=== PATIENT | male | born 1970 | race Hispanic/Latino ===

== ENCOUNTER 2020-12-29 13:14 | Inpatient (IN) | payer SELFPAY ==
[2020-12-29] MEDS ORDERED: SODIUM CHLORIDE 0.9% 1000 ML 1,000 ML IV ONE ×3 (14:12→19:17)
[2020-12-29] MEDS ORDERED: MORPHINE 4 MG/1 ML INJ IV ONE (14:12)
[2020-12-29] MEDS ORDERED: ONDANSETRON 4 MG/2 ML INJ IV ONE (14:12)
--- NOTE | 2020-12-29 14:16 | Emergency Department Report ---
ED Abdominal Pain HPI - General Chief Complaint: Abdominal Pain Stated Complaint: STOMACH PAIN Time Seen by Provider: 12/29/20 13:38 Source: patient Mode of arrival: Wheelchair Limitations: No Limitations - History of Present Illness Initial Comments: 50-year-old male who denies any significant past medical history presents to the ER today with complaints of diffuse abdominal pain and abdominal distention. Patient states that initially he started having pain mainly to the right side of his abdominal area 2 days ago. He states that he took Mylanta which seemed to have helped the pain, but then the pain started back again but this time on the left side. He states that he did rest that day, and it did subside, but he states that since yesterday has been having diffuse abdominal pain which has been severe, he states that his abdomen feels tight and it feels like a pulling pain when he tries to stand up. He has been taking Tylenol as well as Pepto- Bismol without much relief of his pain. Reports diaphoresis but denies any fever or chills. He denies any nausea vomiting. He denies diarrhea. He states that he had a bowel movement today and he has not been feeling constipated. He denies any obvious melena, hematochezia or mucus in his stool. He states that he has been passing lots of gas. He denies any UTI symptoms. He denies any ab dominal surgeries in the past. He denies any alcohol abuse or any illicit drug use. MD Complaint: abdominal pain -: Gradual, days(s) (2) - Related Data Allergies Allergy/AdvReac Type Severity Reaction Status Date / Time No Known Allergies Allergy Verified 12/29/20 13:17 ED Review of Systems ROS: Stated complaint: STOMACH PAIN Other details as noted in HPI Comment: All other systems reviewed and negative Constitutional: denies: chills, fever Eyes: denies: eye pain, eye discharge, vision change ENT: denies: ear pain, throat pain, dental pain, hearing loss, epistaxis, congestion Respiratory: shortness of breath (secondary to pain in abdomen ). denies: cough, wheezing Cardiovascular: denies: chest pain, palpitations, dyspnea on exertion, edema, syncope, paroxysmal nocturnal dyspnea Gastrointestinal: abdominal pain. denies: nausea, vomiting, diarrhea, constipation, hematemesis, melena, hematochezia Genitourinary: denies: urgency, dysuria, frequency, hematuria, discharge, testicular pain, testicular mass Musculoskeletal: denies: back pain, joint swelling, arthralgia Skin: other (diaphoresis). denies: rash, lesions, change in color, change in hair/nails, pruritus Neurological: denies: headache, weakness, numbness, paresthesias, confusion, abnormal gait, vertigo Psychiatric: denies: anxiety, depression, auditory hallucinations, visual hallucinations, homicidal thoughts, suicidal thoughts Hematological/Lymphatic: denies: easy bleeding, easy bruising, swollen glands ED Past Medical Hx - Past Medical History Previous Medical History?: No - Surgical History Past Surgical History?: No ED Physical Exam - General Limitations: No Limitations General appearance: alert, in no apparent distress, obese, other (Patient appears uncomfortable secondary to his pain) - Head Head exam: Present: atraumatic, normocephalic, normal inspection - Eye Eye exam: Present: normal appearance, PERRL, EOMI - Neck Neck exam: Present: normal inspection, full ROM. Absent: meningismus - Respiratory Respiratory exam: Present: normal lung sounds bilaterally. Absent: respiratory distress, wheezes, rales, rhonchi, chest wall tenderness - Cardiovascular Cardiovascular Exam: Present: regular rate, normal rhythm, normal heart sounds - GI/Abdominal GI/Abdominal exam: Present: soft, distended, tenderness (Diffuse abdominal tenderness but more so in the upper abdomen), guarding (upper abdomen ), rigid (Upper abdomen) - Neurological Exam Neurological exam: Present: alert, oriented X3, CN II-XII intact - Psychiatric Psychiatric exam: Present: normal affect, normal mood - Skin Skin exam: Present: other (+diaphoresis ) ED Course Vital Signs 12/29/20 12/29/20 12/29/20 13:19 15:22 15:31 Temperature 98.5 F Pulse Rate 117 H 101 H Respiratory 20 25 H Rate Blood Pressure 155/97 147/88 O2 Sat by Pulse 95 96 99 Oximetry 12/29/20 12/29/20 12/29/20 15:45 16:01 16:15 Temperature Pulse Rate 106 H 101 H 105 H Respiratory 25 H 25 H 23 Rate Blood Pressure 147/88 145/86 145/86 O2 Sat by Pulse 98 99 98 Oximetry ED Medical Decision Making - Lab Data Result diagrams: 12/29/20 15:43 12/29/20 15:43 - EKG Data EKG shows normal: sinus rhythm Rate: tachycardia (117) - EKG Data Interpretation: no acute changes - Radiology Data Radiology results: report reviewed [facility] [address] [place] [address] XRay Report Signed Patient: MARYCHUY DÍAZ MR#: [id number] : 1970 Acct:[id number] Age/Sex: 50 / M ADM Date: 12/29/20 Loc: ED Attending Dr: Ordering Physician: YANET SAGASTUME Date of Service: 12/29/20 Procedure(s): XR chest routine 2V Accession Number(s): [id number] cc: YANET SAGASTUME Fluoro Time In Minutes: CHEST 2 VIEWS INDICATION / CLINICAL INFORMATION: Shortness of breath. COMPARISON: None available. FINDINGS: SUPPORT DEVICES: None. HEART / MEDIASTINUM: No significant abnormality. LUNGS / PLEURA: Bibasilar streaky opacities likely reflect subsegmental atelectasis. ADDITIONAL FINDINGS: No significant additional findings. IMPRESSION: 1. Streaky bibasilar opacities likely indicating subsegmental atelectasis. Signer Name: Dameon Lopez MD Signed: 12/29/2020 3:01 PM Workstation Name: [id number] Transcribed By: PAOLA Dictated By: Dameon Lopez MD Electronically Authenticated By: Dameon Lopez MD Signed Date/Time: 12/29/20 1501 DD/ 1500 TD/TT: Patient: MARYCHUY DÍAZ MR#: [id number] : 1970 Acct:[id number] Age/Sex: 50 / M ADM Date: 12/29/20 Loc: ED Attending Dr: Ordering Physician: YANET SAGASTUME Date of Service: 12/29/20 Procedure(s): CT abdomen pelvis w con Accession Number(s): [id number] cc: YANET SAGASTUME CT ABDOMEN AND PELVIS WITH CONTRAST HISTORY: Severe abd pain/distension. COMPARISON: None. TECHNIQUE: CT images of the abdomen and pelvis were obtained following administration of intravenous contrast. All CT scans at this location are performed using CT dose reduction for ALARA by means of automated exposure control. CONTRAST: 100 ml of intravenous contrast administered. FINDINGS: Lungs/bones: There is mild right basilar atelectasis with otherwise clear lungs. Degenerative changes are present throughout the spine and pelvis with nothing acute. Abdomen/pelvis: There is irregular wall thickening in the mid sigmoid colon consistent with underlying neoplastic process. The cancer appears to have eroded through the wall of the sigmoid colon with small volume free air and free fluid which pools under the right hemidiaphragm. 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 Innumerable metastatic lesions are seen in the liver. The gallbladder, spleen, pancreas, adrenals, and proximal GI tract show no acute or benign. There are simple bilateral renal cysts and a complex cyst versus mass arising from the midpole of the left kidney measuring 3.8 x 3.4 cm on image #116 of series 2. Urinary bladder and prostate are unremarkable with no additional colonic abnormality identified seen except for diverticulosis. IMPRESSION: 1. Mid sigmoid mass suggesting colorectal carcinoma with erosion/bowel perforation as above, adjacent pathologic adenopathy, and innumerable metastatic lesions in the liver. COMMUNICATION: Time of Communication (REVENUE ENFORCEMENT COLLECTION AGENT/CDT): 5:29 pm Licensed Practitioner Receiving Report: Yanet Sagastume Signer Name: Avery Ramires MD Signed: 12/29/2020 6:30 PM Workstation Name: [id number] - Medical Decision Making 1908: All labs reviewed --CBC shows that patient has leukocytosis with a white count of 19.9, is also anemic with a hemoglobin of 9.3 and hematocrit of 30.3; CMP shows a blood sugar of 131, BUN at 27 which related to dehydration, creatinine is normal, and alk phos of 300; lipase is normal; CT abdomen pelvis shows Mid sigmoid mass suggesting colorectal carcinoma with erosion/bowel perforation as above, adjacent pathologic adenopathy, and innumerable metastatic lesions in the liver. Discussed results including CT results with patient and patient denies any known history of colon cancer. He states there is never any issues with his abdomen in the past. He is never had a colonoscopy or endoscopy. Informed patient and given CT findings, he will need to be admitted to the hospital. He is currently resting comfortably. He reports improvement of his pain after IV Dilaudid. He is currently stable. He expressed un derstanding of reason for admission and agrees with plan. Zosyn IV ordered. 1915: Discussed case with general surgeon on-call Dr. Antoine. She recommend admitting to the hospitalist, she states that she will review imaging to see if it something that needs to go to the OR immediately tonight or for something that can wait till in the morning in the meantime recommend continue IV fluids and antibiotics. 1920; discussed case with Dr Sherman, hospitalist on-call for admission Critical care attestation.: If time is entered above; I have spent that time in minutes in the direct care of this critically ill patient, excluding procedure time. ED Disposition Clinical Impression: Bowel perforation, Colorectal carcinoma, Metastases to the liver Disposition: 04 INTERMEDIATE CARE FACILITY Is pt being admited?: Yes Condition: Stable Referrals: PRIMARY CARE, [Primary Care Provider] - 3-5 Days
--- NOTE | 2020-12-29 15:05 | XRay Report ---
CHEST 2 VIEWS INDICATION / CLINICAL INFORMATION: Shortness of breath. COMPARISON: None available. FINDINGS: SUPPORT DEVICES: None. HEART / MEDIASTINUM: No significant abnormality. LUNGS / PLEURA: Bibasilar streaky opacities likely reflect subsegmental atelectasis. ADDITIONAL FINDINGS: No significant additional findings. IMPRESSION: 1. Streaky bibasilar opacities likely indicating subsegmental atelectasis. Signer Name: Dameon Lopez MD Signed: 12/29/2020 3:01 PM Workstation Name: [id number]
[2020-12-29] MEDS ORDERED: HYDROmorphone 1 MG/1 ML INJ IV ONE ×2 (16:18→21:06)
[2020-12-29 16:20] LABS: Hematocrit 30.3 % (35.5-45.6); Hemoglobin 9.3 gm/dl (11.8-15.2); Mean Corpuscular HGB Conc 31 % (32-34); Mean Corpuscular Volume 73 fl (84-94); Platelet Count 315 K/mm3 (140-440); Red Blood Count 4.17 M/mm3 (3.65-5.03); Red Cell Distribution Width 19.3 % (13.2-15.2)
[2020-12-29 16:44] LABS: Alanine Aminotransferase 22 units/L (7-56); Albumin 2.8 g/dL (3.9-5); BUN/Creatinine Ratio 25; Bilirubin,Direct 0.6 mg/dL (0-0.2); Blood Urea Nitrogen 27 mg/dL (9-20); Calcium 9.1 mg/dL (8.4-10.2); Hemolysis Index 2
[2020-12-29] MEDS ORDERED: PIPERACILLIN/TAZOBACTAM 3.375 3.375 GM/50 ML BAG IV ONE (18:33)
--- NOTE | 2020-12-29 18:35 | Cat Scan Report ---
CT ABDOMEN AND PELVIS WITH CONTRAST HISTORY: Severe abd pain/distension. COMPARISON: None. TECHNIQUE: CT images of the abdomen and pelvis were obtained following administration of intravenous contrast. All CT scans at this location are performed using CT dose reduction for ALARA by means of automated exposure control. CONTRAST: 100 ml of intravenous contrast administered. FINDINGS: Lungs/bones: There is mild right basilar atelectasis with otherwise clear lungs. Degenerative change s are present throughout the spine and pelvis with nothing acute. Abdomen/pelvis: There is irregular wall thickening in the mid sigmoid colon consistent with underlyi ng neoplastic process. The cancer appears to have eroded through the wall of the sigmoid colon with s mall volume free air and free fluid which pools under the right hemidiaphragm. 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 Innumerable metastatic lesions are seen in the liver. The gallbladder, spleen, pancreas, adrenals, and proximal GI tract show no acute or benign. There are simple bilateral renal cysts and a complex cyst versus mass arising from the midpole of the left kid kathy measuring 3.8 x 3.4 cm on image #116 of series 2. Urinary bladder and prostate are unremarkable with no additional colonic abnormality identified seen except for diverticulosis. IMPRESSION: 1. Mid sigmoid mass suggesting colorectal carcinoma with erosion/bowel perforation as above, adjacent pathologic adenopathy, and innumerable metastatic lesions in the liver. COMMUNICATION: Time of Communication (COKE DRAWER HAND/CDT): 5:29 pm Licensed Practitioner Receiving Report: Yanet Hutchins Signer Name: Avery Ramires MD Signed: 12/29/2020 6:30 PM Workstation Name: [id number]
[2020-12-29 18:38] LABS: Anisocytosis RARE; Hypochromasia 1+; Total Cells Counted 100
[2020-12-29] MEDS ORDERED: MORPHINE 2 MG/1 ML INJ IV PRN (21:04)
[2020-12-29] MEDS ORDERED: ACETAMINOPHEN 325 MG TAB PO PRN (21:04)
[2020-12-29] MEDS ORDERED: METOCLOPRAMIDE 10 MG/2 ML INJ IV PRN (21:04)
[2020-12-29] MEDS ORDERED: LIDOCAINE MPF (2%) 20 MG/1 ML VIAL 5 ML ONE (21:07)
[2020-12-29] MEDS ORDERED: propofoL 200 MG/20 ML VIAL IV ONE (21:07)
--- NOTE | 2020-12-29 21:08 | Anesthesia Consultation ---
Anesthesia Consult and Med Hx Date of service: 12/29/20 - Airway Anesthetic Teeth Evaluation: Poor (multiple missing, lower right premolar loose) ROM Head & Neck: Adequate Mental/Hyoid Distance: Adequate Mallampati Class: Class III Intubation Access Assessment: Possibly Difficult - Pre-Operative Health Status ASA Pre-Surgery Classification: ASA3, Emergency Proposed Anesthetic Plan: General - Pulmonary Hx Smoking: Yes (former smoker) - Cardiovascular System Hx Hypertension: No - Central Nervous System CVA: No - Endocrine Hx Renal Disease: No Hx Liver Disease: Yes (liver mets likely from colon mass) Hx Insulin Dependent Diabetes: No Hx Non-Insulin Dependent Diabetes: No Hx Thyroid Disease: No - Hematic Hx Anemia: Yes - Other Systems Hx Cancer: Yes (erosive colon mass concerning with cancer w/ metastasis) Hx Obesity: Yes - Additional Comments Anesthesia Medical History Comments: Presented with abdominal pain and found to have sigmoid mass with bowel perforation and liver mets now scheduled for emergent ex-lap w/ bowel resection. Denies previous medical history. Tachycardic, normotensive, labs significant for anemia. Plan GETA. Blood products on stand by.
[2020-12-29] MEDS ORDERED: SUCCINYLCHOLINE CHLORIDE 200 MG/10 ML INJ MDV ONE (21:09)
[2020-12-29] MEDS ORDERED: ROCURONIUM 50 MG/5 ML INJ IV ONE ×2 (21:09→23:33)
--- NOTE | 2020-12-29 21:09 | Anesthesia Day of Surgery ---
Anesthesia Day of Surgery - Day of Surgery Patient Examined: Yes Patient H&P Reviewed: Yes Patient is NPO: Yes
--- NOTE | 2020-12-29 21:15 | Consultation ---
History of Present Illness Consult date: 12/29/20 Reason for consult: abdominal pain Chief complaint: abdominal pain - History of present illness History of present illness: 50 yo obese male who presents to ER with 2 days of worsening abdominal pain. Mendel n is sharp and started off in the right side of the abdomen and then became diffuse. The pain is now severe. Moving exacerbates the pain. No alleviating factors. He felt he may have had some bad turkey that started the symptoms. Intermittent nausea and vomiting. He states his BMs have been black for the last few days and he feels the caliber of his stool has changed. He has never had a colonoscopy. No f/c. No cp. + SOB 2/2/ abdominal pain. He has never had pain like this before. Past History Past Medical History: No medical history Past Surgical History: Other (b/l knee surgery) Social history: no significant social history, lives with family Family history: no significant family history Medications and Allergies Allergies Allergy/AdvReac Type Severity Reaction Status Date / Time No Known Allergies Allergy Verified 12/29/20 13:17 Active Meds: Active Medications Acetaminophen (Acetaminophen 325 Mg Tab) 650 mg PO Q4H PRN PRN Reason: Pain MILD(1-3)/Fever >100.5/SHARMA Hydromorphone HCl (Hydromorphone 1 Mg/1 Ml Inj) 1 mg IV ONCE ONE Stop: 12/29/20 21:07 Hydromorphone HCl (Hydromorphone 1 Mg/1 Ml Inj) 1 mg IV Q3H PRN PRN Reason: Pain , Severe (7-10) Sodium Chloride (Nacl 0.9% 1000 Ml) 1,000 mls @ 125 mls/hr IV ONCE ONE Stop: 12/30/20 03:16 Last Admin: 12/29/20 20:18 Dose: 125 mls/hr Documented by: Dextrose/Sodium Chloride (D5ns) 1,000 mls @ 100 mls/hr IV DIRECT JESSICA Metoclopramide HCl (Metoclopramide 10 Mg/2 Ml Inj) 10 mg IV Q6H PRN PRN Reason: Nausea And Vomiting Morphine Sulfate (Morphine 2 Mg/1 Ml Inj) 2 mg IV Q4H PRN PRN Reason: Pain, Moderate (4-6) Ondansetron HCl (Ondansetron 4 Mg/2 Ml Inj) 4 mg IV Q3H PRN PRN Reason: Nausea And Vomiting Sodium Chloride (Sodium Chloride 0.9% 10 Ml Flush Syringe) 10 ml IV BID JESSICA Sodium Chloride (Sodium Chloride 0.9% 10 Ml Flush Syringe) 10 ml IV PRN PRN PRN Reason: LINE FLUSH Review of Systems All systems: negative (10 pt ROS performed and negative except for that listed in HPI) Exam Vital Signs Temp Pulse Resp BP Pulse Ox 98.5 F 117 H 20 155/97 95 12/29/20 13:19 12/29/20 13:19 12/29/20 13:19 12/29/20 13:19 12/29/20 13:19 Narrative exam: Gen; AAOx3. moderate distress due to pain, diaphoretic ENT: no scleral icterus or conjunctival pallor CV: s1, S2+ Tachy Resp: even and slightly labored (due to pain) Abd: soft, obese, mildly distended, diffuse TTP with rigidity in upper abdomen and involuntary guarding Ext: no c/c/e Results - Labs 12/29/20 15:43 12/29/20 15:43 Abnormal lab results 12/29/20 12/29/20 12/29/20 Range/Units 15:43 15:43 20:38 WBC 19.9 H (4.5-11.0) K/mm3 Hgb 9.3 L (11.8-15.2) gm/dl Hct 30.3 L (35.5-45.6) % MCV 73 L (84-94) fl MCH 22 L (28-32) pg MCHC 31 L (32-34) % RDW 19.3 H (13.2-15.2) % Seg Neuts % (Manual) 85.0 H (40.0-70.0) % Lymphocytes % (Manual) 8.0 L (13.4-35.0) % Seg Neutrophils # Man 16.9 H (1.8-7.7) K/mm3 Monocytes # (Manual) 1.4 H (0.0-0.8) K/mm3 BUN 27 H (9-20) mg/dL Glucose 131 H (75-100) mg/dL Direct Bilirubin 0.6 H (0-0.2) mg/dL Alkaline Phosphatase 305 H (35-129) units/L Albumin 2.8 L (3.9-5) g/dL Lipase 7 L (13-60) units/L Crossmatch See Detail Diabetes panel 12/29/20 Range/Units 15:43 Sodium 137 (137-145) mmol/L Potassium 4.8 (3.6-5.0) mmol/L Chloride 100.7 (98-107) mmol/L Carbon Dioxide 25 (22-30) mmol/L BUN 27 H (9-20) mg/dL Creatinine 1.1 (0.8-1.3) mg/dL Glucose 131 H (75-100) mg/dL Calcium 9.1 (8.4-10.2) mg/dL AST 33 (5-40) units/L ALT 22 (7-56) units/L Alkaline Phosphatase 305 H (35-129) units/L Total Protein 6.7 (6.3-8.2) g/dL Albumin 2.8 L (3.9-5) g/dL Calcium panel 12/29/20 Range/Units 15:43 Calcium 9.1 (8.4-10.2) mg/dL Albumin 2.8 L (3.9-5) g/dL Pituitary panel 12/29/20 Range/Units 15:43 Sodium 137 (137-145) mmol/L Potassium 4.8 (3.6-5.0) mmol/L Chloride 100.7 (98-107) mmol/L Carbon Dioxide 25 (22-30) mmol/L BUN 27 H (9-20) mg/dL Creatinine 1.1 (0.8-1.3) mg/dL Glucose 131 H (75-100) mg/dL Calcium 9.1 (8.4-10.2) mg/dL Adrenal panel 12/29/20 Range/Units 15:43 Sodium 137 (137-145) mmol/L Potassium 4.8 (3.6-5.0) mmol/L Chloride 100.7 (98-107) mmol/L Carbon Dioxide 25 (22-30) mmol/L BUN 27 H (9-20) mg/dL Creatinine 1.1 (0.8-1.3) mg/dL Glucose 131 H (75-100) mg/dL Calcium 9.1 (8.4-10.2) mg/dL Total Bilirubin 1.00 (0.1-1.2) mg/dL AST 33 (5-40) units/L ALT 22 (7-56) units/L Alkaline Phosphatase 305 H (35-129) units/L Total Protein 6.7 (6.3-8.2) g/dL Albumin 2.8 L (3.9-5) g/dL - Imaging Chest x-ray: report reviewed, image reviewed CT scan - abdomen: report reviewed, image reviewed CT scan - pelvis: report reviewed, image reviewed Assessment and Plan 50 yo M with 1. perforated sigmoid mass, likely neoplasm 2. peritonitis 2/2 #1 3. sepsis 2/2 #1/2 4. liver masses likely mets 5. obesity Plan: 1. Admit to hospitalist service 2. IVF 3. IV abx - given zosyn in ER 4. strict NPO 5. DVT ppx 6. GI ppx 7. prn pain and nausea control 8. onc c/s 9. type and screen performed - blood consent obtained 10. repeat am labs 11. CEA obtained 12. Recommend OR for exlap, bowel resection, ostomy creation. Discussed with patient in detail. Risks, benefits, alternatives discussed and questions answered. Consent obtained. Patient spoke with his already and has given permission to update her after surgery. Will proceed to OR emergently. Thank you, please call with questions.
[2020-12-29] MEDS ORDERED: LACTATED RINGERS 1,000 ML ONE ×2 (21:49→23:42)
--- NOTE | 2020-12-29 22:31 | History and Physical Report ---
History of Present Illness Date of examination: 12/29/20 Date of admission: 12/29/2020 Chief complaint: Diffuse abdominal pain for 2 days History of present illness: 50-year-old male with no significant past medical history comes in for close abdominal pain and abdominal. Pain started about 2 days ago. Patient took some Mylanta with no relief. Pain and abdominal distention became worse over the last 48 hours. Since yesterday the pain has been diffuse over the abdomen and abdomen feels tight. Pain is about 8 on a scale of 1-10. No diaphoresis no radiation. Patient states he had a bowel movement today and also that he does not feel constipated. He has been passing a lot of gas. Past History Past Medical History: No medical history Past Surgical History: Other (b/l knee surgery) Social history: no significant social history, lives with family Family history: no significant family history Review of Systems ROS: Stated complaint: STOMACH PAIN Other details as noted in HPI Comment: All other systems reviewed and negative Constitutional: denies: chills, fever Eyes: denies: eye pain, eye discharge, vision change ENT: denies: ear pain, throat pain, dental pain, hearing loss, epistaxis, congestion Respiratory: shortness of breath (secondary to pain in abdomen ). denies: cough, wheezing Cardiovascular: denies: chest pain, palpitations, dyspnea on exertion, edema, syncope, paroxysmal nocturnal dyspnea Gastrointestinal: abdominal pain. denies: nausea, vomiting, diarrhea, constipation, hematemesis, melena, hematochezia Genitourinary: denies: urgency, dysuria, frequency, hematuria, discharge, testicular pain, testicular mass Musculoskeletal: denies: back pain, joint swelling, arthralgia Skin: other (diaphoresis). denies: rash, lesions, change in color, change in hair/nails, pruritus Neurological: denies: headache, weakness, numbness, paresthesias, confusion, abnormal gait, vertigo Psychiatric: denies: anxiety, depression, auditory hallucinations, visual hallucinations, homicidal thoughts, suicidal thoughts Hematological/Lymphatic: denies: easy bleeding, easy bruising, swollen glands Past History Past Medical History: No medical history Past Surgical History: Other (b/l knee surgery) Social history: no significant social history, lives with family Family history: no significant family history Medications and Allergies Allergies Allergy/AdvReac Type Severity Reaction Status Date / Time No Known Allergies Allergy Verified 12/29/20 13:17 Active Meds: Active Medications Acetaminophen (Acetaminophen 325 Mg Tab) 650 mg PO Q4H PRN PRN Reason: Pain MILD(1-3)/Fever >100.5/SHARMA Hydromorphone HCl (Hydromorphone 1 Mg/1 Ml Inj) 1 mg IV Q3H PRN PRN Reason: Pain , Severe (7-10) Sodium Chloride (Nacl 0.9% 1000 Ml) 1,000 mls @ 125 mls/hr IV ONCE ONE Stop: 12/30/20 03:16 Last Admin: 12/29/20 20:18 Dose: 125 mls/hr Documented by: Dextrose/Sodium Chloride (D5ns) 1,000 mls @ 100 mls/hr IV DIRECT JESSICA Piperacillin Sod/Tazobactam Sod (Zosyn/Ns 4.5gm/100ml) 4.5 gm in 100 mls @ 200 mls/hr IV Q8HR JESSICA; Protocol Metoclopramide HCl (Metoclopramide 10 Mg/2 Ml Inj) 10 mg IV Q6H PRN PRN Reason: Nausea And Vomiting Morphine Sulfate (Morphine 2 Mg/1 Ml Inj) 2 mg IV Q4H PRN PRN Reason: Pain, Moderate (4-6) Ondansetron HCl (Ondansetron 4 Mg/2 Ml Inj) 4 mg IV Q3H PRN PRN Reason: Nausea And Vomiting Sodium Chloride (Sodium Chloride 0.9% 10 Ml Flush Syringe) 10 ml IV BID JESSICA Sodium Chloride (Sodium Chloride 0.9% 10 Ml Flush Syringe) 10 ml IV PRN PRN PRN Reason: LINE FLUSH Exam - Constitutional Vitals: Temp Pulse Resp BP Pulse Ox 98.5 F 105 H 23 145/86 98 12/29/20 13:19 12/29/20 16:15 12/29/20 16:15 12/29/20 16:15 12/29/20 16:15 General appearance: Present: severe distress, well-nourished - EENT Eyes: Present: PERRL ENT: hearing intact, clear oral mucosa - Neck Neck: Present: supple, normal ROM - Respiratory Respiratory effort: normal Respiratory: bilateral: CTA - Cardiovascular Heart rate: 98 Rhythm: regular Heart Sounds: Present: S1 & S2. Absent: rub, click - Extremities Extremities: pulses symmetrical, No edema Peripheral Pulses: within normal limits - Abdominal General gastrointestinal: Present: tender, distended, normal bowel sounds, hypoactive bowel sounds Localized gastrointestinal: tender: diffuse, guarding: diffuse, rebound: diffuse Male genitourinary: Present: normal - Rectal Rectal Exam: stool brown (Occult blood negative) - Integumentary Integumentary: Present: clear, warm, dry - Musculoskeletal Musculoskeletal: gait normal, strength equal bilaterally - Psychiatric Psychiatric: appropriate mood/affect, intact judgment & insight - Neurologic Neurologic: CNII-XII intact, moves all extremities Results - Labs CBC & Chem 7: 12/29/20 15:43 12/29/20 15:43 Labs: Laboratory Last Values WBC 19.9 K/mm3 (4.5-11.0) H 12/29/20 15:43 RBC 4.17 M/mm3 (3.65-5.03) 12/29/20 15:43 Hgb 9.3 gm/dl (11.8-15.2) L 12/29/20 15:43 Hct 30.3 % (35.5-45.6) L 12/29/20 15:43 MCV 73 fl (84-94) L 12/29/20 15:43 MCH 22 pg (28-32) L 12/29/20 15:43 MCHC 31 % (32-34) L 12/29/20 15:43 RDW 19.3 % (13.2-15.2) H 12/29/20 15:43 Plt Count 315 K/mm3 (140-440) 12/29/20 15:43 Add Manual Diff Complete 12/29/20 15:43 Total Counted 100 12/29/20 15:43 Seg Neutrophils % Intelligence Agent 12/29/20 15:43 Seg Neuts % (Manual) 85.0 % (40.0-70.0) H 12/29/20 15:43 Lymphocytes % (Manual) 8.0 % (13.4-35.0) L 12/29/20 15:43 Monocytes % (Manual) 7.0 % (0.0-7.3) 12/29/20 15:43 Nucleated RBC % Not Reportable 12/29/20 15:43 Seg Neutrophils # Man 16.9 K/mm3 (1.8-7.7) H 12/29/20 15:43 Band Neutrophils # 0.0 K/mm3 12/29/20 15:43 Lymphocytes # (Manual) 1.6 K/mm3 (1.2-5.4) 12/29/20 15:43 Abs React Lymphs (Man) 0.0 K/mm3 12/29/20 15:43 Monocytes # (Manual) 1.4 K/mm3 (0.0-0.8) H 12/29/20 15:43 Eosinophils # (Manual) 0.0 K/mm3 (0.0-0.4) 12/29/20 15:43 Basophils # (Manual) 0.0 K/mm3 (0.0-0.1) 12/29/20 15:43 Metamyelocytes # 0.0 K/mm3 12/29/20 15:43 Myelocytes # 0.0 K/mm3 12/29/20 15:43 Promyelocytes # 0.0 K/mm3 12/29/20 15:43 Blast Cells # 0.0 K/mm3 12/29/20 15:43 WBC Morphology Not Reportable 12/29/20 15:43 Hypersegmented Neuts Not Reportable 12/29/20 15:43 Hyposegmented Neuts Not Reportable 12/29/20 15:43 Hypogranular Neuts Not Reportable 12/29/20 15:43 Smudge Cells Not Reportable 12/29/20 15:43 Toxic Granulation Not Reportable 12/29/20 15:43 Toxic Vacuolation Not Reportable 12/29/20 15:43 Dohle Bodies Not Reportable 12/29/20 15:43 Pelger-Huet Anomaly Not Reportable 12/29/20 15:43 Janene Rods Not Reportable 12/29/20 15:43 Platelet Estimate Not Reportable 12/29/20 15:43 Clumped Platelets Not Reportable 12/29/20 15:43 Plt Clumps, EDTA Not Reportable 12/29/20 15:43 Large Platelets Not Reportable 12/29/20 15:43 Giant Platelets Not Reportable 12/29/20 15:43 Platelet Satelliting Not Reportable 12/29/20 15:43 Plt Morphology Comment Not Reportable 12/29/20 15:43 RBC Morphology Not Reportable 12/29/20 15:43 Dimorphic RBCs Not Reportable 12/29/20 15:43 Polychromasia Not Reportable 12/29/20 15:43 Hypochromasia 1+ 12/29/20 15:43 Poikilocytosis Not Reportable 12/29/20 15:43 Anisocytosis Rare 12/29/20 15:43 Microcytosis Rare 12/29/20 15:43 Macrocytosis Not Reportable 12/29/20 15:43 Spherocytes Not Reportable 12/29/20 15:43 Pappenheimer Bodies Not Reportable 12/29/20 15:43 Sickle Cells Not Reportable 12/29/20 15:43 Target Cells Not Reportable 12/29/20 15:43 Tear Drop Cells Not Reportable 12/29/20 15:43 Ovalocytes Not Reportable 12/29/20 15:43 Helmet Cells Not Reportable 12/29/20 15:43 [place] Bodies Not Reportable 12/29/20 15:43 [place] Rings Not Reportable 12/29/20 15:43 [place] Cells Not Reportable 12/29/20 15:43 Bite Cells Not Reportable 12/29/20 15:43 Crenated Cell Not Reportable 12/29/20 15:43 Elliptocytes Not Reportable 12/29/20 15:43 Acanthocytes (Spur) Not Reportable 12/29/20 15:43 Rouleaux Not Reportable 12/29/20 15:43 Hemoglobin C Crystals Not Reportable 12/29/20 15:43 Schistocytes Not Reportable 12/29/20 15:43 Malaria parasites Not Reportable 12/29/20 15:43 Atul Bodies Not Reportable 12/29/20 15:43 Hem Pathologist Commnt No 12/29/20 15:43 Sodium 137 mmol/L (137-145) 12/29/20 15:43 Potassium 4.8 mmol/L (3.6-5.0) 12/29/20 15:43 Chloride 100.7 mmol/L (98-107) 12/29/20 15:43 Carbon Dioxide 25 mmol/L (22-30) 12/29/20 15:43 Anion Gap 16 mmol/L 12/29/20 15:43 BUN 27 mg/dL (9-20) H 12/29/20 15:43 Creatinine 1.1 mg/dL (0.8-1.3) 12/29/20 15:43 Estimated GFR > 60 ml/min 12/29/20 15:43 BUN/Creatinine Ratio 25 % 12/29/20 15:43 Glucose 131 mg/dL (75-100) H 12/29/20 15:43 Calcium 9.1 mg/dL (8.4-10.2) 12/29/20 15:43 Total Bilirubin 1.00 mg/dL (0.1-1.2) 12/29/20 15:43 Direct Bilirubin 0.6 mg/dL (0-0.2) H 12/29/20 15:43 Indirect Bilirubin 0.4 mg/dL 12/29/20 15:43 AST 33 units/L (5-40) 12/29/20 15:43 ALT 22 units/L (7-56) 12/29/20 15:43 Alkaline Phosphatase 305 units/L (35-129) H 12/29/20 15:43 Total Protein 6.7 g/dL (6.3-8.2) 12/29/20 15:43 Albumin 2.8 g/dL (3.9-5) L 12/29/20 15:43 Albumin/Globulin Ratio 0.7 % 12/29/20 15:43 Lipase 7 units/L (13-60) L 12/29/20 15:43 Blood Type A POSITIVE 12/29/20 20:38 Antibody Screen Negative 12/29/20 20:38 Crossmatch See Detail 12/29/20 20:38 Microbiology: Microbiology 12/29/20 19:37 Peripheral/Venous Blood Culture - Preliminary Culture in Progress 12/29/20 19:37 Peripheral/Venous Blood Culture - Preliminary Culture in Progress - Imaging and Cardiology CT scan - abdomen: report reviewed Imaging and Cardiology: Abdominal CAT scan Mid sigmoid mass suggesting colorectal carcinoma with erosion/bowel perforation as above adjacent pathologic adenopathy and innumerable metastatic lesions in the liver Assessment and Plan Advance Directives: Yes (Full code) VTE prophylaxis?: Chemical Plan of care discussed with patient/family: Yes - Patient Problems (1) Sepsis Current Visit: Yes Status: Acute Plan to address problem: Sepsis in the setting of high white count and bowel perforation -- Patient initiated on IV Zosyn (2) Bowel perforation Current Visit: Yes Status: Acute Plan to address problem: Patient being taken for emergent surgery and closure of perforation Discussed with Dr. Antoine (3) Colorectal carcinoma Current Visit: Yes Status: Acute Plan to address problem: Patient never had colonoscopy 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 Referred to hematology oncology as outpatient--probably Dr. Aburto (4) Metastases to the liver Current Visit: Yes Status: Acute Plan to address problem: Poor prognosis Referral to oncology as outpatient for chemotherapy/XRT (5) Malnutrition Current Visit: Yes Status: Chronic Qualifiers: Protein-calorie malnutrition severity: moderate Plan to address problem: Dietary supplements and dietitian consult (6) Anemia Current Visit: Yes Status: Chronic Qualifiers: Anemia type: unspecified type Qualified Code(s): D64.9 - Anemia, unspecified Plan to address problem: Anemia work-up (7) DVT prophylaxis Current Visit: Yes Status: Acute Plan to address problem: On SCDs and GI prophylaxis
[2020-12-29] MEDS ORDERED: ONDANSETRON 4 MG/2 ML INJ IV PRN (22:34)
[2020-12-29] MEDS ORDERED: SODIUM CHLORIDE 0.9% IRR 1,500 ML BOTTLE IR ONE ×2 (22:59)
[2020-12-29] MEDS ORDERED: SODIUM CHLORIDE 0.9% 1000 ML 1,000 ML ONE (23:10)
[2020-12-30] MEDS ORDERED: LACTATED RINGERS 1,000 ML ONE (00:34)
[2020-12-30] MEDS ORDERED: GLYCOPYRROLATE 0.4 MG/2 ML INJ ONE (01:30)
[2020-12-30] MEDS ORDERED: NEOSTIGMINE 10MG/10 ML INJ MDV ONE (01:30)
[2020-12-30] MEDS ORDERED: SODIUM CHLORIDE 0.9% 1000 ML 1,000 ML ONE (01:33)
[2020-12-30] MEDS ORDERED: ONDANSETRON 4 MG/2 ML INJ ONE (01:39)
--- NOTE | 2020-12-30 01:42 | Post Operative Note ---
Date of procedure: 12/30/20 Pre-op diagnosis: perforated sigmoid colon mass, peritonitis Post-op diagnosis: same Findings: 1. 8 cm perforated sigmoid colon mass 2. Bulky mesenteric lymphadenopathy associated with mass which could not be from retroperitoneum 3. Gross mets to entirety of liver 4. Purulent peritonitis IVF: 4500cc UO: 125cc Procedure: exploratory laparotomy, sigmoidectomy, end colostomy, peritoneal lavage Anesthesia: GETA Surgeon: DEVORA DUMONT Key Entry Operator: MANASA BARCLAY Estimated blood loss: 50-100ml Pathology: list (sigmoid colon, wound cultures) Specimen disposition: to lab Condition: stable Disposition: PACU
[2020-12-30] MEDS ORDERED: MORPHINE 2 MG/1 ML INJ IV PRN (01:46)
[2020-12-30] MEDS ORDERED: SUGAMMADEX SODIUM 200 MG/2 ML VIAL IV ONE (02:16)
[2020-12-30] MEDS: HYDROmorphone 1 MG/1 ML INJ IV PRN ×3 (02:24→23:44)
[2020-12-30] MEDS: D5W/0.9% NACL 1,000 ML IV SCH ×2 (03:47→21:37)
[2020-12-30] MEDS: PIPERACIL/TAZOBACTA 4.5/NS 100 4.5 GM/100 ML VIAL IV SCH ×4 (05:40→21:37)
[2020-12-30 05:57] LABS: Hematocrit 32.4 % (35.5-45.6); Mean Corpuscular HGB Conc 31 % (32-34); Mean Corpuscular Volume 74 fl (84-94); Platelet Count 345 K/mm3 (140-440); Red Blood Count 4.39 M/mm3 (3.65-5.03); Red Cell Distribution Width 19.8 % (13.2-15.2)
[2020-12-30] MEDS ORDERED: KETOROLAC 30 MG/1 ML INJ IV SCH (06:00)
[2020-12-30 06:22] LABS: Albumin 2.6 g/dL (3.9-5); Calcium 8.6 mg/dL (8.4-10.2)
[2020-12-30] MEDS: HEPARIN 5,000 UNIT/1 ML VIAL SUB-Q SCH ×3 (06:38→21:37)
--- NOTE | 2020-12-30 10:14 | Operative Report ---
Operative Report Operative Report: Date: 12/30/20 01:39 Date of procedure: 12/30/20 Pre-op diagnosis: perforated sigmoid colon mass, peritonitis Post-op diagnosis: same Findings: 1. 8 cm perforated sigmoid colon mass 2. Bulky mesenteric lymphadenopathy associated with mass which could not be from retroperitoneum 3. Gross mets to entirety of liver 4. Purulent peritonitis IVF: 4500cc UO: 125cc Procedure: exploratory laparotomy, sigmoidectomy, end colostomy, peritoneal lavage Anesthesia: GETA Surgeon: DEVORA DUMONT [employer] Attorney: MANASA BARCLAY Estimated blood loss: 50-100ml Pathology: list (sigmoid colon, peritoneal fluid cultures) Specimen disposition: to lab Condition: stable Disposition: PACU HPI indication: Patient is a 59-year-old male with a history of obesity who presented to the emergency room with 2 days of worsening, severe, diffuse abdominal pain. Patient found to have sigmoid mass with likely perforation and free intraperitoneal fluid. On exam, patient was peritoneal and tachycardic on exam with leukocytosis. It was recommended that the patient undergo emergency exploratory laparotomy with likely colon resection and colostomy creation. All risks, benefits, alternatives to surgery were discussed and questions answered. Consent obtained. Patient was given IV fluids and Zosyn in the emergency room. Procedure in detail: Patient identified in the ER and brought back to the OR and placed on the OR table in supine position. After anesthesia was induced a Santiago catheter was sterilely placed by the circulating nurse. The abdomen was then prepped and draped in usual sterile fashion and a timeout performed. A midline incision was made using a 10 blade and carried around the right side of the umbilicus and towards the pubis. Dissection was carried down through the subcutaneous tissues electrocautery until the fascia was encountered. The fascia was scored and then grasped using hemostats and tented upwards. The peritoneum was entered bluntly. The fascia was then opened in a cephalad and caudad direction over 2 gloved fingers using electrocautery. Immediately visible was purulent drainage from inside the abdomen mixed with enteric fluid. Peritoneal fluid cultures were obtained. >1L of fluid was aspirated from the abdomen. The omentum was retracted over the liver. It appeared inflamed but without gross disease. The small bowel was ran proximal to distal. The distal small bowel was involved with inflammatory adhesions and appeared decompressed with proximal small bowel mildly dilated and fluid filled. Due to patient's body habitus, visualization was challenging. The small bowel was retracted using wet lap pads and jamaal retractor. The sigmoid colon was palpated and extended into the right lower quadrant. It was very firm and inflammatory adhesions were bluntly dissected. Upon further inspection a malignant appearing mass was identified and had perforated into the abdominal wall. The mass was from the abdominal wall using a right angle clamp and cautery. The mesentery associated with the mass was shortened, thickened, and contained a mass of enlarged lymph nodes which was densely adhered to the retroperitoneum. The lateral aspect of the proximal sigmoid colon was dissected along the white line of toldt in the usual fashion. It was decided to transect the colon proximally. Approximately 10cm proximal to the mass a window was created in the mesentery and the colon transected using a YOANNA 75 mm blue load stapler. The mesentery was ligated using the enseal and carried down past the mass and towards the rectum. The distal sigmoid was cleared of fatty tissue and the colon was transected at the rectosigmoid junction using a blue load contour stapler. The colon was passed of the table as a specimen. The mass of lymph nodes could not be from the retroperitoneum and was left in situ. The proximal sigmoid colon was further mobilized in order to bring up a colostomy. The remainder of the colon was examined and appeared unremarkable. The liver was examined and was abnormal with was appeared to be consistent with metastatic disease. At this point a thorough peritoneal lavage was performed with >3 L of warm saline until the irrigant returned clear. The surgical bed was checked for hemostasis which was carefully ensured. A site for the colostomy was marked in the left mid abdomen. A circular incision was made in the skin and carried down through the subcutaneous tissue. The cutaneous tissue was cored out and transected at the level of the fascia. A cruciate incision was made in the fascia until muscle was encountered. The muscle spread in the direction of its fibers and the peritoneum was opened using electrocautery over 2 gloved fingers. 3 fingers fit comfortably through the opening and the colostomy was brought through. There was no twisting or tension. A 19 F adrian drain was brought out through a stab incision in the right mid abdomen and positioned in the pelvis. This was sutured to the skin using a 2-0 nylon drain stitch and assembled in the usual fashion. The small bowel and omentum were placed back in anatomic position. The fascia was then closed using #1 looped PDS x2 without tension. The subcutaneous tissue was irrigated and hemostasis ensured. The skin was approximated using skin davi. The incision was packed in between the davi using Betadine soaked Telfa jerri. The incision was covered with a blue towel and we proceeded to mature the ostomy. The distal part of the colon along with the staple line was removed using curved Thornton scissors. The ostomy appeared pink and mucosa viable. The ostomy was first anchored to the fascia using 2-0 vicryl stitches and then matured in the usual fashion with 2-0 vicryl interrupted stitches. The ostomy laid just above the skin without tension or retraction. The skin was cleansed and mastisol applied. An ostomy appliance was fitted to the site and applied. A drain sponge was applied to the drain site and secured with tegaderm. 4x4 gauze, abd pads was applied to the midline and secured with medipore tape. At the end of the case, all sponge, instrument, sharp counts were correct x2. The patient was awoken from anesthesia extubated and taken to PACU in stable condition. The patient's was updated
--- NOTE | 2020-12-30 10:35 | Electrocardiograph Report ---
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
--- NOTE | 2020-12-30 10:58 | Progress Note ---
Assessment and Plan Assessment and plan: 50-year-old male patient with perforated sigmoid mass likely neoplasm, status post exploratory laparotomy,, sigmoidectomy, end colostomy,, peritoneal lavage. Postoperative day 1 --perforated sigmoid mass --s/p exploratory laparotomy/sigmoidectomy/colostomy/peritoneal lavage Complains of some pain, wants some ice chips Continue n.p.o. 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 Aburto --Metastases to the liver Current Visit: Yes Status: Acute Poor prognosis Referral to oncology as outpatient for chemotherapy/XRT --Severe malnutrition/hypoproteinemia Current Visit: Yes Status: Chronic Dietary supplements and dietitian consult --Anemia Current Visit: Yes Status: Chronic Anemia work-up --obesity; BMI 38.7 Current Visit: Yes Status: Chronic Patient needs weight reduction when medically stable --DVT prophylaxis Current Visit: Yes Status: Acute On SCDs , patient postop state Closely monitor the patient and adjust management as needed Consultants recommendations noted and appreciated Plan of care reviewed with the patient and his nurse 12/30/2020; status post surgical procedure POD 1 Continue postop care, surgery following History Interval history: I have seen and examined the patient at the bedside Patient's chart and medications reviewed Patient feels slightly better, some pain in the abdomen Asking for some ice chips Vital signs noted Hospitalist Physical - Constitutional Vitals: Temp Pulse Resp BP Pulse Ox 97.8 F 118 H 18 136/88 95 12/30/20 08:01 12/30/20 08:01 12/30/20 08:01 12/30/20 08:01 12/30/20 08:01 General appearance: Present: mild distress, well-nourished, obese - Neck Neck: Present: supple, normal ROM - Respiratory Respiratory effort: normal Respiratory: bilateral: diminished, negative: rales, rhonchi, wheezing - Cardiovascular Rhythm: regular Heart Sounds: Present: S1 & S2 - Extremities Extremities: no ischemia, No edema - Abdominal General gastrointestinal: soft Results - Labs CBC & Chem 7: 12/30/20 05:13 12/30/20 05:13 Labs: Laboratory Last Values WBC 22.4 K/mm3 (4.5-11.0) H 12/30/20 05:13 RBC 4.39 M/mm3 (3.65-5.03) 12/30/20 05:13 Hgb 10.0 gm/dl (11.8-15.2) L 12/30/20 05:13 Hct 32.4 % (35.5-45.6) L 12/30/20 05:13 MCV 74 fl (84-94) L 12/30/20 05:13 MCH 23 pg (28-32) L 12/30/20 05:13 MCHC 31 % (32-34) L 12/30/20 05:13 RDW 19.8 % (13.2-15.2) H 12/30/20 05:13 Plt Count 345 K/mm3 (140-440) 12/30/20 05:13 Add Manual Diff Complete 12/29/20 15:43 Total Counted 100 12/29/20 15:43 Seg Neutrophils % Parent Aide 12/30/20 05:13 Seg Neuts % (Manual) 85.0 % (40.0-70.0) H 12/29/20 15:43 Lymphocytes % (Manual) 8.0 % (13.4-35.0) L 12/29/20 15:43 Monocytes % (Manual) 7.0 % (0.0-7.3) 12/29/20 15:43 Nucleated RBC % Not Reportable 12/29/20 15:43 Seg Neutrophils # Man 16.9 K/mm3 (1.8-7.7) H 12/29/20 15:43 Band Neutrophils # 0.0 K/mm3 12/29/20 15:43 Lymphocytes # (Manual) 1.6 K/mm3 (1.2-5.4) 12/29/20 15:43 Abs React Lymphs (Man) 0.0 K/mm3 12/29/20 15:43 Monocytes # (Manual) 1.4 K/mm3 (0.0-0.8) H 12/29/20 15:43 Eosinophils # (Manual) 0.0 K/mm3 (0.0-0.4) 12/29/20 15:43 Basophils # (Manual) 0.0 K/mm3 (0.0-0.1) 12/29/20 15:43 Metamyelocytes # 0.0 K/mm3 12/29/20 15:43 Myelocytes # 0.0 K/mm3 12/29/20 15:43 Promyelocytes # 0.0 K/mm3 12/29/20 15:43 Blast Cells # 0.0 K/mm3 12/29/20 15:43 WBC Morphology Not Reportable 12/29/20 15:43 Hypersegmented Neuts Not Reportable 12/29/20 15:43 Hyposegmented Neuts Not Reportable 12/29/20 15:43 Hypogranular Neuts Not Reportable 12/29/20 15:43 Smudge Cells Not Reportable 12/29/20 15:43 Toxic Granulation Not Reportable 12/29/20 15:43 Toxic Vacuolation Not Reportable 12/29/20 15:43 Dohle Bodies Not Reportable 12/29/20 15:43 Pelger-Huet Anomaly Not Reportable 12/29/20 15:43 Janene Rods Not Reportable 12/29/20 15:43 Platelet Estimate Not Reportable 12/29/20 15:43 Clumped Platelets Not Reportable 12/29/20 15:43 Plt Clumps, EDTA Not Reportable 12/29/20 15:43 Large Platelets Not Reportable 12/29/20 15:43 Giant Platelets Not Reportable 12/29/20 15:43 Platelet Satelliting Not Reportable 12/29/20 15:43 Plt Morphology Comment Not Reportable 12/29/20 15:43 RBC Morphology Not Reportable 12/29/20 15:43 Dimorphic RBCs Not Reportable 12/29/20 15:43 Polychromasia Not Reportable 12/29/20 15:43 Hypochromasia 1+ 12/29/20 15:43 Poikilocytosis Not Reportable 12/29/20 15:43 Anisocytosis Rare 12/29/20 15:43 Microcytosis Rare 12/29/20 15:43 Macrocytosis Not Reportable 12/29/20 15:43 Spherocytes Not Reportable 12/29/20 15:43 Pappenheimer Bodies Not Reportable 12/29/20 15:43 Sickle Cells Not Reportable 12/29/20 15:43 Target Cells Not Reportable 12/29/20 15:43 Tear Drop Cells Not Reportable 12/29/20 15:43 Ovalocytes Not Reportable 12/29/20 15:43 Helmet Cells Not Reportable 12/29/20 15:43 [place]qu[place] Bodies Not Reportable 12/29/20 15:43 [place] Rings Not Reportable 12/29/20 15:43 [place] Cells Not Reportable 12/29/20 15:43 Bite Cells Not Reportable 12/29/20 15:43 Crenated Cell Not Reportable 12/29/20 15:43 Elliptocytes Not Reportable 12/29/20 15:43 Acanthocytes (Spur) Not Reportable 12/29/20 15:43 Rouleaux Not Reportable 12/29/20 15:43 Hemoglobin C Crystals Not Reportable 12/29/20 15:43 Schistocytes Not Reportable 12/29/20 15:43 Malaria parasites Not Reportable 12/29/20 15:43 Atul Bodies Not Reportable 12/29/20 15:43 Hem Pathologist Commnt No 12/29/20 15:43 Sodium 137 mmol/L (137-145) 12/30/20 05:13 Potassium 4.8 mmol/L (3.6-5.0) 12/30/20 05:13 Chloride 104.2 mmol/L (98-107) 12/30/20 05:13 Carbon Dioxide 20 mmol/L (22-30) L 12/30/20 05:13 Anion Gap 18 mmol/L 12/30/20 05:13 BUN 36 mg/dL (9-20) H 12/30/20 05:13 Creatinine 1.8 mg/dL (0.8-1.3) H D 12/30/20 05:13 Estimated GFR 40 ml/min 12/30/20 05:13 BUN/Creatinine Ratio 20 % 12/30/20 05:13 Glucose 136 mg/dL (75-100) H 12/30/20 05:13 POC Glucose 128 mg/dL (70-105) H 12/30/20 02:19 Hemoglobin A1c 6.2 % (4-6) H 12/30/20 05:13 Calcium 8.6 mg/dL (8.4-10.2) 12/30/20 05:13 Total Bilirubin 1.10 mg/dL (0.1-1.2) 12/30/20 05:13 Direct Bilirubin 0.6 mg/dL (0-0.2) H 12/29/20 15:43 Indirect Bilirubin 0.4 mg/dL 12/29/20 15:43 AST 159 units/L (5-40) H 12/30/20 05:13 ALT 66 units/L (7-56) H 12/30/20 05:13 Alkaline Phosphatase 249 units/L (35-129) H 12/30/20 05:13 Total Protein 6.0 g/dL (6.3-8.2) L 12/30/20 05:13 Albumin 2.6 g/dL (3.9-5) L 12/30/20 05:13 Albumin/Globulin Ratio 0.8 % 12/30/20 05:13 Lipase 7 units/L (13-60) L 12/29/20 15:43 Blood Type A POSITIVE 12/29/20 20:38 Antibody Screen Negative 12/29/20 20:38 Crossmatch See Detail 12/29/20 20:38 Microbiology: Microbiology 12/29/20 19:37 Peripheral/Venous Blood Culture - Preliminary Culture in Progress 12/29/20 19:37 Peripheral/Venous Blood Culture - Preliminary Culture in Progress Santiago/IV: Voiding Method Urinal Active Medications - Current Medications Current Medications: Generic Name Dose Route Start Last Admin Trade Name Freq PRN Reason Stop Dose Admin Acetaminophen 650 mg 12/29/20 21:04 Acetaminophen 325 Mg Tab PO Q4H PRN Pain MILD(1-3)/Fever >100.5/SHARMA Heparin Sodium (Porcine) 5,000 unit 12/30/20 06:00 12/30/20 06:38 Heparin 5,000 Unit/1 Ml Vial SUB-Q 5,000 unit Q8HR JESSICA Administration Hydromorphone HCl 1 mg 12/29/20 21:04 Hydromorphone 1 Mg/1 Ml Inj IV Q3H PRN Pain , Severe (7-10) Dextrose/Sodium Chloride 1,000 mls @ 125 mls/hr 12/29/20 22:00 12/30/20 03:47 D5ns IV 125 mls/hr DIRECT JESSICA Administration Piperacillin Sod/Tazobactam Sod 4.5 gm in 100 mls @ 200 mls/hr 12/29/20 23:00 12/30/20 06:37 Zosyn/Ns 4.5gm/100ml IV 200 mls/hr Q8HR JESSICA Administration Protocol Morphine Sulfate 2 mg 12/30/20 01:46 Morphine 2 Mg/1 Ml Inj IV Q3H PRN Pain, Moderate (4-6) Ondansetron HCl 4 mg 12/29/20 21:04 Ondansetron 4 Mg/2 Ml Inj IV Q3H PRN Nausea And Vomiting Sodium Chloride 10 ml 12/29/20 22:00 12/30/20 05:40 Sodium Chloride 0.9% 10 Ml Flush Syringe IV Not Given BID JESSICA Sodium Chloride 10 ml 12/29/20 21:04 Sodium Chloride 0.9% 10 Ml Flush Syringe IV PRN PRN LINE FLUSH
--- NOTE | 2020-12-30 13:50 | Progress Note ---
Assessment and Plan 50 yo M s/p exploratory laparotomy, sigmoidectomy, end colostomy, peritoneal lavage, POD 1 1. perforated sigmoid mass, likely neoplasm 2. peritonitis 2/2 #1 3. sepsis 2/2 #1/2 4. liver mets 5. obesity 6. SHARMIN Plan: 1. NPO except ice chips 2. IVF - NS@125cc/Hr 3. IV abx - continue zosyn 4. DVT ppx 5. GI ppx 6. prn pain and nausea control 7. 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 CEA pending 9. Path pending 10. BARBI drain - monitor output 11. colostomy care 12. Carrillo for strict I/Os Thank you, please call with questions. Subjective Date of service: 12/30/20 Narrative: Pt seen and examined. No acute complaints. No f/c. No n/v. No abd pain. Objective Vital Signs - 12hr 12/30/20 12/30/20 12/30/20 01:55 02:00 02:05 Temperature 97.3 F L Pulse Rate 103 H 100 H 101 H Respiratory 16 16 16 Rate Blood Pressure 129/78 153/97 162/66 O2 Sat by Pulse 97 98 98 Oximetry 12/30/20 12/30/20 12/30/20 02:15 02:30 02:45 Temperature Pulse Rate 105 H 106 H 105 H Respiratory 16 18 18 Rate Blood Pressure 150/91 143/86 133/85 O2 Sat by Pulse 97 97 97 Oximetry 12/30/20 12/30/20 12/30/20 02:55 03:37 04:00 Temperature 97.2 F L Pulse Rate 107 H 116 H Respiratory 16 Rate Blood Pressure 138/83 157/97 O2 Sat by Pulse 97 93 Oximetry 12/30/20 12/30/20 12/30/20 04:39 05:04 08:01 Temperature 97.8 F Pulse Rate 118 H 118 H Respiratory 18 Rate Blood Pressure 136/88 O2 Sat by Pulse 93 95 Oximetry - General physical appearance Narrative Exam: Gen: AAOx3. NAD CV:S1, S2+ Resp: even and unlabored Abd: soft, obese, NT, ND. L sided ostomy intact, pink mucosa - no air or stool in bag. Midline dressing c/d/i. R sided BARBI drain with serous drainage Ext: no c/c/e carrillo - minimal jacoby urine in bag I/O: BARBI - approx 300cc/12 hr Uo - not recorded - Labs 12/30/20 05:13 12/30/20 05:13 Diabetes panel 12/29/20 12/30/20 12/30/20 Range/Units 15:43 05:13 05:13 Sodium 137 137 (137-145) mmol/L Potassium 4.8 4.8 (3.6-5.0) mmol/L Chloride 100.7 104.2 (98-107) mmol/L Carbon Dioxide 25 20 L (22-30) mmol/L BUN 27 H 36 H (9-20) mg/dL Creatinine 1.1 1.8 H D (0.8-1.3) mg/dL Glucose 131 H 136 H (75-100) mg/dL Hemoglobin A1c 6.2 H (4-6) % Calcium 9.1 8.6 (8.4-10.2) mg/dL AST 33 159 H (5-40) units/L ALT 22 66 H (7-56) units/L Alkaline Phosphatase 305 H 249 H (35-129) units/L Total Protein 6.7 6.0 L (6.3-8.2) g/dL Albumin 2.8 L 2.6 L (3.9-5) g/dL Calcium panel 12/29/20 12/30/20 Range/Units 15:43 05:13 Calcium 9.1 8.6 (8.4-10.2) mg/dL Albumin 2.8 L 2.6 L (3.9-5) g/dL Pituitary panel 12/29/20 12/30/20 Range/Units 15:43 05:13 Sodium 137 137 (137-145) mmol/L Potassium 4.8 4.8 (3.6-5.0) mmol/L Chloride 100.7 104.2 (98-107) mmol/L Carbon Dioxide 25 20 L (22-30) mmol/L BUN 27 H 36 H (9-20) mg/dL Creatinine 1.1 1.8 H D (0.8-1.3) mg/dL Glucose 131 H 136 H (75-100) mg/dL Calcium 9.1 8.6 (8.4-10.2) mg/dL Adrenal panel 10/06/21 10/07/21 Range/Units 15:43 05:13 Sodium 137 137 (137-145) mmol/L Potassium 4.8 4.8 (3.6-5.0) mmol/L Chloride 100.7 104.2 (98-107) mmol/L Carbon Dioxide 25 20 L (22-30) mmol/L BUN 27 H 36 H (9-20) mg/dL Creatinine 1.1 1.8 H D (0.8-1.3) mg/dL Glucose 131 H 136 H (75-100) mg/dL Calcium 9.1 8.6 (8.4-10.2) mg/dL Total Bilirubin 1.00 1.10 (0.1-1.2) mg/dL AST 33 159 H (5-40) units/L ALT 22 66 H (7-56) units/L Alkaline Phosphatase 305 H 249 H (35-129) units/L Total Protein 6.7 6.0 L (6.3-8.2) g/dL Albumin 2.8 L 2.6 L (3.9-5) g/dL
[2020-12-30 16:45] LABS: Band Neutrophils # (Manual) 0.2 K/mm3; Total Cells Counted 100
[2020-12-30 16:46] LABS: Anisocytosis RARE; Hypochromasia 1+; Ovalocytes Few
[2020-12-31] MEDS: PIPERACIL/TAZOBACTA 4.5/NS 100 4.5 GM/100 ML VIAL IV SCH (05:30)
[2020-12-31] MEDS: HEPARIN 5,000 UNIT/1 ML VIAL SUB-Q SCH ×3 (05:30→22:23)
[2020-12-31 05:53] LABS: Hematocrit 27.5 % (35.5-45.6); Hemoglobin 8.7 gm/dl (11.8-15.2); Mean Corpuscular HGB Conc 32 % (32-34); Mean Corpuscular Volume 73 fl (84-94); Platelet Count 306 K/mm3 (140-440); Red Blood Count 3.76 M/mm3 (3.65-5.03); Red Cell Distribution Width 19.2 % (13.2-15.2)
[2020-12-31 06:07] LABS: Albumin 2.5 g/dL (3.9-5); Calcium 8.3 mg/dL (8.4-10.2)
[2020-12-31 09:48] LABS: Total Cells Counted 100
[2020-12-31 09:49] LABS: Hypochromasia 1+; Ovalocytes 1+; Platelet Estimate Consistent w Auto
[2020-12-31] MEDS: HYDROmorphone 1 MG/1 ML INJ IV PRN ×2 (10:36→22:24)
[2020-12-31] MEDS: ONDANSETRON 4 MG/2 ML INJ IV PRN (10:37)
--- NOTE | 2020-12-31 15:05 | Progress Note ---
Assessment and Plan Assessment and plan: 50-year-old male patient with perforated sigmoid mass likely neoplasm, status post exploratory laparotomy,, sigmoidectomy, end colostomy,, peritoneal lavage. Postoperative day 1 --perforated sigmoid mass --s/p exploratory laparotomy/sigmoidectomy/colostomy/peritoneal lavage Complains of some pain, wants some ice chips Continue n.p.o. status except for ice chips, advance to clear liquids IV fluids IV antibiotics, IV Protonix Pain medications Surgery following --Sepsis Current Visit: Yes Status: Acute Sepsis in the setting of high white count and bowel perforation -- Continue IV antibiotics, follow cultures ID consult if needed --Acute kidney injury; vasomotor nephropathy Current Visit: Yes Status: Acute Not present on admission, probably partly dehydration IV hydration, monitor renal function, avoid nephrotoxins Nephrology consult surgery needed --Possible colorectal carcinoma Current Visit: Yes Status: Acute Patient never had colonoscopy 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 Conrad was consulted today Follow heme-onc evaluation recommendations --Metastases to the liver Current Visit: Yes Status: Acute Poor prognosis Referral to oncology as outpatient for chemotherapy/XRT --Worsening transaminases; Current Visit: Yes Status: Acute Probably secondary to liver mets Closely monitor --Severe malnutrition/hypoproteinemia Current Visit: Yes Status: Chronic Dietary supplements and dietitian consult --Anemia Current Visit: Yes Status: Chronic Anemia work-up --obesity; BMI 38.7 Current Visit: Yes Status: Chronic Patient needs weight reduction when medically stable --DVT prophylaxis Current Visit: Yes Status: Acute On SCDs , patient postop state Closely monitor the patient and adjust management as needed Consultants recommendations noted and appreciated Plan of care reviewed with the patient and his nurse 12/30/2020; status post surgical procedure POD 1 Continue postop care, surgery following 12/31/20; POD 2 Worsening LFTs, secondary to liver mets May start clear liquids as tolerated per surgery Follow History Interval history: I have seen and examined the patient at the bedside this morning Patient's chart and medications reviewed Patient is very upset that he is not able to eat or drink anything Asking for water, complains of abdominal discomfort and pain Vital signs reviewed Hospitalist Physical - Constitutional Vitals: Temp Pulse Resp BP Pulse Ox 98.6 F 104 H 18 154/86 97 12/31/20 04:44 12/31/20 04:44 12/31/20 04:44 12/31/20 04:44 12/31/20 05:00 General appearance: Present: mild distress, well-nourished, obese - EENT Eyes: Present: PERRL, EOM intact - Neck Neck: Present: supple, normal ROM - Respiratory Respiratory effort: normal Respiratory: bilateral: diminished, negative: rales, rhonchi, wheezing - Cardiovascular Rhythm: regular Heart Sounds: Present: S1 & S2 - Extremities Extremities: no ischemia, No edema - Abdominal General gastrointestinal: soft, tender (No guarding no rigidity), distended (Mild), hypoactive bowel sounds - Integumentary Integumentary: Present: clear, warm - Psychiatric Psychiatric: appropriate mood/affect, cooperative - Neurologic Neurologic: moves all extremities Results - Labs CBC & Chem 7: 12/31/20 05:04 12/31/20 05:04 Labs: Laboratory Last Values WBC 18.4 K/mm3 (4.5-11.0) H 12/31/20 05:04 RBC 3.76 M/mm3 (3.65-5.03) 12/31/20 05:04 Hgb 8.7 gm/dl (11.8-15.2) L 12/31/20 05:04 Hct 27.5 % (35.5-45.6) L 12/31/20 05:04 MCV 73 fl (84-94) L 12/31/20 05:04 MCH 23 pg (28-32) L 12/31/20 05:04 MCHC 32 % (32-34) 12/31/20 05:04 RDW 19.2 % (13.2-15.2) H 12/31/20 05:04 Plt Count 306 K/mm3 (140-440) 12/31/20 05:04 Add Manual Diff Complete 12/31/20 05:04 Total Counted 100 12/31/20 05:04 Seg Neutrophils % Peer Health Promoter 12/31/20 05:04 Seg Neuts % (Manual) 86.0 % (40.0-70.0) H 12/31/20 05:04 Band Neutrophils % 11.0 % 12/31/20 05:04 Lymphocytes % (Manual) 4.0 % (13.4-35.0) L 12/30/20 05:13 Monocytes % (Manual) 3.0 % (0.0-7.3) 12/31/20 05:04 Nucleated RBC % Not Reportable 12/31/20 05:04 Seg Neutrophils # Man 15.8 K/mm3 (1.8-7.7) H 12/31/20 05:04 Band Neutrophils # 2.0 K/mm3 12/31/20 05:04 Lymphocytes # (Manual) 0.0 K/mm3 (1.2-5.4) L 12/31/20 05:04 Abs React Lymphs (Man) 0.0 K/mm3 12/31/20 05:04 Monocytes # (Manual) 0.6 K/mm3 (0.0-0.8) 12/31/20 05:04 Eosinophils # (Manual) 0.0 K/mm3 (0.0-0.4) 12/31/20 05:04 Basophils # (Manual) 0.0 K/mm3 (0.0-0.1) 12/31/20 05:04 Metamyelocytes # 0.0 K/mm3 12/31/20 05:04 Myelocytes # 0.0 K/mm3 12/31/20 05:04 Promyelocytes # 0.0 K/mm3 12/31/20 05:04 Blast Cells # 0.0 K/mm3 12/31/20 05:04 WBC Morphology Not Reportable 12/31/20 05:04 Hypersegmented Neuts Not Reportable 12/31/20 05:04 Hyposegmented Neuts Not Reportable 12/31/20 05:04 Hypogranular Neuts Not Reportable 12/31/20 05:04 Smudge Cells Not Reportable 12/31/20 05:04 Toxic Granulation Not Reportable 12/31/20 05:04 Toxic Vacuolation Not Reportable 12/31/20 05:04 Dohle Bodies Not Reportable 12/31/20 05:04 Pelger-Huet Anomaly Not Reportable 12/31/20 05:04 Janene Rods Not Reportable 12/31/20 05:04 Platelet Estimate Consistent w auto 12/31/20 05:04 Clumped Platelets Not Reportable 12/31/20 05:04 Plt Clumps, EDTA Not Reportable 12/31/20 05:04 Large Platelets Not Reportable 12/31/20 05:04 Giant Platelets Not Reportable 12/31/20 05:04 Platelet Satelliting Not Reportable 12/31/20 05:04 Plt Morphology Comment Not Reportable 12/31/20 05:04 RBC Morphology Not Reportable 12/31/20 05:04 Dimorphic RBCs Not Reportable 12/31/20 05:04 Polychromasia Not Reportable 12/31/20 05:04 Hypochromasia 1+ 12/31/20 05:04 Poikilocytosis Not Reportable 12/31/20 05:04 Anisocytosis Not Reportable 12/31/20 05:04 Microcytosis Not Reportable 12/31/20 05:04 Macrocytosis Not Reportable 12/31/20 05:04 Spherocytes Not Reportable 12/31/20 05:04 Pappenheimer Bodies Not Reportable 12/31/20 05:04 Sickle Cells Not Reportable 12/31/20 05:04 Target Cells Not Reportable 12/31/20 05:04 Tear Drop Cells Not Reportable 12/31/20 05:04 Ovalocytes 1+ 12/31/20 05:04 Helmet Cells Not Reportable 12/31/20 05:04 [place]qu[place] Bodies Not Reportable 12/31/20 05:04 [place] Rings Not Reportable 12/31/20 05:04 [place] Cells Not Reportable 12/31/20 05:04 Bite Cells Not Reportable 12/31/20 05:04 Crenated Cell Not Reportable 12/31/20 05:04 Elliptocytes Not Reportable 12/31/20 05:04 Acanthocytes (Spur) Not Reportable 12/31/20 05:04 Rouleaux Not Reportable 12/31/20 05:04 Hemoglobin C Crystals Not Reportable 12/31/20 05:04 Schistocytes Not Reportable 12/31/20 05:04 Malaria parasites Not Reportable 12/31/20 05:04 Atul Bodies Not Reportable 12/31/20 05:04 Hem Pathologist Commnt No 12/31/20 05:04 Sodium 138 mmol/L (137-145) 12/31/20 05:04 Potassium 5.1 mmol/L (3.6-5.0) H 12/31/20 05:04 Chloride 104.0 mmol/L (98-107) 12/31/20 05:04 Carbon Dioxide 20 mmol/L (22-30) L 12/31/20 05:04 Anion Gap 19 mmol/L 12/31/20 05:04 BUN 55 mg/dL (9-20) H 12/31/20 05:04 Creatinine 3.4 mg/dL (0.8-1.3) H D 12/31/20 05:04 Estimated GFR 19 ml/min 12/31/20 05:04 BUN/Creatinine Ratio 16 % 12/31/20 05:04 Glucose 135 mg/dL (75-100) H 12/31/20 05:04 POC Glucose 128 mg/dL (70-105) H 12/30/20 02:19 Hemoglobin A1c 6.2 % (4-6) H 12/30/20 05:13 Calcium 8.3 mg/dL (8.4-10.2) L 12/31/20 05:04 Magnesium 4.20 mg/dL (1.7-2.3) H 12/31/20 05:04 Total Bilirubin 1.20 mg/dL (0.1-1.2) 12/31/20 05:04 Direct Bilirubin 0.6 mg/dL (0-0.2) H 12/29/20 15:43 Indirect Bilirubin 0.4 mg/dL 12/29/20 15:43 AST 371 units/L (5-40) H 12/31/20 05:04 ALT 200 units/L (7-56) H 12/31/20 05:04 Alkaline Phosphatase 281 units/L (35-129) H 12/31/20 05:04 Total Protein 6.1 g/dL (6.3-8.2) L 12/31/20 05:04 Albumin 2.5 g/dL (3.9-5) L 12/31/20 05:04 Albumin/Globulin Ratio 0.7 % 12/31/20 05:04 Lipase 7 units/L (13-60) L 12/29/20 15:43 Blood Type A POSITIVE 12/29/20 20:38 Antibody Screen Negative 12/29/20 20:38 Crossmatch See Detail 12/29/20 20:38 Microbiology: Microbiology 12/29/20 19:37 Peripheral/Venous Blood Culture - Preliminary NO GROWTH AFTER 24 HOURS 12/29/20 19:37 Peripheral/Venous Blood Culture - Preliminary NO GROWTH AFTER 24 HOURS Santiago/IV: Voiding Method Indwelling Catheter Active Medications - Current Medications Current Medications: Generic Name Dose Route Start Last Admin Trade Name Freq PRN Reason Stop Dose Admin Acetaminophen 650 mg 12/29/20 21:04 Acetaminophen 325 Mg Tab PO Q4H PRN Pain MILD(1-3)/Fever >100.5/SHARMA Heparin Sodium (Porcine) 5,000 unit 12/30/20 06:00 12/31/20 05:30 Heparin 5,000 Unit/1 Ml Vial SUB-Q 5,000 unit Q8HR JESSICA Administration Hydromorphone HCl 1 mg 12/29/20 21:04 12/31/20 10:36 Hydromorphone 1 Mg/1 Ml Inj IV 1 mg Q3H PRN Administration Pain , Severe (7-10) Dextrose/Sodium Chloride 1,000 mls @ 125 mls/hr 12/29/20 22:00 12/30/20 21:37 D5ns IV 125 mls/hr DIRECT JESSICA Administration Ferric Sodium Gluconate 120 mls @ 100 mls/hr 12/31/20 14:00 Complex 250 mg/ Sodium IV 01/02/21 11:11 Chloride DAILY JESSICA Piperacillin Sod/Tazobactam Sod 2.25 gm in 50 mls @ 100 mls/hr 12/31/20 18:00 Zosyn/Ns 2.25 Gm/50ml IV Q6HR JESSICA Morphine Sulfate 2 mg 12/30/20 01:46 Morphine 2 Mg/1 Ml Inj IV Q3H PRN Pain, Moderate (4-6) Ondansetron HCl 4 mg 12/29/20 21:04 12/31/20 10:37 Ondansetron 4 Mg/2 Ml Inj IV 4 mg Q3H PRN Administration Nausea And Vomiting Sodium Chloride 10 ml 12/29/20 22:00 12/31/20 10:37 Sodium Chloride 0.9% 10 Ml Flush Syringe IV 10 ml BID JESSICA Administration Sodium Chloride 10 ml 12/29/20 21:04 Sodium Chloride 0.9% 10 Ml Flush Syringe IV PRN PRN LINE FLUSH
[2020-12-31] MEDS: SODIUM FERRIC GLUCON/SUCRO 250 MG in SODIUM CHLORIDE 0.9% 100 ML IV SCH (17:00)
--- NOTE | 2020-12-31 17:50 | Progress Note ---
Assessment and Plan 1 yo M s/p exploratory laparotomy, sigmoidectomy, end colostomy, peritoneal lavage, POD 2 1. perforated sigmoid mass, likely neoplasm 2. peritonitis 2/2 #1 3. sepsis 2/2 #1/2 4. liver mets 5. obesity 6. SHARMIN Plan: 1. start CLD 2. IVF 3. IV abx - continue zosyn 4. DVT ppx 5. f/u intraperitoneal cultures 6. prn pain and nausea control 7. 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 CEA and path pending 9. BARBI drain - monitor output 10. colostomy care 11. Santiago for strict I/Os 12. recommend nephro and onc consult Thank you, please call with questions. Evaluation and treatment of this patient was during the time of the national and state emergency arising from COVID19 coronavirus pandemic. Treatment and procedures performed meet the current and available best practice and guidelines for patient during the COVID pandemic. Subjective Date of service: 12/31/20 Narrative: Pt seen and examined. c/o dry mouth and throat, burping. No fever. 1 episode of emesis after receiving dilaudid. Objective - General physical appearance Narrative Exam: Gen.: Awake, alert, slightly confused and agitated. NAD ENT: Trachea midline. No lymphadenopathy. No scleral icterus or conjunctival pallor CV: S1, S2 present Respiratory: No audible wheezes Abdomen: Soft, mildy distended, obese, nontender. Midline dressing removed. Incision is clean dry and intact. Telfa jerri are in place. New island dressing applied. Right-sided BARBI drain is serosanguineous. Left-sided ostomy is pink with mild edema and air in colostomy bag. No rebound, rigidity, guarding Extremities: No clubbing, cyanosis, edema : Santiago with dark jacoby urine I/O: BARBI drain - 240cc/12hr Santiago - not recorded - Labs 12/31/20 05:04 12/31/20 05:04 Diabetes panel 12/31/20 Range/Units 05:04 Sodium 138 (137-145) mmol/L Potassium 5.1 H (3.6-5.0) mmol/L Chloride 104.0 (98-107) mmol/L Carbon Dioxide 20 L (22-30) mmol/L BUN 55 H (9-20) mg/dL Creatinine 3.4 H D (0.8-1.3) mg/dL Glucose 135 H (75-100) mg/dL Calcium 8.3 L (8.4-10.2) mg/dL AST 371 H (5-40) units/L ALT 200 H (7-56) units/L Alkaline Phosphatase 281 H (35-129) units/L Total Protein 6.1 L (6.3-8.2) g/dL Albumin 2.5 L (3.9-5) g/dL Calcium panel 12/31/20 Range/Units 05:04 Calcium 8.3 L (8.4-10.2) mg/dL Albumin 2.5 L (3.9-5) g/dL Pituitary panel 12/31/20 Range/Units 05:04 Sodium 138 (137-145) mmol/L Potassium 5.1 H (3.6-5.0) mmol/L Chloride 104.0 (98-107) mmol/L Carbon Dioxide 20 L (22-30) mmol/L BUN 55 H (9-20) mg/dL Creatinine 3.4 H D (0.8-1.3) mg/dL Glucose 135 H (75-100) mg/dL Calcium 8.3 L (8.4-10.2) mg/dL Adrenal panel 12/31/20 Range/Units 05:04 Sodium 138 (137-145) mmol/L Potassium 5.1 H (3.6-5.0) mmol/L Chloride 104.0 (98-107) mmol/L Carbon Dioxide 20 L (22-30) mmol/L BUN 55 H (9-20) mg/dL Creatinine 3.4 H D (0.8-1.3) mg/dL Glucose 135 H (75-100) mg/dL Calcium 8.3 L (8.4-10.2) mg/dL Total Bilirubin 1.20 (0.1-1.2) mg/dL AST 371 H (5-40) units/L ALT 200 H (7-56) units/L Alkaline Phosphatase 281 H (35-129) units/L Total Protein 6.1 L (6.3-8.2) g/dL Albumin 2.5 L (3.9-5) g/dL
[2020-12-31] MEDS: PIPERACIL-TAZO 2.25 GM/50 ML 2.25 GM/50 ML BAG IV SCH (18:53)
[2020-12-31] MEDS: D5W/0.9% NACL 1,000 ML IV SCH (22:23)
[2021-01-01] MEDS: PIPERACIL-TAZO 2.25 GM/50 ML 2.25 GM/50 ML BAG IV SCH ×4 (00:44→18:53)
--- NOTE | 2021-01-01 01:15 | Hem/Onc Consultation ---
History of Present Illness - Reason for Consult Consult date: 01/01/21 colon mass - History of Present Illness Heme/onc consult televisit by valentino CPT 88890 Reason for consult: colon mass This is a 50yo obese male who presents to the ER with complaints of diffuse abdominal pain and distention CT abd/pelvis c/w mid sigmoid mass suggesting colorectal carcinoma with erosion/bowel perforation, adjacent adenopathy and innumerable liver metastatic lesions S/p POD 2 of exploratory laparotomy, sigmoidectomy, end colectomy, peritoneal lavage Dx with perforated sigmoid mass with liver mets and peritonitis Noted to be confused and uncomfortable post-op DATA REVIEWED BELOW WBC 18.4 Hgb 8.7 Hct 27.5 MCV 73 Plt 306 AST 371 ALT 200 Alk phos 281 IMP: New metastatic colon ca Anemia due to malignancy Elevated liver enzymes due to liver metastasis REC/PLAN: IV iron ordered for anemia Plan is chemo if he is able to tolerate it Laboratory Last Values WBC 18.4 K/mm3 (4.5-11.0) H 12/31/20 05:04 RBC 3.76 M/mm3 (3.65-5.03) 12/31/20 05:04 Hgb 8.7 gm/dl (11.8-15.2) L 12/31/20 05:04 Hct 27.5 % (35.5-45.6) L 12/31/20 05:04 MCV 73 fl (84-94) L 12/31/20 05:04 MCH 23 pg (28-32) L 12/31/20 05:04 MCHC 32 % (32-34) 12/31/20 05:04 RDW 19.2 % (13.2-15.2) H 12/31/20 05:04 Plt Count 306 K/mm3 (140-440) 12/31/20 05:04 Add Manual Diff Complete 12/31/20 05:04 Total Counted 100 12/31/20 05:04 Seg Neutrophils % [employer] Consultant 12/31/20 05:04 Seg Neuts % (Manual) 86.0 % (40.0-70.0) H 12/31/20 05:04 Band Neutrophils % 11.0 % 12/31/20 05:04 Lymphocytes % (Manual) 4.0 % (13.4-35.0) L 12/30/20 05:13 Monocytes % (Manual) 3.0 % (0.0-7.3) 12/31/20 05:04 Nucleated RBC % Not Reportable 12/31/20 05:04 Seg Neutrophils # Man 15.8 K/mm3 (1.8-7.7) H 12/31/20 05:04 Band Neutrophils # 2.0 K/mm3 12/31/20 05:04 Lymphocytes # (Manual) 0.0 K/mm3 (1.2-5.4) L 12/31/20 05:04 Abs React Lymphs (Man) 0.0 K/mm3 12/31/20 05:04 Monocytes # (Manual) 0.6 K/mm3 (0.0-0.8) 12/31/20 05:04 Eosinophils # (Manual) 0.0 K/mm3 (0.0-0.4) 12/31/20 05:04 Basophils # (Manual) 0.0 K/mm3 (0.0-0.1) 12/31/20 05:04 Metamyelocytes # 0.0 K/mm3 12/31/20 05:04 Myelocytes # 0.0 K/mm3 12/31/20 05:04 Promyelocytes # 0.0 K/mm3 12/31/20 05:04 Blast Cells # 0.0 K/mm3 12/31/20 05:04 WBC Morphology Not Reportable 12/31/20 05:04 Hypersegmented Neuts Not Reportable 12/31/20 05:04 Hyposegmented Neuts Not Reportable 12/31/20 05:04 Hypogranular Neuts Not Reportable 12/31/20 05:04 Smudge Cells Not Reportable 12/31/20 05:04 Toxic Granulation Not Reportable 12/31/20 05:04 Toxic Vacuolation Not Reportable 12/31/20 05:04 Dohle Bodies Not Reportable 12/31/20 05:04 Pelger-Huet Anomaly Not Reportable 12/31/20 05:04 Janene Rods Not Reportable 12/31/20 05:04 Platelet Estimate Consistent w auto 12/31/20 05:04 Clumped Platelets Not Reportable 12/31/20 05:04 Plt Clumps, EDTA Not Reportable 12/31/20 05:04 Large Platelets Not Reportable 12/31/20 05:04 Giant Platelets Not Reportable 12/31/20 05:04 Platelet Satelliting Not Reportable 12/31/20 05:04 Plt Morphology Comment Not Reportable 12/31/20 05:04 RBC Morphology Not Reportable 12/31/20 05:04 Dimorphic RBCs Not Reportable 12/31/20 05:04 Polychromasia Not Reportable 12/31/20 05:04 Hypochromasia 1+ 12/31/20 05:04 Poikilocytosis Not Reportable 12/31/20 05:04 Anisocytosis Not Reportable 12/31/20 05:04 Microcytosis Not Reportable 12/31/20 05:04 Macrocytosis Not Reportable 12/31/20 05:04 Spherocytes Not Reportable 12/31/20 05:04 Pappenheimer Bodies Not Reportable 12/31/20 05:04 Sickle Cells Not Reportable 12/31/20 05:04 Target Cells Not Reportable 12/31/20 05:04 Tear Drop Cells Not Reportable 12/31/20 05:04 Ovalocytes 1+ 12/31/20 05:04 Helmet Cells Not Reportable 12/31/20 05:04 [place] Bodies Not Reportable 12/31/20 05:04 [place] Rings Not Reportable 12/31/20 05:04 Ankur Cells Not Reportable 12/31/20 05:04 Bite Cells Not Reportable 12/31/20 05:04 Crenated Cell Not Reportable 12/31/20 05:04 Elliptocytes Not Reportable 12/31/20 05:04 Acanthocytes (Spur) Not Reportable 12/31/20 05:04 Rouleaux Not Reportable 12/31/20 05:04 Hemoglobin C Crystals Not Reportable 12/31/20 05:04 Schistocytes Not Reportable 12/31/20 05:04 Malaria parasites Not Reportable 12/31/20 05:04 Atul Bodies Not Reportable 12/31/20 05:04 Hem Pathologist Commnt No 12/31/20 05:04 Sodium 138 mmol/L (137-145) 12/31/20 05:04 Potassium 5.1 mmol/L (3.6-5.0) H 12/31/20 05:04 Chloride 104.0 mmol/L (98-107) 12/31/20 05:04 Carbon Dioxide 20 mmol/L (22-30) L 12/31/20 05:04 Anion Gap 19 mmol/L 12/31/20 05:04 BUN 55 mg/dL (9-20) H 12/31/20 05:04 Creatinine 3.4 mg/dL (0.8-1.3) H D 12/31/20 05:04 Estimated GFR 19 ml/min 12/31/20 05:04 BUN/Creatinine Ratio 16 % 12/31/20 05:04 Glucose 135 mg/dL (75-100) H 12/31/20 05:04 POC Glucose 128 mg/dL (70-105) H 12/30/20 02:19 Hemoglobin A1c 6.2 % (4-6) H 12/30/20 05:13 Calcium 8.3 mg/dL (8.4-10.2) L 12/31/20 05:04 Magnesium 4.20 mg/dL (1.7-2.3) H 12/31/20 05:04 Total Bilirubin 1.20 mg/dL (0.1-1.2) 12/31/20 05:04 Direct Bilirubin 0.6 mg/dL (0-0.2) H 12/29/20 15:43 Indirect Bilirubin 0.4 mg/dL 12/29/20 15:43 AST 371 units/L (5-40) H 12/31/20 05:04 ALT 200 units/L (7-56) H 12/31/20 05:04 Alkaline Phosphatase 281 units/L (35-129) H 12/31/20 05:04 Total Protein 6.1 g/dL (6.3-8.2) L 12/31/20 05:04 Albumin 2.5 g/dL (3.9-5) L 12/31/20 05:04 Albumin/Globulin Ratio 0.7 % 12/31/20 05:04 Lipase 7 units/L (13-60) L 12/29/20 15:43 Blood Type A POSITIVE 12/29/20 20:38 Antibody Screen Negative 12/29/20 20:38 Crossmatch See Detail 12/29/20 20:38 Past History Past Medical History: No medical history Past Surgical History: Other (b/l knee surgery) Social history: no significant social history, lives with family Family history: no significant family history Medications and Allergies Allergies Allergy/AdvReac Type Severity Reaction Status Date / Time No Known Allergies Allergy Verified 12/29/20 13:17 Home Medications Medication Instructions Recorded Confirmed Last Taken Type Tylenol Extra Strength 500 mg PO BID PRN 12/30/20 12/30/20 Unknown History Active Meds: Active Medications Acetaminophen (Acetaminophen 325 Mg Tab) 650 mg PO Q4H PRN PRN Reason: Pain MILD(1-3)/Fever >100.5/SHARMA Heparin Sodium (Porcine) (Heparin 5,000 Unit/1 Ml Vial) 5,000 unit SUB-Q Q8HR [facility] Last Admin: 12/31/20 22:23 Dose: 5,000 unit Documented by: Hydromorphone HCl (Hydromorphone 1 Mg/1 Ml Inj) 1 mg IV Q3H PRN PRN Reason: Pain , Severe (7-10) Last Admin: 12/31/20 22:24 Dose: 1 mg Documented by: Dextrose/Sodium Chloride (D5ns) 1,000 mls @ 125 mls/hr IV DIRECT [facility] Last Admin: 12/31/20 22:23 Dose: 125 mls/hr Documented by: Ferric Sodium Gluconate Complex 250 mg/ Sodium Chloride 120 mls @ 100 mls/hr IV DAILY [facility] Stop: 01/02/21 11:11 Last Admin: 12/31/20 17:00 Dose: 100 mls/hr Documented by: Piperacillin Sod/Tazobactam Sod (Zosyn/Ns 2.25 Gm/50ml) 2.25 gm in 50 mls @ 100 mls/hr IV Q6HR [facility] Last Admin: 01/01/21 00:44 Dose: 100 mls/hr Documented by: Morphine Sulfate (Morphine 2 Mg/1 Ml Inj) 2 mg IV Q3H PRN PRN Reason: Pain, Moderate (4-6) Ondansetron HCl (Ondansetron 4 Mg/2 Ml Inj) 4 mg IV Q3H PRN PRN Reason: Nausea And Vomiting Last Admin: 12/31/20 10:37 Dose: 4 mg Documented by: Sodium Chloride (Sodium Chloride 0.9% 10 Ml Flush Syringe) 10 ml IV BID [facility] Last Admin: 12/31/20 22:24 Dose: 10 ml Documented by: Sodium Chloride (Sodium Chloride 0.9% 10 Ml Flush Syringe) 10 ml IV PRN PRN PRN Reason: LINE FLUSH Exam - Constitutional Vitals: Last Vital Signs Temp 97.5 F L 12/31/20 19:37 Pulse 96 H 12/31/20 19:37 Resp 20 12/31/20 19:37 BP 141/96 12/31/20 19:37 Pulse Ox 91 12/31/20 19:37 Results - Labs lab Results: Laboratory Results - last 24 hr 12/31/20 12/31/20 05:04 05:04 WBC 18.4 H RBC 3.76 Hgb 8.7 L Hct 27.5 L MCV 73 L MCH 23 L MCHC 32 RDW 19.2 H Plt Count 306 Add Manual Diff Complete Total Counted 100 Seg Neutrophils % [employer] Consultant Seg Neuts % (Manual) 86.0 H Band Neutrophils % 11.0 Monocytes % (Manual) 3.0 Nucleated RBC % Not Reportable Seg Neutrophils # Man 15.8 H Band Neutrophils # 2.0 Lymphocytes # (Manual) 0.0 L Abs React Lymphs (Man) 0.0 Monocytes # (Manual) 0.6 Eosinophils # (Manual) 0.0 Basophils # (Manual) 0.0 Metamyelocytes # 0.0 Myelocytes # 0.0 Promyelocytes # 0.0 Blast Cells # 0.0 WBC Morphology Not Reportable Hypersegmented Neuts Not Reportable Hyposegmented Neuts Not Reportable Hypogranular Neuts Not Reportable Smudge Cells Not Reportable Toxic Granulation Not Reportable Toxic Vacuolation Not Reportable Dohle Bodies Not Reportable Pelger-Huet Anomaly Not Reportable Janene Rods Not Reportable Platelet Estimate Consistent w auto Clumped Platelets Not Reportable Plt Clumps, EDTA Not Reportable Large Platelets Not Reportable Giant Platelets Not Reportable Platelet Satelliting Not Reportable Plt Morphology Comment Not Reportable RBC Morphology Not Reportable Dimorphic RBCs Not Reportable Polychromasia Not Reportable Hypochromasia 1+ Poikilocytosis Not Reportable Anisocytosis Not Reportable Microcytosis Not Reportable Macrocytosis Not Reportable Spherocytes Not Reportable Pappenheimer Bodies Not Reportable Sickle Cells Not Reportable Target Cells Not Reportable Tear Drop Cells Not Reportable Ovalocytes 1+ Helmet Cells Not Reportable [place] Bodies Not Reportable [place] Rings Not Reportable Slater Cells Not Reportable Bite Cells Not Reportable Crenated Cell Not Reportable Elliptocytes Not Reportable Acanthocytes (Spur) Not Reportable Rouleaux Not Reportable Hemoglobin C Crystals Not Reportable Schistocytes Not Reportable Malaria parasites Not Reportable Atul Bodies Not Reportable Hem Pathologist Commnt No Sodium 138 Potassium 5.1 H Chloride 104.0 Carbon Dioxide 20 L Anion Gap 19 BUN 55 H Creatinine 3.4 H D Estimated GFR 19 BUN/Creatinine Ratio 16 Glucose 135 H Calcium 8.3 L Magnesium 4.20 H Total Bilirubin 1.20 AST 371 H ALT 200 H Alkaline Phosphatase 281 H Total Protein 6.1 L Albumin 2.5 L Albumin/Globulin Ratio 0.7
[2021-01-01] MEDS: D5W/0.9% NACL 1,000 ML IV SCH (05:32)
[2021-01-01] MEDS: HEPARIN 5,000 UNIT/1 ML VIAL SUB-Q SCH ×3 (05:36→21:21)
[2021-01-01 05:47] LABS: Hematocrit 28.2 % (35.5-45.6); Hemoglobin 8.7 gm/dl (11.8-15.2); Mean Corpuscular HGB Conc 31 % (32-34); Mean Corpuscular Volume 75 fl (84-94); Platelet Count 263 K/mm3 (140-440); Red Blood Count 3.77 M/mm3 (3.65-5.03); Red Cell Distribution Width 19.5 % (13.2-15.2)
[2021-01-01 06:18] LABS: Albumin 2.5 g/dL (3.9-5); Calcium 8.2 mg/dL (8.4-10.2)
--- NOTE | 2021-01-01 09:43 | Consultation ---
History of Present Illness - Reason for Consult Consult date: 01/01/21 acute renal failure - History of Present Illness This is a 50 year old man with obesity who presents with complaints of diffuse abdominal pain and distention, had CT that showed mid sigmoid mass suggestive of colorectal carcinoma with erosion/bowel perforation, adjacent adenopathy and innumerable liver metastatic lesions. Now post-op day 2 of exploratory laparotomy, sigmoidectomy, end colectomy, peritoneal lavage, diagnosed with perforated sigmoid mass with liver mets and peritonitis Nephrology consulted for SHARMIN. Patient denies any known kidney issues prior to hospitalization. He denies any acute concerns, but only wants "ice from QT" due to ongoing dry mouth. Denies any edema, dyspnea, abnormal urination. Past History Past Medical History: No medical history Past Surgical History: Other (b/l knee surgery) Social history: no significant social history, lives with family Family history: no significant family history Medications and Allergies Allergies Allergy/AdvReac Type Severity Reaction Status Date / Time No Known Allergies Allergy Verified 12/29/20 13:17 Home Medications Medication Instructions Recorded Confirmed Last Taken Type Tylenol Extra Strength 500 mg PO BID PRN 12/30/20 12/30/20 Unknown History Active Meds: Active Medications Acetaminophen (Acetaminophen 325 Mg Tab) 650 mg PO Q4H PRN PRN Reason: Pain MILD(1-3)/Fever >100.5/SHARMA Alprazolam (Alprazolam 0.5 Mg Tab) 0.5 mg PO Q8H PRN PRN Reason: Anxiety Heparin Sodium (Porcine) (Heparin 5,000 Unit/1 Ml Vial) 5,000 unit SUB-Q Q8HR [facility] Last Admin: 01/01/21 05:36 Dose: 5,000 unit Documented by: Hydromorphone HCl (Hydromorphone 1 Mg/1 Ml Inj) 1 mg IV Q3H PRN PRN Reason: Pain , Severe (7-10) Last Admin: 12/31/20 22:24 Dose: 1 mg Documented by: Ferric Sodium Gluconate Complex 250 mg/ Sodium Chloride 120 mls @ 100 mls/hr IV DAILY [facility] Stop: 01/02/21 11:11 Last Admin: 12/31/20 17:00 Dose: 100 mls/hr Documented by: Piperacillin Sod/Tazobactam Sod (Zosyn/Ns 2.25 Gm/50ml) 2.25 gm in 50 mls @ 100 mls/hr IV Q6HR [facility] Last Admin: 01/01/21 05:33 Dose: 100 mls/hr Documented by: Sodium Chloride (Nacl 0.9% 1000 Ml) 1,000 mls @ 125 mls/hr IV DIRECT [facility] Morphine Sulfate (Morphine 2 Mg/1 Ml Inj) 2 mg IV Q3H PRN PRN Reason: Pain, Moderate (4-6) Ondansetron HCl (Ondansetron 4 Mg/2 Ml Inj) 4 mg IV Q3H PRN PRN Reason: Nausea And Vomiting Last Admin: 12/31/20 10:37 Dose: 4 mg Documented by: Sodium Chloride (Sodium Chloride 0.9% 10 Ml Flush Syringe) 10 ml IV BID [facility] Last Admin: 12/31/20 22:24 Dose: 10 ml Documented by: Sodium Chloride (Sodium Chloride 0.9% 10 Ml Flush Syringe) 10 ml IV PRN PRN PRN Reason: LINE FLUSH Review of Systems All systems: negative (as per HPI) Exam - Vital Signs Vital signs: Vital Signs Temp Pulse Resp BP Pulse Ox 98.5 F 117 H 20 155/97 95 12/29/20 13:19 12/29/20 13:19 12/29/20 13:19 12/29/20 13:19 12/29/20 13:19 - Physical Exam Narrative exam: Gen.: Awake, alert, slightly confused and agitated. NAD ENT: Trachea midline CV: S1, S2 present Respiratory: No audible wheezes, non-labored breathing Abdomen: Soft, mildy distended, obese, nontender. Note BARBI drain, left-sided ostomy Extremities: No clubbing, cyanosis, edema : Santiago with dark jacoby urine Results - Lab Results 01/01/21 04:59 01/01/21 04:59 Most recent lab results Calcium 8.2 mg/dL (8.4-10.2) L 01/01/21 04:59 Magnesium 4.20 mg/dL (1.7-2.3) H 12/31/20 05:04 Assessment and Plan 50-year-old man presents with perforated sigmoid mass likely neoplasm, status post exploratory laparotomy, sigmoidectomy, end colostomy, peritoneal lavage. # SHARMIN: creatinine 1.1->1.8->3.4->4.4 over 3 days, suspect severe tubular injury s/p extensive surgery + contrast use on 12/29 - no immediate needs for TUBE TURNER; however, given trajectory, did explain to patient that while hopeful for kidney recovery with supportive measures, he may end up in kidney failure and need dialysis in next 1-2 days. Explained dialysis benefits and risks. However, unclear if patient understanding as he states that his kidneys will be better if he "just gets ice" - continue IVF at this time - check serologies to ensure no glomerular injury, consider biopsy pending results - no renal obstruction noted on prior CT; do note mass on kidney which may be related to underlying sigmoid mass - avoid nephrotoxins - renally dose meds - strict Is/Os - no emergent need for HD per lytes/volume assessment; high risk for kidney fail ure however # Metabolic Acidosis/Mild Hyperkalemia: likely due to SHARMIN. Start NaHCO3 repletion # Perforated Sigmoid Mass, Possible Colorectal Carcinoma, Metastasis to Liver: appreciate surgery input, advance diet per primary/surgery. Note oncology consult; if chemotherapy is needed, suspect further kidney injury # Sepsis, Leukocytosis: likely related to bowel perforation, note antibiotics # Malnutrition
--- NOTE | 2021-01-01 09:46 | Progress Note ---
Assessment and Plan Assessment and plan: 50-year-old male patient with perforated sigmoid mass likely neoplasm, status post exploratory laparotomy,, sigmoidectomy, end colostomy,, peritoneal lavage. Postoperative day 1 --perforated sigmoid mass --s/p exploratory laparotomy/sigmoidectomy/colostomy/peritoneal lavage Complains of some pain,On clear liquids, may advance to full liquids if okay with surgery, IV fluids IV antibiotics, IV Protonix, Pain medications, Surgery following Out of bed to chair, PT rec by surgery --Gram-negative sepsis Current Visit: Yes Status: Acute Sepsis in the setting of high white count and bowel perforation -- Continue IV antibiotics, follow cultures ID consult if needed --Surgical cultures gram-negative rods Current Visit: Yes Status: Acute Currently on Zosyn, follow culture sensitivities ID consult if needed --Acute kidney injury; vasomotor nephropathy Current Visit: Yes Status: Acute Worsening renal function ,not present on admission, probably partly dehydration IV hydration, monitor renal function, avoid nephrotoxins Nephrology consulted --Possible colorectal carcinoma Current Visit: Yes Status: Acute Patient never had colonoscopy 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, heme-onc following --Metastases to the liver Current Visit: Yes Status: Acute Poor prognosis,Heme-onc following --Worsening transaminases; Current Visit: Yes Status: Acute Probably secondary to liver mets,Closely monitor --Severe malnutrition/hypoproteinemia Current Visit: Yes Status: Chronic Dietary supplements and dietitian consult --Anemia Current Visit: Yes Status: Chronic Closely monitor H&H and transfuse as needed --obesity; BMI 38.7 Current Visit: Yes Status: Chronic Patient needs weight reduction when medically stable --DVT prophylaxis Current Visit: Yes Status: Acute On SCDs , patient postop state Closely monitor the patient and adjust management as needed Consultants recommendations noted and appreciated Plan of care reviewed with the patient and his nurse 12/30/2020; status post surgical procedure POD 1 Continue postop care, surgery following 12/31/20; POD 2 Worsening LFTs, secondary to liver mets May start clear liquids as tolerated per surgery Follow 01/01; POD 3 Worsening renal function, increased normal saline to 125 mL/h Nephrology already consulted, clear liquid diet advance diet to full liquids if okay with surgery Surgical cultures positive for gram-negative rods, patient on Zosyn, follow culture sensitivities History Interval history: I have seen and examined the patient at the bedside Patient's chart and medications reviewed Patient is severely agitated complains of dryness of mouth And some vague abdominal pain and discomfort Tolerating clear liquids Hospitalist Physical - Constitutional Vitals: Temp Pulse Resp BP Pulse Ox 97.6 F 93 H 20 148/87 94 01/01/21 03:20 01/01/21 03:20 01/01/21 03:20 01/01/21 03:20 01/01/21 03:20 General appearance: Present: mild distress, well-nourished, obese - EENT Eyes: Present: PERRL, EOM intact - Neck Neck: Present: supple, normal ROM - Respiratory Respiratory effort: normal Respiratory: bilateral: diminished, rales, negative: rhonchi, wheezing - Cardiovascular Rhythm: regular Heart Sounds: Present: S1 & S2 - Extremities Extremities: no ischemia Extremity abnormal: edema - Abdominal General gastrointestinal: soft, tender (No guarding no rigidity), distended (Mild), hypoactive bowel sounds - Integumentary Integumentary: Present: clear, warm - Psychiatric Psychiatric: appropriate mood/affect, cooperative, other (Sometimes agitated) - Neurologic Neurologic: moves all extremities Results - Labs CBC & Chem 7: 01/01/21 04:59 01/01/21 04:59 Labs: Laboratory Last Values WBC 18.2 K/mm3 (4.5-11.0) H 01/01/21 04:59 RBC 3.77 M/mm3 (3.65-5.03) 01/01/21 04:59 Hgb 8.7 gm/dl (11.8-15.2) L 01/01/21 04:59 Hct 28.2 % (35.5-45.6) L 01/01/21 04:59 MCV 75 fl (84-94) L 01/01/21 04:59 MCH 23 pg (28-32) L 01/01/21 04:59 MCHC 31 % (32-34) L 01/01/21 04:59 RDW 19.5 % (13.2-15.2) H 01/01/21 04:59 Plt Count 263 K/mm3 (140-440) 01/01/21 04:59 Add Manual Diff Complete 12/31/20 05:04 Total Counted 100 12/31/20 05:04 Seg Neutrophils % 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 12/31/20 05:04 Seg Neuts % (Manual) 86.0 % (40.0-70.0) H 12/31/20 05:04 Band Neutrophils % 11.0 % 12/31/20 05:04 Lymphocytes % (Manual) 4.0 % (13.4-35.0) L 12/30/20 05:13 Monocytes % (Manual) 3.0 % (0.0-7.3) 12/31/20 05:04 Nucleated RBC % Not Reportable 12/31/20 05:04 Seg Neutrophils # Man 15.8 K/mm3 (1.8-7.7) H 12/31/20 05:04 Band Neutrophils # 2.0 K/mm3 12/31/20 05:04 Lymphocytes # (Manual) 0.0 K/mm3 (1.2-5.4) L 12/31/20 05:04 Abs React Lymphs (Man) 0.0 K/mm3 12/31/20 05:04 Monocytes # (Manual) 0.6 K/mm3 (0.0-0.8) 12/31/20 05:04 Eosinophils # (Manual) 0.0 K/mm3 (0.0-0.4) 12/31/20 05:04 Basophils # (Manual) 0.0 K/mm3 (0.0-0.1) 12/31/20 05:04 Metamyelocytes # 0.0 K/mm3 12/31/20 05:04 Myelocytes # 0.0 K/mm3 12/31/20 05:04 Promyelocytes # 0.0 K/mm3 12/31/20 05:04 Blast Cells # 0.0 K/mm3 12/31/20 05:04 WBC Morphology Not Reportable 12/31/20 05:04 Hypersegmented Neuts Not Reportable 12/31/20 05:04 Hyposegmented Neuts Not Reportable 12/31/20 05:04 Hypogranular Neuts Not Reportable 12/31/20 05:04 Smudge Cells Not Reportable 12/31/20 05:04 Toxic Granulation Not Reportable 12/31/20 05:04 Toxic Vacuolation Not Reportable 12/31/20 05:04 Dohle Bodies Not Reportable 12/31/20 05:04 Pelger-Huet Anomaly Not Reportable 12/31/20 05:04 Janene Rods Not Reportable 12/31/20 05:04 Platelet Estimate Consistent w auto 12/31/20 05:04 Clumped Platelets Not Reportable 12/31/20 05:04 Plt Clumps, EDTA Not Reportable 12/31/20 05:04 Large Platelets Not Reportable 12/31/20 05:04 Giant Platelets Not Reportable 12/31/20 05:04 Platelet Satelliting Not Reportable 12/31/20 05:04 Plt Morphology Comment Not Reportable 12/31/20 05:04 RBC Morphology Not Reportable 12/31/20 05:04 Dimorphic RBCs Not Reportable 12/31/20 05:04 Polychromasia Not Reportable 12/31/20 05:04 Hypochromasia 1+ 12/31/20 05:04 Poikilocytosis Not Reportable 12/31/20 05:04 Anisocytosis Not Reportable 12/31/20 05:04 Microcytosis Not Reportable 12/31/20 05:04 Macrocytosis Not Reportable 12/31/20 05:04 Spherocytes Not Reportable 12/31/20 05:04 Pappenheimer Bodies Not Reportable 12/31/20 05:04 Sickle Cells Not Reportable 12/31/20 05:04 Target Cells Not Reportable 12/31/20 05:04 Tear Drop Cells Not Reportable 12/31/20 05:04 Ovalocytes 1+ 12/31/20 05:04 Helmet Cells Not Reportable 12/31/20 05:04 [place] Bodies Not Reportable 12/31/20 05:04 [place] Rings Not Reportable 12/31/20 05:04 [place] Cells Not Reportable 12/31/20 05:04 Bite Cells Not Reportable 12/31/20 05:04 Crenated Cell Not Reportable 12/31/20 05:04 Elliptocytes Not Reportable 12/31/20 05:04 Acanthocytes (Spur) Not Reportable 12/31/20 05:04 Rouleaux Not Reportable 12/31/20 05:04 Hemoglobin C Crystals Not Reportable 12/31/20 05:04 Schistocytes Not Reportable 12/31/20 05:04 Malaria parasites Not Reportable 12/31/20 05:04 Atul Bodies Not Reportable 12/31/20 05:04 Hem Pathologist Commnt No 12/31/20 05:04 Sodium 136 mmol/L (137-145) L 01/01/21 04:59 Potassium 5.1 mmol/L (3.6-5.0) H 01/01/21 04:59 Chloride 101.1 mmol/L (98-107) 01/01/21 04:59 Carbon Dioxide 18 mmol/L (22-30) L 01/01/21 04:59 Anion Gap 22 mmol/L 01/01/21 04:59 BUN 70 mg/dL (9-20) H 01/01/21 04:59 Creatinine 4.4 mg/dL (0.8-1.3) H 01/01/21 04:59 Estimated GFR 14 ml/min 01/01/21 04:59 BUN/Creatinine Ratio 16 % 01/01/21 04:59 Glucose 131 mg/dL (75-100) H 01/01/21 04:59 POC Glucose 128 mg/dL (70-105) H 12/30/20 02:19 Hemoglobin A1c 6.2 % (4-6) H 12/30/20 05:13 Calcium 8.2 mg/dL (8.4-10.2) L 01/01/21 04:59 Magnesium 4.20 mg/dL (1.7-2.3) H 12/31/20 05:04 Total Bilirubin 1.30 mg/dL (0.1-1.2) H 01/01/21 04:59 Direct Bilirubin 0.6 mg/dL (0-0.2) H 12/29/20 15:43 Indirect Bilirubin 0.4 mg/dL 12/29/20 15:43 AST 150 units/L (5-40) H 01/01/21 04:59 ALT 144 units/L (7-56) H 01/01/21 04:59 Alkaline Phosphatase 306 units/L (35-129) H 01/01/21 04:59 Total Protein 6.3 g/dL (6.3-8.2) 01/01/21 04:59 Albumin 2.5 g/dL (3.9-5) L 01/01/21 04:59 Albumin/Globulin Ratio 0.7 % 01/01/21 04:59 Lipase 7 units/L (13-60) L 12/29/20 15:43 Blood Type A POSITIVE 12/29/20 20:38 Antibody Screen Negative 12/29/20 20:38 Crossmatch See Detail 12/29/20 20:38 Microbiology: Microbiology 12/29/20 19:37 Peripheral/Venous Blood Culture - Preliminary NO GROWTH AFTER 48 HOURS 12/29/20 19:37 Peripheral/Venous Blood Culture - Preliminary NO GROWTH AFTER 48 HOURS 12/29/20 Unknown Abdomen Surgical Culture - Preliminary Gram Negative Dieudonne Santiago/IV: Voiding Method Indwelling Catheter Active Medications - Current Medications Current Medications: Generic Name Dose Route Start Last Admin Trade Name Freq PRN Reason Stop Dose Admin Acetaminophen 650 mg 12/29/20 21:04 Acetaminophen 325 Mg Tab PO Q4H PRN Pain MILD(1-3)/Fever >100.5/SHARMA Alprazolam 0.5 mg 01/01/21 08:30 Alprazolam 0.5 Mg Tab PO Q8H PRN Anxiety Heparin Sodium (Porcine) 5,000 unit 12/30/20 06:00 01/01/21 05:36 Heparin 5,000 Unit/1 Ml Vial SUB-Q 5,000 unit Q8HR JESSICA Administration Hydromorphone HCl 1 mg 12/29/20 21:04 12/31/20 22:24 Hydromorphone 1 Mg/1 Ml Inj IV 1 mg Q3H PRN Administration Pain , Severe (7-10) Ferric Sodium Gluconate 120 mls @ 100 mls/hr 12/31/20 14:00 12/31/20 17:00 Complex 250 mg/ Sodium IV 01/02/21 11:11 100 mls/hr Chloride DAILY JESSICA Administration Piperacillin Sod/Tazobactam Sod 2.25 gm in 50 mls @ 100 mls/hr 12/31/20 18:00 01/01/21 05:33 Zosyn/Ns 2.25 Gm/50ml IV 100 mls/hr Q6HR JESSICA Administration Sodium Chloride 1,000 mls @ 125 mls/hr 01/01/21 09:45 Nacl 0.9% 1000 Ml IV DIRECT JESSICA Morphine Sulfate 2 mg 12/30/20 01:46 Morphine 2 Mg/1 Ml Inj IV Q3H PRN Pain, Moderate (4-6) Ondansetron HCl 4 mg 12/29/20 21:04 12/31/20 10:37 Ondansetron 4 Mg/2 Ml Inj IV 4 mg Q3H PRN Administration Nausea And Vomiting Sodium Chloride 10 ml 12/29/20 22:00 12/31/20 22:24 Sodium Chloride 0.9% 10 Ml Flush Syringe IV 10 ml BID JESSICA Administration Sodium Chloride 10 ml 12/29/20 21:04 Sodium Chloride 0.9% 10 Ml Flush Syringe IV PRN PRN LINE FLUSH
[2021-01-01 13:53] LABS: Bilirubin,Urine NEG (Negative); Blood,Urine LG (Negative); Calcium Oxalate Crystals,Urine 1+; Color,Urine Amber (Yellow); Mucus,Urine FEW /HPF; Urobilinogen,Urine < 2.0 mg/dL (<2.0)
--- NOTE | 2021-01-01 14:04 | Progress Note ---
Assessment and Plan 50 yo M s/p exploratory laparotomy, sigmoidectomy, end colostomy, peritoneal lavage, POD 3 1. perforated sigmoid mass, likely neoplasm 2. peritonitis 2/2 #1 3. sepsis 2/2 #1/2 4. liver mets 5. obesity 6. SHARMIN Plan: 1. adv to FLD with dietary supplements 2. continue IVF 3. IV abx - continue zosyn 4. DVT ppx 5. f/u intraperitoneal cultures - prelim gram neg rods 6. prn pain and nausea control 7. daily labs - monitor WBC, lytes, [employer] Member - LFTS trending down, [employer] Team Member trending up 8. CEA and path pending 9. BARBI drain - monitor output 10. colostomy care 11. Santiago for strict I/Os - may be removed if ok with nephro 12. nephro and onc notes reviewed. If can get outpatient oncology follow up set up, will plan to place port before discharge. 13. Physical therapy consulted - OOB Guarded prognosis Thank you, please call with questions. Evaluation and treatment of this patient was during the time of the national and state emergency arising from COVID19 coronavirus pandemic. Treatment and procedures performed meet the current and available best practice and guidelines for patient during the COVID pandemic. Subjective Date of service: 01/01/21 Narrative: Pt seen in follow up. No acute complaints. Patient continues to c/o dry mouth and states drinking liquids makes it worse. Afebrile. Tolerating clears. Objective Vital Signs - 12hr 01/01/21 01/01/21 02:38 03:20 Temperature 97.6 F Pulse Rate 93 H Respiratory 20 Rate Blood Pressure 148/87 O2 Sat by Pulse 98 94 Oximetry - General physical appearance Narrative Exam: Gen.: Awake, alert, slightly confused. NAD ENT: Trachea midline. No lymphadenopathy. No scleral icterus or conjunctival pallor CV: S1, S2 present Respiratory: No audible wheezes Abdomen: Soft, mildy distended, obese, nontender. Midline dressing removed. Incision with old clotted blood on dressing. Telfa jerri removed. No active drainage. [place] dressings applied. Right-sided BARBI drain is serosanguineous. Left-sided ostomy is pink with mild edema and air in colostomy bag. No rebound, rigidity, guarding Extremities: No clubbing, cyanosis, edema : Santiago with dark jacoby urine I/O: BARBI drain - 300cc/12hr Santiago - 700cc/24h - Labs 01/01/21 04:59 01/01/21 04:59 Diabetes panel 01/01/21 Range/Units 04:59 Sodium 136 L (137-145) mmol/L Potassium 5.1 H (3.6-5.0) mmol/L Chloride 101.1 (98-107) mmol/L Carbon Dioxide 18 L (22-30) mmol/L BUN 70 H (9-20) mg/dL Creatinine 4.4 H (0.8-1.3) mg/dL Glucose 131 H (75-100) mg/dL Calcium 8.2 L (8.4-10.2) mg/dL AST 150 H (5-40) units/L ALT 144 H (7-56) units/L Alkaline Phosphatase 306 H (35-129) units/L Total Protein 6.3 (6.3-8.2) g/dL Albumin 2.5 L (3.9-5) g/dL Calcium panel 01/01/21 Range/Units 04:59 Calcium 8.2 L (8.4-10.2) mg/dL Albumin 2.5 L (3.9-5) g/dL Pituitary panel 01/01/21 Range/Units 04:59 Sodium 136 L (137-145) mmol/L Potassium 5.1 H (3.6-5.0) mmol/L Chloride 101.1 (98-107) mmol/L Carbon Dioxide 18 L (22-30) mmol/L BUN 70 H (9-20) mg/dL Creatinine 4.4 H (0.8-1.3) mg/dL Glucose 131 H (75-100) mg/dL Calcium 8.2 L (8.4-10.2) mg/dL Adrenal panel 01/01/21 Range/Units 04:59 Sodium 136 L (137-145) mmol/L Potassium 5.1 H (3.6-5.0) mmol/L Chloride 101.1 (98-107) mmol/L Carbon Dioxide 18 L (22-30) mmol/L BUN 70 H (9-20) mg/dL Creatinine 4.4 H (0.8-1.3) mg/dL Glucose 131 H (75-100) mg/dL Calcium 8.2 L (8.4-10.2) mg/dL Total Bilirubin 1.30 H (0.1-1.2) mg/dL AST 150 H (5-40) units/L ALT 144 H (7-56) units/L Alkaline Phosphatase 306 H (35-129) units/L Total Protein 6.3 (6.3-8.2) g/dL Albumin 2.5 L (3.9-5) g/dL
[2021-01-01] MEDS: SODIUM FERRIC GLUCON/SUCRO 250 MG in SODIUM CHLORIDE 0.9% 100 ML IV SCH (15:34)
[2021-01-01] MEDS: SODIUM CHLORIDE 0.9% 1000 ML 1,000 ML IV SCH (15:35)
[2021-01-01] MEDS: HYDROmorphone 1 MG/1 ML INJ IV PRN (21:35)
[2021-01-02] MEDS: PIPERACIL-TAZO 2.25 GM/50 ML 2.25 GM/50 ML BAG IV SCH ×3 (00:47→12:11)
[2021-01-02] MEDS: HEPARIN 5,000 UNIT/1 ML VIAL SUB-Q SCH ×3 (05:17→21:18)
--- NOTE | 2021-01-02 09:40 | Progress Note ---
Assessment and Plan 50-year-old man presents with perforated sigmoid mass likely neoplasm, status post exploratory laparotomy, sigmoidectomy, end colostomy, peritoneal lavage. # SHARMIN: creatinine 1.1->1.8->3.4->4.4 over 3 days, suspect severe tubular injury s/p extensive surgery + contrast use on 12/29. 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 Explained dialysis benefits and risks. However, unclear if patient understanding as he states that his kidneys will be better if he "just gets ice"-> will check labs in AM and would plan for HD initiation/CVC placement if creatinine continues to trend up - continue IVF at this time - check serologies to ensure no glomerular injury, consider biopsy pending results - no renal obstruction noted on prior CT; do note mass on kidney which may be related to underlying sigmoid mass - avoid nephrotoxins - renally dose meds - strict Is/Os-> currently non-oliguric but net positive - no emergent need for HD per lytes/volume assessment; high risk for kidney failure however # Metabolic Acidosis/Mild Hyperkalemia: likely due to SHARMIN. Start NaHCO3 repletion # Perforated Sigmoid Mass, Possible Colorectal Carcinoma, Metastasis to Liver: appreciate surgery input, advance diet per primary/surgery. Note oncology consult; if chemotherapy is needed, suspect further kidney injury # Sepsis, Leukocytosis: likely related to bowel perforation, note antibiotics # Malnutrition Subjective Date of service: 01/02/21 Interval history: Patient with similar complaints this AM, requesting ice from outside of hospital. Also requests a form that he signed during my rounds to be delivered downstairs to the lobby. Objective - Exam Narrative Exam: Gen.: Awake, alert, slightly confused and agitated. NAD, obese ENT: Trachea midline CV: S1, S2 present Respiratory: No audible wheezes, non-labored breathing Abdomen: Soft, mildy distended, obese, nontender. Note BARBI drain, left-sided ostomy Extremities: No clubbing, cyanosis, edema : Santiago with dark jacoby urine - Vital Signs Vital signs: Vital Signs - 12hr 01/01/21 01/01/21 01/02/21 23:33 23:40 05:22 Temperature 97.2 F L 96.0 F L Pulse Rate 99 H 90 Respiratory 19 19 Rate Blood Pressure 155/83 139/70 O2 Sat by Pulse 94 97 93 Oximetry 01/02/21 07:14 Temperature 97.9 F Pulse Rate 96 H Respiratory 20 Rate Blood Pressure 133/73 O2 Sat by Pulse 96 Oximetry - Lab 01/01/21 04:59 01/01/21 04:59 Most recent lab results Calcium 8.2 mg/dL (8.4-10.2) L 01/01/21 04:59 Magnesium 4.20 mg/dL (1.7-2.3) H 12/31/20 05:04 Medications & Allergies - Medications Allergies/Adverse Reactions: Allergies No Known Allergies Allergy (Verified 12/29/20 13:17) Home Medications: Home Medications Medication Instructions Recorded Confirmed Last Taken Type Tylenol Extra Strength 500 mg PO BID PRN 12/30/20 12/30/20 Unknown History Active Medications: Generic Name Dose Route Start Last Admin Trade Name Freq PRN Reason Stop Dose Admin Acetaminophen 650 mg 12/29/20 21:04 Acetaminophen 325 Mg Tab PO Q4H PRN Pain MILD(1-3)/Fever >100.5/SHARMA Alprazolam 0.5 mg 01/01/21 08:30 Alprazolam 0.5 Mg Tab PO Q8H PRN Anxiety Heparin Sodium (Porcine) 5,000 unit 12/30/20 06:00 01/02/21 05:17 Heparin 5,000 Unit/1 Ml Vial SUB-Q 5,000 unit Q8HR JESISCA Administration Hydromorphone HCl 1 mg 12/29/20 21:04 01/01/21 21:35 Hydromorphone 1 Mg/1 Ml Inj IV 1 mg Q3H PRN Administration Pain , Severe (7-10) Ferric Sodium Gluconate 120 mls @ 100 mls/hr 12/31/20 14:00 01/01/21 15:34 Complex 250 mg/ Sodium IV 01/02/21 11:11 100 mls/hr Chloride DAILY JESSICA Administration Piperacillin Sod/Tazobactam Sod 2.25 gm in 50 mls @ 100 mls/hr 12/31/20 18:00 01/02/21 05:11 Zosyn/Ns 2.25 Gm/50ml IV 100 mls/hr Q6HR JESSICA Administration Sodium Chloride 1,000 mls @ 125 mls/hr 01/01/21 10:00 01/01/21 15:35 Nacl 0.9% 1000 Ml IV 125 mls/hr DIRECT JESSICA Administration Morphine Sulfate 2 mg 12/30/20 01:46 Morphine 2 Mg/1 Ml Inj IV Q3H PRN Pain, Moderate (4-6) Ondansetron HCl 4 mg 12/29/20 21:04 12/31/20 10:37 Ondansetron 4 Mg/2 Ml Inj IV 4 mg Q3H PRN Administration Nausea And Vomiting Sodium Chloride 10 ml 12/29/20 22:00 01/01/21 21:22 Sodium Chloride 0.9% 10 Ml Flush Syringe IV 10 ml BID JESSICA Administration Sodium Chloride 10 ml 12/29/20 21:04 Sodium Chloride 0.9% 10 Ml Flush Syringe IV PRN PRN LINE FLUSH
[2021-01-02] MEDS: SODIUM FERRIC GLUCON/SUCRO 250 MG in SODIUM CHLORIDE 0.9% 100 ML IV SCH (10:51)
[2021-01-02] MEDS: SODIUM CHLORIDE 0.9% 1000 ML 1,000 ML IV SCH (13:11)
--- NOTE | 2021-01-02 14:07 | Progress Note ---
Assessment and Plan 50 yo M s/p exploratory laparotomy, sigmoidectomy, end colostomy, peritoneal lavage, POD 4 1. perforated sigmoid mass, likely neoplasm 2. peritonitis 2/2 #1 3. sepsis 2/2 #1/2 4. liver mets 5. obesity 6. SHARMIN Plan: 1. adv to soft diet with dietary supplements 2. Gentle IV fluids, per nephro 3. IV abx - continue zosyn 4. DVT ppx 5. f/u intraperitoneal cultures - prelim E. coli and Klebsiella duran sensitive 6. prn pain and nausea control 7. daily labs - monitor WBC, lytes, blister rust eradicator -labs ordered for tomorrow 8. CEA and path pending 9. BARBI drain - monitor output 10. colostomy care 11. Santiago for strict I/Os - may be removed if ok with nephro 12. nephro and onc notes reviewed 13. Physical therapy on board- OOB Guarded prognosis. Discussed with Dr. Swann Thank you, please call with questions. Evaluation and treatment of this patient was during the time of the national and state emergency arising from COVID19 coronavirus pandemic. Treatment and procedures performed meet the current and available best practice and guidelines for patient during the COVID pandemic. Subjective Date of service: 01/02/21 Narrative: Patient seen and examined. Remains afebrile. Complains of dry mouth and difficulty burping. Abdominal pain is 4 out of 10 in severity and is well controlled with pain medication. He worked with physical therapy yesterday. Patient remains agitated and confused at times. Objective Vital Signs - 12hr 01/02/21 01/02/21 05:22 07:14 Temperature 96.0 F L 97.9 F Pulse Rate 90 96 H Respiratory 19 20 Rate Blood Pressure 139/70 133/73 O2 Sat by Pulse 93 96 Oximetry - General physical appearance Narrative Exam: Gen.: Awake, alert, oriented x3. Agitated and mildly confused. Difficult to redirect as he is focused on dryness of mouth ENT: Trachea midline. No lymphadenopathy. No scleral icterus or conjunctival pallor CV: S1, S2 present Respiratory: No audible wheezes Abdomen: Soft, obese, nondistended, nontender. Midline dressing removed and incision is clean, dry, intact with davi in place. New dressing applied. Right-sided BARBI drain with serosanguineous drainage, small blood clot. New drain dressing applied. Left-sided colostomy is pink with brown stool in bag. No rebound, rigidity, guarding Extremities: Mild lower extremity edema bilaterally : Santiago with dark jacoby urine - Labs 01/01/21 04:59 01/01/21 04:59
--- NOTE | 2021-01-02 14:15 | Progress Note ---
Assessment and Plan Assessment and plan: 50-year-old male patient with perforated sigmoid mass likely neoplasm, status post exploratory laparotomy,, sigmoidectomy, end colostomy,, peritoneal lavage. --perforated sigmoid mass --s/p exploratory laparotomy/sigmoidectomy/colostomy/peritoneal lavage Complains of some pain,On clear liquids, may advance to full liquids if okay with surgery, IV fluids IV antibiotics, IV Protonix, Pain medications, Surgery following Out of bed to chair, PT rec by surgery --Gram-negative sepsis Current Visit: Yes Status: Acute Sepsis in the setting of high white count and bowel perforation -- Continue IV antibiotics, follow cultures ID consult if needed --Surgical cultures gram-negative rods Current Visit: Yes Status: Acute Currently on Zosyn, follow culture sensitivities ID consult if needed --Acute kidney injury; vasomotor nephropathy Current Visit: Yes Status: Acute Worsening renal function ,not present on admission, probably partly dehydration IV hydration, monitor renal function, avoid nephrotoxins Nephrology consulted --Possible colorectal carcinoma Current Visit: Yes Status: Acute Patient never had colonoscopy 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, heme-onc following --Metastases to the liver Current Visit: Yes Status: Acute Poor prognosis,Heme-onc following --Worsening transaminases; Current Visit: Yes Status: Acute Probably secondary to liver mets,Closely monitor --Severe malnutrition/hypoproteinemia Current Visit: Yes Status: Chronic Dietary supplements and dietitian consult --Anemia Current Visit: Yes Status: Chronic Closely monitor H&H and transfuse as needed --obesity; BMI 38.7 Current Visit: Yes Status: Chronic Patient needs weight reduction when medically stable --DVT prophylaxis Current Visit: Yes Status: Acute On SCDs , patient postop state Closely monitor the patient and adjust management as needed Consultants recommendations noted and appreciated Plan of care reviewed with the patient and his nurse 12/30/2020; status post surgical procedure POD 1 Continue postop care, surgery following 12/31/20; POD 2 Worsening LFTs, secondary to liver mets May start clear liquids as tolerated per surgery Follow 01/01; POD 3 Worsening renal function, increased normal saline to 125 mL/h Nephrology already consulted, clear liquid diet advance diet to full liquids if okay with surgery Surgical cultures positive for gram-negative rods, patient on Zosyn, follow culture sensitivities 01/02; patient feels slightly better Surgery advance diet to soft, PT working with him Patient complains of dryness of mouth Worsening renal function History Interval history: I have seen and examined the patient at the bedside Patient is very agitated, and restless sometimes confused Asking for ice from outside Complains of vague abdominal discomfort Hospitalist Physical - Constitutional Vitals: Temp Pulse Resp BP Pulse Ox 97.9 F 96 H 20 133/73 96 01/02/21 07:14 01/02/21 07:14 01/02/21 07:14 01/02/21 07:14 01/02/21 07:14 General appearance: Present: mild distress, well-nourished, obese - EENT Eyes: Present: PERRL, EOM intact - Neck Neck: Present: supple, normal ROM - Respiratory Respiratory effort: normal Respiratory: bilateral: diminished, negative: rales, rhonchi, wheezing - Cardiovascular Rhythm: regular Heart Sounds: Present: S1 & S2 - Extremities Extremities: no ischemia Extremity abnormal: edema - Abdominal General gastrointestinal: soft, tender (No guarding no rigidity), distended (Mild distention) - Integumentary Integumentary: Present: clear, warm - Psychiatric Psychiatric: agitated - Neurologic Neurologic: moves all extremities Results - Labs CBC & Chem 7: 01/01/21 04:59 01/03/21 01:00 Labs: Laboratory Last Values WBC 18.2 K/mm3 (4.5-11.0) H 01/01/21 04:59 RBC 3.77 M/mm3 (3.65-5.03) 01/01/21 04:59 Hgb 8.7 gm/dl (11.8-15.2) L 01/01/21 04:59 Hct 28.2 % (35.5-45.6) L 01/01/21 04:59 MCV 75 fl (84-94) L 01/01/21 04:59 MCH 23 pg (28-32) L 01/01/21 04:59 MCHC 31 % (32-34) L 01/01/21 04:59 RDW 19.5 % (13.2-15.2) H 01/01/21 04:59 Plt Count 263 K/mm3 (140-440) 01/01/21 04:59 Add Manual Diff Complete 12/31/20 05:04 Total Counted 100 12/31/20 05:04 Seg Neutrophils % Ball Points Inspector 10/08/21 05:04 Seg Neuts % (Manual) 86.0 % (40.0-70.0) H 12/31/20 05:04 Band Neutrophils % 11.0 % 12/31/20 05:04 Lymphocytes % (Manual) 4.0 % (13.4-35.0) L 12/30/20 05:13 Monocytes % (Manual) 3.0 % (0.0-7.3) 12/31/20 05:04 Nucleated RBC % Not Reportable 12/31/20 05:04 Seg Neutrophils # Man 15.8 K/mm3 (1.8-7.7) H 12/31/20 05:04 Band Neutrophils # 2.0 K/mm3 12/31/20 05:04 Lymphocytes # (Manual) 0.0 K/mm3 (1.2-5.4) L 12/31/20 05:04 Abs React Lymphs (Man) 0.0 K/mm3 12/31/20 05:04 Monocytes # (Manual) 0.6 K/mm3 (0.0-0.8) 12/31/20 05:04 Eosinophils # (Manual) 0.0 K/mm3 (0.0-0.4) 12/31/20 05:04 Basophils # (Manual) 0.0 K/mm3 (0.0-0.1) 12/31/20 05:04 Metamyelocytes # 0.0 K/mm3 12/31/20 05:04 Myelocytes # 0.0 K/mm3 12/31/20 05:04 Promyelocytes # 0.0 K/mm3 12/31/20 05:04 Blast Cells # 0.0 K/mm3 12/31/20 05:04 WBC Morphology Not Reportable 12/31/20 05:04 Hypersegmented Neuts Not Reportable 12/31/20 05:04 Hyposegmented Neuts Not Reportable 12/31/20 05:04 Hypogranular Neuts Not Reportable 12/31/20 05:04 Smudge Cells Not Reportable 12/31/20 05:04 Toxic Granulation Not Reportable 12/31/20 05:04 Toxic Vacuolation Not Reportable 12/31/20 05:04 Dohle Bodies Not Reportable 12/31/20 05:04 Pelger-Huet Anomaly Not Reportable 12/31/20 05:04 Janene Rods Not Reportable 12/31/20 05:04 Platelet Estimate Consistent w auto 12/31/20 05:04 Clumped Platelets Not Reportable 12/31/20 05:04 Plt Clumps, EDTA Not Reportable 12/31/20 05:04 Large Platelets Not Reportable 12/31/20 05:04 Giant Platelets Not Reportable 12/31/20 05:04 Platelet Satelliting Not Reportable 12/31/20 05:04 Plt Morphology Comment Not Reportable 12/31/20 05:04 RBC Morphology Not Reportable 12/31/20 05:04 Dimorphic RBCs Not Reportable 12/31/20 05:04 Polychromasia Not Reportable 12/31/20 05:04 Hypochromasia 1+ 12/31/20 05:04 Poikilocytosis Not Reportable 12/31/20 05:04 Anisocytosis Not Reportable 12/31/20 05:04 Microcytosis Not Reportable 12/31/20 05:04 Macrocytosis Not Reportable 12/31/20 05:04 Spherocytes Not Reportable 12/31/20 05:04 Pappenheimer Bodies Not Reportable 12/31/20 05:04 Sickle Cells Not Reportable 12/31/20 05:04 Target Cells Not Reportable 12/31/20 05:04 Tear Drop Cells Not Reportable 12/31/20 05:04 Ovalocytes 1+ 12/31/20 05:04 Helmet Cells Not Reportable 12/31/20 05:04 [place] Bodies Not Reportable 12/31/20 05:04 Continental Rings Not Reportable 12/31/20 05:04 Ankur Cells Not Reportable 12/31/20 05:04 Bite Cells Not Reportable 12/31/20 05:04 Crenated Cell Not Reportable 12/31/20 05:04 Elliptocytes Not Reportable 12/31/20 05:04 Acanthocytes (Spur) Not Reportable 12/31/20 05:04 Rouleaux Not Reportable 12/31/20 05:04 Hemoglobin C Crystals Not Reportable 12/31/20 05:04 Schistocytes Not Reportable 12/31/20 05:04 Malaria parasites Not Reportable 12/31/20 05:04 Atul Bodies Not Reportable 12/31/20 05:04 Hem Pathologist Commnt No 12/31/20 05:04 Sodium 136 mmol/L (137-145) L 01/01/21 04:59 Potassium 5.1 mmol/L (3.6-5.0) H 01/01/21 04:59 Chloride 101.1 mmol/L (98-107) 01/01/21 04:59 Carbon Dioxide 18 mmol/L (22-30) L 01/01/21 04:59 Anion Gap 22 mmol/L 01/01/21 04:59 BUN 70 mg/dL (9-20) H 01/01/21 04:59 Creatinine 4.4 mg/dL (0.8-1.3) H 01/01/21 04:59 Estimated GFR 14 ml/min 01/01/21 04:59 BUN/Creatinine Ratio 16 % 01/01/21 04:59 Glucose 131 mg/dL (75-100) H 01/01/21 04:59 POC Glucose 128 mg/dL (70-105) H 12/30/20 02:19 Hemoglobin A1c 6.2 % (4-6) H 12/30/20 05:13 Calcium 8.2 mg/dL (8.4-10.2) L 01/01/21 04:59 Magnesium 4.20 mg/dL (1.7-2.3) H 12/31/20 05:04 Total Bilirubin 1.30 mg/dL (0.1-1.2) H 01/01/21 04:59 Direct Bilirubin 0.6 mg/dL (0-0.2) H 12/29/20 15:43 Indirect Bilirubin 0.4 mg/dL 12/29/20 15:43 AST 150 units/L (5-40) H 01/01/21 04:59 ALT 144 units/L (7-56) H 01/01/21 04:59 Alkaline Phosphatase 306 units/L (35-129) H 01/01/21 04:59 Ammonia 28.0 umol/L (25-60) 01/02/21 05:45 Total Protein 6.3 g/dL (6.3-8.2) 01/01/21 04:59 Albumin 2.5 g/dL (3.9-5) L 01/01/21 04:59 Albumin/Globulin Ratio 0.7 % 01/01/21 04:59 Lipase 7 units/L (13-60) L 12/29/20 15:43 Carcinoembryonic Ag 24.3 ng/mL (0.0-2.4) H 12/29/20 19:37 PTH Intact 5.60 pg/mL (15-65) L 01/01/21 14:42 Urine Color Delilah (Yellow) 01/01/21 04:30 Urine Turbidity Cloudy (Clear) 01/01/21 04:30 Urine pH 5.0 (5.0-7.0) 01/01/21 04:30 Ur Specific [place] 1.038 (1.003-1.030) H 01/01/21 04:30 Urine Protein 100 mg/dl mg/dL (Negative) 01/01/21 04:30 Urine Glucose (UA) 50 mg/dL (Negative) 01/01/21 04:30 Urine Ketones Neg mg/dL (Negative) 01/01/21 04:30 Urine Blood Lg (Negative) 01/01/21 04:30 Urine Nitrite Neg (Negative) 01/01/21 04:30 Urine Bilirubin Neg (Negative) 01/01/21 04:30 Urine Urobilinogen < 2.0 mg/dL (<2.0) 01/01/21 04:30 Ur Leukocyte Esterase Mod (Negative) 01/01/21 04:30 Urine WBC (Auto) 123.0 /HPF (0.0-6.0) H 01/01/21 04:30 Urine RBC (Auto) 137.0 /HPF (0.0-6.0) 01/01/21 04:30 Calcium Oxalate Crystal 1+ 01/01/21 04:30 Urine Mucus Few /HPF 01/01/21 04:30 HIV 1&2 Antibody Rapid Non react (Non React) 01/01/21 14:42 HIV P24 Antigen Non react (Non React) 01/01/21 14:42 Blood Type A POSITIVE 12/29/20 20:38 Antibody Screen Negative 12/29/20 20:38 Crossmatch See Detail 12/29/20 20:38 Microbiology: Microbiology 12/29/20 Unknown Abdomen Surgical Culture - Preliminary Escherichia Coli Klebsiella Oxytoca 12/29/20 19:37 Peripheral/Venous Blood Culture - Preliminary NO GROWTH AFTER 72 HOURS 12/29/20 19:37 Peripheral/Venous Blood Culture - Preliminary NO GROWTH AFTER 72 HOURS Santiago/IV: Voiding Method Indwelling Catheter Active Medications - Current Medications Current Medications: Generic Name Dose Route Start Last Admin Trade Name Freq PRN Reason Stop Dose Admin Acetaminophen 650 mg 12/29/20 21:04 Acetaminophen 325 Mg Tab PO Q4H PRN Pain MILD(1-3)/Fever >100.5/SHARMA Alprazolam 0.5 mg 01/01/21 08:30 Alprazolam 0.5 Mg Tab PO Q8H PRN Anxiety Heparin Sodium (Porcine) 5,000 unit 12/30/20 06:00 01/02/21 13:08 Heparin 5,000 Unit/1 Ml Vial SUB-Q 5,000 unit Q8HR JESSICA Administration Hydromorphone HCl 1 mg 12/29/20 21:04 01/01/21 21:35 Hydromorphone 1 Mg/1 Ml Inj IV 1 mg Q3H PRN Administration Pain , Severe (7-10) Piperacillin Sod/Tazobactam Sod 2.25 gm in 50 mls @ 100 mls/hr 12/31/20 18:00 01/02/21 12:11 Zosyn/Ns 2.25 Gm/50ml IV 100 mls/hr Q6HR JESSICA Administration Sodium Chloride 1,000 mls @ 125 mls/hr 01/01/21 10:00 01/02/21 13:11 Nacl 0.9% 1000 Ml IV 125 mls/hr DIRECT JESSICA Administration Morphine Sulfate 2 mg 12/30/20 01:46 Morphine 2 Mg/1 Ml Inj IV Q3H PRN Pain, Moderate (4-6) Ondansetron HCl 4 mg 12/29/20 21:04 12/31/20 10:37 Ondansetron 4 Mg/2 Ml Inj IV 4 mg Q3H PRN Administration Nausea And Vomiting Sodium Chloride 10 ml 12/29/20 22:00 01/01/21 21:22 Sodium Chloride 0.9% 10 Ml Flush Syringe IV 10 ml BID JESSICA Administration Sodium Chloride 10 ml 12/29/20 21:04 01/02/21 13:09 Sodium Chloride 0.9% 10 Ml Flush Syringe IV 10 ml PRN PRN Administration LINE FLUSH
[2021-01-02] MEDS: ALPRAZolam 0.5 MG TAB PO PRN (21:17)
[2021-01-02] MEDS: HYDROmorphone 1 MG/1 ML INJ IV PRN (21:17)
[2021-01-03] MEDS: PIPERACIL-TAZO 2.25 GM/50 ML 2.25 GM/50 ML BAG IV SCH ×3 (00:35→16:30)
[2021-01-03] MEDS ORDERED: INSULIN REGULAR, HUMAN 100 UNITS/1 ML IV ONE (04:07)
[2021-01-03] MEDS ORDERED: DEXTROSE 50% IN WATER (25GM) 50 ML SYRINGE IV ONE (04:09)
[2021-01-03] MEDS ORDERED: CALCIUM GLUCONATE 1,000 MG in SODIUM CHLORIDE 0.9% 100 ML IV ONE (04:12)
[2021-01-03] MEDS ORDERED: SODIUM BICARB 8.4% 50 MEQ/50 ML SYRINGE IV ONE (04:14)
[2021-01-03] MEDS: SODIUM POLYSTYRENE 15 GM/60 ML ORAL LIQD PO SCH ×2 (05:12→21:33)
[2021-01-03] MEDS: HEPARIN 5,000 UNIT/1 ML VIAL SUB-Q SCH ×3 (05:49→21:38)
--- NOTE | 2021-01-03 10:05 | Progress Note ---
Assessment and Plan 50-year-old man presents with perforated sigmoid mass likely neoplasm, status post exploratory laparotomy, sigmoidectomy, end colostomy, peritoneal lavage. # SHARMIN: creatinine 1.1->1.8->3.4->4.4> 6.1 over 3 days, suspect severe tubular injury s/p extensive surgery + contrast use on 12/29. Patient is also getting hyperkalemic and acidotic. Need to initiate renal replacement therapy. Discussed with patient at length. He is agreeable. Shall consult interventional radiology for Vas-Cath placement. Discussed with Dr. Woo. Keep him n.p.o. for now. Discussed with patient's nurse as well. - continue IVF at this time -Follow-up results of serologies to ensure no glomerular injury, consider biopsy pending results - no renal obstruction noted on prior CT; do note mass on kidney which may be related to underlying sigmoid mass - avoid nephrotoxins - renally dose meds - strict Is/Os-> currently non-oliguric but net positive # Metabolic Acidosis/Hyperkalemia: likely due to SHARMIN. Agree with medical management of hyperkalemia . Hopefully dialysis will correct his hyperkalemia as well as acidosis # Perforated Sigmoid Mass, Possible Colorectal Carcinoma, Metastasis to Liver: appreciate surgery input, advance diet per primary/surgery. Note oncology consult; if chemotherapy is needed, suspect further kidney injury # Sepsis, Leukocytosis: likely related to bowel perforation, note antibiotics # Malnutrition Subjective Date of service: 01/03/21 Interval history: Patient is awake and alert. Denies any shortness of breath. No nausea vomiting or diarrhea. Complains of dry mouth. Objective - Vital Signs Vital signs: Vital Signs - 12hr 01/02/21 01/03/21 01/03/21 23:49 00:00 05:00 Temperature 97.8 F Pulse Rate 92 H 86 Respiratory 12 Rate Blood Pressure 198/170 Blood Pressure [Left] O2 Sat by Pulse 92 97 Oximetry 01/03/21 01/03/21 01/03/21 05:08 05:13 08:51 Temperature 97.4 F L 97.4 F L 98.3 F Pulse Rate 85 84 Respiratory 16 16 20 Rate Blood Pressure 145/70 130/62 Blood Pressure 145/70 [Left] O2 Sat by Pulse 96 95 Oximetry - General Appearance General appearance: well-developed, well-nourished, appears stated age EENT: PERRL, mucous membranes moist Neck: no JVD, no thyromegaly, no carotid bruit, supple Respiratory: Present: Clear to Ascultation Cardiology: regular, normal heart rate Gastrointestinal: other (Colostomy bag in place. Midline dressing noted. Drainage tube in the right flank area) Integumentary: no rash, other (1+ edema) - Lab 01/01/21 04:59 01/03/21 01:00 Most recent lab results Calcium 8.0 mg/dL (8.4-10.2) L 01/03/21 01:00 Magnesium 4.20 mg/dL (1.7-2.3) H 12/31/20 05:04 Medications & Allergies - Medications Allergies/Adverse Reactions: Allergies No Known Allergies Allergy (Verified 12/29/20 13:17) Home Medications: Home Medications Medication Instructions Recorded Confirmed Last Taken Type Tylenol Extra Strength 500 mg PO BID PRN 12/30/20 12/30/20 Unknown History Active Medications: Generic Name Dose Route Start Last Admin Trade Name Steffenq PRN Reason Stop Dose Admin Acetaminophen 650 mg 12/29/20 21:04 Acetaminophen 325 Mg Tab PO Q4H PRN Pain MILD(1-3)/Fever >100.5/SHARMA Alprazolam 0.5 mg 01/01/21 08:30 01/02/21 21:17 Alprazolam 0.5 Mg Tab PO 0.5 mg Q8H PRN Administration Anxiety Heparin Sodium (Porcine) 5,000 unit 12/30/20 06:00 01/03/21 05:49 Heparin 5,000 Unit/1 Ml Vial SUB-Q 5,000 unit Q8HR JESSICA Administration Hydromorphone HCl 1 mg 12/29/20 21:04 01/02/21 21:17 Hydromorphone 1 Mg/1 Ml Inj IV 1 mg Q3H PRN Administration Pain , Severe (7-10) Piperacillin Sod/Tazobactam Sod 2.25 gm in 50 mls @ 100 mls/hr 12/31/20 18:00 01/03/21 06:42 Zosyn/Ns 2.25 Gm/50ml IV 100 mls/hr Q6HR JESSICA Administration Sodium Chloride 1,000 mls @ 125 mls/hr 01/01/21 10:00 01/02/21 13:11 Nacl 0.9% 1000 Ml IV 125 mls/hr DIRECT JESSICA Administration Morphine Sulfate 2 mg 12/30/20 01:46 Morphine 2 Mg/1 Ml Inj IV Q3H PRN Pain, Moderate (4-6) Ondansetron HCl 4 mg 12/29/20 21:04 12/31/20 10:37 Ondansetron 4 Mg/2 Ml Inj IV 4 mg Q3H PRN Administration Nausea And Vomiting Sodium Chloride 10 ml 12/29/20 22:00 01/02/21 21:18 Sodium Chloride 0.9% 10 Ml Flush Syringe IV 10 ml BID JESSICA Administration Sodium Chloride 10 ml 12/29/20 21:04 01/02/21 13:09 Sodium Chloride 0.9% 10 Ml Flush Syringe IV 10 ml PRN PRN Administration LINE FLUSH Sodium Polystyrene Sulfonate 30 gm 01/03/21 06:00 01/03/21 05:12 Sodium Polystyrene 15 Gm/60 Ml Oral Liqd PO 01/03/21 10:01 30 gm Q4HR JESSICA Administration
[2021-01-03] MEDS ORDERED: SODIUM CHLORIDE 0.9% 100 ML IV PRN (10:08)
[2021-01-03] MEDS: HYDROmorphone 1 MG/1 ML INJ IV PRN ×2 (10:43→21:38)
[2021-01-03] MEDS: ONDANSETRON 4 MG/2 ML INJ IV PRN (10:43)
[2021-01-03] MEDS: SODIUM CHLORIDE 0.9% 1000 ML 1,000 ML IV SCH (10:47)
--- NOTE | 2021-01-03 15:37 | Progress Note ---
Assessment and Plan 50 yo M s/p exploratory laparotomy, sigmoidectomy, end colostomy, peritoneal lavage, POD 5 1. perforated sigmoid mass, likely neoplasm 2. peritonitis 2/2 #1 3. sepsis 2/2 #1/2 4. liver mets 5. obesity 6. SHARMIN intraperitoneal cultures - E. coli and Klebsiella Plan: 1. soft diet with dietary supplements 2. Gentle IV fluids, per nephro 3. IV abx - continue zosyn 4. DVT ppx 5. prn pain and nausea control 6. 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 CEA and path pending 8. BARBI drain - monitor output 9. colostomy care 10. Santiago for strict I/Os - may be removed if ok with nephro 11. nephro and onc notes reviewed. HD to be started today after Vas-Cath placed 12. Physical therapy on board- OOB Guarded prognosis. Thank you, please call with questions. Evaluation and treatment of this patient was during the time of the national and state emergency arising from COVID19 coronavirus pandemic. Treatment and procedures performed meet the current and available best practice and guidelines for patient during the COVID pandemic. Subjective Date of service: 01/03/21 Narrative: Patient seen and examined. No acute complaints. No fevers or chills. Has been n.p.o. today for procedure, Vas-Cath placement. Objective Vital Signs - 12hr 01/03/21 01/03/21 01/03/21 05:00 05:08 05:13 Temperature 97.4 F L 97.4 F L Pulse Rate 85 Respiratory 16 16 Rate Blood Pressure 145/70 Blood Pressure 145/70 [Left] O2 Sat by Pulse 97 96 Oximetry 01/03/21 08:51 Temperature 98.3 F Pulse Rate 84 Respiratory 20 Rate Blood Pressure 130/62 Blood Pressure [Left] O2 Sat by Pulse 95 Oximetry - General physical appearance Narrative Exam: Gen.: Awake, alert, oriented x3. No apparent distress ENT: Trachea midline. No lymphadenopathy. No scleral icterus or conjunctival pallor CV: S1, S2 present Respiratory: No audible wheezes Abdomen: Soft, nondistended, nontender, obese. Midline dressing removed and lower part saturated with serous drainage. The incision is clean, dry, intact with davi in place. New dressings applied. Right-sided BARBI drain is serosanguineous. Left-sided colostomy with brown stool in bag. No rebound, rigidity, guarding Extremities: Bilateral lower extremity edema - Labs 01/01/21 04:59 01/03/21 01:00 Diabetes panel 01/03/21 Range/Units 01:00 Sodium 131 L (137-145) mmol/L Potassium 6.4 H* D (3.6-5.0) mmol/L Chloride 99.9 (98-107) mmol/L Carbon Dioxide 17 L (22-30) mmol/L BUN 94 H (9-20) mg/dL Creatinine 6.1 H (0.8-1.3) mg/dL Glucose 131 H (75-100) mg/dL Calcium 8.0 L (8.4-10.2) mg/dL Calcium panel 01/03/21 Range/Units 01:00 Calcium 8.0 L (8.4-10.2) mg/dL Pituitary panel 01/03/21 Range/Units 01:00 Sodium 131 L (137-145) mmol/L Potassium 6.4 H* D (3.6-5.0) mmol/L Chloride 99.9 (98-107) mmol/L Carbon Dioxide 17 L (22-30) mmol/L BUN 94 H (9-20) mg/dL Creatinine 6.1 H (0.8-1.3) mg/dL Glucose 131 H (75-100) mg/dL Calcium 8.0 L (8.4-10.2) mg/dL Adrenal panel 01/03/21 Range/Units 01:00 Sodium 131 L (137-145) mmol/L Potassium 6.4 H* D (3.6-5.0) mmol/L Chloride 99.9 (98-107) mmol/L Carbon Dioxide 17 L (22-30) mmol/L BUN 94 H (9-20) mg/dL Creatinine 6.1 H (0.8-1.3) mg/dL Glucose 131 H (75-100) mg/dL Calcium 8.0 L (8.4-10.2) mg/dL
--- NOTE | 2021-01-03 16:05 | Progress Note ---
Assessment and Plan Assessment and plan: --Acute kidney injury; worsening renal function Current Visit: Yes Status: Acute Worsening renal function , metabolic acidosis, hyperkalemia Nephrology initiated dialysis, vascular evaluated Vas-Cath placement Hemodialysis today, supportive care --Hyperkalemia Current Visit: Yes Status: Acute Received calcium gluconate, insulin and dextrose Kayexalate, hemodialysis --perforated sigmoid mass --s/p exploratory laparotomy/sigmoidectomy/colostomy/peritoneal lavage Complains of some pain, advance to soft diet IV fluids IV antibiotics, IV Protonix, Pain medications, Out of bed to chair, PT --Gram-negative sepsis Current Visit: Yes Status: Acute Sepsis in the setting of high white count and bowel perforation -- Continue IV antibiotics, follow cultures ID consult if needed --Surgical cultures gram-negative rods Current Visit: Yes Status: Acute Currently on Zosyn, follow culture sensitivities ID consult if needed --Colorectal carcinoma Current Visit: Yes Status: Acute Patient never had colonoscopy 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, heme-onc following --Metastases to the liver Current Visit: Yes Status: Acute Poor prognosis,Heme-onc following --Worsening transaminases; Current Visit: Yes Status: Acute Probably secondary to liver mets,Closely monitor --Severe malnutrition/hypoproteinemia Current Visit: Yes Status: Chronic Dietary supplements and dietitian consult --Anemia Current Visit: Yes Status: Chronic Closely monitor H&H and transfuse as needed --obesity; BMI 38.7 Current Visit: Yes Status: Chronic Patient needs weight reduction when medically stable --DVT prophylaxis Current Visit: Yes Status: Acute On SCDs , patient postop state Closely monitor the patient and adjust management as needed Consultants recommendations noted and appreciated Plan of care reviewed with the patient and his nurse Brief history and hospital course: 50-year-old male patient with perforated sigmoid mass likely neoplasm, status post exploratory laparotomy,, sigmoidectomy, end colostomy,, peritoneal lavage.Patient has worsening renal function,Vas-Cath placement today, nephrology initiated hemodialysis 12/30/2020; status post surgical procedure POD 1 Continue postop care, surgery following 12/31/20; POD 2 Worsening LFTs, secondary to liver mets May start clear liquids as tolerated per surgery Follow 01/01; POD 3 Worsening renal function, increased normal saline to 125 mL/h Nephrology already consulted, clear liquid diet advance diet to full liquids if okay with surgery Surgical cultures positive for gram-negative rods, patient on Zosyn, follow culture sensitivities 01/02; patient feels slightly better Surgery advance diet to soft, PT working with him Patient complains of dryness of mouth 01/03/2021; severe hyperkalemia , metabolic acidosis, worsening creatinine Vas-Cath placement, initiated hemodialysis, continue postop care Disposition; follow clinically, discharge when medically stable History Interval history: I have seen and examined the patient at the bedside this morning Patient's chart and medications reviewed Patient has worsening renal function, nephrology planning to initiate hemodialysis Patient complains of vague discomfort in the abdomen, n.p.o. status for the procedure Requesting some water and food Hospitalist Physical - Constitutional Vitals: Temp Pulse Resp BP Pulse Ox 98.3 F 84 20 130/62 95 01/03/21 08:51 01/03/21 08:51 01/03/21 08:51 01/03/21 08:51 01/03/21 08:51 General appearance: Present: mild distress, well-nourished, obese - EENT Eyes: Present: PERRL, EOM intact - Neck Neck: Present: supple, normal ROM - Respiratory Respiratory effort: normal Respiratory: bilateral: diminished, negative: rales, rhonchi, wheezing - Cardiovascular Rhythm: regular Heart Sounds: Present: S1 & S2 - Extremities Extremities: no ischemia, No edema - Abdominal General gastrointestinal: soft, non-tender, non-distended, normal bowel sounds - Integumentary Integumentary: Present: clear, warm - Psychiatric Psychiatric: appropriate mood/affect, agitated (Sometimes agitated), other (Sometimes confused) - Neurologic Neurologic: moves all extremities Results - Labs CBC & Chem 7: 01/01/21 04:59 01/03/21 01:00 Labs: Laboratory Last Values WBC 18.2 K/mm3 (4.5-11.0) H 01/01/21 04:59 RBC 3.77 M/mm3 (3.65-5.03) 01/01/21 04:59 Hgb 8.7 gm/dl (11.8-15.2) L 01/01/21 04:59 Hct 28.2 % (35.5-45.6) L 01/01/21 04:59 MCV 75 fl (84-94) L 01/01/21 04:59 MCH 23 pg (28-32) L 01/01/21 04:59 MCHC 31 % (32-34) L 01/01/21 04:59 RDW 19.5 % (13.2-15.2) H 01/01/21 04:59 Plt Count 263 K/mm3 (140-440) 01/01/21 04:59 Add Manual Diff Complete 12/31/20 05:04 Total Counted 100 12/31/20 05:04 Seg Neutrophils % Vault Keeper 12/31/20 05:04 Seg Neuts % (Manual) 86.0 % (40.0-70.0) H 12/31/20 05:04 Band Neutrophils % 11.0 % 12/31/20 05:04 Lymphocytes % (Manual) 4.0 % (13.4-35.0) L 12/30/20 05:13 Monocytes % (Manual) 3.0 % (0.0-7.3) 12/31/20 05:04 Nucleated RBC % Not Reportable 12/31/20 05:04 Seg Neutrophils # Man 15.8 K/mm3 (1.8-7.7) H 12/31/20 05:04 Band Neutrophils # 2.0 K/mm3 12/31/20 05:04 Lymphocytes # (Manual) 0.0 K/mm3 (1.2-5.4) L 12/31/20 05:04 Abs React Lymphs (Man) 0.0 K/mm3 12/31/20 05:04 Monocytes # (Manual) 0.6 K/mm3 (0.0-0.8) 12/31/20 05:04 Eosinophils # (Manual) 0.0 K/mm3 (0.0-0.4) 12/31/20 05:04 Basophils # (Manual) 0.0 K/mm3 (0.0-0.1) 12/31/20 05:04 Metamyelocytes # 0.0 K/mm3 12/31/20 05:04 Myelocytes # 0.0 K/mm3 12/31/20 05:04 Promyelocytes # 0.0 K/mm3 12/31/20 05:04 Blast Cells # 0.0 K/mm3 12/31/20 05:04 WBC Morphology Not Reportable 12/31/20 05:04 Hypersegmented Neuts Not Reportable 12/31/20 05:04 Hyposegmented Neuts Not Reportable 12/31/20 05:04 Hypogranular Neuts Not Reportable 12/31/20 05:04 Smudge Cells Not Reportable 12/31/20 05:04 Toxic Granulation Not Reportable 12/31/20 05:04 Toxic Vacuolation Not Reportable 12/31/20 05:04 Dohle Bodies Not Reportable 12/31/20 05:04 Pelger-Huet Anomaly Not Reportable 12/31/20 05:04 Janene Rods Not Reportable 12/31/20 05:04 Platelet Estimate Consistent w auto 12/31/20 05:04 Clumped Platelets Not Reportable 12/31/20 05:04 Plt Clumps, EDTA Not Reportable 12/31/20 05:04 Large Platelets Not Reportable 12/31/20 05:04 Giant Platelets Not Reportable 12/31/20 05:04 Platelet Satelliting Not Reportable 12/31/20 05:04 Plt Morphology Comment Not Reportable 12/31/20 05:04 RBC Morphology Not Reportable 12/31/20 05:04 Dimorphic RBCs Not Reportable 12/31/20 05:04 Polychromasia Not Reportable 12/31/20 05:04 Hypochromasia 1+ 12/31/20 05:04 Poikilocytosis Not Reportable 12/31/20 05:04 Anisocytosis Not Reportable 12/31/20 05:04 Microcytosis Not Reportable 12/31/20 05:04 Macrocytosis Not Reportable 12/31/20 05:04 Spherocytes Not Reportable 12/31/20 05:04 Pappenheimer Bodies Not Reportable 12/31/20 05:04 Sickle Cells Not Reportable 12/31/20 05:04 Target Cells Not Reportable 12/31/20 05:04 Tear Drop Cells Not Reportable 12/31/20 05:04 Ovalocytes 1+ 12/31/20 05:04 Helmet Cells Not Reportable 12/31/20 05:04 [place]-Mustang Bodies Not Reportable 12/31/20 05:04 [place] Rings Not Reportable 12/31/20 05:04 [place] Cells Not Reportable 12/31/20 05:04 Bite Cells Not Reportable 12/31/20 05:04 Crenated Cell Not Reportable 12/31/20 05:04 Elliptocytes Not Reportable 12/31/20 05:04 Acanthocytes (Spur) Not Reportable 12/31/20 05:04 Rouleaux Not Reportable 12/31/20 05:04 Hemoglobin C Crystals Not Reportable 12/31/20 05:04 Schistocytes Not Reportable 12/31/20 05:04 Malaria parasites Not Reportable 12/31/20 05:04 Atul Bodies Not Reportable 12/31/20 05:04 Hem Pathologist Commnt No 12/31/20 05:04 Sodium 131 mmol/L (137-145) L 01/03/21 01:00 Potassium 6.4 mmol/L (3.6-5.0) H* D 01/03/21 01:00 Chloride 99.9 mmol/L (98-107) 01/03/21 01:00 Carbon Dioxide 17 mmol/L (22-30) L 01/03/21 01:00 Anion Gap 21 mmol/L 01/03/21 01:00 BUN 94 mg/dL (9-20) H 01/03/21 01:00 Creatinine 6.1 mg/dL (0.8-1.3) H 01/03/21 01:00 Estimated GFR 10 ml/min 01/03/21 01:00 BUN/Creatinine Ratio 15 % 01/03/21 01:00 Glucose 131 mg/dL (75-100) H 01/03/21 01:00 POC Glucose 99 mg/dL (70-105) 01/03/21 12:13 Hemoglobin A1c 6.2 % (4-6) H 12/30/20 05:13 Calcium 8.0 mg/dL (8.4-10.2) L 01/03/21 01:00 Magnesium 4.20 mg/dL (1.7-2.3) H 12/31/20 05:04 Total Bilirubin 1.30 mg/dL (0.1-1.2) H 01/01/21 04:59 Direct Bilirubin 0.6 mg/dL (0-0.2) H 12/29/20 15:43 Indirect Bilirubin 0.4 mg/dL 12/29/20 15:43 AST 150 units/L (5-40) H 01/01/21 04:59 ALT 144 units/L (7-56) H 01/01/21 04:59 Alkaline Phosphatase 306 units/L (35-129) H 01/01/21 04:59 Ammonia 28.0 umol/L (25-60) 01/02/21 05:45 Total Protein 6.3 g/dL (6.3-8.2) 01/01/21 04:59 Albumin 2.5 g/dL (3.9-5) L 01/01/21 04:59 Albumin/Globulin Ratio 0.7 % 01/01/21 04:59 Lipase 7 units/L (13-60) L 12/29/20 15:43 Carcinoembryonic Ag 24.3 ng/mL (0.0-2.4) H 12/29/20 19:37 PTH Intact 5.60 pg/mL (15-65) L 01/01/21 14:42 Urine Color Delilah (Yellow) 01/01/21 04:30 Urine Turbidity Cloudy (Clear) 01/01/21 04:30 Urine pH 5.0 (5.0-7.0) 01/01/21 04:30 Ur Specific [place] 1.038 (1.003-1.030) H 01/01/21 04:30 Urine Protein 100 mg/dl mg/dL (Negative) 01/01/21 04:30 Urine Glucose (UA) 50 mg/dL (Negative) 01/01/21 04:30 Urine Ketones Neg mg/dL (Negative) 01/01/21 04:30 Urine Blood Lg (Negative) 01/01/21 04:30 Urine Nitrite Neg (Negative) 01/01/21 04:30 Urine Bilirubin Neg (Negative) 01/01/21 04:30 Urine Urobilinogen < 2.0 mg/dL (<2.0) 01/01/21 04:30 Ur Leukocyte Esterase Mod (Negative) 01/01/21 04:30 Urine WBC (Auto) 123.0 /HPF (0.0-6.0) H 01/01/21 04:30 Urine RBC (Auto) 137.0 /HPF (0.0-6.0) 01/01/21 04:30 Calcium Oxalate Crystal 1+ 01/01/21 04:30 Urine Mucus Few /HPF 01/01/21 04:30 HIV 1&2 Antibody Rapid Non react (Non React) 01/01/21 14:42 HIV P24 Antigen Non react (Non React) 01/01/21 14:42 Blood Type A POSITIVE 12/29/20 20:38 Antibody Screen Negative 12/29/20 20:38 Crossmatch See Detail 12/29/20 20:38 Microbiology: Microbiology 12/29/20 Unknown Abdomen Surgical Culture - Final Escherichia Coli Klebsiella Oxytoca 12/29/20 Unknown Abdomen Anaerobic Culture - Preliminary 12/29/20 19:37 Peripheral/Venous Blood Culture - Preliminary NO GROWTH AFTER 4 DAYS 12/29/20 19:37 Peripheral/Venous Blood Culture - Preliminary NO GROWTH AFTER 4 DAYS Santiago/IV: Voiding Method Indwelling Catheter Active Medications - Current Medications Current Medications: Generic Name Dose Route Start Last Admin Trade Name Freq PRN Reason Stop Dose Admin Acetaminophen 650 mg 12/29/20 21:04 Acetaminophen 325 Mg Tab PO Q4H PRN Pain MILD(1-3)/Fever >100.5/SHARMA Alprazolam 0.5 mg 01/01/21 08:30 01/02/21 21:17 Alprazolam 0.5 Mg Tab PO 0.5 mg Q8H PRN Administration Anxiety Heparin Sodium (Porcine) 5,000 unit 12/30/20 06:00 01/03/21 05:49 Heparin 5,000 Unit/1 Ml Vial SUB-Q 5,000 unit Q8HR JESSICA Administration Hydromorphone HCl 1 mg 12/29/20 21:04 01/03/21 10:43 Hydromorphone 1 Mg/1 Ml Inj IV 1 mg Q3H PRN Administration Pain , Severe (7-10) Sodium Chloride 1,000 mls @ 125 mls/hr 01/01/21 10:00 01/03/21 10:47 Nacl 0.9% 1000 Ml IV 125 mls/hr DIRECT JESSICA Administration Sodium Chloride 100 mls @ 999 mls/hr 01/03/21 10:08 Nacl 0.9% IV YRUI PRN Hypotension Piperacillin Sod/Tazobactam Sod 2.25 gm in 50 mls @ 100 mls/hr 01/03/21 16:00 Zosyn/Ns 2.25 Gm/50ml IV Q8H JESSICA Morphine Sulfate 2 mg 12/30/20 01:46 Morphine 2 Mg/1 Ml Inj IV Q3H PRN Pain, Moderate (4-6) Ondansetron HCl 4 mg 12/29/20 21:04 01/03/21 10:43 Ondansetron 4 Mg/2 Ml Inj IV 4 mg Q3H PRN Administration Nausea And Vomiting Sodium Chloride 10 ml 12/29/20 22:00 01/03/21 10:46 Sodium Chloride 0.9% 10 Ml Flush Syringe IV 10 ml BID JESSICA Administration Sodium Chloride 10 ml 12/29/20 21:04 01/02/21 13:09 Sodium Chloride 0.9% 10 Ml Flush Syringe IV 10 ml PRN PRN Administration LINE FLUSH
[2021-01-03 16:56] LABS: Hepatitis C Virus Antibody Non-Reactive (NonReactive)
[2021-01-03 17:12] LABS: Hepatitis B Surface Antigen Nonreactive (Negative)
[2021-01-03] MEDS ORDERED: HEPARIN/NS 5000 UNIT/500ML 500 ML IR ONE (17:23)
[2021-01-03] MEDS ORDERED: SODIUM CHLORIDE 0.9% 250ML 250 ML ONE (17:24)
[2021-01-03] MEDS ORDERED: HEPARIN 10,000 UNITS/10 ML VIAL ONE (17:24)
[2021-01-03] MEDS ORDERED: LIDOCAINE 1%/EPINEPHRINE 1:100,000 VIAL (20 ML) INFILTRATI ONE (17:24)
--- NOTE | 2021-01-03 18:08 | Operative Report ---
Operative Report Operative Report: EXAM: 1. Ultrasound-guided puncture of the right common femoral vein 2. Fluoroscopic-guided placement of a right common femoral nontunneled noncuffed hemodialysis catheter. DATE: 01/03/2021 INDICATION: Acute renal failure requiring hemodialysis. MEDICATIONS: Please see nursing report for full details. DEVICES: 30 cm triple lumen hemodialysis catheter BEAM BUILDER HELPER: CASSIE FOX MD CONTRAST: None PROCEDURE: The risks, benefits, and alternatives were discussed and emergency consent was obtained. The patient has altered mental status and no next of kin are available. The patient needs emergency hemodialysis. Due to patient's altered mental status and random grabbing, the groin was chosen as the site as the patient would not sit still for a jugular placement, and this would be at risk for patient dislodgment/removal. The patient was transported to the angiography suite in satisfactory/stable condition and was transported onto the angiography table. The patient's right common femoral vein was assessed with ultrasound and determined to be patent prior to procedure. The patient was prepped and draped in a sterile fashion. The puncture site was anesthetized. The right common femoral vein was patent on ultrasound. Under sonographic guidance, the right common femoral vein was punctured with a 21-gauge micropuncture needle and a 0.018 inch wire was advanced through the needle. Needle was exchanged for transitional dilator. The inner dilator and wire was removed and a 0.035 inch wire was advanced through the transitional dilator into the inferior vena cava. Over the 0.035 inch wire, serial dilatation was performed. The catheter was advanced over the wire and positioned centrally under fluoroscopic guidance. 2-0 silk suture was used to secure the catheter. The catheter was charged with heparin 1000 units/mL of space. Central catheter was charged with saline. Sterile dressing and Biopatch applied. The patient was transferred from the angiography suite back to the dialysis technologist in stable condition. FINDINGS: 1. Excellent flow was obtained through the dialysis catheter with 20 mL syringes. 2. The catheter tip is in the IVC. IMPRESSION: 1. Successful sonographically and fluoroscopically guided placement of a right common femoral vein nontunneled noncuffed hemodialysis catheter.
[2021-01-03] MEDS: ALPRAZolam 0.5 MG TAB PO PRN (21:37)
[2021-01-04] MEDS: PIPERACIL-TAZO 2.25 GM/50 ML 2.25 GM/50 ML BAG IV SCH ×2 (00:30→09:00)
[2021-01-04 06:32] LABS: Mean Corpuscular HGB Conc 31 % (32-34); Mean Corpuscular Volume 74 fl (84-94); Platelet Count 244 K/mm3 (140-440); Red Blood Count 2.51 M/mm3 (3.65-5.03); Red Cell Distribution Width 19.4 % (13.2-15.2)
[2021-01-04 06:41] LABS: Hematocrit 18.5 % (35.5-45.6); Hemoglobin 5.7 gm/dl (11.8-15.2)
[2021-01-04 06:48] LABS: Albumin 2.5 g/dL (3.9-5); Bilirubin,Direct 1.9 mg/dL (0-0.2); Calcium 7.8 mg/dL (8.4-10.2)
[2021-01-04] MEDS: HEPARIN 5,000 UNIT/1 ML VIAL SUB-Q SCH ×2 (06:52→14:00)
--- NOTE | 2021-01-04 09:23 | Hem/Onc Progress Note ---
Subjective Date of service: 01/04/21 Interval history: Heme/onc consult followup note televisit by [facility] CPT [id number] Reason for consult: colon mass This is a 50yo obese male who presents to the ER with complaints of diffuse abdominal pain and distention CT abd/pelvis c/w mid sigmoid mass suggesting colorectal carcinoma with erosion/bowel perforation, adjacent adenopathy and innumerable liver metastatic lesions S/p exploratory laparotomy, sigmoidectomy, end colectomy, peritoneal lavage 12/30/2020 Dx with perforated sigmoid mass with liver mets and peritonitis As per nurse patient has no complaints, except dry mouth Received hemodialysis yesterday Planning for hemodialysis today and 2 units PRBC DATA REVIEWED BELOW WBC 30.5 Hgb 5.7 Hct 18.5 MCV 74 Plts 244 elevated AST and ALT IMP: New metastatic colon ca with liver metastasis Anemia due to malignancy Presumed liver dysfunction REC/PLAN: Stat coags PTPTT fibrinogen Abd pelvis CT without contrast to rule out active bleed Transfuse 2 units PRBC today Transfuse 1 unit PRBC whenever hct<23 Plan is chemo if he is able to tolerate it Laboratory Last Values WBC 30.5 K/mm3 (4.5-11.0) H 01/04/21 05:38 RBC 2.51 M/mm3 (3.65-5.03) L 01/04/21 05:38 Hgb 5.7 gm/dl (11.8-15.2) L* 01/04/21 05:38 Hct 18.5 % (35.5-45.6) L* 01/04/21 05:38 MCV 74 fl (84-94) L 01/04/21 05:38 MCH 23 pg (28-32) L 01/04/21 05:38 MCHC 31 % (32-34) L 01/04/21 05:38 RDW 19.4 % (13.2-15.2) H 01/04/21 05:38 Plt Count 244 K/mm3 (140-440) 01/04/21 05:38 Add Manual Diff Complete 12/31/20 05:04 Total Counted 100 12/31/20 05:04 Seg Neutrophils % Transportation Inspector 01/04/21 05:38 Seg Neuts % (Manual) 86.0 % (40.0-70.0) H 12/31/20 05:04 Band Neutrophils % 11.0 % 12/31/20 05:04 Lymphocytes % (Manual) 4.0 % (13.4-35.0) L 12/30/20 05:13 Monocytes % (Manual) 3.0 % (0.0-7.3) 12/31/20 05:04 Nucleated RBC % Not Reportable 12/31/20 05:04 Seg Neutrophils # Man 15.8 K/mm3 (1.8-7.7) H 12/31/20 05:04 Band Neutrophils # 2.0 K/mm3 12/31/20 05:04 Lymphocytes # (Manual) 0.0 K/mm3 (1.2-5.4) L 12/31/20 05:04 Abs React Lymphs (Man) 0.0 K/mm3 12/31/20 05:04 Monocytes # (Manual) 0.6 K/mm3 (0.0-0.8) 12/31/20 05:04 Eosinophils # (Manual) 0.0 K/mm3 (0.0-0.4) 12/31/20 05:04 Basophils # (Manual) 0.0 K/mm3 (0.0-0.1) 12/31/20 05:04 Metamyelocytes # 0.0 K/mm3 12/31/20 05:04 Myelocytes # 0.0 K/mm3 12/31/20 05:04 Promyelocytes # 0.0 K/mm3 12/31/20 05:04 Blast Cells # 0.0 K/mm3 12/31/20 05:04 WBC Morphology Not Reportable 12/31/20 05:04 Hypersegmented Neuts Not Reportable 12/31/20 05:04 Hyposegmented Neuts Not Reportable 12/31/20 05:04 Hypogranular Neuts Not Reportable 12/31/20 05:04 Smudge Cells Not Reportable 12/31/20 05:04 Toxic Granulation Not Reportable 12/31/20 05:04 Toxic Vacuolation Not Reportable 12/31/20 05:04 Dohle Bodies Not Reportable 12/31/20 05:04 Pelger-Huet Anomaly Not Reportable 12/31/20 05:04 Janene Rods Not Reportable 12/31/20 05:04 Platelet Estimate Consistent w auto 12/31/20 05:04 Clumped Platelets Not Reportable 12/31/20 05:04 Plt Clumps, EDTA Not Reportable 12/31/20 05:04 Large Platelets Not Reportable 12/31/20 05:04 Giant Platelets Not Reportable 12/31/20 05:04 Platelet Satelliting Not Reportable 12/31/20 05:04 Plt Morphology Comment Not Reportable 12/31/20 05:04 RBC Morphology Not Reportable 12/31/20 05:04 Dimorphic RBCs Not Reportable 12/31/20 05:04 Polychromasia Not Reportable 12/31/20 05:04 Hypochromasia 1+ 12/31/20 05:04 Poikilocytosis Not Reportable 12/31/20 05:04 Anisocytosis Not Reportable 12/31/20 05:04 Microcytosis Not Reportable 12/31/20 05:04 Macrocytosis Not Reportable 12/31/20 05:04 Spherocytes Not Reportable 12/31/20 05:04 Pappenheimer Bodies Not Reportable 12/31/20 05:04 Sickle Cells Not Reportable 12/31/20 05:04 Target Cells Not Reportable 12/31/20 05:04 Tear Drop Cells Not Reportable 12/31/20 05:04 Ovalocytes 1+ 12/31/20 05:04 Helmet Cells Not Reportable 12/31/20 05:04 [place] Bodies Not Reportable 12/31/20 05:04 [place] Rings Not Reportable 12/31/20 05:04 Ankur Cells Not Reportable 12/31/20 05:04 Bite Cells Not Reportable 12/31/20 05:04 Crenated Cell Not Reportable 12/31/20 05:04 Elliptocytes Not Reportable 12/31/20 05:04 Acanthocytes (Spur) Not Reportable 12/31/20 05:04 Rouleaux Not Reportable 12/31/20 05:04 Hemoglobin C Crystals Not Reportable 12/31/20 05:04 Schistocytes Not Reportable 12/31/20 05:04 Malaria parasites Not Reportable 12/31/20 05:04 Atul Bodies Not Reportable 12/31/20 05:04 Hem Pathologist Commnt No 12/31/20 05:04 Sodium 132 mmol/L (137-145) L 01/04/21 05:38 Potassium 5.6 mmol/L (3.6-5.0) H 01/04/21 05:38 Chloride 96.5 mmol/L (98-107) L 01/04/21 05:38 Carbon Dioxide 20 mmol/L (22-30) L 01/04/21 05:38 Anion Gap 21 mmol/L 01/04/21 05:38 BUN 76 mg/dL (9-20) H 01/04/21 05:38 Creatinine 4.8 mg/dL (0.8-1.3) H 01/04/21 05:38 Estimated GFR 13 ml/min 01/04/21 05:38 BUN/Creatinine Ratio 16 % 01/04/21 05:38 Glucose 108 mg/dL (75-100) H 01/04/21 05:38 POC Glucose 99 mg/dL (70-105) 01/03/21 12:13 Hemoglobin A1c 6.2 % (4-6) H 12/30/20 05:13 Calcium 7.8 mg/dL (8.4-10.2) L 01/04/21 05:38 Magnesium 4.20 mg/dL (1.7-2.3) H 12/31/20 05:04 Total Bilirubin 2.10 mg/dL (0.1-1.2) H 01/04/21 05:38 Direct Bilirubin 1.9 mg/dL (0-0.2) H 01/04/21 05:38 Indirect Bilirubin 0.2 mg/dL 01/04/21 05:38 AST 161 units/L (5-40) H 01/04/21 05:38 ALT 101 units/L (7-56) H 01/04/21 05:38 Alkaline Phosphatase 641 units/L (35-129) H 01/04/21 05:38 Ammonia 28.0 umol/L (25-60) 01/02/21 05:45 Total Protein 5.9 g/dL (6.3-8.2) L 01/04/21 05:38 Albumin 2.5 g/dL (3.9-5) L 01/04/21 05:38 Albumin/Globulin Ratio 0.7 % 01/04/21 05:38 Lipase 7 units/L (13-60) L 12/29/20 15:43 Carcinoembryonic Ag 24.3 ng/mL (0.0-2.4) H 12/29/20 19:37 PTH Intact 5.60 pg/mL (15-65) L 01/01/21 14:42 Urine Color Delilah (Yellow) 01/01/21 04:30 Urine Turbidity Cloudy (Clear) 01/01/21 04:30 Urine pH 5.0 (5.0-7.0) 01/01/21 04:30 Ur Specific [place] 1.038 (1.003-1.030) H 01/01/21 04:30 Urine Protein 100 mg/dl mg/dL (Negative) 01/01/21 04:30 Urine Glucose (UA) 50 mg/dL (Negative) 01/01/21 04:30 Urine Ketones Neg mg/dL (Negative) 01/01/21 04:30 Urine Blood Lg (Negative) 01/01/21 04:30 Urine Nitrite Neg (Negative) 01/01/21 04:30 Urine Bilirubin Neg (Negative) 01/01/21 04:30 Urine Urobilinogen < 2.0 mg/dL (<2.0) 01/01/21 04:30 Ur Leukocyte Esterase Mod (Negative) 01/01/21 04:30 Urine WBC (Auto) 123.0 /HPF (0.0-6.0) H 01/01/21 04:30 Urine RBC (Auto) 137.0 /HPF (0.0-6.0) 01/01/21 04:30 Calcium Oxalate Crystal 1+ 01/01/21 04:30 Urine Mucus Few /HPF 01/01/21 04:30 Hepatitis A IgM Ab Non-reactive (NonReactive) 01/03/21 15:41 Hep Bs Antigen Nonreactive (Negative) 01/03/21 15:41 Hep B Core IgM Ab Non-reactive (NonReactive) 01/03/21 15:41 Hepatitis C Antibody Non-reactive (NonReactive) 01/03/21 15:41 HIV 1&2 Antibody Rapid Non react (Non React) 01/01/21 14:42 HIV P24 Antigen Non react (Non React) 01/01/21 14:42 Blood Type A POSITIVE 12/29/20 20:38 Antibody Screen Negative 12/29/20 20:38 Crossmatch See Detail 12/29/20 20:38 Objective - Constitutional Vitals: Last Vital Signs Temp 97.9 F 01/04/21 03:12 Pulse 92 H 01/04/21 03:12 Resp 19 10/12/21 03:12 BP 149/85 01/04/21 03:12 Pulse Ox 97 01/04/21 05:00 - Labs Lab Results: Laboratory Results - last 24 hr 01/03/21 01/03/21 01/04/21 12:13 15:41 05:38 WBC RBC Hgb Hct MCV MCH MCHC RDW Plt Count Seg Neutrophils % Sodium 132 L Potassium 5.6 H Chloride 96.5 L Carbon Dioxide 20 L Anion Gap 21 BUN 76 H Creatinine 4.8 H Estimated GFR 13 BUN/Creatinine Ratio 16 Glucose 108 H POC Glucose 99 Calcium 7.8 L Total Bilirubin 2.10 H Direct Bilirubin 1.9 H Indirect Bilirubin 0.2 AST 161 H ALT 101 H Alkaline Phosphatase 641 H Total Protein 5.9 L Albumin 2.5 L Albumin/Globulin Ratio 0.7 Hepatitis A IgM Ab Non-reactive Hep Bs Antigen Nonreactive Hep B Core IgM Ab Non-reactive Hepatitis C Antibody Non-reactive 01/04/21 05:38 WBC 30.5 H RBC 2.51 L Hgb 5.7 L* Hct 18.5 L* MCV 74 L MCH 23 L MCHC 31 L RDW 19.4 H Plt Count 244 Seg Neutrophils % Transportation Inspector Sodium Potassium Chloride Carbon Dioxide Anion Gap BUN Creatinine Estimated GFR BUN/Creatinine Ratio Glucose POC Glucose Calcium Total Bilirubin Direct Bilirubin Indirect Bilirubin AST ALT Alkaline Phosphatase Total Protein Albumin Albumin/Globulin Ratio Hepatitis A IgM Ab Hep Bs Antigen Hep B Core IgM Ab Hepatitis C Antibody Medications & Allergies - Medications Allergies/Adverse Reactions: Allergies No Known Allergies Allergy (Verified 12/29/20 13:17) Home Medications: Home Medications Medication Instructions Recorded Confirmed Last Taken Type Tylenol Extra Strength 500 mg PO BID PRN 12/30/20 12/30/20 Unknown History Active Medications: Generic Name Dose Route Start Last Admin Trade Name Freq PRN Reason Stop Dose Admin Acetaminophen 650 mg 12/29/20 21:04 Acetaminophen 325 Mg Tab PO Q4H PRN Pain MILD(1-3)/Fever >100.5/SHARMA Alprazolam 0.5 mg 01/01/21 08:30 01/03/21 21:37 Alprazolam 0.5 Mg Tab PO 0.5 mg Q8H PRN Administration Anxiety Heparin Sodium (Porcine) 5,000 unit 12/30/20 06:00 01/04/21 06:52 Heparin 5,000 Unit/1 Ml Vial SUB-Q 5,000 unit Q8HR JESSICA Administration Hydromorphone HCl 1 mg 12/29/20 21:04 01/03/21 21:38 Hydromorphone 1 Mg/1 Ml Inj IV 1 mg Q3H PRN Administration Pain , Severe (7-10) Sodium Chloride 1,000 mls @ 125 mls/hr 01/01/21 10:00 01/03/21 10:47 Nacl 0.9% 1000 Ml IV 125 mls/hr DIRECT JESSICA Administration Sodium Chloride 100 mls @ 999 mls/hr 01/03/21 10:08 Nacl 0.9% IV YURI PRN Hypotension Piperacillin Sod/Tazobactam Sod 2.25 gm in 50 mls @ 100 mls/hr 01/03/21 16:00 01/04/21 00:30 Zosyn/Ns 2.25 Gm/50ml IV 100 mls/hr Q8H JESSICA Administration Morphine Sulfate 2 mg 12/30/20 01:46 Morphine 2 Mg/1 Ml Inj IV Q3H PRN Pain, Moderate (4-6) Ondansetron HCl 4 mg 12/29/20 21:04 01/03/21 10:43 Ondansetron 4 Mg/2 Ml Inj IV 4 mg Q3H PRN Administration Nausea And Vomiting Sodium Chloride 10 ml 12/29/20 22:00 01/03/21 21:38 Sodium Chloride 0.9% 10 Ml Flush Syringe IV 10 ml BID JESSICA Administration Sodium Chloride 10 ml 12/29/20 21:04 01/02/21 13:09 Sodium Chloride 0.9% 10 Ml Flush Syringe IV 10 ml PRN PRN Administration LINE FLUSH
--- NOTE | 2021-01-04 09:34 | Progress Note ---
Assessment and Plan 50-year-old man presents with perforated sigmoid mass likely neoplasm, status post exploratory laparotomy, sigmoidectomy, end colostomy, peritoneal lavage. # SHARMIN: Most likely secondary to ATN. Creatinine 1.1->1.8->3.4->4.4> 6.1 suspect severe tubular injury s/p extensive surgery + contrast use on 12/29. -Status post Vas-Cath placement on 01/03/2021 and initiation of dialysis . She will plan for additional dialysis treatment today. -Follow-up results of serologies to ensure no glomerular injury, consider biopsy pending results - no renal obstruction noted on prior CT; do note mass on kidney which may be related to underlying sigmoid mass - avoid nephrotoxins - renally dose meds - strict Is/Os-> currently non-oliguric but net positive # Metabolic Acidosis/Hyperkalemia: likely due to SHARMIN. Hyperkalemia is better. Potassium level still elevated at 5.6. Hopefully dialysis will correct his hyperkalemia as well as acidosis # Perforated Sigmoid Mass, Possible Colorectal Carcinoma, Metastasis to Liver: appreciate surgery input, advance diet per primary/surgery. Note oncology consult; if chemotherapy is needed, suspect further kidney injury # Sepsis, Leukocytosis: likely related to bowel perforation, note antibiotics # Malnutrition Subjective Date of service: 01/04/21 Interval history: Patient is comfortable today. Status post right femoral Vas-Cath placement and initiation of dialysis yesterday. Denies any shortness of breath. Is currently on room air. Objective - Vital Signs Vital signs: Vital Signs - 12hr 01/03/21 01/04/21 01/04/21 22:49 00:00 03:12 Temperature 97.9 F 97.9 F Pulse Rate 91 H 83 92 H Respiratory 19 19 Rate Blood Pressure 115/74 149/85 O2 Sat by Pulse 93 96 Oximetry 01/04/21 05:00 Temperature Pulse Rate Respiratory Rate Blood Pressure O2 Sat by Pulse 97 Oximetry - General Appearance General appearance: well-developed, well-nourished, appears stated age EENT: PERRL, mucous membranes moist Neck: no JVD, no thyromegaly, no carotid bruit, supple Respiratory: Present: Clear to Ascultation Cardiology: regular, normal heart rate Gastrointestinal: other (Midline dressing noted. Colostomy bag and drainage tube in place.) Integumentary: other (1+ edema. Right femoral Vas-Cath in place.) - Lab 01/04/21 05:38 01/04/21 05:38 Most recent lab results Calcium 7.8 mg/dL (8.4-10.2) L 01/04/21 05:38 Magnesium 4.20 mg/dL (1.7-2.3) H 12/31/20 05:04 Medications & Allergies - Medications Allergies/Adverse Reactions: Allergies No Known Allergies Allergy (Verified 12/29/20 13:17) Home Medications: Home Medications Medication Instructions Recorded Confirmed Last Taken Type Tylenol Extra Strength 500 mg PO BID PRN 12/30/20 12/30/20 Unknown History Active Medications: Generic Name Dose Route Start Last Admin Trade Name Freq PRN Reason Stop Dose Admin Acetaminophen 650 mg 12/29/20 21:04 Acetaminophen 325 Mg Tab PO Q4H PRN Pain MILD(1-3)/Fever >100.5/SHARMA Alprazolam 0.5 mg 01/01/21 08:30 01/03/21 21:37 Alprazolam 0.5 Mg Tab PO 0.5 mg Q8H PRN Administration Anxiety Heparin Sodium (Porcine) 5,000 unit 12/30/20 06:00 01/04/21 06:52 Heparin 5,000 Unit/1 Ml Vial SUB-Q 5,000 unit Q8HR JESSICA Administration Hydromorphone HCl 1 mg 12/29/20 21:04 01/03/21 21:38 Hydromorphone 1 Mg/1 Ml Inj IV 1 mg Q3H PRN Administration Pain , Severe (7-10) Sodium Chloride 1,000 mls @ 125 mls/hr 01/01/21 10:00 01/03/21 10:47 Nacl 0.9% 1000 Ml IV 125 mls/hr DIRECT JESSICA Administration Sodium Chloride 100 mls @ 999 mls/hr 01/03/21 10:08 Nacl 0.9% IV YURI PRN Hypotension Piperacillin Sod/Tazobactam Sod 2.25 gm in 50 mls @ 100 mls/hr 01/03/21 16:00 01/04/21 00:30 Zosyn/Ns 2.25 Gm/50ml IV 100 mls/hr Q8H JESSICA Administration Morphine Sulfate 2 mg 12/30/20 01:46 Morphine 2 Mg/1 Ml Inj IV Q3H PRN Pain, Moderate (4-6) Ondansetron HCl 4 mg 12/29/20 21:04 01/03/21 10:43 Ondansetron 4 Mg/2 Ml Inj IV 4 mg Q3H PRN Administration Nausea And Vomiting Sodium Chloride 10 ml 12/29/20 22:00 01/03/21 21:38 Sodium Chloride 0.9% 10 Ml Flush Syringe IV 10 ml BID JESSICA Administration Sodium Chloride 10 ml 12/29/20 21:04 01/02/21 13:09 Sodium Chloride 0.9% 10 Ml Flush Syringe IV 10 ml PRN PRN Administration LINE FLUSH
[2021-01-04] MEDS ORDERED: SODIUM CHLORIDE 0.9% 100 ML IV PRN (10:00)
[2021-01-04] MEDS ORDERED: SODIUM CHLORIDE 0.9% 500 ML 500 ML IV NR (10:00)
[2021-01-04 10:57] LABS: Hematocrit 18.6 % (35.5-45.6); Hemoglobin 5.9 gm/dl (11.8-15.2)
[2021-01-04 11:10] LABS: INR 2.04 (0.87-1.13); Partial Thromboplastin Time 37.4 Sec. (24.2-36.6)
[2021-01-04 11:23] VITALS: BP 147/71
--- NOTE | 2021-01-04 11:29 | Progress Note ---
Assessment and Plan 50 yo M s/p exploratory laparotomy, sigmoidectomy, end colostomy, peritoneal lavage, POD 6 1. perforated sigmoid mass, likely neoplasm 2. peritonitis 2/2 #1 3. sepsis 2/2 #1/2 4. liver mets 5. obesity 6. SHARMIN 7. anemia intraperitoneal cultures - E. coli and Klebsiella Plan: 1. soft diet with dietary supplements 2. Gentle IV fluids, per nephro 3. IV abx - continue zosyn 4. DVT ppx 5. prn pain and nausea control 6. daily labs 7. CEA and path pending 8. BARBI drain - monitor output 9. colostomy care 10. Santiago for strict I/Os - may be removed if ok with nephro 11. Transfuse PRBC 12. agree with Ct scan A/P in light of anemia 13. Physical therapy on board- OOB 14. recommend mental health consult Pt hemodynamically stable. Severe anemia - blood ordered but patient refusing. Scheduled for HD today but refusing. CT A/P ordered but pt refusing. Guarded prognosis. Thank you, please call with questions. Evaluation and treatment of this patient was during the time of the national and state emergency arising from COVID19 coronavirus pandemic. Treatment and procedures performed meet the current and available best practice and guidelines for patient during the COVID pandemic. Subjective Date of service: 01/04/21 Narrative: Pt seen and examined. Very agitated today. Focused on getting out of bed. Does not want to discuss medical therapies that are necessary and per nursing patient is refusing blood and HD. Leanne diet. No n/v. States pain is 2/10. Objective Vital Signs - 12hr 01/04/21 01/04/21 01/04/21 00:00 03:12 05:00 Temperature 97.9 F Pulse Rate 83 92 H Respiratory 19 Rate Blood Pressure 149/85 O2 Sat by Pulse 96 97 Oximetry 01/04/21 08:12 Temperature 97.3 F L Pulse Rate 89 Respiratory 18 Rate Blood Pressure 147/71 O2 Sat by Pulse 90 Oximetry - General physical appearance Narrative Exam: Gen: Awake and alert. Agitated and restless. ENT: no icterus CV: S1, S2+ resp; even and unlabored Abd: soft, morbidly obese. NT. Dressing is c/d/i. Barbi is serosang. Ostomy with dark brown soft stool Ext: b/l LE edema. R groin vasc cath - no hematoma - Labs 01/04/21 09:40 01/04/21 05:38 Diabetes panel 01/04/21 Range/Units 05:38 Sodium 132 L (137-145) mmol/L Potassium 5.6 H (3.6-5.0) mmol/L Chloride 96.5 L (98-107) mmol/L Carbon Dioxide 20 L (22-30) mmol/L BUN 76 H (9-20) mg/dL Creatinine 4.8 H (0.8-1.3) mg/dL Glucose 108 H (75-100) mg/dL Calcium 7.8 L (8.4-10.2) mg/dL AST 161 H (5-40) units/L ALT 101 H (7-56) units/L Alkaline Phosphatase 641 H (35-129) units/L Total Protein 5.9 L (6.3-8.2) g/dL Albumin 2.5 L (3.9-5) g/dL Calcium panel 01/04/21 Range/Units 05:38 Calcium 7.8 L (8.4-10.2) mg/dL Albumin 2.5 L (3.9-5) g/dL Pituitary panel 01/04/21 Range/Units 05:38 Sodium 132 L (137-145) mmol/L Potassium 5.6 H (3.6-5.0) mmol/L Chloride 96.5 L (98-107) mmol/L Carbon Dioxide 20 L (22-30) mmol/L BUN 76 H (9-20) mg/dL Creatinine 4.8 H (0.8-1.3) mg/dL Glucose 108 H (75-100) mg/dL Calcium 7.8 L (8.4-10.2) mg/dL Adrenal panel 01/04/21 Range/Units 05:38 Sodium 132 L (137-145) mmol/L Potassium 5.6 H (3.6-5.0) mmol/L Chloride 96.5 L (98-107) mmol/L Carbon Dioxide 20 L (22-30) mmol/L BUN 76 H (9-20) mg/dL Creatinine 4.8 H (0.8-1.3) mg/dL Glucose 108 H (75-100) mg/dL Calcium 7.8 L (8.4-10.2) mg/dL Total Bilirubin 2.10 H (0.1-1.2) mg/dL AST 161 H (5-40) units/L ALT 101 H (7-56) units/L Alkaline Phosphatase 641 H (35-129) units/L Total Protein 5.9 L (6.3-8.2) g/dL Albumin 2.5 L (3.9-5) g/dL
[2021-01-04] MEDS ORDERED: cefTRIAXone/NS 2 GM/100 ML 2 GM/100 ML BAG IV SCH (12:00)
--- NOTE | 2021-01-04 13:03 | Discharge Summary ---
Providers - Providers Date of Admission: 12/29/20 21:31 Date of discharge: 01/04/21 Attending physician: SUYAPA LEWIS 12/29/20 Consult to Case Management [CONS] Routine Services Needed at Discharge: Home Health Services Agronomist Notified:: CASE MANAGEMENT 12/29/20 19:16 Consult to Physician [CONS] Stat Comment: Consulting Provider: DEVORA DUMONT Physician Instructions: Reason For Exam: Bowel perforation secondary sigmoid carcinoma 12/30/20 12:58 Physical Therapy Evaluation and Treat [CONS] Routine Comment: Reason For Exam: Eval and Treat 12/31/20 08:06 Consult to Physician [CONS] Routine Comment: Consulting Provider: JIE CHOW Physician Instructions: Reason For Exam: perforated colon cancer with liver mets 12/31/20 18:04 Consult to Physician [CONS] Routine Comment: Consulting Provider: KATEY LONG Physician Instructions: Reason For Exam: Acute kidney injury 01/03/21 09:04 Consult to Physician [CONS] Urgent Comment: Consulting Provider: CASSIE FOX Physician Instructions: Reason For Exam: vascath placement Primary care physician: LICENSE EXAMINER Hospitalization Condition: Stable Hospital course: Brief history and hospital course: 50-year-old male patient with perforated sigmoid mass likely neoplasm, status post exploratory laparotomy,, sigmoidectomy, end colostomy,, peritoneal lavage.Patient has worsening renal function, s/p Vas-Cath placement, nephrology initiated hemodialysis 12/30/2020; status post surgical procedure POD 1 Continue postop care, surgery following 12/31/20; POD 2 Worsening LFTs, secondary to liver mets May start clear liquids as tolerated per surgery Follow 01/01; POD 3 Worsening renal function, increased normal saline to 125 mL/h Nephrology already consulted, clear liquid diet advance diet to full liquids if okay with surgery Surgical cultures positive for gram-negative rods, patient on Zosyn, follow culture sensitivities 01/02; patient feels slightly better Surgery advance diet to soft, PT working with him Patient complains of dryness of mouth 01/03/2021; severe hyperkalemia , metabolic acidosis, worsening creatinine Vas-Cath placement, initiated hemodialysis, continue postop care 01/04/21: Patient and patient family insisted leaving AMA. Had our long discussion with patient and with his family at the bedside. Discussed about patient clinical condition but both the patient and his family refused to stay in the hospital and left AMA. Disposition: 07 LEFT AGAINST MEDICAL ADVICE Final Discharge Diagnosis (Prints w/discharge instructions): --Acute kidney injury; worsening renal function with ATN. --Hyperkalemia. --perforated sigmoid mass. --Gram-negative sepsis. --Surgical cultures gram-negative rods. --Colorectal carcinoma. --Metastases to the liver. --Worsening transaminases;. --Severe malnutrition/hypoproteinemia. --Anemia of CD. -- Morbid obesity; Time spent for discharge: 34 minutes Core Measure Documentation - Palliative Care Palliative Care/ Comfort Measures: Not Applicable - Core Measures Any of the following diagnoses?: none Exam - Physical Exam Narrative exam: General appearance: Present: mild distress, well-nourished, obese - EENT Eyes: Present: PERRL, EOM intact - Neck Neck: Present: supple, normal ROM - Respiratory Respiratory effort: normal Respiratory: bilateral: diminished, negative: rales, rhonchi, wheezing - Cardiovascular Rhythm: regular Heart Sounds: Present: S1 & S2 - Extremities Extremities: no ischemia, No edema - Abdominal General gastrointestinal: soft, non-tender, non-distended, normal bowel sounds - Integumentary Integumentary: Present: clear, warm - Psychiatric Psychiatric: appropriate mood/affect, agitated (Sometimes agitated), other (Sometimes confused) - Neurologic Neurologic: moves all extremities - Constitutional Vitals: Temp Pulse Resp BP Pulse Ox 97.3 F L 89 18 147/71 90 01/04/21 08:12 01/04/21 08:12 01/04/21 08:12 01/04/21 08:12 01/04/21 08:12 Plan Activity: advance as tolerated Weight Bearing Status: Weight Bear as Tolerated Follow up with: PRIMARY CAREMD [Primary Care Provider] - 3-5 Days Forms: AMA Form
[2021-01-04] MEDS ORDERED: metroNIDAZOLE/NS 500 MG/100 ML 500 MG/100 ML BAG IV SCH (14:00)
[2021-01-04 15:10] LABS: Anisocytosis 1+; Band Neutrophils # (Manual) 0.6 K/mm3; Hypochromasia 1+; Platelet Estimate Consistent w Auto; Total Cells Counted 100
[2021-01-06] MEDS ORDERED: HEPARIN 10,000 UNITS/10 ML VIAL ONE (10:58)
[2021-01-06] MEDS ORDERED: MIDAZOLAM 2 MG/2 ML INJ ONE (10:58)
[2021-01-06] MEDS ORDERED: SODIUM CHLORIDE 0.9% 1000 ML 1,000 ML ONE (11:03)
[2021-01-06] MEDS ORDERED: LIDOCAINE (2%) 20 MG/1 ML VIAL 20 ML MDV INFILTRATI ONE (11:31)
[2021-01-06 11:57] LABS: ANA Screen, IFA Negative (Negative)
[2021-01-14 12:56] LABS: Myeloperoxidase Antibody <1.0 AI (<1.0)
== END 2021-01-04 18:10 | disposition left against medical advice (07) | DRG 853 ==
LOC: ED 13:14 → OR 21:30 → 4A 21:31
PROVIDERS: ADMIT Internal Medicine; ATTEND Internal Medicine
PROC: 0DBN0ZZ Excision of Sigmoid Colon, Open Approach (ICD-10-PCS; principal; 2020-12-30)
PROC: 0D1N0Z4 Bypass Sigmoid Colon to Cutaneous, Open Approach (ICD-10-PCS; 2020-12-30)
PROC: 3E1M38X Irrigation of Peritoneal Cavity using Irrigating Substance, Percutaneous Approach, Diagnostic (ICD-10-PCS; 2020-12-30)
PROC: 06HM33Z Insertion of Infusion Device into Right Femoral Vein, Percutaneous Approach (ICD-10-PCS; 2021-01-03)
PROC: B54BZZA Ultrasonography of Right Lower Extremity Veins, Guidance (ICD-10-PCS; 2021-01-03)
PROC: 5A1D70Z Performance of Urinary Filtration, Intermittent, Less than 6 Hours Per Day (ICD-10-PCS; 2021-01-03)
PROC: B51B1ZA Fluoroscopy of Right Lower Extremity Veins using Low Osmolar Contrast, Guidance (ICD-10-PCS; 2021-01-03)
DX: A41.50 Gram-negative sepsis, unspecified (principal); K63.1 Perforation of intestine (nontraumatic); N17.0 Acute kidney failure with tubular necrosis; E43 Unspecified severe protein-calorie malnutrition; K65.0 Generalized (acute) peritonitis; C19 Malignant neoplasm of rectosigmoid junction; C78.7 Secondary malignant neoplasm of liver and intrahepatic bile duct; E87.2 Acidosis; D64.9 Anemia, unspecified; R74.01 Elevation of levels of liver transaminase levels; E77.8 Other disorders of glycoprotein metabolism; Z68.38 Body mass index [BMI] 38.0-38.9, adult; E87.5 Hyperkalemia; Z20.822 Contact with and (suspected) exposure to COVID-19; B96.20 Unspecified Escherichia coli [E. coli] as the cause of diseases classified elsewhere; E66.01 Morbid (severe) obesity due to excess calories
CPT/HCPCS: 36415; 36556; 71046; 74177; 80048; 80053; 80074; 80076; 81001; 82140; 82378; 82962; 83036; 83690; 83735; 83970; 85007; 85014; 85018; 85025; 85027; 85384; 85610; 85730; 86021; 86038; 86160; 86850; 86900; 86901; 86920; 87040; 87075; 87076; 87116; 87186; 87806; 88309; 88341; 88342; 93005; G0378; C1752; J0330; J0610; J0696; J1170; J1644; J1815; J1885; J2250; J2270; J2405; J2543; J2704; J2710; J2916; J7030; J7042; J7050; J7120; Q9967

== ENCOUNTER 2021-01-04 18:33 | Inpatient (IN) | payer SELFPAY ==
--- NOTE | 2021-01-04 19:39 | Emergency Department Report ---
ED General Adult HPI - General Chief complaint: Weakness Stated complaint: MEDICAL PROBLEMS PUI?: No Time Seen by Provider: 01/04/21 19:31 Source: patient, RN notes reviewed, old records reviewed Mode of arrival: Wheelchair Limitations: Physical Limitation - History of Present Illness Initial comments: The patient was evaluated in the emergency department for symptoms described in the history of present illness. He/she was evaluated in the context of the global COVID-19 pandemic, which necessitated consideration that the patient might be at risk for infection with the virus that causes COVID-19. Institutional protocols and algorithms that pertain to the evaluation of patients at risk for COVID-19 are in a state of rapid change based on information released by regulatory bodies including the CDC and federal and state organizations. These policies and algorithms were followed during the patient's care in the emergency department. Please note that these policies, procedures and recommendations changed on a rapid basis. The patient is a 50-year-old gentleman. The patient left the hospital earlier on today AGAINST MEDICAL ADVICE. Past medical history is complex. This patient was recently admitted to the medical service, status post exploratory laparotomy, sigmoidectomy, colostomy, peritoneal lavage. The patient was admitted for perforated sigmoid mass, likely neoplasm, with peritonitis, sepsis, liver mets, obesity, renal insufficiency, and anemia. Intraperitoneal cultures demonstrated E. coli and Klebsiella. He was discharged AMA, with colostomy care, and is also currently on dialysis. After leaving the floor AGAINST MEDICAL ADVICE, the patient felt weak, and his colostomy became compromised, and he was soiled with feculent material. The patient now states he is agreeable to admission. -: This evening Consistency: constant - Related Data Home Medications Medication Instructions Recorded Confirmed Last Taken Tylenol Extra Strength 500 mg PO BID PRN 12/30/20 12/30/20 Unknown Allergies Allergy/AdvReac Type Severity Reaction Status Date / Time No Known Allergies Allergy Verified 12/29/20 13:17 ED Review of Systems ROS: Stated complaint: MEDICAL PROBLEMS Other details as noted in HPI Constitutional: malaise, weakness ED Past Medical Hx - Past Medical History Hx Hypertension: No Hx Liver Disease: Yes (liver mets likely from colon mass) Hx Renal Disease: No - Social History Smoking Status: Unknown if ever smoked - Medications Home Medications: Home Medications Medication Instructions Recorded Confirmed Last Taken Type Tylenol Extra Strength 500 mg PO BID PRN 12/30/20 12/30/20 Unknown History ED Physical Exam - General Limitations: Physical Limitation General appearance: alert, anxious, obese - Head Head exam: Present: atraumatic, normocephalic - Eye Eye exam: Present: normal appearance - ENT ENT exam: Present: normal exam, normal orophraynx, mucous membranes moist, normal external ear exam - Neck Neck exam: Present: normal inspection, full ROM. Absent: tenderness, meningismus - Respiratory Respiratory exam: Absent: respiratory distress, stridor - GI/Abdominal GI/Abdominal exam: Present: other (There is a colostomy noted in the left lower quadrant. Feculent material is noted on the anterior abdominal wall) - Rectal Rectal exam: Present: deferred - Extremities Exam Extremities exam: Present: normal inspection, full ROM, pedal edema (Diffuse lower extremity edema peer) - Back Exam Back exam: Present: normal inspection, full ROM - Neurological Exam Neurological exam: Present: alert, other (The patient is awake. There is no facial droop. He is moving 4 extremities. He is anxious.) - Psychiatric Psychiatric exam: Present: anxious - Skin Skin exam: Present: warm, dry ED Course Vital Signs 01/04/21 01/04/21 18:45 22:38 Temperature 98.6 F Pulse Rate 93 H Respiratory 18 Rate Blood Pressure 119/50 O2 Sat by Pulse 93 95 Oximetry ED Medical Decision Making - Lab Data Result diagrams: 01/05/21 00:02 01/05/21 00:02 Vital Signs 01/04/21 18:45 Temperature 98.6 F Pulse Rate 93 H Respiratory 18 Rate Blood Pressure 119/50 O2 Sat by Pulse 93 Oximetry Vital Signs 01/04/21 01/04/21 18:45 22:38 Temperature 98.6 F Pulse Rate 93 H Respiratory 18 Rate Blood Pressure 119/50 O2 Sat by Pulse 93 95 Oximetry - Medical Decision Making Differential diagnosis, including but not limited to: Perforated sigmoid mass, peritonitis, sepsis, liver mets, obesity, renal insufficiency, and anemia. Assessment and plan: 50-year-old gentleman, who left the hospital AGAINST MEDICAL ADVICE, now back, agreeable to admission and hospitalization. He had laboratory studies performed earlier on today and they are reviewed and appreciated. This patient is now agreeable to admission and hospitalization. Repeat laboratory studies ordered, will defer to inpatient team to follow these up. Hospital physician, Dr. Tejeda to readmit to the medical service. Colostomy care ordered. Overall prognosis is guarded Critical care attestation.: If time is entered above; I have spent that time in minutes in the direct care of this critically ill patient, excluding procedure time. ED Disposition Clinical Impression: Bowel perforation, Colorectal carcinoma, Metastases to the liver Anemia Qualifiers: Anemia type: unspecified type Qualified Code(s): D64.9 - Anemia, unspecified Malnutrition Qualifiers: Protein-calorie malnutrition severity: moderate Disposition: 09 ADMITTED INPATIENT Is pt being admited?: Yes Does the pt Need Aspirin: No Condition: Fair
--- NOTE | 2021-01-04 19:57 | History and Physical Report ---
History of Present Illness Chief complaint: I could not make it outside History of present illness: 50 YO Male with SHARMIN, metastatic colon cancer, acidosis presents ED for evaluation. Patient mated on 12/29/2020 for evaluation of abdominal pain and was found to have a colonic mass and underwent surgical resection for suspected colon cancer with metastatic disease to the liver. Patient left AMA today and represents due to generalized weakness. Patient seen and evaluated in the emergency department. All lab and imaging studies reviewed. Patient found to have sepsis, symptomatic anemia, metabolic acidosis, as well as acute kidney injury. Patient initiated on sepsis protocol and admitted to medical floor. Patient denies fever, chills, chest pain, palpitation, adductive cough, skin rash, recent ill contacts, known exposure to COVID-19. Prior admission on 12/29/2020 reviewed. All medication listed at time of admission has been reconciled. Past History Past Medical History: cancer, other (See HPI) Past Surgical History: bowel surgery Social history: single. denies: smoking, alcohol abuse Family history: hypertension Medications and Allergies Allergies Allergy/AdvReac Type Severity Reaction Status Date / Time No Known Allergies Allergy Verified 12/29/20 13:17 Home Medications Medication Instructions Recorded Confirmed Last Taken Type Tylenol Extra Strength 500 mg PO BID PRN 12/30/20 12/30/20 Unknown History Review of Systems Constitutional: weakness, no weight loss, no weight gain, no fever, no chills Ears, nose, mouth and throat: no ear pain, no ear discharge, no decreased hearing, no nose pain Cardiovascular: no chest pain, no palpitations, no rapid/irregular heart beat, no edema, no syncope, no lightheadedness Respiratory: no cough, no cough with sputum, no hemoptysis, no shortness of breath, no dyspnea on exertion Gastrointestinal: no abdominal pain, no nausea, no vomiting, no diarrhea, no change in bowel habits Genitourinary Male: no hematuria, no flank pain, no discharge, no urinary frequency, no urinary hesitancy Rectal: no pain, no incontinence, no bleeding Musculoskeletal: no neck stiffness, no leg numbness/tingling Integumentary: no rash, no pruritis, no redness, no wounds, no jaundice Neurological: no head injury, no paralysis, no parathesias, no tingling, no seizures, no tremors Psychiatric: no anxiety, no memory loss, no sleep disturbances, no insomnia, no change in appetite Endocrine: no cold intolerance, no excessive sweating, no thyroid mass Hematologic/Lymphatic: no easy bleeding, no lymphedema Allergic/Immunologic: no urticaria, no allergic rhinitis, no anaphylaxis Exam - Constitutional Vitals: Temp Pulse Resp BP Pulse Ox 98.6 F 93 H 18 119/50 93 01/04/21 18:45 01/04/21 18:45 01/04/21 18:45 01/04/21 18:45 01/04/21 18:45 General appearance: Present: mild distress, obese - EENT Eyes: Present: PERRL, scleral icterus ENT: hearing intact, clear oral mucosa - Neck Neck: Present: supple, normal ROM - Respiratory Respiratory effort: normal Respiratory: bilateral: CTA - Cardiovascular Heart Sounds: Present: S1 & S2. Absent: rub, click - Extremities Extremities: pulses symmetrical, No edema Peripheral Pulses: abnormal (Capillary refill greater than 3.5 seconds) - Abdominal General gastrointestinal: Present: soft, non-tender, non-distended, normal bowel sounds, other (Ostomy in place) Male genitourinary: Present: normal - Integumentary Integumentary: Present: clear, warm, dry - Musculoskeletal Musculoskeletal: generalized weakness - Psychiatric Psychiatric: appropriate mood/affect, intact judgment & insight - Neurologic Neurologic: CNII-XII intact, moves all extremities Assessment and Plan - Patient Problems (1) Sepsis Status: Acute Plan to address problem: Sepsis protocol: CBC, CMP, IV antibiotic therapy, monitor urine output every shift, monitor fluid balance, maintain mean arterial pressure greater than or equal to 65, blood culture, (2) Colorectal carcinoma Status: Acute Plan to address problem: Oncology team consulted, surgery team consulted (3) Anemia Status: Chronic Qualifiers: Anemia type: unspecified type Qualified Code(s): D64.9 - Anemia, unspecified Plan to address problem: CBC, supportive care, consider packed red blood cell transfusion in a.m. (4) SHARMIN (acute kidney injury) Status: Acute Plan to address problem: Nephrology team consulted, monitor urine output every shift, monitor fluid balance, further care as per nephrology team. (5) DVT prophylaxis Status: Acute Plan to address problem: SCD to bilateral lower extremities while in bed
[2021-01-04] MEDS ORDERED: ALBUTEROL 2.5 MG/3 ML NEBU IH PRN (19:59)
[2021-01-04] MEDS ORDERED: ONDANSETRON 4 MG/2 ML INJ IV PRN (19:59)
[2021-01-04] MEDS ORDERED: HYDROmorphone 1 MG/1 ML INJ IV PRN (19:59)
[2021-01-04] MEDS ORDERED: ACETAMINOPHEN 325 MG TAB PO PRN ×2 (19:59)
[2021-01-04] MEDS ORDERED: MORPHINE 2 MG/1 ML INJ IV PRN (19:59)
[2021-01-04] MEDS ORDERED: SODIUM CHLORIDE 0.9% 1000 ML 3,000 ML IV ONE (20:04)
[2021-01-05 00:20] LABS: Hemoglobin 6.1 gm/dl (11.8-15.2); Mean Corpuscular HGB Conc 31 % (32-34); Mean Corpuscular Volume 74 fl (84-94); Platelet Count 242 K/mm3 (140-440); Red Blood Count 2.66 M/mm3 (3.65-5.03); Red Cell Distribution Width 19.8 % (13.2-15.2)
[2021-01-05 00:27] LABS: Hematocrit 19.7 % (35.5-45.6)
[2021-01-05 00:38] LABS: Calcium 7.9 mg/dL (8.4-10.2)
[2021-01-05] MEDS ORDERED: SODIUM CHLORIDE 0.9% 500 ML 500 ML IV ONE ×2 (00:50→02:53)
[2021-01-05 02:02] LABS: Hypochromasia 1+; Total Cells Counted 100
[2021-01-05 02:04] LABS: Anisocytosis 1+; Ovalocytes Few
[2021-01-05 02:05] LABS: Platelet Estimate Consistent w Auto
[2021-01-05] MEDS: metroNIDAZOLE/NS 500 MG/100 ML 500 MG/100 ML BAG IV SCH ×4 (04:19→22:51)
[2021-01-05] MEDS: CEFEPIME/NS 2 GM/100 ML 2 GM/100 ML BAG IV SCH ×3 (04:19→22:50)
--- NOTE | 2021-01-05 09:25 | Progress Note ---
Assessment and Plan 50-year-old man presents with perforated sigmoid mass likely neoplasm, status post exploratory laparotomy, sigmoidectomy, end colostomy, peritoneal lavage. # SHARMIN: Most likely secondary to ATN. Creatinine 1.1->1.8->3.4->4.4> 6.1 suspect severe tubular injury s/p extensive surgery + contrast use on 12/29. -Status post Vas-Cath placement on 01/03/2021 and initiation of dialysis . Patient had signed out AMA yesterday and his Vas-Cath was removed. Patient has agreed for another Vas-Cath placement and reinitiation of dialysis. Discussed with Dr. Reyes. -Follow-up results of serologies to ensure no glomerular injury, consider biopsy pending results - no renal obstruction noted on prior CT; do note mass on kidney which may be re lated to underlying sigmoid mass - avoid nephrotoxins - renally dose meds - strict Is/Os-> currently non-oliguric but net positive # Metabolic Acidosis/Hyperkalemia: likely due to SHARMIN. Hyperkalemia is better. Potassium level still elevated at 5.6. Hopefully dialysis will correct his hyperkalemia as well as acidosis # Perforated Sigmoid Mass, Possible Colorectal Carcinoma, Metastasis to Liver: appreciate surgery input, advance diet per primary/surgery. Note oncology consult; if chemotherapy is needed, suspect further kidney injury # Sepsis, Leukocytosis: likely related to bowel perforation, note antibiotics # Malnutrition Subjective Date of service: 01/05/21 Interval history: Overnight events noted. Discussed with charge nurse on the floor. Patient has signed out AMA last night. His femoral Vas-Cath was removed prior to his discharge. Patient however went home and came right back after few hours and has been readmitted. Patient denies any shortness of breath. He is not putting out much urine. Denies any nausea vomiting or diarrhea. Discussed resumption of dialysis with patient. He is agreeable and also has agreed to have another Vas-Cath placed Objective - Vital Signs Vital signs: Vital Signs - 12hr 01/04/21 01/05/21 01/05/21 22:38 02:12 02:16 Temperature 98.6 F Pulse Rate 77 Respiratory 18 Rate Blood Pressure 147/64 O2 Sat by Pulse 95 97 98 Oximetry 01/05/21 01/05/21 01/05/21 04:05 04:20 04:23 Temperature 97.6 F 97.9 F Pulse Rate 85 79 80 Respiratory 20 20 Rate Blood Pressure 154/65 159/60 O2 Sat by Pulse 92 95 Oximetry 01/05/21 01/05/21 01/05/21 04:50 05:20 05:50 Temperature 97.6 F 97.6 F 97.6 F Pulse Rate 81 82 79 Respiratory 20 20 20 Rate Blood Pressure 145/60 158/59 136/57 O2 Sat by Pulse 95 96 95 Oximetry 01/05/21 01/05/21 06:20 08:11 Temperature 97.9 F 97.6 F Pulse Rate 81 84 Respiratory 20 18 Rate Blood Pressure 124/67 142/65 O2 Sat by Pulse 96 94 Oximetry - General Appearance General appearance: well-developed, well-nourished, appears stated age EENT: PERRL, mucous membranes moist Neck: no JVD, no thyromegaly, no carotid bruit, supple Respiratory: Present: Clear to Ascultation Cardiology: regular, normal heart rate Gastrointestinal: other (Midline dressing, colostomy bag as well as drainage tube in place. Bowel sounds present) Integumentary: other (1+ edema) - Lab 01/05/21 00:02 01/05/21 00:02 Most recent lab results Calcium 7.9 mg/dL (8.4-10.2) L 01/05/21 00:02 Magnesium 4.40 mg/dL (1.7-2.3) H 01/05/21 00:02 Medications & Allergies - Medications Allergies/Adverse Reactions: Allergies No Known Allergies Allergy (Verified 12/29/20 13:17) Home Medications: Home Medications Medication Instructions Recorded Confirmed Last Taken Type Tylenol Extra Strength 500 mg PO BID PRN 12/30/20 01/05/21 Unknown History Active Medications: Generic Name Dose Route Start Last Admin Trade Name Freq PRN Reason Stop Dose Admin Acetaminophen 650 mg 01/04/21 19:59 Acetaminophen 325 Mg Tab PO Q6H PRN Pain, Mild (1-3) Albuterol 2.5 mg 01/04/21 19:59 Albuterol 2.5 Mg/3 Ml Nebu IH Q4HRT PRN Shortness Of Breath Hydromorphone HCl 0.25 mg 01/04/21 19:59 Hydromorphone 1 Mg/1 Ml Inj IV Q4H PRN Pain, Moderate (4-6) Hydromorphone HCl 0.5 mg 01/04/21 19:59 Hydromorphone 1 Mg/1 Ml Inj IV Q12H PRN Pain , Severe (7-10) Cefepime HCl 2 gm in 100 mls @ 200 mls/hr 01/04/21 21:00 01/05/21 06:32 Cefepime/Ns 2 Gm/100 Ml IV 200 mls/hr Q8H JESSICA Administration Protocol Metronidazole 500 mg in 100 mls @ 100 mls/hr 01/04/21 20:30 01/05/21 04:19 Flagyl 500 Mg/100 Ml IV Not Given Q8H JESSICA Protocol Morphine Sulfate 2 mg 01/04/21 19:59 Morphine 2 Mg/1 Ml Inj IV Q2H PRN Pain, Moderate (4-6) Ondansetron HCl 4 mg 01/04/21 19:59 Ondansetron 4 Mg/2 Ml Inj IV Q8H PRN Nausea And Vomiting Sodium Chloride 10 ml 01/04/21 22:00 01/05/21 04:18 Sodium Chloride 0.9% 10 Ml Flush Syringe IV 10 ml BID JESSICA Administration Sodium Chloride 10 ml 01/04/21 19:59 Sodium Chloride 0.9% 10 Ml Flush Syringe IV PRN PRN LINE FLUSH
[2021-01-05] MEDS ORDERED: SODIUM CHLORIDE 0.9% 100 ML IV PRN (10:00)
[2021-01-05 10:09] LABS: Mean Corpuscular HGB Conc 31 % (32-34); Mean Corpuscular Volume 72 fl (84-94); Platelet Count 207 K/mm3 (140-440); Red Blood Count 2.35 M/mm3 (3.65-5.03); Red Cell Distribution Width 18.9 % (13.2-15.2)
[2021-01-05 10:11] LABS: Hemoglobin 5.3 gm/dl (11.8-15.2)
[2021-01-05] MEDS ORDERED: SODIUM CHLORIDE 0.9% 500 ML 500 ML IV NR (10:18)
[2021-01-05 10:32] LABS: Albumin 2.4 g/dL (3.9-5); Calcium 7.6 mg/dL (8.4-10.2)
[2021-01-05 11:21] LABS: Anisocytosis 1+; Band Neutrophils # (Manual) 0.8 K/mm3; Hypochromasia 2+; Monocytes % (Manual) 1.5 % (0.0-7.3); Platelet Estimate Consistent w Auto; Total Cells Counted 200
--- NOTE | 2021-01-05 15:38 | Progress Note ---
Assessment and Plan --Acute kidney injury; worsening renal function Worsening renal function , metabolic acidosis, hyperkalemia Nephrology initiated dialysis, vascular evaluated for perm-Cath placement Monitor BMP, supportive care --Hyperkalemia continue to treat medically, HD per renal --perforated sigmoid mass --s/p exploratory laparotomy/sigmoidectomy/colostomy/peritoneal lavage IV fluids IV antibiotics, IV Protonix, Pain medications, Out of bed to chair, PT --Gram-negative sepsis Sepsis in the setting of high white count and bowel perforation -- Continue IV antibiotics, follow cultures ID consult if needed --Surgical cultures gram-negative rods Currently on Zosyn, follow culture sensitivities ID consult if needed --Colorectal carcinoma Patient never had colonoscopy 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, heme-onc following --Metastases to the liver Poor prognosis,Heme-onc following --Worsening transaminases; Probably secondary to liver mets,Closely monitor --Severe malnutrition/hypoproteinemia Dietary supplements and dietitian consult --Anemia acute on chronic Closely monitor H&H and transfuse as needed --obesity; BMI 38.7 Patient needs weight reduction when medically stable --DVT prophylaxis On SCDs , patient postop state with severe anemia Brief history and hospital course: 50-year-old male patient initially presented on 12/29/20 with perforated sigmoid mass likely neoplasm, status post exploratory laparotomy,, sigmoidectomy, end colostomy, peritoneal lavage. Patient has worsening renal function,Vas-Cath placement and initiated hemodialysis. He decided to leave A on 01/04/2021 but got readmitted on the same day. 01/05/21: Patient had low hemoglobin 5.3 today, elevated potassium and creatinine. Dialysis catheter was removed yesterday when Patient left AMA yesterday.. consulted vascular for permcath, ordered for PRBC transfusion. Follow CBC and BMP Subjective Date of service: 01/05/21 Interval history: Patient seen and examined. Medical records and medication list reviewed. No acute event overnight noted by the RN. Patient resting on bed, hemoglobin 5.3 today Discussed plan of care at bedside with patient's RN. Objective - Exam Narrative Exam: General appearance: Present: mild distress, well-nourished, obese - EENT Eyes: Present: PERRL, EOM intact - Neck Neck: Present: supple, normal ROM - Respiratory Respiratory effort: normal Respiratory: bilateral: diminished, negative: rales, rhonchi, wheezing - Cardiovascular Rhythm: regular Heart Sounds: Present: S1 & S2 - Extremities Extremities: no ischemia, No edema - Abdominal General gastrointestinal: Surgical dressing on place with abdominal drainage - Integumentary Integumentary: Present: clear, warm - Psychiatric Psychiatric: appropriate mood/affect, agitated (Sometimes agitated), other (Sometimes confused) - Neurologic Neurologic: moves all extremities - Constitutional Vitals: Vital Signs - 12hr 01/05/21 01/05/21 01/05/21 04:05 04:20 04:23 Temperature 97.6 F 97.9 F Pulse Rate 85 79 80 Respiratory 20 20 Rate Blood Pressure 154/65 159/60 O2 Sat by Pulse 92 95 Oximetry 01/05/21 01/05/21 01/05/21 04:50 05:20 05:50 Temperature 97.6 F 97.6 F 97.6 F Pulse Rate 81 82 79 Respiratory 20 20 20 Rate Blood Pressure 145/60 158/59 136/57 O2 Sat by Pulse 95 96 95 Oximetry 01/05/21 01/05/21 01/05/21 06:20 08:11 11:37 Temperature 97.9 F 97.6 F 97.0 F L Pulse Rate 81 84 86 Respiratory 20 18 12 Rate Blood Pressure 124/67 142/65 137/60 O2 Sat by Pulse 96 94 94 Oximetry 01/05/21 01/05/21 01/05/21 12:00 12:21 12:30 Temperature 96.7 F L Pulse Rate 84 101 H 87 Respiratory 18 16 Rate Blood Pressure 123/61 128/63 O2 Sat by Pulse 98 95 Oximetry - Labs CBC & Chem 7: 01/06/21 05:43 01/06/21 05:43 Labs: Abnormal lab results 01/05/21 01/05/21 01/05/21 Range/Units 00:02 00:02 00:02 WBC 35.0 H (4.5-11.0) K/mm3 RBC 2.66 L (3.65-5.03) M/mm3 Hgb 6.1 L (11.8-15.2) gm/dl Hct 19.7 L* (35.5-45.6) % MCV 74 L (84-94) fl MCH 23 L (28-32) pg MCHC 31 L (32-34) % RDW 19.8 H (13.2-15.2) % Seg Neuts % (Manual) 92.0 H (40.0-70.0) % Lymphocytes % (Manual) 3.0 L (13.4-35.0) % Nucleated RBC % (0.0-0.9) % Seg Neutrophils # Man 32.2 H (1.8-7.7) K/mm3 Lymphocytes # (Manual) 1.1 L (1.2-5.4) K/mm3 Monocytes # (Manual) 1.1 H (0.0-0.8) K/mm3 Basophils # (Manual) 0.4 H (0.0-0.1) K/mm3 Sodium 131 L (137-145) mmol/L Potassium 5.2 H (3.6-5.0) mmol/L Chloride 94.8 L (98-107) mmol/L Carbon Dioxide 20 L (22-30) mmol/L BUN 82 H (9-20) mg/dL Creatinine 5.4 H (0.8-1.3) mg/dL Glucose 104 H (75-100) mg/dL Lactic Acid (0.7-2.0) mmol/L Calcium 7.9 L (8.4-10.2) mg/dL Magnesium 4.40 H (1.7-2.3) mg/dL Total Bilirubin (0.1-1.2) mg/dL AST (5-40) units/L ALT (7-56) units/L Alkaline Phosphatase (35-129) units/L Total Creatine Kinase 340 H (55-170) units/L Total Protein (6.3-8.2) g/dL Albumin (3.9-5) g/dL Crossmatch See Detail 01/05/21 01/05/21 01/05/21 Range/Units 00:02 09:51 09:51 WBC 33.7 H (4.5-11.0) K/mm3 RBC 2.35 L (3.65-5.03) M/mm3 Hgb 5.3 L* (11.8-15.2) gm/dl Hct 17.0 L* (35.5-45.6) % MCV 72 L (84-94) fl MCH 23 L (28-32) pg MCHC 31 L (32-34) % RDW 18.9 H (13.2-15.2) % Seg Neuts % (Manual) 92.5 H (40.0-70.0) % Lymphocytes % (Manual) 3.0 L (13.4-35.0) % Nucleated RBC % 1.0 H (0.0-0.9) % Seg Neutrophils # Man 31.2 H (1.8-7.7) K/mm3 Lymphocytes # (Manual) 1.0 L (1.2-5.4) K/mm3 Monocytes # (Manual) (0.0-0.8) K/mm3 Basophils # (Manual) (0.0-0.1) K/mm3 Sodium 132 L (137-145) mmol/L Potassium 5.4 H (3.6-5.0) mmol/L Chloride 96.2 L (98-107) mmol/L Carbon Dioxide 20 L (22-30) mmol/L BUN 88 H (9-20) mg/dL Creatinine 5.3 H (0.8-1.3) mg/dL Glucose 104 H (75-100) mg/dL Lactic Acid 2.50 H* (0.7-2.0) mmol/L Calcium 7.6 L (8.4-10.2) mg/dL Magnesium (1.7-2.3) mg/dL Total Bilirubin 3.10 H (0.1-1.2) mg/dL AST 158 H (5-40) units/L ALT 92 H (7-56) units/L Alkaline Phosphatase 882 H (35-129) units/L Total Creatine Kinase (55-170) units/L Total Protein 5.5 L (6.3-8.2) g/dL Albumin 2.4 L (3.9-5) g/dL Crossmatch
--- NOTE | 2021-01-05 16:39 | Event Note ---
Date: 01/05/21 Patient was still receiving 1 unit PRBC with an additional unit planned to transfuse. Will make N.P.O after midnight and place vascath in a.m.
--- NOTE | 2021-01-05 17:26 | Cat Scan Report ---
CT ABDOMEN AND PELVIS WITHOUT CONTRAST INDICATION / CLINICAL INFORMATION: Intra-abdominal bleeding. TECHNIQUE: Axial CT images were obtained through the abdomen and pelvis without IV contrast. All CT scans at this location are performed using CT dose reduction for ALARA by means of automated exposure control. COMPARISON: CT abdomen and pelvis 12/29/2020 FINDINGS: LOWER CHEST: Bibasilar atelectasis right greater than left. No significant pleural fluid. LIVER: Diffuse hepatic metastatic disease remains. GALLBLADDER: No significant abnormality. BILE DUCTS: No significant abnormality. PANCREAS: No significant abnormality. SPLEEN: No significant abnormality. ADRENALS: No significant abnormality. RIGHT KIDNEY / URETER: No significant abnormality. LEFT KIDNEY / URETER: Mass lower pole left kidney laterally remains with maximal diameter of 3.8 cm. A small adjacent subcentimeter lesion is present as well. STOMACH / SMALL BOWEL: No significant abnormality. COLON: Interval removal of sigmoid colon mass. Adjacent mesenteric mass remains unchanged. Left lower quadrant ostomy. APPENDIX: No significant abnormality. PERITONEUM: No free fluid. Trace postoperative free air. A surgical drain is seen at the right abdome n. No fluid collection. LYMPH NODES: No significant adenopathy. VASCULAR STRUCTURES: No significant abnormality. URINARY BLADDER: No significant abnormality. REPRODUCTIVE ORGANS: No significant abnormality. ADDITIONAL FINDINGS: Soft tissue edema greater inferiorly. SKELETAL SYSTEM: No significant abnormality. IMPRESSION: 1. Interval resection of known sigmoid colon mass. Adjacent mesenteric mass and diffuse hepatic metas tatic disease remains. 2. Persistent left renal mass worrisome for carcinoma. 3. No significant postoperative bleeding or postoperative fluid collection. Signer Name: Real Boone MD Signed: 01/05/2021 5:21 PM Workstation Name: [id number]
--- NOTE | 2021-01-05 18:48 | Progress Note ---
Assessment and Plan 50 yo M s/p exploratory laparotomy, sigmoidectomy, end colostomy, peritoneal lavage, POD 7 1. perforated sigmoid cancer 2. peritonitis 2/2 #1 3. sepsis 2/2 #1/2 4. liver mets 5. obesity 6. SHARMIN 7. anemia CT scan abdomen and pelvis 01/05/2021 images and report reviewed -interval resection of known sigmoid mass. Left renal mass concerning for carcinoma. No significant intra-abdominal fluid collection. Plan: 1. soft diet with dietary supplements 2. Gentle IV fluids, per nephro 3. IV abx - zosyn 4. DVT ppx 5. prn pain and nausea control 6. daily labs 7. CEA and path pending 8. continue BARBI drain 9. colostomy care 10. Transfuse PRBC 11. nephro consulted for HD. Vasc to place vascath tomorrow 12. Physical therapy 13. recommend mental health consult Guarded prognosis. Thank you, please call with questions. Evaluation and treatment of this patient was during the time of the national and state emergency arising from COVID19 coronavirus pandemic. Treatment and procedures performed meet the current and available best practice and guidelines for patient during the COVID pandemic. Subjective Date of service: 01/05/21 Narrative: Pt seen and examined. Was signed out AMA by family yesterday. Was denying all care yesterday. Returned to ER. Patient states "im fine, just give me water". Objective Vital Signs - 12hr 01/05/21 01/05/21 01/05/21 08:11 11:37 12:00 Temperature 97.6 F 97.0 F L Pulse Rate 84 86 84 Respiratory 18 12 Rate Blood Pressure 142/65 137/60 O2 Sat by Pulse 94 94 Oximetry 01/05/21 01/05/21 01/05/21 12:21 12:30 14:00 Temperature 96.7 F L Pulse Rate 101 H 87 Respiratory 18 16 Rate Blood Pressure 123/61 128/63 O2 Sat by Pulse 98 95 97 Oximetry 01/05/21 01/05/21 01/05/21 15:04 15:15 17:55 Temperature 98.7 F 97.6 F 97.6 F Pulse Rate 87 92 H Respiratory 20 16 16 Rate Blood Pressure 135/60 136/65 146/80 O2 Sat by Pulse 93 97 Oximetry - General physical appearance Narrative Exam: Gen; AAOx3. NAD ENT: + conjunctival pallor CV: S1, S2+ Resp: even and unlabored Abd: soft, Obese, NT. Midline dressing c/d/i, incision clean. ostomy with dark brown stool in bag. R sided BARBI drain serosang Ext: +edema - Labs 01/05/21 09:51 01/05/21 09:51 Diabetes panel 01/05/21 01/05/21 Range/Units 00:02 09:51 Sodium 131 L 132 L (137-145) mmol/L Potassium 5.2 H 5.4 H (3.6-5.0) mmol/L Chloride 94.8 L 96.2 L (98-107) mmol/L Carbon Dioxide 20 L 20 L (22-30) mmol/L BUN 82 H 88 H (9-20) mg/dL Creatinine 5.4 H 5.3 H (0.8-1.3) mg/dL Glucose 104 H 104 H (75-100) mg/dL Calcium 7.9 L 7.6 L (8.4-10.2) mg/dL AST 158 H (5-40) units/L ALT 92 H (7-56) units/L Alkaline Phosphatase 882 H (35-129) units/L Total Protein 5.5 L (6.3-8.2) g/dL Albumin 2.4 L (3.9-5) g/dL Calcium panel 01/05/21 01/05/21 Range/Units 00:02 09:51 Calcium 7.9 L 7.6 L (8.4-10.2) mg/dL Albumin 2.4 L (3.9-5) g/dL Pituitary panel 01/05/21 01/05/21 Range/Units 00:02 09:51 Sodium 131 L 132 L (137-145) mmol/L Potassium 5.2 H 5.4 H (3.6-5.0) mmol/L Chloride 94.8 L 96.2 L (98-107) mmol/L Carbon Dioxide 20 L 20 L (22-30) mmol/L BUN 82 H 88 H (9-20) mg/dL Creatinine 5.4 H 5.3 H (0.8-1.3) mg/dL Glucose 104 H 104 H (75-100) mg/dL Calcium 7.9 L 7.6 L (8.4-10.2) mg/dL Adrenal panel 01/05/21 01/05/21 Range/Units 00:02 09:51 Sodium 131 L 132 L (137-145) mmol/L Potassium 5.2 H 5.4 H (3.6-5.0) mmol/L Chloride 94.8 L 96.2 L (98-107) mmol/L Carbon Dioxide 20 L 20 L (22-30) mmol/L BUN 82 H 88 H (9-20) mg/dL Creatinine 5.4 H 5.3 H (0.8-1.3) mg/dL Glucose 104 H 104 H (75-100) mg/dL Calcium 7.9 L 7.6 L (8.4-10.2) mg/dL Total Bilirubin 3.10 H (0.1-1.2) mg/dL AST 158 H (5-40) units/L ALT 92 H (7-56) units/L Alkaline Phosphatase 882 H (35-129) units/L Total Protein 5.5 L (6.3-8.2) g/dL Albumin 2.4 L (3.9-5) g/dL - Imaging CT scan - abdomen: report reviewed, image reviewed CT scan - pelvis: report reviewed, image reviewed
[2021-01-05] MEDS ORDERED: CEFEPIME/NS 2 GM/100 ML 2 GM/100 ML BAG IV SCH (22:00)
--- NOTE | 2021-01-05 22:03 | Hem/Onc Consultation ---
History of Present Illness - Reason for Consult Consult date: 01/05/21 possible metastatic cancer - History of Present Illness Heme consult prelim note data review This is a 50yo male who presented to the ER 12/29/20 with diffuse abdominal pain and distention CT abd/pelvis c/w mid sigmoid mass suggesting colorectal carcinoma with erosion/bowel perforation, adjacent adenopathy and innumerable liver metastatic lesions S/p exploratory laparotomy, sigmoidectomy, end colectomy, peritoneal lavage Dx with perforated sigmoid mass with liver mets and peritonitis Was found to be in renal failure, possibly due to contrast nephropathy Hemodialysis started while inpatient On 01/04-- patient was noted with hgb 5, orders for 2 units RBC transfusions,patient refused transfusions and left hospital AMA Pt returned to hospital a few hours later DATA REVIEWED BELOW WBC 35.4 Hgb 6.5 Hct 19.4 MCV 75 Plts 197 AST 158 ALT 92 Alkphos 882 IMP: New metastatic colon cancer with liver metastasis Anemia could be related to hemolytic anemia Abd/pelvis ct yesterday c/w renal mass, metastatic vs second primary-- not as important as liver metastasis REC/PLAN: Transfuse 1 unit RBC whenever hct<23 AM labs to include PT,PTT, fibrinogen, LDH, retic Brain CT without contrast to r/o metastatic cancer to the brain Plan is chemotherapy if he is able to tolerate it Laboratory Last Values WBC 35.4 K/mm3 (4.5-11.0) H 01/06/21 05:43 RBC 2.60 M/mm3 (3.65-5.03) L 01/06/21 05:43 Hgb 6.5 gm/dl (11.8-15.2) L 01/06/21 05:43 Hct 19.4 % (35.5-45.6) L* 01/06/21 05:43 MCV 75 fl (84-94) L 01/06/21 05:43 MCH 25 pg (28-32) L 01/06/21 05:43 MCHC 33 % (32-34) 01/06/21 05:43 RDW 20.8 % (13.2-15.2) H 01/06/21 05:43 Plt Count 197 K/mm3 (140-440) 01/06/21 05:43 Add Manual Diff Complete 01/06/21 05:43 Total Counted 100 01/06/21 05:43 Seg Neutrophils % Paste Up Artist 01/06/21 05:43 Seg Neuts % (Manual) 87.0 % (40.0-70.0) H 01/06/21 05:43 Band Neutrophils % 6.0 % 01/06/21 05:43 Lymphocytes % (Manual) 1.0 % (13.4-35.0) L 01/06/21 05:43 Monocytes % (Manual) 4.0 % (0.0-7.3) 01/06/21 05:43 Eosinophils % (Manual) 1.0 % (0.0-4.3) 01/05/21 00:02 Basophils % (Manual) 1.0 % (0.0-1.8) 01/05/21 00:02 Metamyelocytes % 0.5 % 01/05/21 09:51 Myelocytes % 2.0 % 01/06/21 05:43 Nucleated RBC % Not Reportable 01/06/21 05:43 Seg Neutrophils # Man 30.8 K/mm3 (1.8-7.7) H 01/06/21 05:43 Band Neutrophils # 2.1 K/mm3 01/06/21 05:43 Lymphocytes # (Manual) 0.4 K/mm3 (1.2-5.4) L 01/06/21 05:43 Abs React Lymphs (Man) 0.0 K/mm3 01/06/21 05:43 Monocytes # (Manual) 1.4 K/mm3 (0.0-0.8) H 01/06/21 05:43 Eosinophils # (Manual) 0.0 K/mm3 (0.0-0.4) 01/06/21 05:43 Basophils # (Manual) 0.0 K/mm3 (0.0-0.1) 01/06/21 05:43 Metamyelocytes # 0.0 K/mm3 01/06/21 05:43 Myelocytes # 0.7 K/mm3 01/06/21 05:43 Promyelocytes # 0.0 K/mm3 01/06/21 05:43 Blast Cells # 0.0 K/mm3 01/06/21 05:43 WBC Morphology Not Reportable 01/06/21 05:43 Hypersegmented Neuts Not Reportable 01/06/21 05:43 Hyposegmented Neuts Not Reportable 01/06/21 05:43 Hypogranular Neuts Not Reportable 01/06/21 05:43 Smudge Cells Not Reportable 01/06/21 05:43 Toxic Granulation Not Reportable 01/06/21 05:43 Toxic Vacuolation Not Reportable 01/06/21 05:43 Dohle Bodies Not Reportable 01/06/21 05:43 Pelger-Huet Anomaly Not Reportable 01/06/21 05:43 Janene Rods Not Reportable 01/06/21 05:43 Platelet Estimate Consistent w auto 01/06/21 05:43 Clumped Platelets Not Reportable 01/06/21 05:43 Plt Clumps, EDTA Not Reportable 01/06/21 05:43 Large Platelets Not Reportable 01/06/21 05:43 Giant Platelets Not Reportable 01/06/21 05:43 Platelet Satelliting Not Reportable 01/06/21 05:43 Plt Morphology Comment Not Reportable 01/06/21 05:43 RBC Morphology Not Reportable 01/06/21 05:43 Dimorphic RBCs Not Reportable 01/06/21 05:43 Polychromasia 1+ 01/06/21 05:43 Hypochromasia 2+ 01/06/21 05:43 Poikilocytosis 1+ 01/06/21 05:43 Anisocytosis 1+ 01/06/21 05:43 Microcytosis 1+ 01/06/21 05:43 Macrocytosis Not Reportable 01/06/21 05:43 Spherocytes 1+ 01/06/21 05:43 Pappenheimer Bodies Not Reportable 01/06/21 05:43 Sickle Cells Not Reportable 01/06/21 05:43 Target Cells 1+ 01/06/21 05:43 Tear Drop Cells Not Reportable 01/06/21 05:43 Ovalocytes 1+ 01/06/21 05:43 Helmet Cells Not Reportable 01/06/21 05:43 [place] Bodies Not Reportable 01/06/21 05:43 [place] Rings Not Reportable 01/06/21 05:43 Ankur Cells Not Reportable 01/06/21 05:43 Bite Cells Not Reportable 01/06/21 05:43 Crenated Cell Not Reportable 01/06/21 05:43 Elliptocytes Not Reportable 01/06/21 05:43 Acanthocytes (Spur) Not Reportable 01/06/21 05:43 Rouleaux Not Reportable 01/06/21 05:43 Hemoglobin C Crystals Not Reportable 01/06/21 05:43 Schistocytes Not Reportable 01/06/21 05:43 Malaria parasites Not Reportable 01/06/21 05:43 Atul Bodies Not Reportable 01/06/21 05:43 Hem Pathologist Commnt No 01/06/21 05:43 Sodium 133 mmol/L (137-145) L 01/06/21 05:43 Potassium 5.2 mmol/L (3.6-5.0) H 01/06/21 05:43 Chloride 94.8 mmol/L (98-107) L 01/06/21 05:43 Carbon Dioxide 16 mmol/L (22-30) L 01/06/21 05:43 Anion Gap 27 mmol/L 01/06/21 05:43 BUN 92 mg/dL (9-20) H 01/06/21 05:43 Creatinine 5.6 mg/dL (0.8-1.3) H 01/06/21 05:43 Estimated GFR 11 ml/min 01/06/21 05:43 BUN/Creatinine Ratio 16 % 01/06/21 05:43 Glucose 112 mg/dL (75-100) H 01/06/21 05:43 Lactic Acid 1.80 mmol/L (0.7-2.0) 01/05/21 09:51 Calcium 7.7 mg/dL (8.4-10.2) L 01/06/21 05:43 Magnesium 4.40 mg/dL (1.7-2.3) H 01/05/21 00:02 Total Bilirubin 3.10 mg/dL (0.1-1.2) H 01/05/21 09:51 AST 158 units/L (5-40) H 01/05/21 09:51 ALT 92 units/L (7-56) H 01/05/21 09:51 Alkaline Phosphatase 882 units/L (35-129) H 01/05/21 09:51 Total Creatine Kinase 340 units/L (55-170) H 01/05/21 00:02 Total Protein 5.5 g/dL (6.3-8.2) L 01/05/21 09:51 Albumin 2.4 g/dL (3.9-5) L 01/05/21 09:51 Albumin/Globulin Ratio 0.8 % 01/05/21 09:51 Blood Type A POSITIVE 01/05/21 00:02 Antibody Screen Negative 01/05/21 00:02 Crossmatch See Detail 01/05/21 00:02 Past History Past Medical History: cancer, other (See HPI) Past Surgical History: bowel surgery Social history: single. denies: smoking, alcohol abuse Family history: hypertension Medications and Allergies Allergies Allergy/AdvReac Type Severity Reaction Status Date / Time No Known Allergies Allergy Verified 12/29/20 13:17 Home Medications Medication Instructions Recorded Confirmed Last Taken Type Tylenol Extra Strength 500 mg PO BID PRN 12/30/20 01/05/21 Unknown History Active Meds: Active Medications Acetaminophen (Acetaminophen 325 Mg Tab) 650 mg PO Q6H PRN PRN Reason: Pain, Mild (1-3) Albuterol (Albuterol 2.5 Mg/3 Ml Nebu) 2.5 mg IH Q4HRT PRN PRN Reason: Shortness Of Breath Hydromorphone HCl (Hydromorphone 1 Mg/1 Ml Inj) 0.5 mg IV Q12H PRN PRN Reason: Pain , Severe (7-10) Metronidazole (Flagyl 500 Mg/100 Ml) 500 mg in 100 mls @ 100 mls/hr IV Q8H JESSICA; Protocol Last Admin: 01/05/21 19:32 Dose: 100 mls/hr Documented by: Sodium Chloride (Nacl 0.9%) 100 mls @ 999 mls/hr IV YURI PRN PRN Reason: Hypotension Cefepime HCl (Cefepime/Ns 2 Gm/100 Ml) 2 gm in 100 mls @ 200 mls/hr IV Q24H JESSICA; Protocol Ondansetron HCl (Ondansetron 4 Mg/2 Ml Inj) 4 mg IV Q8H PRN PRN Reason: Nausea And Vomiting Oxycodone/Acetaminophen (Oxycodone /Acetaminophen 5-325mg Tab) 2 tab PO Q6H PRN PRN Reason: Pain, Moderate (4-6) Sodium Chloride (Sodium Chloride 0.9% 10 Ml Flush Syringe) 10 ml IV BID JESSICA Last Admin: 01/05/21 12:20 Dose: 10 ml Documented by: Sodium Chloride (Sodium Chloride 0.9% 10 Ml Flush Syringe) 10 ml IV PRN PRN PRN Reason: LINE FLUSH Exam - Constitutional Vitals: Last Vital Signs Temp 97.6 F 01/05/21 21:11 Pulse 91 H 01/05/21 21:11 Resp 18 01/05/21 21:11 BP 148/79 01/05/21 21:11 Pulse Ox 95 01/05/21 21:11 Results - Labs lab Results: Laboratory Results - last 24 hr 01/05/21 01/05/21 01/05/21 00:02 00:02 00:02 WBC 35.0 H RBC 2.66 L Hgb 6.1 L Hct 19.7 L* MCV 74 L MCH 23 L MCHC 31 L RDW 19.8 H Plt Count 242 Add Manual Diff Complete Total Counted 100 Seg Neuts % (Manual) 92.0 H Band Neutrophils % Lymphocytes % (Manual) 3.0 L Monocytes % (Manual) 3.0 Eosinophils % (Manual) 1.0 Basophils % (Manual) 1.0 Metamyelocytes % Nucleated RBC % Not Reportable Seg Neutrophils # Man 32.2 H Band Neutrophils # 0.0 Lymphocytes # (Manual) 1.1 L Abs React Lymphs (Man) 0.0 Monocytes # (Manual) 1.1 H Eosinophils # (Manual) 0.4 Basophils # (Manual) 0.4 H Metamyelocytes # 0.0 Myelocytes # 0.0 Promyelocytes # 0.0 Blast Cells # 0.0 WBC Morphology Not Reportable Hypersegmented Neuts Not Reportable Hyposegmented Neuts Not Reportable Hypogranular Neuts Not Reportable Smudge Cells Not Reportable Toxic Granulation Not Reportable Toxic Vacuolation Not Reportable Dohle Bodies Not Reportable Pelger-Huet Anomaly Not Reportable Janene Rods Not Reportable Platelet Estimate Consistent w auto Clumped Platelets Not Reportable Plt Clumps, EDTA Not Reportable Large Platelets Not Reportable Giant Platelets Not Reportable Platelet Satelliting Not Reportable Plt Morphology Comment Not Reportable RBC Morphology Not Reportable Dimorphic RBCs Not Reportable Polychromasia Not Reportable Hypochromasia 1+ Poikilocytosis Not Reportable Anisocytosis 1+ Microcytosis Not Reportable Macrocytosis Not Reportable Spherocytes Not Reportable Pappenheimer Bodies Not Reportable Sickle Cells Not Reportable Target Cells Not Reportable Tear Drop Cells Not Reportable Ovalocytes Few Helmet Cells Not Reportable [place] Bodies Not Reportable [place] Rings Not Reportable Ankur Cells Not Reportable Bite Cells Not Reportable Crenated Cell Not Reportable Elliptocytes Not Reportable Acanthocytes (Spur) Not Reportable Rouleaux Not Reportable Hemoglobin C Crystals Not Reportable Schistocytes Not Reportable Malaria parasites Not Reportable Atul Bodies Not Reportable Hem Pathologist Commnt No Sodium 131 L Potassium 5.2 H Chloride 94.8 L Carbon Dioxide 20 L Anion Gap 21 BUN 82 H Creatinine 5.4 H Estimated GFR 11 BUN/Creatinine Ratio 15 Glucose 104 H Lactic Acid Calcium 7.9 L Magnesium 4.40 H Total Bilirubin AST ALT Alkaline Phosphatase Total Creatine Kinase 340 H Total Protein Albumin Albumin/Globulin Ratio Blood Type A POSITIVE Antibody Screen Negative Crossmatch See Detail 01/05/21 01/05/21 01/05/21 00:02 09:51 09:51 WBC 33.7 H RBC 2.35 L Hgb 5.3 L* Hct 17.0 L* MCV 72 L MCH 23 L MCHC 31 L RDW 18.9 H Plt Count 207 Add Manual Diff Complete Total Counted 200 Seg Neuts % (Manual) 92.5 H Band Neutrophils % 2.5 Lymphocytes % (Manual) 3.0 L Monocytes % (Manual) 1.5 Eosinophils % (Manual) Basophils % (Manual) Metamyelocytes % 0.5 Nucleated RBC % 1.0 H Seg Neutrophils # Man 31.2 H Band Neutrophils # 0.8 Lymphocytes # (Manual) 1.0 L Abs React Lymphs (Man) 0.0 Monocytes # (Manual) 0.5 Eosinophils # (Manual) 0.0 Basophils # (Manual) 0.0 Metamyelocytes # 0.2 Myelocytes # 0.0 Promyelocytes # 0.0 Blast Cells # 0.0 WBC Morphology Not Reportable Hypersegmented Neuts Not Reportable Hyposegmented Neuts Not Reportable Hypogranular Neuts Not Reportable Smudge Cells Not Reportable Toxic Granulation Not Reportable Toxic Vacuolation Not Reportable Dohle Bodies Not Reportable Pelger-Huet Anomaly Not Reportable Janene Rods Not Reportable Platelet Estimate Consistent w auto Clumped Platelets Not Reportable Plt Clumps, EDTA Not Reportable Large Platelets Not Reportable Giant Platelets Not Reportable Platelet Satelliting Not Reportable Plt Morphology Comment Not Reportable RBC Morphology Not Reportable Dimorphic RBCs Not Reportable Polychromasia Not Reportable Hypochromasia 2+ Poikilocytosis Not Reportable Anisocytosis 1+ Microcytosis Not Reportable Macrocytosis Not Reportable Spherocytes Not Reportable Pappenheimer Bodies Not Reportable Sickle Cells Not Reportable Target Cells Not Reportable Tear Drop Cells Not Reportable Ovalocytes Not Reportable Helmet Cells Not Reportable [place] Bodies Not Reportable [place] Rings Not Reportable Ankur Cells Not Reportable Bite Cells Not Reportable Crenated Cell Not Reportable Elliptocytes Not Reportable Acanthocytes (Spur) Not Reportable Rouleaux Not Reportable Hemoglobin C Crystals Not Reportable Schistocytes Not Reportable Malaria parasites Not Reportable Atul Bodies Not Reportable Hem Pathologist Commnt No Sodium Potassium Chloride Carbon Dioxide Anion Gap BUN Creatinine Estimated GFR BUN/Creatinine Ratio Glucose Lactic Acid 2.50 H* 1.80 Calcium Magnesium Total Bilirubin AST ALT Alkaline Phosphatase Total Creatine Kinase Total Protein Albumin Albumin/Globulin Ratio Blood Type Antibody Screen Crossmatch 01/05/21 09:51 WBC RBC Hgb Hct MCV MCH MCHC RDW Plt Count Add Manual Diff Total Counted Seg Neuts % (Manual) Band Neutrophils % Lymphocytes % (Manual) Monocytes % (Manual) Eosinophils % (Manual) Basophils % (Manual) Metamyelocytes % Nucleated RBC % Seg Neutrophils # Man Band Neutrophils # Lymphocytes # (Manual) Abs React Lymphs (Man) Monocytes # (Manual) Eosinophils # (Manual) Basophils # (Manual) Metamyelocytes # Myelocytes # Promyelocytes # Blast Cells # WBC Morphology Hypersegmented Neuts Hyposegmented Neuts Hypogranular Neuts Smudge Cells Toxic Granulation Toxic Vacuolation Dohle Bodies Pelger-Huet Anomaly Janene Rods Platelet Estimate Clumped Platelets Plt Clumps, EDTA Large Platelets Giant Platelets Platelet Satelliting Plt Morphology Comment RBC Morphology Dimorphic RBCs Polychromasia Hypochromasia Poikilocytosis Anisocytosis Microcytosis Macrocytosis Spherocytes Pappenheimer Bodies Sickle Cells Target Cells Tear Drop Cells Ovalocytes Helmet Cells [place] Bodies [place] Rings Ankur Cells Bite Cells Crenated Cell Elliptocytes Acanthocytes (Spur) Rouleaux Hemoglobin C Crystals Schistocytes Malaria parasites Atul Bodies Hem Pathologist Commnt Sodium 132 L Potassium 5.4 H Chloride 96.2 L Carbon Dioxide 20 L Anion Gap 21 BUN 88 H Creatinine 5.3 H Estimated GFR 12 BUN/Creatinine Ratio 17 Glucose 104 H Lactic Acid Calcium 7.6 L Magnesium Total Bilirubin 3.10 H AST 158 H ALT 92 H Alkaline Phosphatase 882 H Total Creatine Kinase Total Protein 5.5 L Albumin 2.4 L Albumin/Globulin Ratio 0.8 Blood Type Antibody Screen Crossmatch
[2021-01-06] MEDS: metroNIDAZOLE/NS 500 MG/100 ML 500 MG/100 ML BAG IV SCH ×3 (05:13→22:14)
[2021-01-06 06:07] LABS: Hemoglobin 6.5 gm/dl (11.8-15.2); Mean Corpuscular HGB Conc 33 % (32-34); Mean Corpuscular Volume 75 fl (84-94); Platelet Count 197 K/mm3 (140-440)
[2021-01-06 06:19] LABS: Calcium 7.7 mg/dL (8.4-10.2)
[2021-01-06 06:27] LABS: Hematocrit 19.4 % (35.5-45.6); Red Cell Distribution Width 20.8 % (13.2-15.2)
[2021-01-06] MEDS ORDERED: SODIUM CHLORIDE 0.9% 500 ML 500 ML IV ONE (06:43)
[2021-01-06 07:32] LABS: Anisocytosis 1+; Band Neutrophils # (Manual) 2.1 K/mm3; Hypochromasia 2+; Myelocytes # (Manual) 0.7 K/mm3; Poikilocytosis 1+; Total Cells Counted 100
[2021-01-06 07:36] LABS: Spherocytes 1+; Target Cells 1+
[2021-01-06 07:37] LABS: Ovalocytes 1+; Platelet Estimate Consistent w Auto
[2021-01-06] MEDS ORDERED: cefTRIAXone/NS 2 GM/100 ML 2 GM/100 ML BAG IV SCH (10:00)
--- NOTE | 2021-01-06 10:00 | Progress Note ---
Assessment and Plan 50-year-old man presents with perforated sigmoid mass likely neoplasm, status post exploratory laparotomy, sigmoidectomy, end colostomy, peritoneal lavage. # SHARMIN: Most likely secondary to ATN. Creatinine 1.1->1.8->3.4->4.4> 6.1 suspect severe tubular injury s/p extensive surgery + contrast use on 12/29. -Status post Vas-Cath placement on 01/03/2021 and initiation of dialysis . Patient had signed out AMA on 01/04/2021 and his Vas-Cath was removed. Patient has agreed for another Vas-Cath placement and reinitiation of dialysis. Vas-Cath placement has been rescheduled for today. Shall dialyze him after access . -Follow-up results of serologies to ensure no glomerular injury, consider biopsy pending results - no renal obstruction noted on prior CT; do note mass on kidney which may be related to underlying sigmoid mass - avoid nephrotoxins - renally dose meds - strict Is/Os-> currently non-oliguric but net positive # Metabolic Acidosis/Hyperkalemia: likely due to SHARMIN. Hyperkalemia is better. Potassium level still elevated at 5.6. Hopefully dialysis will correct his hyperkalemia as well as acidosis # Perforated Sigmoid Mass, Possible Colorectal Carcinoma, Metastasis to Liver: appreciate surgery input, advance diet per primary/surgery. Note oncology consult; if chemotherapy is needed, suspect further kidney injury # Sepsis, Leukocytosis: likely related to bowel perforation, note antibiotics # Malnutrition Subjective Date of service: 01/06/21 Interval history: Patient is comfortable this morning. Denies any shortness of breath. Vas-Cath placement has been canceled to this morning. Objective - Vital Signs Vital signs: Vital Signs - 12hr 01/05/21 01/06/21 01/06/21 22:35 02:00 03:22 Temperature 98.2 F 97.2 F L Pulse Rate 84 87 Respiratory 19 18 Rate Blood Pressure 154/74 158/68 Blood Pressure [Left] O2 Sat by Pulse 95 97 93 Oximetry 01/06/21 01/06/21 09:19 09:57 Temperature 98.4 F Pulse Rate 88 Respiratory 16 Rate Blood Pressure Blood Pressure 141/66 [Left] O2 Sat by Pulse 96 97 Oximetry - General Appearance General appearance: well-developed, well-nourished, appears stated age EENT: PERRL, mucous membranes moist Neck: no JVD, no thyromegaly, no carotid bruit, supple Respiratory: Present: Clear to Ascultation Cardiology: regular, normal heart rate Gastrointestinal: other (Midline dressing in place. Colostomy bag and drainage tube noted) Integumentary: other (1+ edema) - Lab 01/06/21 05:43 01/06/21 05:43 Most recent lab results Calcium 7.7 mg/dL (8.4-10.2) L 01/06/21 05:43 Magnesium 4.40 mg/dL (1.7-2.3) H 01/05/21 00:02 Medications & Allergies - Medications Allergies/Adverse Reactions: Allergies No Known Allergies Allergy (Verified 12/29/20 13:17) Home Medications: Home Medications Medication Instructions Recorded Confirmed Last Taken Type Tylenol Extra Strength 500 mg PO BID PRN 12/30/20 01/05/21 Unknown History Active Medications: Generic Name Dose Route Start Last Admin Trade Name Freq PRN Reason Stop Dose Admin Acetaminophen 650 mg 01/04/21 19:59 Acetaminophen 325 Mg Tab PO Q6H PRN Pain, Mild (1-3) Albuterol 2.5 mg 01/04/21 19:59 Albuterol 2.5 Mg/3 Ml Nebu IH Q4HRT PRN Shortness Of Breath Hydromorphone HCl 0.5 mg 01/04/21 19:59 Hydromorphone 1 Mg/1 Ml Inj IV Q12H PRN Pain , Severe (7-10) Metronidazole 500 mg in 100 mls @ 100 mls/hr 01/04/21 20:30 01/06/21 05:13 Flagyl 500 Mg/100 Ml IV 100 mls/hr Q8H JESSICA Administration Protocol Sodium Chloride 100 mls @ 999 mls/hr 01/05/21 10:00 Nacl 0.9% IV YURI PRN Hypotension Cefepime HCl 2 gm in 100 mls @ 200 mls/hr 01/05/21 22:00 01/05/21 22:50 Cefepime/Ns 2 Gm/100 Ml IV 200 mls/hr Q24H JESSICA Administration Protocol Ondansetron HCl 4 mg 01/04/21 19:59 Ondansetron 4 Mg/2 Ml Inj IV Q8H PRN Nausea And Vomiting Oxycodone/Acetaminophen 2 tab 10/13/21 18:55 Oxycodone /Acetaminophen 5-325mg Tab PO Q6H PRN Pain, Moderate (4-6) Sodium Chloride 10 ml 01/04/21 22:00 01/05/21 22:52 Sodium Chloride 0.9% 10 Ml Flush Syringe IV 10 ml BID JESSICA Administration Sodium Chloride 10 ml 01/04/21 19:59 Sodium Chloride 0.9% 10 Ml Flush Syringe IV PRN PRN LINE FLUSH
[2021-01-06 10:18] LABS: INR 1.35 (0.87-1.13)
--- NOTE | 2021-01-06 10:53 | Cat Scan Report ---
CT head/brain wo con INDICATION / CLINICAL INFORMATION: 50 years Male; metastatic colon cancer. TECHNIQUE: Routine CT head without contrast. All CT scans at this location are performed using CT dos e reduction for ALARA by means of automated exposure control. COMPARISON: None. FINDINGS: BRAIN / INTRACRANIAL CONTENTS: The brain appears to demonstrate appropriate attenuation for age. Ther e is no clear CT evidence of vasogenic type edema or significant mass effect in this patient with pro vided history of metastatic colon cancer at. There are couple of incidental small foci of calcificati on along the tentorium. The ventricular system is within normal limits in size and configuration. The re is no clear CT evidence of acute intracranial hemorrhage. ORBITS: No significant abnormality of visualized orbits. SINUSES / MASTOIDS: No significant abnormality in the visualized paranasal sinuses or mastoid air sanjeev ls. CRANIOCERVICAL JUNCTION: No significant abnormality. ADDITIONAL FINDINGS: None. IMPRESSION: 1. The CT the brain appears unremarkable for age without clear evidence of acute intracranial process . Signer Name: Cristopher Mccollum MD Signed: 01/06/2021 10:48 AM Workstation Name: [id number]
[2021-01-06] MEDS ORDERED: HEPARIN/NS 5000 UNITS/500 ML BAG (CATH LAB ONLY) IR ONE (11:15)
--- NOTE | 2021-01-06 11:36 | Consultation ---
History of Present Illness - Reason for Consult Consult date: 01/06/21 Acute renal failure - History of Present Illness Patient with a history with colon cancer with liver mets and decreased hem oglobin who previously had a Vas-Cath placed for dialysis. The patient left AMA and then returned to the hospital approximately 3 hours later. His previous Vas-Cath was removed prior to discharge per protocol. Past History Past Medical History: cancer, other (See HPI) Past Surgical History: bowel surgery Social history: single. denies: smoking, alcohol abuse Family history: hypertension Medications and Allergies Allergies Allergy/AdvReac Type Severity Reaction Status Date / Time No Known Allergies Allergy Verified 12/29/20 13:17 Home Medications Medication Instructions Recorded Confirmed Last Taken Type Tylenol Extra Strength 500 mg PO BID PRN 12/30/20 01/05/21 Unknown History Active Meds: Active Medications Acetaminophen (Acetaminophen 325 Mg Tab) 650 mg PO Q6H PRN PRN Reason: Pain, Mild (1-3) Albuterol (Albuterol 2.5 Mg/3 Ml Nebu) 2.5 mg IH Q4HRT PRN PRN Reason: Shortness Of Breath Hydromorphone HCl (Hydromorphone 1 Mg/1 Ml Inj) 0.5 mg IV Q12H PRN PRN Reason: Pain , Severe (7-10) Metronidazole (Flagyl 500 Mg/100 Ml) 500 mg in 100 mls @ 100 mls/hr IV Q8H JESSICA; Protocol Last Admin: 01/06/21 05:13 Dose: 100 mls/hr Documented by: Sodium Chloride (Nacl 0.9%) 100 mls @ 999 mls/hr IV YURI PRN PRN Reason: Hypotension Cefepime HCl (Cefepime/Ns 2 Gm/100 Ml) 2 gm in 100 mls @ 200 mls/hr IV Q24H JESSICA; Protocol Last Admin: 01/05/21 22:50 Dose: 200 mls/hr Documented by: Ondansetron HCl (Ondansetron 4 Mg/2 Ml Inj) 4 mg IV Q8H PRN PRN Reason: Nausea And Vomiting Oxycodone/Acetaminophen (Oxycodone /Acetaminophen 5-325mg Tab) 2 tab PO Q6H PRN PRN Reason: Pain, Moderate (4-6) Sodium Chloride (Sodium Chloride 0.9% 10 Ml Flush Syringe) 10 ml IV BID JESSICA Last Admin: 01/05/21 22:52 Dose: 10 ml Documented by: Sodium Chloride (Sodium Chloride 0.9% 10 Ml Flush Syringe) 10 ml IV PRN PRN PRN Reason: LINE FLUSH Review of Systems ROS unobtainable: due to mental status Exam - Constitutional Vitals: Temp Pulse Resp BP Pulse Ox 98.4 F 88 16 141/66 97 01/06/21 09:19 01/06/21 09:19 01/06/21 09:19 01/06/21 09:19 01/06/21 09:57 General appearance: Present: obese - EENT Eyes: Present: EOM intact ENT: hearing intact - Neck Neck: Present: normal ROM - Respiratory Respiratory effort: normal - Extremities Extremities: No edema - Abdominal General gastrointestinal: Present: deferred Male genitourinary: Present: deferred - Rectal Rectal Exam: deferred - Psychiatric Psychiatric: cooperative Results - Labs CBC & Chem 7: 01/06/21 05:43 01/06/21 05:43 Labs: Abnormal lab results 01/05/21 01/06/21 01/06/21 Range/Units 00:02 05:43 05:43 WBC 35.4 H (4.5-11.0) K/mm3 RBC 2.60 L (3.65-5.03) M/mm3 Hgb 6.5 L (11.8-15.2) gm/dl Hct 19.4 L* (35.5-45.6) % MCV 75 L (84-94) fl MCH 25 L (28-32) pg RDW 20.8 H (13.2-15.2) % Seg Neuts % (Manual) 87.0 H (40.0-70.0) % Lymphocytes % (Manual) 1.0 L (13.4-35.0) % Seg Neutrophils # Man 30.8 H (1.8-7.7) K/mm3 Lymphocytes # (Manual) 0.4 L (1.2-5.4) K/mm3 Monocytes # (Manual) 1.4 H (0.0-0.8) K/mm3 PT (12.2-14.9) Sec. INR (0.87-1.13) Sodium 133 L (137-145) mmol/L Potassium 5.2 H (3.6-5.0) mmol/L Chloride 94.8 L (98-107) mmol/L Carbon Dioxide 16 L (22-30) mmol/L BUN 92 H (9-20) mg/dL Creatinine 5.6 H (0.8-1.3) mg/dL Glucose 112 H (75-100) mg/dL Calcium 7.7 L (8.4-10.2) mg/dL Crossmatch See Detail 01/06/21 Range/Units 09:16 WBC (4.5-11.0) K/mm3 RBC (3.65-5.03) M/mm3 Hgb (11.8-15.2) gm/dl Hct (35.5-45.6) % MCV (84-94) fl MCH (28-32) pg RDW (13.2-15.2) % Seg Neuts % (Manual) (40.0-70.0) % Lymphocytes % (Manual) (13.4-35.0) % Seg Neutrophils # Man (1.8-7.7) K/mm3 Lymphocytes # (Manual) (1.2-5.4) K/mm3 Monocytes # (Manual) (0.0-0.8) K/mm3 PT 18.0 H (12.2-14.9) Sec. INR 1.35 H (0.87-1.13) Sodium (137-145) mmol/L Potassium (3.6-5.0) mmol/L Chloride (98-107) mmol/L Carbon Dioxide (22-30) mmol/L BUN (9-20) mg/dL Creatinine (0.8-1.3) mg/dL Glucose (75-100) mg/dL Calcium (8.4-10.2) mg/dL Crossmatch Assessment and Plan Patient will be brought to the [facility] today for placement of a second Vas- Cath. Patient's hemoglobin noted. He has previously received blood yesterday and there is plans to infuse additional blood today. For this reason, the patient will have this Vas-Cath placed in his left common femoral vein. Very poor prognosis given the patient's multiple other comorbidities.
[2021-01-06] MEDS ORDERED: MIDAZOLAM 2 MG/2 ML INJ IV ONE (11:44)
[2021-01-06] MEDS ORDERED: LIDOCAINE (2%) 20 MG/1 ML VIAL 20 ML MDV INFILTRATI ONE (11:46)
--- NOTE | 2021-01-06 12:43 | Operative Report ---
Operative Report Operative Report: Exam: Ultrasound fluoroscopic guided placement of Vas-Cath Clinical indication: Patient with multiple medical comorbidities and acute renal failure Date: 01/06/2021 Procedure: Following an explanation of the risks, benefits and alternatives; written informed consent was obtained. The patient was brought to the angiographic suite and placed in supine position on the examination table. Initial ultrasound evaluation of his left groin demonstrated a patent left common femoral vein. The patient's left groin was prepped and draped in the usual sterile fashion. 1% lidocaine was used for anesthesia. Under ultrasound guidance, the left common femoral vein was cannulated with a 7 cm 18-gauge needle. A 0.035 guidewire was advanced centrally under fluoroscopy. The needle was removed and following serial dilation over the guidewire under fluoroscopy, a 30 cm dialysis catheter was advanced over the guidewire under fluoroscopy. Given the patient's generous size, the catheter extended only to the common iliac vein on the left. The catheter positioning was confirmed with gentle injection of contrast which demonstrates prompt opacification of the IVC. The catheter was then flushed and locked with appropriate volumes of heparin. The catheter was securely fastened to the skin surface using 2-0 Ethilon suture and a sterile dressing applied. The patient tolerated the procedure well. There were no immediate postprocedure complications. Only a minimal amount of Versed was given for anxiolysis given the patient's medical comorbidities. Continuous cardiopulmonary monitoring was utilized. Impression: Ultrasound and fluoroscopic guided placement of Vas-Cath via the left common femoral vein
--- NOTE | 2021-01-06 12:57 | Progress Note ---
Assessment and Plan 50 yo M s/p exploratory laparotomy, sigmoidectomy, end colostomy, peritoneal lavage, POD 8 1. Perforated sigmoid cancer - stage IV 2. peritonitis 2/2 #1 3. sepsis 2/2 #1/2 4. liver mets 5. obesity 6. SHARMIN 7. anemia CT scan abdomen and pelvis 01/05/2021 images and report reviewed -interval resection of known sigmoid mass. Left renal mass concerning for carcinoma. No significant intra-abdominal fluid collection. 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 Macroscopic tumor perforation identified. Tumor invades visceral peritoneum. All margins are uninvolved. Lymphovascular and perineural invasion identified. 1 out of 8 lymph nodes involved. Pa thologic stage: T4aN1a CEA 24.3 Plan: 1. soft diet with dietary supplements 2. Gentle IV fluids, per nephro 3. IV abx 4. DVT ppx 5. prn pain and nausea control 6. daily labs 7. continue BARBI drain - will dc when output decreases, slowly improving 8. colostomy care - will order wound care consult 9. Transfuse PRBC per 1' service 10. Physical therapy 11. recommend mental health consult 12. If WBC remains elevated, recommend infectious w/u with UA/cx, LE venous duplex, blcx Poor overall prognosis. Dr. Taran chicas 01/07-01/09 Thank you, please call with questions. Evaluation and treatment of this patient was during the time of the national and state emergency arising from COVID19 coronavirus pandemic. Treatment and procedures performed meet the current and available best practice and guidelines for patient during the COVID pandemic. Subjective Date of service: 01/06/21 Narrative: Patient seen and examined. He denies pain. Patient just returned from having Vas-Cath placed to resume dialysis. He has been afebrile. Colostomy is functioning. He is tolerating a diet. No nausea or vomiting. Objective Vital Signs - 12hr 01/06/21 01/06/21 01/06/21 02:00 03:22 09:19 Temperature 97.2 F L 98.4 F Pulse Rate 87 88 Respiratory 18 16 Rate Blood Pressure 158/68 Blood Pressure 141/66 [Left] O2 Sat by Pulse 97 93 96 Oximetry 01/06/21 09:57 Temperature Pulse Rate Respiratory Rate Blood Pressure Blood Pressure [Left] O2 Sat by Pulse 97 Oximetry - General physical appearance Narrative Exam: Gen.: Awake, alert, oriented x3. No apparent distress ENT: Trachea midline. No lymphadenopathy. No scleral icterus or conjunctival pallor CV: S1, S2 present Respiratory: No audible wheezes Abdomen: Soft, nondistended, nontender, morbidly obese. Left-sided colostomy with brown stool in bag. Right-sided BARBI serosanguineous. Midline incision with minimal serous drainage from the inferior aspect. No erythema, induration, fluctuance. No rebound, rigidity, guarding Extremities: Positive edema bilateral lower extremities : Condom cath with dark yellow urine in bag - Labs 01/06/21 05:43 01/06/21 05:43 Diabetes panel 01/06/21 Range/Units 05:43 Sodium 133 L (137-145) mmol/L Potassium 5.2 H (3.6-5.0) mmol/L Chloride 94.8 L (98-107) mmol/L Carbon Dioxide 16 L (22-30) mmol/L BUN 92 H (9-20) mg/dL Creatinine 5.6 H (0.8-1.3) mg/dL Glucose 112 H (75-100) mg/dL Calcium 7.7 L (8.4-10.2) mg/dL Calcium panel 01/06/21 Range/Units 05:43 Calcium 7.7 L (8.4-10.2) mg/dL Pituitary panel 01/06/21 Range/Units 05:43 Sodium 133 L (137-145) mmol/L Potassium 5.2 H (3.6-5.0) mmol/L Chloride 94.8 L (98-107) mmol/L Carbon Dioxide 16 L (22-30) mmol/L BUN 92 H (9-20) mg/dL Creatinine 5.6 H (0.8-1.3) mg/dL Glucose 112 H (75-100) mg/dL Calcium 7.7 L (8.4-10.2) mg/dL Adrenal panel 01/06/21 Range/Units 05:43 Sodium 133 L (137-145) mmol/L Potassium 5.2 H (3.6-5.0) mmol/L Chloride 94.8 L (98-107) mmol/L Carbon Dioxide 16 L (22-30) mmol/L BUN 92 H (9-20) mg/dL Creatinine 5.6 H (0.8-1.3) mg/dL Glucose 112 H (75-100) mg/dL Calcium 7.7 L (8.4-10.2) mg/dL
[2021-01-06] MEDS ORDERED: SODIUM CHLORIDE 0.9% 250ML 250 ML ONE (16:56)
--- NOTE | 2021-01-06 17:02 | Progress Note ---
Assessment and Plan --Acute kidney injury; worsening renal function Worsening renal function , metabolic acidosis, hyperkalemia Nephrology initiated dialysis, vascular evaluated for vas-Cath placement Monitor BMP, supportive care --Hyperkalemia continue to treat medically, HD per renal --perforated sigmoid mass --s/p exploratory laparotomy/sigmoidectomy/colostomy/peritoneal lavage IV fluids IV antibiotics, IV Protonix, Pain medications, Out of bed to chair, PT --Gram-negative sepsis Sepsis in the setting of high white count and bowel perforation -- Continue IV antibiotics, follow cultures ID consult if needed --Surgical cultures gram-negative rods Currently on Zosyn, follow culture sensitivities ID consult if needed --Colorectal carcinoma Pathology: Sigmoid colon, sigmoidectomy: 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 Macroscopic tumor perforation identified. Tumor invades visceral peritoneum. All margins are uninvolved. Lymphovascular and perineural invasion identified. 1 out of 8 lymph nodes involved. Pathologic stage: T4aN1a, CEA 24.3 Patient never had colonoscopy 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, heme-onc following --Metastases to the liver Poor prognosis,Heme-onc following --Worsening transaminases; Probably secondary to liver mets,Closely monitor --Severe malnutrition/hypoproteinemia Dietary supplements and dietitian consult --Anemia acute on chronic Closely monitor H&H and transfuse as needed --obesity; BMI 38.7 Patient needs weight reduction when medically stable --DVT prophylaxis On SCDs , patient postop state with severe anemia Brief history and hospital course: 50-year-old male patient initially presented on 12/29/20 with perforated sigmoid mass likely neoplasm, status post exploratory laparotomy,, sigmoidectomy, end colostomy, peritoneal lavage. Patient has worsening renal fun ction,Vas-Cath placement and initiated hemodialysis. He decided to leave AMA on 01/04/2021 but got readmitted on the same day. 01/05/21: Patient had low hemoglobin 5.3 today, elevated potassium and creatinine. Dialysis catheter was removed yesterday when Patient left AMA yesterday.. consulted vascular for permcath, ordered for PRBC transfusion. Follow CBC and BMP 01/06/21: Pathology report revealed moderately differentiated adenocarcinoma of sigmoid colon pathologic state T4aN1a. Status post vasCath placement today, use another unit of packed RBC -hemoglobin 6.4. Plan for hemodialysis, monitor CBC and BMP. Guarded prognosis Subjective Date of service: 01/06/21 Interval history: Patient seen and examined. Medical records and medication list reviewed. No acute event overnight noted by the RN. Patient resting on bed, hemoglobin 6.5 today Discussed plan of care at bedside with patient's RN. Objective - Exam Narrative Exam: General appearance: Present: no distress, well-nourished, obese - EENT Eyes: Present: PERRL, EOM intact - Neck Neck: Present: supple, normal ROM - Respiratory Respiratory effort: normal Respiratory: bilateral: diminished, negative: rales, rhonchi, wheezing - Cardiovascular Rhythm: regular Heart Sounds: Present: S1 & S2 - Extremities Extremities: no ischemia, No edema - Abdominal General gastrointestinal: Surgical dressing on place with abdominal drainage - Integumentary Integumentary: Present: clear, warm - Psychiatric Psychiatric: appropriate mood/affect, agitated (Sometimes agitated), other (Sometimes confused) - Neurologic Neurologic: moves all extremities - Constitutional Vitals: Vital Signs - 12hr 01/06/21 01/06/21 01/06/21 09:19 09:57 15:26 Temperature 98.4 F 97.8 F Pulse Rate 88 87 Respiratory 16 20 Rate Blood Pressure 143/73 Blood Pressure 141/66 [Left] O2 Sat by Pulse 96 97 Oximetry 01/06/21 01/06/21 01/06/21 15:27 15:30 15:45 Temperature Pulse Rate 88 88 89 Respiratory Rate Blood Pressure 135/67 139/74 133/71 Blood Pressure [Left] O2 Sat by Pulse Oximetry 01/06/21 01/06/21 16:00 16:15 Temperature Pulse Rate 100 H 100 H Respiratory Rate Blood Pressure 155/84 139/73 Blood Pressure [Left] O2 Sat by Pulse Oximetry - Labs CBC & Chem 7: 01/08/21 04:57 01/09/21 14:03 Labs: Abnormal lab results 01/05/21 01/06/21 01/06/21 Range/Units 00:02 05:43 05:43 WBC 35.4 H (4.5-11.0) K/mm3 RBC 2.60 L (3.65-5.03) M/mm3 Hgb 6.5 L (11.8-15.2) gm/dl Hct 19.4 L* (35.5-45.6) % MCV 75 L (84-94) fl MCH 25 L (28-32) pg RDW 20.8 H (13.2-15.2) % Seg Neuts % (Manual) 87.0 H (40.0-70.0) % Lymphocytes % (Manual) 1.0 L (13.4-35.0) % Seg Neutrophils # Man 30.8 H (1.8-7.7) K/mm3 Lymphocytes # (Manual) 0.4 L (1.2-5.4) K/mm3 Monocytes # (Manual) 1.4 H (0.0-0.8) K/mm3 PT (12.2-14.9) Sec. INR (0.87-1.13) Sodium 133 L (137-145) mmol/L Potassium 5.2 H (3.6-5.0) mmol/L Chloride 94.8 L (98-107) mmol/L Carbon Dioxide 16 L (22-30) mmol/L BUN 92 H (9-20) mg/dL Creatinine 5.6 H (0.8-1.3) mg/dL Glucose 112 H (75-100) mg/dL Calcium 7.7 L (8.4-10.2) mg/dL Crossmatch See Detail 01/06/21 Range/Units 09:16 WBC (4.5-11.0) K/mm3 RBC (3.65-5.03) M/mm3 Hgb (11.8-15.2) gm/dl Hct (35.5-45.6) % MCV (84-94) fl MCH (28-32) pg RDW (13.2-15.2) % Seg Neuts % (Manual) (40.0-70.0) % Lymphocytes % (Manual) (13.4-35.0) % Seg Neutrophils # Man (1.8-7.7) K/mm3 Lymphocytes # (Manual) (1.2-5.4) K/mm3 Monocytes # (Manual) (0.0-0.8) K/mm3 PT 18.0 H (12.2-14.9) Sec. INR 1.35 H (0.87-1.13) Sodium (137-145) mmol/L Potassium (3.6-5.0) mmol/L Chloride (98-107) mmol/L Carbon Dioxide (22-30) mmol/L BUN (9-20) mg/dL Creatinine (0.8-1.3) mg/dL Glucose (75-100) mg/dL Calcium (8.4-10.2) mg/dL Crossmatch
[2021-01-06] MEDS: CEFEPIME/NS 2 GM/100 ML 2 GM/100 ML BAG IV SCH (22:13)
[2021-01-07] MEDS: metroNIDAZOLE/NS 500 MG/100 ML 500 MG/100 ML BAG IV SCH ×4 (05:01→21:16)
[2021-01-07 05:47] LABS: Hemoglobin 7.2 gm/dl (11.8-15.2); Mean Corpuscular HGB Conc 31 % (32-34); Mean Corpuscular Volume 78 fl (84-94); Platelet Count 219 K/mm3 (140-440); Red Blood Count 2.96 M/mm3 (3.65-5.03)
[2021-01-07 05:59] LABS: Red Cell Distribution Width 21.1 % (13.2-15.2)
--- NOTE | 2021-01-07 09:25 | Hem/Onc Consultation ---
History of Present Illness - Reason for Consult Consult date: 01/07/21 - History of Present Illness Heme followup note Televisit via [facility] CPT [id number] Dx Colon mass This is a 50yo male who presented to the ER 12/29/20 with diffuse abdominal pain and distention CT abd/pelvis c/w mid sigmoid mass suggesting colorectal carcinoma with erosion/bowel perforation, adjacent adenopathy and innumerable liver metastatic lesions S/p exploratory laparotomy, sigmoidectomy, end colectomy, peritoneal lavage Dx with perforated sigmoid mass with liver mets and peritonitis Was found to be in renal failure, possibly due to contrast nephropathy Hemodialysis started while inpatient On 01/04-- patient was noted with hgb 5, orders for 2 units RBC transfusions, patient refused transfusions and left hospital AMA Pt returned to hospital a few hours later Appears confused Denies any complaints DATA REVIEWED BELOW WBC 29.5 Hgb 7.2 Hct 23 MCV 78 Plts 219 IMP: New metastatic colon cancer with liver metastasis Anemia possibly related to hemolytic anemia , or malignancy Abd/pelvis CT c/w renal mass, metastatic vs second primary-- not as important as liver metastasis no active bleed revealed in CT Pathology: Sigmoid colon, sigmoidectomy: 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 Macroscopic tumor perforation identified. Tumor invades visceral peritoneum. All margins are uninvolved. Lymphovascular and perineural invasion identified. 1 out of 8 lymph nodes involved. Pathologic stage: [id number] REC/PLAN: Transfuse 1 unit RBC whenever hct<23 Plan is chemotherapy if he is able tolerate it Laboratory Last Values WBC 29.5 K/mm3 (4.5-11.0) H 01/07/21 05:00 RBC 2.96 M/mm3 (3.65-5.03) L 01/07/21 05:00 Hgb 7.2 gm/dl (11.8-15.2) L 01/07/21 05:00 Hct 23.0 % (35.5-45.6) L 01/07/21 05:00 MCV 78 fl (84-94) L 01/07/21 05:00 MCH 24 pg (28-32) L 01/07/21 05:00 MCHC 31 % (32-34) L 01/07/21 05:00 RDW 21.1 % (13.2-15.2) H 01/07/21 05:00 Plt Count 219 K/mm3 (140-440) 01/07/21 05:00 Add Manual Diff Complete 01/06/21 05:43 Total Counted 100 01/06/21 05:43 Seg Neutrophils % Underwriting Assistant 01/07/21 05:00 Seg Neuts % (Manual) 87.0 % (40.0-70.0) H 01/06/21 05:43 Band Neutrophils % 6.0 % 01/06/21 05:43 Lymphocytes % (Manual) 1.0 % (13.4-35.0) L 01/06/21 05:43 Monocytes % (Manual) 4.0 % (0.0-7.3) 01/06/21 05:43 Eosinophils % (Manual) 1.0 % (0.0-4.3) 01/05/21 00:02 Basophils % (Manual) 1.0 % (0.0-1.8) 01/05/21 00:02 Metamyelocytes % 0.5 % 01/05/21 09:51 Myelocytes % 2.0 % 01/06/21 05:43 Nucleated RBC % Not Reportable 01/06/21 05:43 Seg Neutrophils # Man 30.8 K/mm3 (1.8-7.7) H 01/06/21 05:43 Band Neutrophils # 2.1 K/mm3 01/06/21 05:43 Lymphocytes # (Manual) 0.4 K/mm3 (1.2-5.4) L 01/06/21 05:43 Abs React Lymphs (Man) 0.0 K/mm3 01/06/21 05:43 Monocytes # (Manual) 1.4 K/mm3 (0.0-0.8) H 01/06/21 05:43 Eosinophils # (Manual) 0.0 K/mm3 (0.0-0.4) 01/06/21 05:43 Basophils # (Manual) 0.0 K/mm3 (0.0-0.1) 01/06/21 05:43 Metamyelocytes # 0.0 K/mm3 01/06/21 05:43 Myelocytes # 0.7 K/mm3 01/06/21 05:43 Promyelocytes # 0.0 K/mm3 01/06/21 05:43 Blast Cells # 0.0 K/mm3 01/06/21 05:43 WBC Morphology Not Reportable 01/06/21 05:43 Hypersegmented Neuts Not Reportable 01/06/21 05:43 Hyposegmented Neuts Not Reportable 01/06/21 05:43 Hypogranular Neuts Not Reportable 01/06/21 05:43 Smudge Cells Not Reportable 01/06/21 05:43 Toxic Granulation Not Reportable 01/06/21 05:43 Toxic Vacuolation Not Reportable 01/06/21 05:43 Dohle Bodies Not Reportable 01/06/21 05:43 Pelger-Huet Anomaly Not Reportable 01/06/21 05:43 Janene Rods Not Reportable 01/06/21 05:43 Platelet Estimate Consistent w auto 01/06/21 05:43 Clumped Platelets Not Reportable 01/06/21 05:43 Plt Clumps, EDTA Not Reportable 01/06/21 05:43 Large Platelets Not Reportable 01/06/21 05:43 Giant Platelets Not Reportable 01/06/21 05:43 Platelet Satelliting Not Reportable 01/06/21 05:43 Plt Morphology Comment Not Reportable 01/06/21 05:43 RBC Morphology Not Reportable 01/06/21 05:43 Dimorphic RBCs Not Reportable 01/06/21 05:43 Polychromasia 1+ 01/06/21 05:43 Hypochromasia 2+ 01/06/21 05:43 Poikilocytosis 1+ 01/06/21 05:43 Anisocytosis 1+ 01/06/21 05:43 Microcytosis 1+ 01/06/21 05:43 Macrocytosis Not Reportable 01/06/21 05:43 Spherocytes 1+ 01/06/21 05:43 Pappenheimer Bodies Not Reportable 01/06/21 05:43 Sickle Cells Not Reportable 01/06/21 05:43 Target Cells 1+ 01/06/21 05:43 Tear Drop Cells Not Reportable 01/06/21 05:43 Ovalocytes 1+ 01/06/21 05:43 Helmet Cells Not Reportable 01/06/21 05:43 [place] Bodies Not Reportable 01/06/21 05:43 [place] Rings Not Reportable 01/06/21 05:43 Ankur Cells Not Reportable 01/06/21 05:43 Bite Cells Not Reportable 01/06/21 05:43 Crenated Cell Not Reportable 01/06/21 05:43 Elliptocytes Not Reportable 01/06/21 05:43 Acanthocytes (Spur) Not Reportable 01/06/21 05:43 Rouleaux Not Reportable 01/06/21 05:43 Hemoglobin C Crystals Not Reportable 01/06/21 05:43 Schistocytes Not Reportable 01/06/21 05:43 Malaria parasites Not Reportable 01/06/21 05:43 Percent Retic 3.75 % (0.78-2.58) H 01/07/21 05:00 Atul Bodies Not Reportable 01/06/21 05:43 Hem Pathologist Commnt No 01/06/21 05:43 PT 18.0 Sec. (12.2-14.9) H 01/06/21 09:16 INR 1.35 (0.87-1.13) H 01/06/21 09:16 Sodium 133 mmol/L (137-145) L 01/06/21 05:43 Potassium 5.2 mmol/L (3.6-5.0) H 01/06/21 05:43 Chloride 94.8 mmol/L (98-107) L 01/06/21 05:43 Carbon Dioxide 16 mmol/L (22-30) L 01/06/21 05:43 Anion Gap 27 mmol/L 01/06/21 05:43 BUN 92 mg/dL (9-20) H 01/06/21 05:43 Creatinine 5.6 mg/dL (0.8-1.3) H 01/06/21 05:43 Estimated GFR 11 ml/min 01/06/21 05:43 BUN/Creatinine Ratio 16 % 01/06/21 05:43 Glucose 112 mg/dL (75-100) H 01/06/21 05:43 Lactic Acid 1.80 mmol/L (0.7-2.0) 01/05/21 09:51 Calcium 7.7 mg/dL (8.4-10.2) L 01/06/21 05:43 Magnesium 4.40 mg/dL (1.7-2.3) H 01/05/21 00:02 Total Bilirubin 3.10 mg/dL (0.1-1.2) H 01/05/21 09:51 AST 158 units/L (5-40) H 01/05/21 09:51 ALT 92 units/L (7-56) H 01/05/21 09:51 Alkaline Phosphatase 882 units/L (35-129) H 01/05/21 09:51 Lactate Dehydrogenase 1199 units/L (91-180) H 01/07/21 05:00 Total Creatine Kinase 340 units/L (55-170) H 01/05/21 00:02 Total Protein 5.5 g/dL (6.3-8.2) L 01/05/21 09:51 Albumin 2.4 g/dL (3.9-5) L 01/05/21 09:51 Albumin/Globulin Ratio 0.8 % 01/05/21 09:51 Blood Type A POSITIVE 01/05/21 00:02 Antibody Screen Negative 01/05/21 00:02 Crossmatch See Detail 01/05/21 00:02 Past History Past Medical History: cancer, other (See HPI) Past Surgical History: bowel surgery Social history: single. denies: smoking, alcohol abuse Family history: hypertension Medications and Allergies Allergies Allergy/AdvReac Type Severity Reaction Status Date / Time No Known Allergies Allergy Verified 12/29/20 13:17 Home Medications Medication Instructions Recorded Confirmed Last Taken Type Tylenol Extra Strength 500 mg PO BID PRN 12/30/20 01/05/21 Unknown History Active Meds: Active Medications Acetaminophen (Acetaminophen 325 Mg Tab) 650 mg PO Q6H PRN PRN Reason: Pain, Mild (1-3) Albuterol (Albuterol 2.5 Mg/3 Ml Nebu) 2.5 mg IH Q4HRT PRN PRN Reason: Shortness Of Breath Hydromorphone HCl (Hydromorphone 1 Mg/1 Ml Inj) 0.5 mg IV Q12H PRN PRN Reason: Pain , Severe (7-10) Metronidazole (Flagyl 500 Mg/100 Ml) 500 mg in 100 mls @ 100 mls/hr IV Q8H JESSICA; Protocol Last Admin: 01/07/21 05:01 Dose: 100 mls/hr Documented by: Sodium Chloride (Nacl 0.9%) 100 mls @ 999 mls/hr IV YURI PRN PRN Reason: Hypotension Cefepime HCl (Cefepime/Ns 2 Gm/100 Ml) 2 gm in 100 mls @ 200 mls/hr IV Q24H [facility]; Protocol Last Admin: 01/06/21 22:13 Dose: 200 mls/hr Documented by: Ondansetron HCl (Ondansetron 4 Mg/2 Ml Inj) 4 mg IV Q8H PRN PRN Reason: Nausea And Vomiting Oxycodone/Acetaminophen (Oxycodone /Acetaminophen 5-325mg Tab) 2 tab PO Q6H PRN PRN Reason: Pain, Moderate (4-6) Sodium Chloride (Sodium Chloride 0.9% 10 Ml Flush Syringe) 10 ml IV BID [facility] Last Admin: 01/06/21 22:13 Dose: 10 ml Documented by: Sodium Chloride (Sodium Chloride 0.9% 10 Ml Flush Syringe) 10 ml IV PRN PRN PRN Reason: LINE FLUSH Exam - Constitutional Vitals: Last Vital Signs Temp 97.3 F L 01/07/21 03:45 Pulse 97 H 01/07/21 03:45 Resp 20 01/07/21 03:45 BP 120/64 01/07/21 03:45 Pulse Ox 93 01/07/21 03:45 Results - Labs lab Results: Laboratory Results - last 24 hr 01/05/21 01/06/21 01/07/21 00:02 09:16 05:00 WBC 29.5 H RBC 2.96 L Hgb 7.2 L Hct 23.0 L MCV 78 L MCH 24 L MCHC 31 L RDW 21.1 H Plt Count 219 Seg Neutrophils % Underwriting Assistant Percent Retic 3.75 H PT 18.0 H INR 1.35 H Lactate Dehydrogenase Blood Type A POSITIVE Antibody Screen Negative Crossmatch See Detail 01/07/21 05:00 WBC RBC Hgb Hct MCV MCH MCHC RDW Plt Count Seg Neutrophils % Percent Retic PT INR Lactate Dehydrogenase 1199 H Blood Type Antibody Screen Crossmatch
[2021-01-07] MEDS: HYDROmorphone 1 MG/1 ML INJ IV PRN (10:05)
[2021-01-07 11:45] LABS: Calcium 7.6 mg/dL (8.4-10.2)
--- NOTE | 2021-01-07 13:21 | Consultation ---
History of Present Illness - Reason for Consult Consult date: 01/07/21 Reason for consult: Agitation - Chief Complaint Chief complaint: I could not make it outside - History of Present Psychiatric Illness Tomas Alaniz is a 50 year old male with no prior psychiatric history. In my interview with the patient, he is calm and cooperative. The patient endorses being depressed since this admission. He admits symptoms such as sadness, helplessness and hopelessness. The patient is not receptive and is naive to psychotropic medications. The patient states " I'm trying to see what is going on." He denies having suicidal/homicidal ideation and denies hallucinations. 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 Cooperation: Participating/engaged Psychomotor Behavior: Psychomotor normal Mood: "Depressed" Affect and affective range: congruent with stated mood Thought Process: Goal directed Speech: Normal tone and pace Thought Content: Not suicidal Suicidal Ideation: Denies Homicidal Ideation: Denies Hallucinations: Denies Delusions: Denies Impulse Control: Limited Insight and Judgment: Limited insight and fair judgment Memory: Normal Attention: Divided attention impaired Orientation: A/o x 3 Assessment and Plan (1) Major Depressive disorder, single, moderate-F22.1 (2) Treatment Plan Medical: per primary Disposition: Do not recommend acute psychiatric inpatient treatment. The pressure testing technician will provide patient with psychiatric outpatient resources. Will sign off. Thanks Case staffed with Dr. Mcgovern Medications and Allergies Medications and Allergies Allergies Allergy/AdvReac Type Severity Reaction Status Date / Time No Known Allergies Allergy Verified 12/29/20 13:17 Home Medications Medication Instructions Recorded Confirmed Last Taken Type Tylenol Extra Strength 500 mg PO BID PRN 12/30/20 01/05/21 Unknown History Active Meds: Active Medications Acetaminophen (Acetaminophen 325 Mg Tab) 650 mg PO Q6H PRN PRN Reason: Pain, Mild (1-3) Albuterol (Albuterol 2.5 Mg/3 Ml Nebu) 2.5 mg IH Q4HRT PRN PRN Reason: Shortness Of Breath Hydromorphone HCl (Hydromorphone 1 Mg/1 Ml Inj) 0.5 mg IV Q12H PRN PRN Reason: Pain , Severe (7-10) Last Admin: 01/07/21 10:05 Dose: 0.5 mg Documented by: Metronidazole (Flagyl 500 Mg/100 Ml) 500 mg in 100 mls @ 100 mls/hr IV Q8H JESSICA; Protocol Last Admin: 01/07/21 05:01 Dose: 100 mls/hr Documented by: Sodium Chloride (Nacl 0.9%) 100 mls @ 999 mls/hr IV YURI PRN PRN Reason: Hypotension Cefepime HCl (Cefepime/Ns 2 Gm/100 Ml) 2 gm in 100 mls @ 200 mls/hr IV Q24H JESSICA; Protocol Last Admin: 01/06/21 22:13 Dose: 200 mls/hr Documented by: Ondansetron HCl (Ondansetron 4 Mg/2 Ml Inj) 4 mg IV Q8H PRN PRN Reason: Nausea And Vomiting Oxycodone/Acetaminophen (Oxycodone /Acetaminophen 5-325mg Tab) 2 tab PO Q6H PRN PRN Reason: Pain, Moderate (4-6) Sodium Chloride (Sodium Chloride 0.9% 10 Ml Flush Syringe) 10 ml IV BID JESSICA Last Admin: 01/07/21 10:05 Dose: 10 ml Documented by: Sodium Chloride (Sodium Chloride 0.9% 10 Ml Flush Syringe) 10 ml IV PRN PRN PRN Reason: LINE FLUSH Mental Status Exam - Vital signs Last Vital Signs Temp 97.3 F L 01/07/21 03:45 Pulse 97 H 01/07/21 03:45 Resp 20 01/07/21 03:45 BP 120/64 01/07/21 03:45 Pulse Ox 97 01/07/21 09:00 Results Result Diagrams: 01/07/21 05:00 01/07/21 10:12 Abnormal lab results 01/05/21 01/07/21 01/07/21 Range/Units 00:02 05:00 05:00 WBC 29.5 H (4.5-11.0) K/mm3 RBC 2.96 L (3.65-5.03) M/mm3 Hgb 7.2 L (11.8-15.2) gm/dl Hct 23.0 L (35.5-45.6) % MCV 78 L (84-94) fl MCH 24 L (28-32) pg MCHC 31 L (32-34) % RDW 21.1 H (13.2-15.2) % Percent Retic 3.75 H (0.78-2.58) % Sodium (137-145) mmol/L Carbon Dioxide (22-30) mmol/L BUN (9-20) mg/dL Creatinine (0.8-1.3) mg/dL Glucose (75-100) mg/dL Calcium (8.4-10.2) mg/dL Lactate Dehydrogenase 1199 H (91-180) units/L Crossmatch See Detail 01/07/21 Range/Units 10:12 WBC (4.5-11.0) K/mm3 RBC (3.65-5.03) M/mm3 Hgb (11.8-15.2) gm/dl Hct (35.5-45.6) % MCV (84-94) fl MCH (28-32) pg MCHC (32-34) % RDW (13.2-15.2) % Percent Retic (0.78-2.58) % Sodium 135 L (137-145) mmol/L Carbon Dioxide 20 L (22-30) mmol/L BUN 65 H (9-20) mg/dL Creatinine 4.0 H (0.8-1.3) mg/dL Glucose 134 H (75-100) mg/dL Calcium 7.6 L (8.4-10.2) mg/dL Lactate Dehydrogenase (91-180) units/L Crossmatch All other labs normal.
--- NOTE | 2021-01-07 14:17 | Progress Note ---
Assessment and Plan POD#9 s/p ex lap with sigmoidectomy and ostomy for perforated metastatic colon CA. Afebrile and stable but continues to show signs of altered mental status and overall clinical decline. Continue supportive care. Would make NPO since recent vomiting episode. If continues to vomit place NGT. Will start PPI daily as well. Appreciate Oncology input. Renal insufficiency - continue dialysis per nephrology Subjective Date of service: 01/07/21 Narrative: No acute events overnight, however nurse called after I examined the patient to say that he vomited a small amount of dark fluid and keeps asking to lay flat. Upon examination when I saw him patient was moaning. When asked if he was having pain he denied. Patient would not answer other questions. Objective Vital Signs - 12hr 01/07/21 01/07/21 01/07/21 03:45 08:30 09:00 Temperature 97.3 F L 98.0 F Pulse Rate 97 H 95 H Respiratory 20 24 Rate Blood Pressure 120/64 131/72 O2 Sat by Pulse 93 96 97 Oximetry 01/07/21 01/07/21 12:57 13:24 Temperature 98.3 F 98.3 F Pulse Rate Respiratory 19 19 Rate Blood Pressure 132/64 O2 Sat by Pulse Oximetry - General physical appearance moderate distress, no pain, chronically ill - Respiratory normal expansion, normal respiratory effort - Abdomen soft, other (ostomy pink with liquid brown stool. BARBI drain with pink serosang fluid. appropriatley tender to palpation) - Labs 01/07/21 05:00 01/07/21 10:12 Diabetes panel 01/07/21 Range/Units 10:12 Sodium 135 L (137-145) mmol/L Potassium 4.5 (3.6-5.0) mmol/L Chloride 98.3 (98-107) mmol/L Carbon Dioxide 20 L (22-30) mmol/L BUN 65 H (9-20) mg/dL Creatinine 4.0 H (0.8-1.3) mg/dL Glucose 134 H (75-100) mg/dL Calcium 7.6 L (8.4-10.2) mg/dL Calcium panel 01/07/21 Range/Units 10:12 Calcium 7.6 L (8.4-10.2) mg/dL Pituitary panel 01/07/21 Range/Units 10:12 Sodium 135 L (137-145) mmol/L Potassium 4.5 (3.6-5.0) mmol/L Chloride 98.3 (98-107) mmol/L Carbon Dioxide 20 L (22-30) mmol/L BUN 65 H (9-20) mg/dL Creatinine 4.0 H (0.8-1.3) mg/dL Glucose 134 H (75-100) mg/dL Calcium 7.6 L (8.4-10.2) mg/dL Adrenal panel 01/07/21 Range/Units 10:12 Sodium 135 L (137-145) mmol/L Potassium 4.5 (3.6-5.0) mmol/L Chloride 98.3 (98-107) mmol/L Carbon Dioxide 20 L (22-30) mmol/L BUN 65 H (9-20) mg/dL Creatinine 4.0 H (0.8-1.3) mg/dL Glucose 134 H (75-100) mg/dL Calcium 7.6 L (8.4-10.2) mg/dL
--- NOTE | 2021-01-07 14:22 | Progress Note ---
Assessment and Plan 50-year-old man presents with perforated sigmoid mass likely neoplasm, status post exploratory laparotomy, sigmoidectomy, end colostomy, peritoneal lavage. # SHARMIN: Most likely secondary to ATN. Creatinine 1.1->1.8->3.4->4.4> 6.1 suspect severe tubular injury s/p extensive surgery + contrast use on 12/29. -Status post Vas-Cath placement on 01/03/2021 and initiation of dialysis . Patient had signed out AMA on 01/04/2021 and his Vas-Cath was removed. Patient has agreed for another Vas-Cath placement and reinitiation of dialysis. Status post Vas-Cath reinsertion 01/06/2021. Uneventful hemodialysis yesterday . Patient clinically still volume overloaded. Shall dialyze him again today . -Follow-up results of serologies to ensure no glomerular injury, consider biopsy pending results - no renal obstruction noted on prior CT; do note mass on kidney which may be related to underlying sigmoid mass - avoid nephrotoxins - renally dose meds - strict Is/Os-> currently non-oliguric but net positive # Metabolic Acidosis/Hyperkalemia: likely due to SHARMIN. Hyperkalemia is better. Potassium level still elevated at 5.6. Hopefully dialysis will correct his hyperkalemia as well as acidosis # Perforated Sigmoid Mass, Possible Colorectal Carcinoma, Metastasis to Liver: appreciate surgery input, advance diet per primary/surgery. Note oncology consult; if chemotherapy is needed, suspect further kidney injury # Sepsis, Leukocytosis: likely related to bowel perforation, note antibiotics # Malnutrition Subjective Date of service: 01/07/21 Interval history: Patient is comfortable today. Status post reinsertion of femoral Vas-Cath. Had dialysis last night. Objective - Vital Signs Vital signs: Vital Signs - 12hr 01/07/21 01/07/21 01/07/21 03:45 08:30 09:00 Temperature 97.3 F L 98.0 F Pulse Rate 97 H 95 H Respiratory 20 24 Rate Blood Pressure 120/64 131/72 O2 Sat by Pulse 93 96 97 Oximetry 01/07/21 01/07/21 12:57 13:24 Temperature 98.3 F 98.3 F Pulse Rate Respiratory 19 19 Rate Blood Pressure 132/64 O2 Sat by Pulse Oximetry - General Appearance General appearance: well-developed, well-nourished, appears stated age EENT: PERRL, mucous membranes moist Neck: no JVD, no thyromegaly Respiratory: Present: Clear to Ascultation Cardiology: regular, normal heart rate Gastrointestinal: other (Midline dressing noted. Colostomy bag and drainage tube in place.) Integumentary: other (1+ edema. Left femoral Vas-Cath in place) - Lab 01/07/21 05:00 01/07/21 10:12 Most recent lab results Calcium 7.6 mg/dL (8.4-10.2) L 01/07/21 10:12 Magnesium 4.40 mg/dL (1.7-2.3) H 01/05/21 00:02 Medications & Allergies - Medications Allergies/Adverse Reactions: Allergies No Known Allergies Allergy (Verified 12/29/20 13:17) Home Medications: Home Medications Medication Instructions Recorded Confirmed Last Taken Type Tylenol Extra Strength 500 mg PO BID PRN 12/30/20 01/05/21 Unknown History Active Medications: Generic Name Dose Route Start Last Admin Trade Name Freq PRN Reason Stop Dose Admin Acetaminophen 650 mg 01/04/21 19:59 Acetaminophen 325 Mg Tab PO Q6H PRN Pain, Mild (1-3) Albuterol 2.5 mg 01/04/21 19:59 Albuterol 2.5 Mg/3 Ml Nebu IH Q4HRT PRN Shortness Of Breath Hydromorphone HCl 0.5 mg 01/04/21 19:59 01/07/21 10:05 Hydromorphone 1 Mg/1 Ml Inj IV 0.5 mg Q12H PRN Administration Pain , Severe (7-10) Metronidazole 500 mg in 100 mls @ 100 mls/hr 01/04/21 20:30 01/07/21 05:01 Flagyl 500 Mg/100 Ml IV 100 mls/hr Q8H JESSICA Administration Protocol Sodium Chloride 100 mls @ 999 mls/hr 01/05/21 10:00 Nacl 0.9% IV YURI PRN Hypotension Cefepime HCl 2 gm in 100 mls @ 200 mls/hr 01/05/21 22:00 01/06/21 22:13 Cefepime/Ns 2 Gm/100 Ml IV 200 mls/hr Q24H JESSICA Administration Protocol Ondansetron HCl 4 mg 01/04/21 19:59 Ondansetron 4 Mg/2 Ml Inj IV Q8H PRN Nausea And Vomiting Oxycodone/Acetaminophen 2 tab 01/05/21 18:55 Oxycodone /Acetaminophen 5-325mg Tab PO Q6H PRN Pain, Moderate (4-6) Pantoprazole Sodium 40 mg 01/07/21 15:00 Pantoprazole 40 Mg Inj IV QDAY JESSICA Sodium Chloride 10 ml 01/04/21 22:00 01/07/21 10:05 Sodium Chloride 0.9% 10 Ml Flush Syringe IV 10 ml BID JESSICA Administration Sodium Chloride 10 ml 01/04/21 19:59 Sodium Chloride 0.9% 10 Ml Flush Syringe IV PRN PRN LINE FLUSH
[2021-01-07] MEDS: PANTOPRAZOLE 40 MG INJ IV SCH (14:34)
[2021-01-07 17:16] LABS: Band Neutrophils # (Manual) 0.6 K/mm3; Total Cells Counted 100
[2021-01-07 17:17] LABS: Hypochromasia 1+; Platelet Estimate Consistent w Auto; Poikilocytosis 1+; Target Cells 1+
[2021-01-07] MEDS: CEFEPIME/NS 2 GM/100 ML 2 GM/100 ML BAG IV SCH (21:16)
[2021-01-08] MEDS: metroNIDAZOLE/NS 500 MG/100 ML 500 MG/100 ML BAG IV SCH ×3 (05:03→22:50)
[2021-01-08 05:42] LABS: Hematocrit 24.5 % (35.5-45.6); Hemoglobin 7.8 gm/dl (11.8-15.2); Mean Corpuscular HGB Conc 32 % (32-34); Mean Corpuscular Volume 80 fl (84-94); Platelet Count 202 K/mm3 (140-440); Red Blood Count 3.08 M/mm3 (3.65-5.03)
[2021-01-08 05:57] LABS: Albumin 2.1 g/dL (3.9-5); Calcium 7.8 mg/dL (8.4-10.2)
[2021-01-08 08:54] LABS: Anisocytosis 1+; Band Neutrophils # (Manual) 0.8 K/mm3; Hypochromasia 1+; Total Cells Counted 200
[2021-01-08 08:55] LABS: Platelet Estimate Consistent w Auto
--- NOTE | 2021-01-08 09:12 | Progress Note ---
Assessment and Plan --Acute kidney injury; worsening renal function Worsening renal function likely due to contrast-induced nephropathy, Also associated with metabolic acidosis, hyperkalemia Nephrology initiated dialysis, s/p vas-Cath placement Monitor BMP, supportive care --Hyperkalemia, resolved continue to treat medically, HD per renal --perforated sigmoid mass --s/p exploratory laparotomy/sigmoidectomy/colostomy/peritoneal lavage IV fluids IV antibiotics, IV Protonix, Pain medications, Out of bed to chair, PT --Gram-negative sepsis Sepsis in the setting of high white count and bowel perforation -- Continue IV antibiotics, follow cultures ID consult if needed --Surgical cultures gram-negative rods Currently on Zosyn, follow culture sensitivities ID consult if needed --Colorectal carcinoma Pathology: Sigmoid colon, sigmoidectomy: 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 Macroscopic tumor perforation identified. Tumor invades visceral peritoneum. All margins are uninvolved. Lymphovascular and perineural invasion identified. 1 out of 8 lymph nodes involved. Pathologic stage: T4aN1a, CEA 24.3 Patient never had colonoscopy 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, heme-onc following --Metastases to the liver Poor prognosis,Heme-onc following --Worsening transaminases; Probably secondary to liver mets,Closely monitor --Severe malnutrition/hypoproteinemia Dietary supplements and dietitian consult --Anemia acute on chronic Closely monitor H&H and transfuse as needed --obesity; BMI 38.7 Patient needs weight reduction when medically stable --DVT prophylaxis On SCDs , patient postop state with severe anemia Brief history and hospital course: 50-year-old male patient initially presented on 12/29/20 with perforated sigmoid mass likely neoplasm, status post exploratory laparotomy,, sigmoidectomy, end colostomy, peritoneal lavage. Patient has worsening renal function,Vas-Cath placement and initiated hemodialysis. He decided to leave AMA on 01/04/2021 but got readmitted on the same day. 01/05/21: Patient had low hemoglobin 5.3 today, elevated potassium and creatinine. Dialysis catheter was removed yesterday when Patient left AMA yesterday.. consulted vascular for permcath, ordered for PRBC transfusion. Follow CBC and BMP 01/06/21: Pathology report revealed moderately differentiated adenocarcinoma of sigmoid colon pathologic state T4aN1a. Status post vasCath placement today, drug use another unit of packed RBC -hemoglobin 6.4. Plan for hemodialysis, monitor CBC and BMP. Guarded prognosis 01/07/21; discussed with oncology. Patient need to follow-up with oncologist as outpatient to initiate definitive treatment for pulmonary adenocarcinoma. now Wait for renal function recovery. Continue to follow CBC and BMP. Try to call patient family but unable to reach out to them. Subjective Date of service: 01/07/21 Interval history: Patient seen and examined. Medical records and medication list reviewed. No acute event overnight noted by the RN. Patient resting on bed, hemoglobin 7.2 today Discussed plan of care at bedside with patient's RN and also with the patient. Called patient but unable to reach out to her Objective - Exam Narrative Exam: General appearance: Present: no distress, well-nourished, obese - EENT Eyes: Present: PERRL, EOM intact - Neck Neck: Present: supple, normal ROM - Respiratory Respiratory effort: normal Respiratory: bilateral: diminished, negative: rales, rhonchi, wheezing - Cardiovascular Rhythm: regular Heart Sounds: Present: S1 & S2 - Extremities Extremities: no ischemia, No edema - Abdominal General gastrointestinal: Surgical dressing on place with abdominal drainage - Integumentary Integumentary: Present: clear, warm - Psychiatric Psychiatric: appropriate mood/affect, agitated (Sometimes agitated), other (Sometimes confused) - Neurologic Neurologic: moves all extremities - Constitutional Vitals: Vital Signs - 12hr 01/07/21 01/07/21 01/08/21 21:31 23:18 04:09 Temperature 97.8 F 97.2 F L Pulse Rate 91 H 96 H Respiratory 18 20 Rate Blood Pressure 118/55 136/68 O2 Sat by Pulse 94 94 94 Oximetry - Labs CBC & Chem 7: 01/08/21 04:57 01/09/21 14:03 Labs: Abnormal lab results 01/07/21 01/07/21 01/08/21 Range/Units 05:00 10:12 04:57 WBC 30.6 H (4.5-11.0) K/mm3 RBC 3.08 L (3.65-5.03) M/mm3 Hgb 7.8 L (11.8-15.2) gm/dl Hct 24.5 L (35.5-45.6) % MCV 80 L (84-94) fl MCH 25 L (28-32) pg RDW 21.0 H (13.2-15.2) % Seg Neuts % (Manual) 89.5 H (40.0-70.0) % Lymphocytes % (Manual) 3.0 L (13.4-35.0) % Seg Neutrophils # Man 27.1 H 27.4 H (1.8-7.7) K/mm3 Lymphocytes # (Manual) 0.0 L 0.9 L (1.2-5.4) K/mm3 Monocytes # (Manual) 1.8 H 1.2 H (0.0-0.8) K/mm3 Sodium 135 L (137-145) mmol/L Chloride (98-107) mmol/L Carbon Dioxide 20 L (22-30) mmol/L BUN 65 H (9-20) mg/dL Creatinine 4.0 H (0.8-1.3) mg/dL Glucose 134 H (75-100) mg/dL Calcium 7.6 L (8.4-10.2) mg/dL Total Bilirubin (0.1-1.2) mg/dL AST (5-40) units/L ALT (7-56) units/L Alkaline Phosphatase (35-129) units/L Total Protein (6.3-8.2) g/dL Albumin (3.9-5) g/dL 01/08/21 Range/Units 04:57 WBC (4.5-11.0) K/mm3 RBC (3.65-5.03) M/mm3 Hgb (11.8-15.2) gm/dl Hct (35.5-45.6) % MCV (84-94) fl MCH (28-32) pg RDW (13.2-15.2) % Seg Neuts % (Manual) (40.0-70.0) % Lymphocytes % (Manual) (13.4-35.0) % Seg Neutrophils # Man (1.8-7.7) K/mm3 Lymphocytes # (Manual) (1.2-5.4) K/mm3 Monocytes # (Manual) (0.0-0.8) K/mm3 Sodium 136 L (137-145) mmol/L Chloride 97.8 L (98-107) mmol/L Carbon Dioxide (22-30) mmol/L BUN 52 H (9-20) mg/dL Creatinine 3.7 H (0.8-1.3) mg/dL Glucose 118 H (75-100) mg/dL Calcium 7.8 L (8.4-10.2) mg/dL Total Bilirubin 5.90 H (0.1-1.2) mg/dL AST 125 H (5-40) units/L ALT 67 H (7-56) units/L Alkaline Phosphatase 942 H (35-129) units/L Total Protein 5.7 L (6.3-8.2) g/dL Albumin 2.1 L (3.9-5) g/dL
--- NOTE | 2021-01-08 11:32 | Progress Note ---
Assessment and Plan 50-year-old man presents with perforated sigmoid mass likely neoplasm, status post exploratory laparotomy, sigmoidectomy, end colostomy, peritoneal lavage. # SHARMIN: Most likely secondary to ATN. Creatinine 1.1->1.8->3.4->4.4> 6.1 suspect severe tubular injury s/p extensive surgery + contrast use on 12/29. -Status post Vas-Cath placement on 01/03/2021 and initiation of dialysis . Patient had signed out AMA on 01/04/2021 and his Vas-Cath was removed. Patient has agreed for another Vas-Cath placement and reinitiation of dialysis. Status post Vas-Cath reinsertion 01/06/2021. Uneventful hemodialysis yesterday . Patient clinically still volume overloaded. Shall dialyze him again today . -Follow-up results of serologies to ensure no glomerular injury, consider biopsy pending results - no renal obstruction noted on prior CT; do note mass on kidney which may be related to underlying sigmoid mass - avoid nephrotoxins - renally dose meds - strict Is/Os-> currently non-oliguric but net positive # Metabolic Acidosis/Hyperkalemia: likely due to SHARMIN. Hyperkalemia is better. # Perforated Sigmoid Mass, Possible Colorectal Carcinoma, Metastasis to Liver: appreciate surgery input, advance diet per primary/surgery. Note oncology consult; if chemotherapy is needed, suspect further kidney injury # Sepsis, Leukocytosis: likely related to bowel perforation, note antibiotics # Malnutrition Subjective Date of service: 01/08/21 Interval history: Patient is comfortable today. Denies any shortness of breath. Objective - Vital Signs Vital signs: Vital Signs - 12hr 01/08/21 04:09 Temperature 97.2 F L Pulse Rate 96 H Respiratory 20 Rate Blood Pressure 136/68 O2 Sat by Pulse 94 Oximetry - General Appearance General appearance: well-developed, well-nourished, appears stated age EENT: PERRL, mucous membranes moist Neck: no JVD, no thyromegaly, no carotid bruit, supple Respiratory: Present: Clear to Ascultation Cardiology: regular, normal heart rate Gastrointestinal: other (Midline dressing noted. Colostomy as well as drainage tube in place) Integumentary: other (1+ edema) - Lab 01/08/21 04:57 01/08/21 04:57 Most recent lab results Calcium 7.8 mg/dL (8.4-10.2) L 01/08/21 04:57 Magnesium 4.40 mg/dL (1.7-2.3) H 01/05/21 00:02 Medications & Allergies - Medications Allergies/Adverse Reactions: Allergies No Known Allergies Allergy (Verified 12/29/20 13:17) Home Medications: Home Medications Medication Instructions Recorded Confirmed Last Taken Type Tylenol Extra Strength 500 mg PO BID PRN 12/30/20 01/05/21 Unknown History Active Medications: Generic Name Dose Route Start Last Admin Trade Name Freq PRN Reason Stop Dose Admin Acetaminophen 650 mg 01/04/21 19:59 Acetaminophen 325 Mg Tab PO Q6H PRN Pain, Mild (1-3) Albuterol 2.5 mg 01/04/21 19:59 Albuterol 2.5 Mg/3 Ml Nebu IH Q4HRT PRN Shortness Of Breath Hydromorphone HCl 0.5 mg 01/04/21 19:59 01/07/21 10:05 Hydromorphone 1 Mg/1 Ml Inj IV 0.5 mg Q12H PRN Administration Pain , Severe (7-10) Metronidazole 500 mg in 100 mls @ 100 mls/hr 01/04/21 20:30 01/08/21 05:03 Flagyl 500 Mg/100 Ml IV 100 mls/hr Q8H JESSICA Administration Protocol Sodium Chloride 100 mls @ 999 mls/hr 01/05/21 10:00 Nacl 0.9% IV YURI PRN Hypotension Cefepime HCl 2 gm in 100 mls @ 200 mls/hr 01/05/21 22:00 01/07/21 21:16 Cefepime/Ns 2 Gm/100 Ml IV 200 mls/hr Q24H JESSICA Administration Protocol Ondansetron HCl 4 mg 01/04/21 19:59 Ondansetron 4 Mg/2 Ml Inj IV Q8H PRN Nausea And Vomiting Oxycodone/Acetaminophen 2 tab 01/05/21 18:55 Oxycodone /Acetaminophen 5-325mg Tab PO Q6H PRN Pain, Moderate (4-6) Pantoprazole Sodium 40 mg 01/07/21 15:00 01/07/21 14:34 Pantoprazole 40 Mg Inj IV 40 mg QDAY JESSICA Administration Sodium Chloride 10 ml 01/04/21 22:00 01/07/21 21:17 Sodium Chloride 0.9% 10 Ml Flush Syringe IV 10 ml BID JESSICA Administration Sodium Chloride 10 ml 01/04/21 19:59 Sodium Chloride 0.9% 10 Ml Flush Syringe IV PRN PRN LINE FLUSH
--- NOTE | 2021-01-08 12:14 | Progress Note ---
Assessment and Plan POD#10 s/p ex lap with sigmoidectomy and ostomy for perforated metastatic colon CA. Afebrile and stable but continues to show signs of altered mental status and overall clinical decline. Continue to increase in bilirubin and LFTs. Will o rder fractionated bilirubin to further evaluate. Continue supportive care. Will resume full liquid diet. Appreciate Oncology input. Renal insufficiency - continue dialysis per nephrology Subjective Date of service: 01/08/21 Narrative: No acute events overnight. Patient had no further vomiting episode since yesterday. Patient says that he wants to get out of the hospital, and that he does not see anybody. Patient was seen by psychiatry yesterday and diagnosis with depression but no further intervention from the service is indicated. Patient says that he wants ice water and something to eat. Objective Vital Signs - 12hr 01/08/21 04:09 Temperature 97.2 F L Pulse Rate 96 H Respiratory 20 Rate Blood Pressure 136/68 O2 Sat by Pulse 94 Oximetry - General physical appearance no distress, no pain, chronically ill, obese - Eyes icteric - Respiratory normal expansion, normal respiratory effort - Abdomen other (Obese, BARBI drain with serosanguineous drainage, midline incision clean dry and intact with some serous drainage in the inferior portion. Ostomy is pink with liquid stool and air output.) - Psychiatric other (Appears to be somewhat confused.) - Labs 01/08/21 04:57 01/08/21 04:57 Diabetes panel 01/08/21 Range/Units 04:57 Sodium 136 L (137-145) mmol/L Potassium 4.6 (3.6-5.0) mmol/L Chloride 97.8 L (98-107) mmol/L Carbon Dioxide 23 (22-30) mmol/L BUN 52 H (9-20) mg/dL Creatinine 3.7 H (0.8-1.3) mg/dL Glucose 118 H (75-100) mg/dL Calcium 7.8 L (8.4-10.2) mg/dL AST 125 H (5-40) units/L ALT 67 H (7-56) units/L Alkaline Phosphatase 942 H (35-129) units/L Total Protein 5.7 L (6.3-8.2) g/dL Albumin 2.1 L (3.9-5) g/dL Calcium panel 01/08/21 Range/Units 04:57 Calcium 7.8 L (8.4-10.2) mg/dL Albumin 2.1 L (3.9-5) g/dL Pituitary panel 01/08/21 Range/Units 04:57 Sodium 136 L (137-145) mmol/L Potassium 4.6 (3.6-5.0) mmol/L Chloride 97.8 L (98-107) mmol/L Carbon Dioxide 23 (22-30) mmol/L BUN 52 H (9-20) mg/dL Creatinine 3.7 H (0.8-1.3) mg/dL Glucose 118 H (75-100) mg/dL Calcium 7.8 L (8.4-10.2) mg/dL Adrenal panel 01/08/21 Range/Units 04:57 Sodium 136 L (137-145) mmol/L Potassium 4.6 (3.6-5.0) mmol/L Chloride 97.8 L (98-107) mmol/L Carbon Dioxide 23 (22-30) mmol/L BUN 52 H (9-20) mg/dL Creatinine 3.7 H (0.8-1.3) mg/dL Glucose 118 H (75-100) mg/dL Calcium 7.8 L (8.4-10.2) mg/dL Total Bilirubin 5.90 H (0.1-1.2) mg/dL AST 125 H (5-40) units/L ALT 67 H (7-56) units/L Alkaline Phosphatase 942 H (35-129) units/L Total Protein 5.7 L (6.3-8.2) g/dL Albumin 2.1 L (3.9-5) g/dL
[2021-01-08] MEDS: PANTOPRAZOLE 40 MG INJ IV SCH (13:25)
[2021-01-08] MEDS: METOCLOPRAMIDE 10 MG/2 ML INJ IV SCH ×2 (13:25→19:00)
--- NOTE | 2021-01-08 17:25 | Progress Note ---
Assessment and Plan --Acute kidney injury; worsening renal function Worsening renal function likely due to contrast-induced nephropathy, Also associated with metabolic acidosis, hyperkalemia Nephrology initiated dialysis, s/p vas-Cath placement Monitor BMP, supportive care --Hyperkalemia, resolved continue to treat medically, HD per renal --perforated sigmoid mass --s/p exploratory laparotomy/sigmoidectomy/colostomy/peritoneal lavage IV fluids IV antibiotics, IV Protonix, Pain medications, Out of bed to chair, PT --Gram-negative sepsis Sepsis in the setting of high white count and bowel perforation -- Continue IV antibiotics, follow cultures ID consult if needed --Surgical cultures gram-negative rods Currently on Zosyn, follow culture sensitivities ID consult if needed --Colorectal carcinoma Pathology: Sigmoid colon, sigmoidectomy: 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 Macroscopic tumor perforation identified. Tumor invades visceral peritoneum. All margins are uninvolved. Lymphovascular and perineural invasion identified. 1 out of 8 lymph nodes involved. Pathologic stage: T4aN1a, CEA 24.3 Patient never had colonoscopy 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, heme-onc following --Metastases to the liver Poor prognosis,Heme-onc following --Worsening transaminases; Probably secondary to liver mets,Closely monitor --Severe malnutrition/hypoproteinemia Dietary supplements and dietitian consult --Anemia acute on chronic Closely monitor H&H and transfuse as needed --obesity; BMI 38.7 Patient needs weight reduction when medically stable --DVT prophylaxis On SCDs , patient postop state with severe anemia Brief history and hospital course: 50-year-old male patient initially presented on 12/29/20 with perforated sigmoid mass likely neoplasm, status post exploratory laparotomy,, sigmoidectomy, end colostomy, peritoneal lavage. Patient has worsening renal function,Vas-Cath placement and initiated hemodialysis. He decided to leave AMA on 01/04/2021 but got readmitted on the same day. 01/05/21: Patient had low hemoglobin 5.3 today, elevated potassium and creatinine. Dialysis catheter was removed yesterday when Patient left AMA yesterday.. consulted vascular for permcath, ordered for PRBC transfusion. Follow CBC and BMP 01/06/21: Pathology report revealed moderately differentiated adenocarcinoma of sigmoid colon pathologic state T4aN1a. Status post vasCath placement today, drug use another unit of packed RBC -hemoglobin 6.4. Plan for hemodialysis, monitor CBC and BMP. Guarded prognosis 01/07/21; discussed with oncology. Patient need to follow-up with oncologist as outpatient to initiate definitive treatment for pulmonary adenocarcinoma. now Wait for renal function recovery. Continue to follow CBC and BMP. Try to call patient family but unable to reach out to them. 01/08/21: Continue to follow renal function, H&H stable. Continue supportive care monitor closely. Clinically remains volume overloaded. Plan for another hemodialysis today. Continue empiric antibiotics Subjective Date of service: 01/08/21 Interval history: Patient seen and examined. Medical records and medication list reviewed. No acute event overnight noted by the RN. Patient resting on bed, hemoglobin 7.2 today Discussed plan of care at bedside with patient's RN and also with the patient. Called patient but unable to reach out to her Objective - Exam Narrative Exam: General appearance: Present: no distress, well-nourished, obese - EENT Eyes: Present: PERRL, EOM intact - Neck Neck: Present: supple, normal ROM - Respiratory Respiratory effort: normal Respiratory: bilateral: diminished, negative: rales, rhonchi, wheezing - Cardiovascular Rhythm: regular Heart Sounds: Present: S1 & S2 - Extremities Extremities: no ischemia, No edema - Abdominal General gastrointestinal: Surgical dressing on place with abdominal drainage - Integumentary Integumentary: Present: clear, warm - Psychiatric Psychiatric: appropriate mood/affect, agitated (Sometimes agitated), other (Sometimes confused) - Neurologic Neurologic: moves all extremities - Constitutional Vitals: Vital Signs - 12hr 01/08/21 01/08/21 01/08/21 10:59 13:07 15:43 Temperature 97.9 F 97.9 F Pulse Rate 97 H 92 H Respiratory 20 20 Rate Blood Pressure 141/72 140/77 O2 Sat by Pulse 94 94 97 Oximetry - Labs CBC & Chem 7: 01/08/21 04:57 01/09/21 14:03 Labs: Abnormal lab results 01/08/21 01/08/21 01/08/21 Range/Units 04:57 04:57 Unknown WBC 30.6 H (4.5-11.0) K/mm3 RBC 3.08 L (3.65-5.03) M/mm3 Hgb 7.8 L (11.8-15.2) gm/dl Hct 24.5 L (35.5-45.6) % MCV 80 L (84-94) fl MCH 25 L (28-32) pg RDW 21.0 H (13.2-15.2) % Seg Neuts % (Manual) 89.5 H (40.0-70.0) % Lymphocytes % (Manual) 3.0 L (13.4-35.0) % Seg Neutrophils # Man 27.4 H (1.8-7.7) K/mm3 Lymphocytes # (Manual) 0.9 L (1.2-5.4) K/mm3 Monocytes # (Manual) 1.2 H (0.0-0.8) K/mm3 Sodium 136 L (137-145) mmol/L Chloride 97.8 L (98-107) mmol/L BUN 52 H (9-20) mg/dL Creatinine 3.7 H (0.8-1.3) mg/dL Glucose 118 H (75-100) mg/dL Calcium 7.8 L (8.4-10.2) mg/dL Total Bilirubin 5.90 H (0.1-1.2) mg/dL Direct Bilirubin 5.0 H (0-0.2) mg/dL AST 125 H (5-40) units/L ALT 67 H (7-56) units/L Alkaline Phosphatase 942 H (35-129) units/L Total Protein 5.7 L (6.3-8.2) g/dL Albumin 2.1 L (3.9-5) g/dL
[2021-01-08] MEDS: CEFEPIME/NS 2 GM/100 ML 2 GM/100 ML BAG IV SCH (22:50)
[2021-01-09] MEDS: METOCLOPRAMIDE 10 MG/2 ML INJ IV SCH ×4 (00:22→20:35)
[2021-01-09] MEDS: oxyCODONE /ACETAMINOPHEN 5-325MG TAB PO PRN (00:24)
[2021-01-09] MEDS: metroNIDAZOLE/NS 500 MG/100 ML 500 MG/100 ML BAG IV SCH ×3 (06:29→22:36)
[2021-01-09] MEDS: PANTOPRAZOLE 40 MG INJ IV SCH (09:51)
--- NOTE | 2021-01-09 12:28 | Progress Note ---
Assessment and Plan POD#11 s/p ex lap with sigmoidectomy and ostomy for perforated metastatic colon CA. Afebrile and stable. Overall prognosis is poor. Will recheck bilirubin in am. Consider GI consultation for evaluation. Continue supportive care and full liquid diet. Appreciate Oncology input. Renal insufficiency - continue dialysis per nephrology Subjective Date of service: 01/09/21 Narrative: No acute events overnight. Patient had dialysis that was uneventful. No new complaints with patient tolerating diet. Objective Vital Signs - 12hr 01/09/21 01/09/21 01/09/21 03:39 07:43 10:50 Temperature 98.4 F 96.8 F L Pulse Rate 98 H 20 L Respiratory 19 20 Rate Blood Pressure 141/90 Blood Pressure 135/87 [Left] O2 Sat by Pulse 90 91 100 Oximetry 01/09/21 11:39 Temperature Pulse Rate 77 Respiratory 20 Rate Blood Pressure Blood Pressure 144/72 [Left] O2 Sat by Pulse Oximetry - General physical appearance well developed, no distress, no pain, chronically ill, obese - ENT no hearing loss - Respiratory normal expansion, normal respiratory effort - Abdomen soft, other (Ostomy pink with liquid stool in bag, BARBI drain serosanguineous, midline incision intact.) - Labs 01/08/21 04:57 01/08/21 04:57
--- NOTE | 2021-01-09 13:48 | Progress Note ---
Assessment and Plan 50-year-old man presents with perforated sigmoid mass likely neoplasm, status post exploratory laparotomy, sigmoidectomy, end colostomy, peritoneal lavage. # SHARMIN: Most likely secondary to ATN. Creatinine 1.1->1.8->3.4->4.4> 6.1 suspect severe tubular injury s/p extensive surgery + contrast use on 12/29. -Status post Vas-Cath placement on 01/03/2021 and initiation of dialysis . Patient had signed out AMA on 01/04/2021 and his Vas-Cath was removed. Patient has agreed for another Vas-Cath placement and reinitiation of dialysis. Status post Vas-Cath reinsertion 01/06/2021. Uneventful hemodialysis yesterday . Volume overload seems to be improving. No evidence of renal recovery at this time. Plan to dialyze him again tomorrow . -Follow-up results of serologies to ensure no glomerular injury, consider biopsy pending results - no renal obstruction noted on prior CT; do note mass on kidney which may be related to underlying sigmoid mass - avoid nephrotoxins - renally dose meds - strict Is/Os-> currently non-oliguric but net positive # Metabolic Acidosis/Hyperkalemia: likely due to SHARMIN. Hyperkalemia is better. # Perforated Sigmoid Mass, Possible Colorectal Carcinoma, Metastasis to Liver: appreciate surgery input, advance diet per primary/surgery. Note oncology consult; if chemotherapy is needed, suspect further kidney injury # Sepsis, Leukocytosis: likely related to bowel perforation, note antibiotics # Malnutrition Subjective Date of service: 01/09/21 Interval history: Patient appears comfortable today. Denies any shortness of breath. Uneventful hemodialysis yesterday. Objective - Vital Signs Vital signs: Vital Signs - 12hr 01/09/21 01/09/21 01/09/21 03:39 07:43 10:50 Temperature 98.4 F 96.8 F L Pulse Rate 98 H 20 L Respiratory 19 20 Rate Blood Pressure 141/90 Blood Pressure 135/87 [Left] O2 Sat by Pulse 90 91 100 Oximetry 01/09/21 11:39 Temperature Pulse Rate 77 Respiratory 20 Rate Blood Pressure Blood Pressure 144/72 [Left] O2 Sat by Pulse Oximetry - General Appearance General appearance: well-developed, well-nourished, appears stated age, obese EENT: PERRL, mucous membranes moist Neck: no JVD, no thyromegaly, no carotid bruit, supple Respiratory: Present: Clear to Ascultation Cardiology: regular, normal heart rate Gastrointestinal: other (Midline dressing noted. Colostomy bag as well as drainage tube in place.) Integumentary: no rash, other (1+ edema) - Lab 01/08/21 04:57 01/08/21 04:57 Most recent lab results Calcium 7.8 mg/dL (8.4-10.2) L 01/08/21 04:57 Magnesium 4.40 mg/dL (1.7-2.3) H 01/05/21 00:02 Medications & Allergies - Medications Allergies/Adverse Reactions: Allergies No Known Allergies Allergy (Verified 12/29/20 13:17) Home Medications: Home Medications Medication Instructions Recorded Confirmed Last Taken Type Tylenol Extra Strength 500 mg PO BID PRN 12/30/20 01/05/21 Unknown History Active Medications: Generic Name Dose Route Start Last Admin Trade Name Freq PRN Reason Stop Dose Admin Acetaminophen 650 mg 01/04/21 19:59 Acetaminophen 325 Mg Tab PO Q6H PRN Pain, Mild (1-3) Albuterol 2.5 mg 01/04/21 19:59 Albuterol 2.5 Mg/3 Ml Nebu IH Q4HRT PRN Shortness Of Breath Hydromorphone HCl 0.5 mg 01/04/21 19:59 01/07/21 10:05 Hydromorphone 1 Mg/1 Ml Inj IV 0.5 mg Q12H PRN Administration Pain , Severe (7-10) Metronidazole 500 mg in 100 mls @ 100 mls/hr 01/04/21 20:30 01/09/21 06:29 Flagyl 500 Mg/100 Ml IV 100 mls/hr Q8H JESSICA Administration Protocol Sodium Chloride 100 mls @ 999 mls/hr 01/05/21 10:00 Nacl 0.9% IV YURI PRN Hypotension Cefepime HCl 1 gm in 100 mls @ 200 mls/hr 01/09/21 22:00 Cefepime/Ns 1 Gm/100 Ml IV HS JESSICA Metoclopramide HCl 5 mg 01/08/21 13:00 01/09/21 09:51 Metoclopramide 10 Mg/2 Ml Inj IV 5 mg Q6H JESSICA Administration Ondansetron HCl 4 mg 01/04/21 19:59 Ondansetron 4 Mg/2 Ml Inj IV Q8H PRN Nausea And Vomiting Oxycodone/Acetaminophen 2 tab 01/05/21 18:55 01/09/21 00:24 Oxycodone /Acetaminophen 5-325mg Tab PO 2 tab Q6H PRN Administration Pain, Moderate (4-6) Pantoprazole Sodium 40 mg 01/07/21 15:00 01/09/21 09:51 Pantoprazole 40 Mg Inj IV 40 mg QDAY JESSICA Administration Sodium Chloride 10 ml 01/04/21 22:00 01/09/21 09:53 Sodium Chloride 0.9% 10 Ml Flush Syringe IV 10 ml BID JESSICA Administration Sodium Chloride 10 ml 01/04/21 19:59 Sodium Chloride 0.9% 10 Ml Flush Syringe IV PRN PRN LINE FLUSH
[2021-01-09 14:58] LABS: Calcium 7.9 mg/dL (8.4-10.2)
--- NOTE | 2021-01-09 15:42 | Progress Note ---
Assessment and Plan --Acute kidney injury; worsening renal function Worsening renal function likely due to contrast-induced nephropathy, Also associated with metabolic acidosis, hyperkalemia Nephrology initiated dialysis, s/p vas-Cath placement Monitor BMP, supportive care --Hyperkalemia, resolved continue to treat medically, HD per renal --perforated sigmoid mass --s/p exploratory laparotomy/sigmoidectomy/colostomy/peritoneal lavage IV fluids IV antibiotics, IV Protonix, Pain medications, Out of bed to chair, PT --Gram-negative sepsis Sepsis in the setting of high white count and bowel perforation -- Continue IV antibiotics, follow cultures ID consult if needed --Surgical cultures gram-negative rods Currently on Zosyn, follow culture sensitivities ID consult if needed --Colorectal carcinoma Pathology: Sigmoid colon, sigmoidectomy: 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 Macroscopic tumor perforation identified. Tumor invades visceral peritoneum. All margins are uninvolved. Lymphovascular and perineural invasion identified. 1 out of 8 lymph nodes involved. Pathologic stage: T4aN1a, CEA 24.3 Patient never had colonoscopy 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, heme-onc following --Metastases to the liver Poor prognosis,Heme-onc following --Worsening transaminases; Probably secondary to liver mets,Closely monitor --Severe malnutrition/hypoproteinemia Dietary supplements and dietitian consult --Anemia acute on chronic Closely monitor H&H and transfuse as needed --obesity; BMI 38.7 Patient needs weight reduction when medically stable --DVT prophylaxis On SCDs , patient postop state with severe anemia Brief history and hospital course: 50-year-old male patient initially presented on 12/29/20 with perforated sigmoid mass likely neoplasm, status post exploratory laparotomy,, sigmoidectomy, end colostomy, peritoneal lavage. Patient has worsening renal function,Vas-Cath placement and initiated hemodialysis. He decided to leave AMA on 01/04/2021 but got readmitted on the same day. 01/05/21: Patient had low hemoglobin 5.3 today, elevated potassium and creatinine. Dialysis catheter was removed yesterday when Patient left AMA yesterday.. consulted vascular for permcath, ordered for PRBC transfusion. Follow CBC and BMP 01/06/21: Pathology report revealed moderately differentiated adenocarcinoma of sigmoid colon pathologic state T4aN1a. Status post vasCath placement today, drug use another unit of packed RBC -hemoglobin 6.4. Plan for hemodialysis, monitor CBC and BMP. Guarded prognosis 01/07/21; discussed with oncology. Patient need to follow-up with oncologist as outpatient to initiate definitive treatment for pulmonary adenocarcinoma. now Wait for renal function recovery. Continue to follow CBC and BMP. Try to call patient family but unable to reach out to them. 01/08/21: Continue to follow renal function, H&H stable. Continue supportive care monitor closely. Clinically remains volume overloaded. Plan for another hemodialysis today. Continue empiric antibiotics 01/09/21; continue full liquid diet, plan for hemodialysis tomorrow, continue to follow clinically. Very poor prognosis. Monitor CBC and BMP Subjective Date of service: 01/09/21 Interval history: Patient seen and examined. Medical records and medication list reviewed. No acute event overnight noted by the RN. Patient resting on bed, hemoglobin 7.2 today Discussed plan of care at bedside with patient's RN and also with the patient. Called patient but unable to reach out to her Objective - Exam Narrative Exam: General appearance: Present: no distress, well-nourished, obese - EENT Eyes: Present: PERRL, EOM intact - Neck Neck: Present: supple, normal ROM - Respiratory Respiratory effort: normal Respiratory: bilateral: diminished, negative: rales, rhonchi, wheezing - Cardiovascular Rhythm: regular Heart Sounds: Present: S1 & S2 - Extremities Extremities: no ischemia, No edema - Abdominal General gastrointestinal: Surgical dressing on place with abdominal drainage - Integumentary Integumentary: Present: clear, warm - Psychiatric Psychiatric: appropriate mood/affect, agitated (Sometimes agitated), other (Sometimes confused) - Neurologic Neurologic: moves all extremities - Constitutional Vitals: Vital Signs - 12hr 01/09/21 01/09/21 01/09/21 07:43 10:50 11:39 Temperature 96.8 F L Pulse Rate 20 L 77 Respiratory 20 20 Rate Blood Pressure 135/87 144/72 [Left] O2 Sat by Pulse 91 100 Oximetry - Labs CBC & Chem 7: 01/10/21 13:27 01/10/21 07:46 Labs: Abnormal lab results 01/09/21 Range/Units 14:03 Sodium 134 L (137-145) mmol/L Chloride 95.8 L (98-107) mmol/L Carbon Dioxide 21 L (22-30) mmol/L BUN 45 H (9-20) mg/dL Creatinine 3.7 H (0.8-1.3) mg/dL Calcium 7.9 L (8.4-10.2) mg/dL
[2021-01-09] MEDS: CEFEPIME/NS 1 GM/100 ML 1 GM/100 ML BAG IV SCH (22:34)
[2021-01-10] MEDS: METOCLOPRAMIDE 10 MG/2 ML INJ IV SCH ×4 (01:45→21:01)
[2021-01-10] MEDS: metroNIDAZOLE/NS 500 MG/100 ML 500 MG/100 ML BAG IV SCH ×2 (06:00→17:52)
[2021-01-10 08:48] LABS: Albumin 2.3 g/dL (3.9-5); Calcium 7.9 mg/dL (8.4-10.2)
[2021-01-10] MEDS ORDERED: SODIUM CHLORIDE 0.9% 1000 ML 2,000 ML ONE (09:30)
--- NOTE | 2021-01-10 15:42 | Progress Note ---
Assessment and Plan --Acute kidney injury; worsening renal function Worsening renal function likely due to contrast-induced nephropathy, Also associated with metabolic acidosis, hyperkalemia Nephrology initiated dialysis, s/p vas-Cath placement Monitor BMP, supportive care --Hyperkalemia, resolved continue to treat medically, HD per renal --perforated sigmoid mass --s/p exploratory laparotomy/sigmoidectomy/colostomy/peritoneal lavage IV fluids IV antibiotics, IV Protonix, Pain medications, Out of bed to chair, PT --Gram-negative sepsis Sepsis in the setting of high white count and bowel perforation -- Continue IV antibiotics, follow cultures ID consult if needed --Surgical cultures gram-negative rods Currently on Zosyn, follow culture sensitivities ID consult if needed --Colorectal carcinoma Pathology: Sigmoid colon, sigmoidectomy: 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 Macroscopic tumor perforation identified. Tumor invades visceral peritoneum. All margins are uninvolved. Lymphovascular and perineural invasion identified. 1 out of 8 lymph nodes involved. Pathologic stage: T4aN1a, CEA 24.3 Patient never had colonoscopy 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, heme-onc following --Metastases to the liver Poor prognosis,Heme-onc following --Worsening transaminases; Probably secondary to liver mets,Closely monitor --Severe malnutrition/hypoproteinemia Dietary supplements and dietitian consult --Anemia acute on chronic Closely monitor H&H and transfuse as needed --obesity; BMI 38.7 Patient needs weight reduction when medically stable --DVT prophylaxis On SCDs , patient postop state with severe anemia Brief history and hospital course: 50-year-old male patient initially presented on 12/29/20 with perforated sigmoid mass likely neoplasm, status post exploratory laparotomy,, sigmoidectomy, end colostomy, peritoneal lavage. Patient has worsening renal function,Vas-Cath placement and initiated hemodialysis. He decided to leave AMA on 01/04/2021 but got readmitted on the same day. 01/05/21: Patient had low hemoglobin 5.3 today, elevated potassium and creatinine. Dialysis catheter was removed yesterday when Patient left AMA yesterday.. consulted vascular for permcath, ordered for PRBC transfusion. Follow CBC and BMP 01/06/21: Pathology report revealed moderately differentiated adenocarcinoma of sigmoid colon pathologic state T4aN1a. Status post vasCath placement today, drug use another unit of packed RBC -hemoglobin 6.4. Plan for hemodialysis, monitor CBC and BMP. Guarded prognosis 01/07/21; discussed with oncology. Patient need to follow-up with oncologist as outpatient to initiate definitive treatment for pulmonary adenocarcinoma. now Wait for renal function recovery. Continue to follow CBC and BMP. Try to call patient family but unable to reach out to them. 01/08/21: Continue to follow renal function, H&H stable. Continue supportive care monitor closely. Clinically remains volume overloaded. Plan for another hemodialysis today. Continue empiric antibiotics 01/09/21; continue full liquid diet, plan for hemodialysis tomorrow, continue to follow clinically. Very poor prognosis. Monitor CBC and BMP 01/10/21: s/p HD today. discussed with family by phone and with pt in front of RN. they all in agreement for home hospice and does not want any HD or chemother apy. CM ordered for home hospice setup. follow clinically. Subjective Date of service: 01/10/21 Interval history: Patient seen and examined. Medical records and medication list reviewed. No acute event overnight noted by the RN. Patient resting on bed, hemoglobin 7.2 today Discussed plan of care at bedside with patient's RN and also with the patient. Called patient but unable to reach out to her Objective - Exam Narrative Exam: General appearance: Present: no distress, well-nourished, obese - EENT Eyes: Present: PERRL, EOM intact - Neck Neck: Present: supple, normal ROM - Respiratory Respiratory effort: normal Respiratory: bilateral: diminished, negative: rales, rhonchi, wheezing - Cardiovascular Rhythm: regular Heart Sounds: Present: S1 & S2 - Extremities Extremities: no ischemia, No edema - Abdominal General gastrointestinal: Surgical dressing on place with abdominal drainage - Integumentary Integumentary: Present: clear, warm - Psychiatric Psychiatric: appropriate mood/affect, agitated (Sometimes agitated), other (Sometimes confused) - Neurologic Neurologic: moves all extremities - Constitutional Vitals: Vital Signs - 12hr 01/10/21 01/10/21 01/10/21 08:00 08:55 09:00 Temperature 98.6 F Pulse Rate 92 H 93 H Respiratory 18 Rate Blood Pressure 151/80 150/82 O2 Sat by Pulse 96 Oximetry O2 Sat by Pulse 97 Oximetry [ Anterior Bilateral Throughout] 01/10/21 01/10/21 01/10/21 09:15 09:30 09:45 Temperature Pulse Rate 92 H 92 H 95 H Respiratory Rate Blood Pressure 143/76 104/53 138/74 O2 Sat by Pulse Oximetry O2 Sat by Pulse Oximetry [ Anterior Bilateral Throughout] 01/10/21 01/10/21 01/10/21 10:00 10:15 10:30 Temperature Pulse Rate 88 90 91 H Respiratory Rate Blood Pressure 121/63 119/62 133/66 O2 Sat by Pulse Oximetry O2 Sat by Pulse Oximetry [ Anterior Bilateral Throughout] 01/10/21 01/10/21 01/10/21 10:45 11:00 11:15 Temperature Pulse Rate 104 H 84 98 H Respiratory Rate Blood Pressure 123/75 121/76 131/72 O2 Sat by Pulse Oximetry O2 Sat by Pulse Oximetry [ Anterior Bilateral Throughout] 01/10/21 01/10/21 01/10/21 11:30 11:45 12:00 Temperature Pulse Rate 94 H 90 103 H Respiratory Rate Blood Pressure 129/71 124/64 139/74 O2 Sat by Pulse Oximetry O2 Sat by Pulse Oximetry [ Anterior Bilateral Throughout] 01/10/21 01/10/21 01/10/21 12:15 12:25 12:45 Temperature 98.4 F Pulse Rate 98 H 101 H 96 H Respiratory 18 Rate Blood Pressure 138/56 134/73 125/68 O2 Sat by Pulse Oximetry O2 Sat by Pulse 97 Oximetry [ Anterior Bilateral Throughout] 01/10/21 15:00 Temperature Pulse Rate Respiratory Rate Blood Pressure O2 Sat by Pulse 95 Oximetry O2 Sat by Pulse Oximetry [ Anterior Bilateral Throughout] - Labs CBC & Chem 7: 01/10/21 13:27 01/10/21 07:46 Labs: Abnormal lab results 01/10/21 Range/Units 07:46 Carbon Dioxide 20 L (22-30) mmol/L BUN 55 H (9-20) mg/dL Creatinine 4.3 H (0.8-1.3) mg/dL Calcium 7.9 L (8.4-10.2) mg/dL Total Bilirubin 6.40 H (0.1-1.2) mg/dL AST 115 H (5-40) units/L ALT 62 H (7-56) units/L Alkaline Phosphatase 876 H (35-129) units/L Total Protein 5.7 L (6.3-8.2) g/dL Albumin 2.3 L (3.9-5) g/dL
[2021-01-10 16:26] LABS: Hemoglobin 7.4 gm/dl (11.8-15.2); Mean Corpuscular HGB Conc 32 % (32-34); Mean Corpuscular Volume 78 fl (84-94); Platelet Count 205 K/mm3 (140-440); Red Blood Count 2.94 M/mm3 (3.65-5.03)
[2021-01-10 16:42] LABS: Red Cell Distribution Width 21.8 % (13.2-15.2)
[2021-01-10] MEDS: PANTOPRAZOLE 40 MG INJ IV SCH (17:53)
--- NOTE | 2021-01-10 18:10 | Progress Note ---
Assessment and Plan 50-year-old man presents with perforated sigmoid mass likely neoplasm, status post exploratory laparotomy, sigmoidectomy, end colostomy, peritoneal lavage. # SHARMIN: Most likely secondary to ATN. Suspect severe tubular injury s/p extensive surgery + contrast use on 12/29. -Status post Vas-Cath placement on 01/03/2021 and initiation of dialysis . Patient had signed out AMA on 01/04/2021 and his Vas-Cath was removed. Patient was then readmitted. Status post Vas-Cath reinsertion 01/06/2021. Volume overload seems to be improving. No evidence of renal recovery at this time. - Continue HD mWF, assess daily for needs for additional sessions - Follow-up results of serologies to ensure no glomerular injury - no renal obstruction noted on prior CT; do note mass on kidney which may be related to underlying sigmoid mass - avoid nephrotoxins - renally dose meds - strict Is/Os-> currently non-oliguric but net positive # Metabolic Acidosis/Hyperkalemia: likely due to SHARMIN. Improving with HD. # Perforated Sigmoid Mass, Possible Colorectal Carcinoma, Metastasis to Liver: Note oncology consult; if chemotherapy is needed, suspect further kidney injury # Sepsis, Leukocytosis: likely related to bowel perforation, note antibiotics # Malnutrition Subjective Date of service: 01/10/21 Principal diagnosis: SHARMIN Interval history: Seen during HD, tolerating without complications Minimal UOP Objective - Exam Narrative Exam: General: No acute distress HEENT: Oral mucosa moist Neck: Supple, no JVD Chest: Clear to auscultation bilaterally Heart: RRR, S1 and S2, no pericardial rub Abdomen: Soft, nontender, no renal bruit Extremity: No peripheral cyanosis, edema Neurological: Alert, awake, no asterixis Dermatology: No skin rash Psych: No agitation Musculoskeletal: No joint effusion - Vital Signs Vital signs: Vital Signs - 12hr 01/10/21 01/10/21 01/10/21 08:00 08:55 09:00 Temperature 98.6 F Pulse Rate 92 H 93 H Respiratory 18 Rate Blood Pressure 151/80 150/82 O2 Sat by Pulse 96 Oximetry O2 Sat by Pulse 97 Oximetry [ Anterior Bilateral Throughout] 01/10/21 01/10/21 01/10/21 09:15 09:30 09:45 Temperature Pulse Rate 92 H 92 H 95 H Respiratory Rate Blood Pressure 143/76 104/53 138/74 O2 Sat by Pulse Oximetry O2 Sat by Pulse Oximetry [ Anterior Bilateral Throughout] 01/10/21 01/10/21 01/10/21 10:00 10:15 10:30 Temperature Pulse Rate 88 90 91 H Respiratory Rate Blood Pressure 121/63 119/62 133/66 O2 Sat by Pulse Oximetry O2 Sat by Pulse Oximetry [ Anterior Bilateral Throughout] 01/10/21 01/10/21 01/10/21 10:45 11:00 11:15 Temperature Pulse Rate 104 H 84 98 H Respiratory Rate Blood Pressure 123/75 121/76 131/72 O2 Sat by Pulse Oximetry O2 Sat by Pulse Oximetry [ Anterior Bilateral Throughout] 01/10/21 01/10/21 01/10/21 11:30 11:45 12:00 Temperature Pulse Rate 94 H 90 103 H Respiratory Rate Blood Pressure 129/71 124/64 139/74 O2 Sat by Pulse Oximetry O2 Sat by Pulse Oximetry [ Anterior Bilateral Throughout] 01/10/21 01/10/21 01/10/21 12:15 12:25 12:45 Temperature 98.4 F Pulse Rate 98 H 101 H 96 H Respiratory 18 Rate Blood Pressure 138/56 134/73 125/68 O2 Sat by Pulse Oximetry O2 Sat by Pulse 97 Oximetry [ Anterior Bilateral Throughout] 01/10/21 15:00 Temperature Pulse Rate Respiratory Rate Blood Pressure O2 Sat by Pulse 95 Oximetry O2 Sat by Pulse Oximetry [ Anterior Bilateral Throughout] - Lab 01/10/21 13:27 01/10/21 07:46 Most recent lab results Calcium 7.9 mg/dL (8.4-10.2) L 01/10/21 07:46 Magnesium 4.40 mg/dL (1.7-2.3) H 01/05/21 00:02 Medications & Allergies - Medications Allergies/Adverse Reactions: Allergies No Known Allergies Allergy (Verified 12/29/20 13:17) Home Medications: Home Medications Medication Instructions Recorded Confirmed Last Taken Type Tylenol Extra Strength 500 mg PO BID PRN 12/30/20 01/05/21 Unknown History Active Medications: Generic Name Dose Route Start Last Admin Trade Name Freq PRN Reason Stop Dose Admin Acetaminophen 650 mg 01/04/21 19:59 Acetaminophen 325 Mg Tab PO Q6H PRN Pain, Mild (1-3) Albuterol 2.5 mg 01/04/21 19:59 Albuterol 2.5 Mg/3 Ml Nebu IH Q4HRT PRN Shortness Of Breath Hydromorphone HCl 0.5 mg 01/04/21 19:59 01/07/21 10:05 Hydromorphone 1 Mg/1 Ml Inj IV 0.5 mg Q12H PRN Administration Pain , Severe (7-10) Metronidazole 500 mg in 100 mls @ 100 mls/hr 01/04/21 20:30 01/10/21 17:52 Flagyl 500 Mg/100 Ml IV 100 mls/hr Q8H JESSICA Administration Protocol Sodium Chloride 100 mls @ 999 mls/hr 01/05/21 10:00 Nacl 0.9% IV YRUI PRN Hypotension Cefepime HCl 1 gm in 100 mls @ 200 mls/hr 01/09/21 22:00 01/09/21 22:34 Cefepime/Ns 1 Gm/100 Ml IV 200 mls/hr HS JESSICA Administration Metoclopramide HCl 5 mg 01/08/21 13:00 01/10/21 17:53 Metoclopramide 10 Mg/2 Ml Inj IV 5 mg Q6H JESSICA Administration Ondansetron HCl 4 mg 01/04/21 19:59 Ondansetron 4 Mg/2 Ml Inj IV Q8H PRN Nausea And Vomiting Oxycodone/Acetaminophen 2 tab 01/05/21 18:55 01/09/21 00:24 Oxycodone /Acetaminophen 5-325mg Tab PO 2 tab Q6H PRN Administration Pain, Moderate (4-6) Pantoprazole Sodium 40 mg 01/07/21 15:00 01/10/21 17:53 Pantoprazole 40 Mg Inj IV 40 mg QDAY JESSICA Administration Sodium Chloride 10 ml 01/04/21 22:00 01/10/21 17:54 Sodium Chloride 0.9% 10 Ml Flush Syringe IV 10 ml BID JESSICA Administration Sodium Chloride 10 ml 01/04/21 19:59 Sodium Chloride 0.9% 10 Ml Flush Syringe IV PRN PRN LINE FLUSH
--- NOTE | 2021-01-10 18:32 | Progress Note ---
Assessment and Plan 50 yo M s/p exploratory laparotomy, sigmoidectomy, end colostomy, peritoneal lavage, POD 12 1. Perforated sigmoid cancer - stage IV 2. peritonitis 2/2 #1 3. sepsis 2/2 #1/2 4. liver mets 5. obesity 6. SHARMIN 7. anemia CT scan abdomen and pelvis 01/05/2021 images and report reviewed -interval resection of known sigmoid mass. Left renal mass concerning for carcinoma. No significant intra-abdominal fluid collection. 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 Macroscopic tumor perforation identified. Tumor invades visceral peritoneum. All margins are uninvolved. Lymphovascular and perineural invasion identified. 1 out of 8 lymph nodes involved. P athologic stage: T4aN1a CEA 24.3 Plan: 1. adv diet as tolerated, dietary supplements 2. Gentle IV fluids, per nephro 3. IV abx x14 days total 4. DVT ppx 5. prn pain and nausea control 6. daily labs 7. BARBI dced 8. colostomy care 9. Transfuse PRBC per 1' service Per CM notes, patient to go home with hospice. Will follow peripherally. Plan to remove davi next week if incision is healed. Very poor overall prognosis. Thank you, please call with questions. Evaluation and treatment of this patient was during the time of the national and state emergency arising from COVID19 coronavirus pandemic. Treatment and procedures performed meet the current and available best practice and guidelines for patient during the COVID pandemic. Subjective Date of service: 01/10/21 Narrative: Pt seen and examined. No complaints. Afebrile. Objective Vital Signs - 12hr 01/10/21 01/10/21 01/10/21 08:00 08:55 09:00 Temperature 98.6 F Pulse Rate 92 H 93 H Respiratory 18 Rate Blood Pressure 151/80 150/82 O2 Sat by Pulse 96 Oximetry O2 Sat by Pulse 97 Oximetry [ Anterior Bilateral Throughout] 01/10/21 01/10/21 01/10/21 09:15 09:30 09:45 Temperature Pulse Rate 92 H 92 H 95 H Respiratory Rate Blood Pressure 143/76 104/53 138/74 O2 Sat by Pulse Oximetry O2 Sat by Pulse Oximetry [ Anterior Bilateral Throughout] 01/10/21 01/10/21 01/10/21 10:00 10:15 10:30 Temperature Pulse Rate 88 90 91 H Respiratory Rate Blood Pressure 121/63 119/62 133/66 O2 Sat by Pulse Oximetry O2 Sat by Pulse Oximetry [ Anterior Bilateral Throughout] 01/10/21 01/10/21 01/10/21 10:45 11:00 11:15 Temperature Pulse Rate 104 H 84 98 H Respiratory Rate Blood Pressure 123/75 121/76 131/72 O2 Sat by Pulse Oximetry O2 Sat by Pulse Oximetry [ Anterior Bilateral Throughout] 01/10/21 01/10/21 01/10/21 11:30 11:45 12:00 Temperature Pulse Rate 94 H 90 103 H Respiratory Rate Blood Pressure 129/71 124/64 139/74 O2 Sat by Pulse Oximetry O2 Sat by Pulse Oximetry [ Anterior Bilateral Throughout] 01/10/21 01/10/21 01/10/21 12:15 12:25 12:45 Temperature 98.4 F Pulse Rate 98 H 101 H 96 H Respiratory 18 Rate Blood Pressure 138/56 134/73 125/68 O2 Sat by Pulse Oximetry O2 Sat by Pulse 97 Oximetry [ Anterior Bilateral Throughout] 01/10/21 15:00 Temperature Pulse Rate Respiratory Rate Blood Pressure O2 Sat by Pulse 95 Oximetry O2 Sat by Pulse Oximetry [ Anterior Bilateral Throughout] - General physical appearance Narrative Exam: Gen; Awake and alert. NAD ENT: + icterus CV: S1, S2+ resp: even and unlabored Abd: soft, obese, NT. midline incision with davi in place. Inferior/dependent portion of incision with moderate serous drainage. R sided BARBI serosang - dressing removed and skin suture cute, bulb taken off suction and BARBI removed. L colostomy pink with air and stool in bag. Barbi drain output: 110cc/24h - Labs 01/10/21 13:27 01/10/21 07:46 Diabetes panel 01/10/21 Range/Units 07:46 Sodium 138 (137-145) mmol/L Potassium 4.7 (3.6-5.0) mmol/L Chloride 98.0 (98-107) mmol/L Carbon Dioxide 20 L (22-30) mmol/L BUN 55 H (9-20) mg/dL Creatinine 4.3 H (0.8-1.3) mg/dL Glucose 94 (75-100) mg/dL Calcium 7.9 L (8.4-10.2) mg/dL AST 115 H (5-40) units/L ALT 62 H (7-56) units/L Alkaline Phosphatase 876 H (35-129) units/L Total Protein 5.7 L (6.3-8.2) g/dL Albumin 2.3 L (3.9-5) g/dL Calcium panel 01/10/21 Range/Units 07:46 Calcium 7.9 L (8.4-10.2) mg/dL Albumin 2.3 L (3.9-5) g/dL Pituitary panel 01/10/21 Range/Units 07:46 Sodium 138 (137-145) mmol/L Potassium 4.7 (3.6-5.0) mmol/L Chloride 98.0 (98-107) mmol/L Carbon Dioxide 20 L (22-30) mmol/L BUN 55 H (9-20) mg/dL Creatinine 4.3 H (0.8-1.3) mg/dL Glucose 94 (75-100) mg/dL Calcium 7.9 L (8.4-10.2) mg/dL Adrenal panel 01/10/21 Range/Units 07:46 Sodium 138 (137-145) mmol/L Potassium 4.7 (3.6-5.0) mmol/L Chloride 98.0 (98-107) mmol/L Carbon Dioxide 20 L (22-30) mmol/L BUN 55 H (9-20) mg/dL Creatinine 4.3 H (0.8-1.3) mg/dL Glucose 94 (75-100) mg/dL Calcium 7.9 L (8.4-10.2) mg/dL Total Bilirubin 6.40 H (0.1-1.2) mg/dL AST 115 H (5-40) units/L ALT 62 H (7-56) units/L Alkaline Phosphatase 876 H (35-129) units/L Total Protein 5.7 L (6.3-8.2) g/dL Albumin 2.3 L (3.9-5) g/dL
[2021-01-10 21:12] LABS: Total Cells Counted 100
[2021-01-10 21:13] LABS: Anisocytosis 1+; Hypochromasia 1+
[2021-01-10 21:14] LABS: Ovalocytes Few; Platelet Estimate Consistent w Auto; Target Cells 1+
[2021-01-10] MEDS: CEFEPIME/NS 1 GM/100 ML 1 GM/100 ML BAG IV SCH (21:57)
[2021-01-11] MEDS: METOCLOPRAMIDE 10 MG/2 ML INJ IV SCH ×4 (01:50→20:44)
--- NOTE | 2021-01-11 07:58 | Progress Note ---
Assessment and Plan Assessment and plan: --Acute kidney injury; worsening renal function Worsening renal function likely due to contrast-induced nephropathy, Also associated with metabolic acidosis, hyperkalemia Nephrology initiated dialysis, s/p vas-Cath placement Monitor BMP, supportive care --Hyperkalemia, resolved continue to treat medically, HD per renal --perforated sigmoid mass --s/p exploratory laparotomy/sigmoidectomy/colostomy/peritoneal lavage IV fluids IV antibiotics, IV Protonix, Pain medications, Out of bed to chair, PT --Gram-negative sepsis Sepsis in the setting of high white count and bowel perforation -- Continue IV antibiotics, follow cultures ID consult if needed --Surgical cultures gram-negative rods Currently on Zosyn, follow culture sensitivities ID consult if needed --Colorectal carcinoma Pathology: Sigmoid colon, sigmoidectomy: 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 Macroscopic tumor perforation identified. Tumor invades visceral peritoneum. All margins are uninvolved. Lymphovascular and perineural invasion identified. 1 out of 8 lymph nodes involved. Pathologic stage: T4aN1a, CEA 24.3 Patient never had colonoscopy 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, heme-onc following --Metastases to the liver Poor prognosis,Heme-onc following --Worsening transaminases; Probably secondary to liver mets,Closely monitor --Severe malnutrition/hypoproteinemia Dietary supplements and dietitian consult --Anemia acute on chronic Closely monitor H&H and transfuse as needed --obesity; BMI 38.7 Patient needs weight reduction when medically stable --DVT prophylaxis On SCDs , patient postop state with severe anemia Television Announcer recommendations noted and appreciated Discussed in detail with the case management regarding discharge planning Planning home hospice and discontinuing hemodialysis however patient did not agree for that plan He showed interest to continue hemodialysis as well as chemotherapy We will continue to follow the patient for safe discharge planning Brief history and hospital course: 50-year-old male patient initially presented on 12/29/20 with perforated sigmoid mass likely neoplasm, status post exploratory laparotomy,, sigmoidectomy, end colostomy, peritoneal lavage. Patient has worsening renal function,Vas-Cath placement and initiated hemodialysis. He decided to leave AMA on 01/04/2021 but got readmitted on the same day. 01/05/21: Patient had low hemoglobin 5.3 today, elevated potassium and creatinine. Dialysis catheter was removed yesterday when Patient left AMA yesterday.. consulted vascular for permcath, ordered for PRBC transfusion. Fol low CBC and BMP 01/06/21: Pathology report revealed moderately differentiated adenocarcinoma of sigmoid colon pathologic state T4aN1a. Status post vasCath placement today, drug use another unit of packed RBC -hemoglobin 6.4. Plan for hemodialysis, monitor CBC and BMP. Guarded prognosis 01/07/21; discussed with oncology. Patient need to follow-up with oncologist as outpatient to initiate definitive treatment for pulmonary adenocarcinoma. now Wait for renal function recovery. Continue to follow CBC and BMP. Try to call patient family but unable to reach out to them. 01/08/21: Continue to follow renal function, H&H stable. Continue supportive care monitor closely. Clinically remains volume overloaded. Plan for another hemodialysis today. Continue empiric antibiotics 01/09/21; continue full liquid diet, plan for hemodialysis tomorrow, continue to follow clinically. Very poor prognosis. Monitor CBC and BMP 01/10/21: s/p HD today. discussed with family by phone and with pt in front of RN. they all in agreement for home hospice and does not want any HD or chemotherapy. CM ordered for home hospice setup. follow clinically. 01/11/2021; awaiting discharge home with hospice, very poor prognosis, full CODE STATUS However when the hospice personnel discuss with the patient, patient stated that he wants to continue with hemodialysis as well as chemotherapy. We will continue to follow History Interval history: I have seen and examined the patient at the bedside Patient's chart and medications reviewed Patient is receiving physical therapy Patient reports no new complaints Hospitalist Physical - Constitutional Vitals: Temp Pulse Resp BP Pulse Ox 97.5 F L 97 H 20 122/60 94 01/10/21 23:18 01/10/21 23:18 01/10/21 23:18 01/10/21 23:18 01/10/21 23:18 General appearance: Present: no acute distress, well-nourished, obese (Morbidly obese) - EENT Eyes: Present: PERRL, EOM intact - Neck Neck: Present: supple, normal ROM - Respiratory Respiratory effort: normal Respiratory: bilateral: diminished, negative: rales, rhonchi, wheezing - Cardiovascular Rhythm: regular Heart Sounds: Present: S1 & S2 - Extremities Extremities: no ischemia Extremity abnormal: edema - Abdominal General gastrointestinal: soft, non-tender, normal bowel sounds, other (Surgical dressing in place/colostomy intact) - Integumentary Integumentary: Present: clear, warm - Psychiatric Psychiatric: appropriate mood/affect, cooperative - Neurologic Neurologic: moves all extremities Results - Labs CBC & Chem 7: 01/10/21 13:27 01/11/21 07:35 Labs: Laboratory Last Values WBC 32.9 K/mm3 (4.5-11.0) H 01/10/21 13:27 RBC 2.94 M/mm3 (3.65-5.03) L 01/10/21 13:27 Hgb 7.4 gm/dl (11.8-15.2) L 01/10/21 13:27 Hct 23.0 % (35.5-45.6) L 01/10/21 13:27 MCV 78 fl (84-94) L 01/10/21 13:27 MCH 25 pg (28-32) L 01/10/21 13:27 MCHC 32 % (32-34) 01/10/21 13:27 RDW 21.8 % (13.2-15.2) H 01/10/21 13:27 Plt Count 205 K/mm3 (140-440) 01/10/21 13:27 Add Manual Diff Complete 01/10/21 13:27 Total Counted 100 01/10/21 13:27 Seg Neutrophils % President And Ceo 01/10/21 13:27 Seg Neuts % (Manual) 95.0 % (40.0-70.0) H 01/10/21 13:27 Band Neutrophils % 2.5 % 01/08/21 04:57 Lymphocytes % (Manual) 5.0 % (13.4-35.0) L 01/10/21 13:27 Monocytes % (Manual) 4.0 % (0.0-7.3) 01/08/21 04:57 Eosinophils % (Manual) 1.0 % (0.0-4.3) 01/05/21 00:02 Basophils % (Manual) 1.0 % (0.0-1.8) 01/05/21 00:02 Metamyelocytes % 1.0 % 01/08/21 04:57 Myelocytes % 2.0 % 01/06/21 05:43 Nucleated RBC % Not Reportable 01/10/21 13:27 Seg Neutrophils # Man 31.3 K/mm3 (1.8-7.7) H 01/10/21 13:27 Band Neutrophils # 0.0 K/mm3 01/10/21 13:27 Lymphocytes # (Manual) 1.6 K/mm3 (1.2-5.4) 01/10/21 13:27 Abs React Lymphs (Man) 0.0 K/mm3 01/10/21 13:27 Monocytes # (Manual) 0.0 K/mm3 (0.0-0.8) 01/10/21 13:27 Eosinophils # (Manual) 0.0 K/mm3 (0.0-0.4) 01/10/21 13:27 Basophils # (Manual) 0.0 K/mm3 (0.0-0.1) 01/10/21 13:27 Metamyelocytes # 0.0 K/mm3 01/10/21 13:27 Myelocytes # 0.0 K/mm3 01/10/21 13:27 Promyelocytes # 0.0 K/mm3 01/10/21 13:27 Blast Cells # 0.0 K/mm3 01/10/21 13:27 WBC Morphology Not Reportable 01/10/21 13:27 Hypersegmented Neuts Not Reportable 01/10/21 13:27 Hyposegmented Neuts Not Reportable 01/10/21 13:27 Hypogranular Neuts Not Reportable 01/10/21 13:27 Smudge Cells Not Reportable 01/10/21 13:27 Toxic Granulation Not Reportable 01/10/21 13:27 Toxic Vacuolation Not Reportable 01/10/21 13:27 Dohle Bodies Not Reportable 01/10/21 13:27 Pelger-Huet Anomaly Not Reportable 01/10/21 13:27 Janene Rods Not Reportable 01/10/21 13:27 Platelet Estimate Consistent w auto 01/10/21 13:27 Clumped Platelets Not Reportable 01/10/21 13:27 Plt Clumps, EDTA Not Reportable 01/10/21 13:27 Large Platelets Not Reportable 01/10/21 13:27 Giant Platelets Not Reportable 01/10/21 13:27 Platelet Satelliting Not Reportable 01/10/21 13:27 Plt Morphology Comment Not Reportable 01/10/21 13:27 RBC Morphology Not Reportable 01/10/21 13:27 Dimorphic RBCs Not Reportable 01/10/21 13:27 Polychromasia Not Reportable 01/10/21 13:27 Hypochromasia 1+ 01/10/21 13:27 Poikilocytosis Not Reportable 01/10/21 13:27 Anisocytosis 1+ 01/10/21 13:27 Microcytosis Not Reportable 01/10/21 13:27 Macrocytosis Not Reportable 01/10/21 13:27 Spherocytes Not Reportable 01/10/21 13:27 Pappenheimer Bodies Not Reportable 01/10/21 13:27 Sickle Cells Not Reportable 01/10/21 13:27 Target Cells 1+ 01/10/21 13:27 Tear Drop Cells Not Reportable 01/10/21 13:27 Ovalocytes Few 01/10/21 13:27 Helmet Cells Not Reportable 01/10/21 13:27 Ronquillo-Modena Bodies Not Reportable 01/10/21 13:27 Martin Rings Not Reportable 01/10/21 13:27 Ankur Cells Not Reportable 01/10/21 13:27 Bite Cells Not Reportable 01/10/21 13:27 Crenated Cell Not Reportable 01/10/21 13:27 Elliptocytes Not Reportable 01/10/21 13:27 Acanthocytes (Spur) Not Reportable 01/10/21 13:27 Rouleaux Not Reportable 01/10/21 13:27 Hemoglobin C Crystals Not Reportable 01/10/21 13:27 Schistocytes Not Reportable 01/10/21 13:27 Malaria parasites Not Reportable 01/10/21 13:27 Percent Retic 3.75 % (0.78-2.58) H 01/07/21 05:00 Atul Bodies Not Reportable 01/10/21 13:27 Hem Pathologist Commnt No 01/10/21 13:27 PT 18.0 Sec. (12.2-14.9) H 01/06/21 09:16 INR 1.35 (0.87-1.13) H 01/06/21 09:16 Sodium 138 mmol/L (137-145) 01/10/21 07:46 Potassium 4.7 mmol/L (3.6-5.0) 01/10/21 07:46 Chloride 98.0 mmol/L (98-107) 01/10/21 07:46 Carbon Dioxide 20 mmol/L (22-30) L 01/10/21 07:46 Anion Gap 25 mmol/L 01/10/21 07:46 BUN 55 mg/dL (9-20) H 01/10/21 07:46 Creatinine 4.3 mg/dL (0.8-1.3) H 01/10/21 07:46 Estimated GFR 15 ml/min 01/10/21 07:46 BUN/Creatinine Ratio 13 % 01/10/21 07:46 Glucose 94 mg/dL (75-100) 01/10/21 07:46 Lactic Acid 1.80 mmol/L (0.7-2.0) 01/05/21 09:51 Calcium 7.9 mg/dL (8.4-10.2) L 01/10/21 07:46 Magnesium 4.40 mg/dL (1.7-2.3) H 01/05/21 00:02 Total Bilirubin 6.40 mg/dL (0.1-1.2) H 01/10/21 07:46 Direct Bilirubin 5.0 mg/dL (0-0.2) H 01/08/21 Unknown AST 115 units/L (5-40) H 01/10/21 07:46 ALT 62 units/L (7-56) H 01/10/21 07:46 Alkaline Phosphatase 876 units/L (35-129) H 01/10/21 07:46 Lactate Dehydrogenase 1199 units/L (91-180) H 01/07/21 05:00 Total Creatine Kinase 340 units/L (55-170) H 01/05/21 00:02 Total Protein 5.7 g/dL (6.3-8.2) L 01/10/21 07:46 Albumin 2.3 g/dL (3.9-5) L 01/10/21 07:46 Albumin/Globulin Ratio 0.7 % 01/10/21 07:46 Blood Type A POSITIVE 01/05/21 00:02 Antibody Screen Negative 01/05/21 00:02 Crossmatch See Detail 01/05/21 00:02 Santiago/IV: Voiding Method Condom Catheter Active Medications - Current Medications Current Medications: Generic Name Dose Route Start Last Admin Trade Name Freq PRN Reason Stop Dose Admin Acetaminophen 650 mg 01/04/21 19:59 Acetaminophen 325 Mg Tab PO Q6H PRN Pain, Mild (1-3) Albuterol 2.5 mg 01/04/21 19:59 Albuterol 2.5 Mg/3 Ml Nebu IH Q4HRT PRN Shortness Of Breath Hydromorphone HCl 0.5 mg 01/04/21 19:59 01/07/21 10:05 Hydromorphone 1 Mg/1 Ml Inj IV 0.5 mg Q12H PRN Administration Pain , Severe (7-10) Sodium Chloride 100 mls @ 999 mls/hr 01/05/21 10:00 Nacl 0.9% IV YURI PRN Hypotension Cefepime HCl 1 gm in 100 mls @ 200 mls/hr 01/09/21 22:00 01/10/21 21:57 Cefepime/Ns 1 Gm/100 Ml IV 200 mls/hr HS JESSICA Administration Metoclopramide HCl 5 mg 01/08/21 13:00 01/11/21 01:50 Metoclopramide 10 Mg/2 Ml Inj IV 5 mg Q6H JESSICA Administration Ondansetron HCl 4 mg 01/04/21 19:59 Ondansetron 4 Mg/2 Ml Inj IV Q8H PRN Nausea And Vomiting Oxycodone/Acetaminophen 2 tab 01/05/21 18:55 01/09/21 00:24 Oxycodone /Acetaminophen 5-325mg Tab PO 2 tab Q6H PRN Administration Pain, Moderate (4-6) Pantoprazole Sodium 40 mg 01/07/21 15:00 01/10/21 17:53 Pantoprazole 40 Mg Inj IV 40 mg QDAY JESSICA Administration Sodium Chloride 10 ml 01/04/21 22:00 01/10/21 21:57 Sodium Chloride 0.9% 10 Ml Flush Syringe IV 10 ml BID JESSICA Administration Sodium Chloride 10 ml 01/04/21 19:59 Sodium Chloride 0.9% 10 Ml Flush Syringe IV PRN PRN LINE FLUSH
--- NOTE | 2021-01-11 08:35 | Hem/Onc Progress Note ---
Subjective Date of service: 01/11/21 Interval history: Heme followup note Televisit via [facility] CPT 68481 Dx Colon mass This is a 50yo male who presented to the ER 12/29/20 with diffuse abdominal pain and distention CT abd/pelvis c/w mid sigmoid mass suggesting colorectal carcinoma with erosion/bowel perforation, adjacent adenopathy and innumerable liver metastatic lesions S/p exploratory laparotomy, sigmoidectomy, end colectomy, peritoneal lavage Dx with perforated sigmoid mass with liver mets and peritonitis New renal failure, possibly due to contrast nephropathy Hemodialysis started while inpatient On 01/04-- patient was noted with hgb 5, orders for 2 units RBC transfusions, patient refused transfusions and left hospital AMA Pt returned to hospital a few hours later Patient refusing hemodialysis and chemotherapy DATA REVIEWED BELOW IMP: New metastatic colon cancer with liver metastasis Anemia possibly related to hemolytic anemia , or malignancy Abd/pelvis CT c/w renal mass, metastatic vs second primary-- not as important as liver metastasis no active bleed revealed in CT Pathology: Sigmoid colon, sigmoidectomy: 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 Macroscopic tumor perforation identified. Tumor invades visceral peritoneum. All margins are uninvolved. Lymphovascular and perineural invasion identified. 1 out of 8 lymph nodes involved. Pathologic stage: T4aN1a REC/PLAN: Transfuse 1 unit RBC whenever hct<23 Outpatient chemotherapy is an option, although overall poor prognosis Patient and family have decided on home hospice Discharge with home hospice pending Laboratory Last Values WBC 32.9 K/mm3 (4.5-11.0) H 01/10/21 13:27 RBC 2.94 M/mm3 (3.65-5.03) L 01/10/21 13:27 Hgb 7.4 gm/dl (11.8-15.2) L 01/10/21 13:27 Hct 23.0 % (35.5-45.6) L 01/10/21 13:27 MCV 78 fl (84-94) L 01/10/21 13:27 MCH 25 pg (28-32) L 01/10/21 13:27 MCHC 32 % (32-34) 01/10/21 13:27 RDW 21.8 % (13.2-15.2) H 01/10/21 13:27 Plt Count 205 K/mm3 (140-440) 01/10/21 13:27 Add Manual Diff Complete 01/10/21 13:27 Total Counted 100 01/10/21 13:27 Seg Neutrophils % Lcac Operator 01/10/21 13:27 Seg Neuts % (Manual) 95.0 % (40.0-70.0) H 01/10/21 13:27 Band Neutrophils % 2.5 % 01/08/21 04:57 Lymphocytes % (Manual) 5.0 % (13.4-35.0) L 01/10/21 13:27 Monocytes % (Manual) 4.0 % (0.0-7.3) 01/08/21 04:57 Eosinophils % (Manual) 1.0 % (0.0-4.3) 01/05/21 00:02 Basophils % (Manual) 1.0 % (0.0-1.8) 01/05/21 00:02 Metamyelocytes % 1.0 % 01/08/21 04:57 Myelocytes % 2.0 % 01/06/21 05:43 Nucleated RBC % Not Reportable 01/10/21 13:27 Seg Neutrophils # Man 31.3 K/mm3 (1.8-7.7) H 01/10/21 13:27 Band Neutrophils # 0.0 K/mm3 01/10/21 13:27 Lymphocytes # (Manual) 1.6 K/mm3 (1.2-5.4) 01/10/21 13:27 Abs React Lymphs (Man) 0.0 K/mm3 01/10/21 13:27 Monocytes # (Manual) 0.0 K/mm3 (0.0-0.8) 01/10/21 13:27 Eosinophils # (Manual) 0.0 K/mm3 (0.0-0.4) 01/10/21 13:27 Basophils # (Manual) 0.0 K/mm3 (0.0-0.1) 01/10/21 13:27 Metamyelocytes # 0.0 K/mm3 01/10/21 13:27 Myelocytes # 0.0 K/mm3 01/10/21 13:27 Promyelocytes # 0.0 K/mm3 01/10/21 13:27 Blast Cells # 0.0 K/mm3 01/10/21 13:27 WBC Morphology Not Reportable 01/10/21 13:27 Hypersegmented Neuts Not Reportable 10/18/21 13:27 Hyposegmented Neuts Not Reportable 01/10/21 13:27 Hypogranular Neuts Not Reportable 01/10/21 13:27 Smudge Cells Not Reportable 01/10/21 13:27 Toxic Granulation Not Reportable 01/10/21 13:27 Toxic Vacuolation Not Reportable 01/10/21 13:27 Dohle Bodies Not Reportable 01/10/21 13:27 Pelger-Huet Anomaly Not Reportable 01/10/21 13:27 Janene Rods Not Reportable 01/10/21 13:27 Platelet Estimate Consistent w auto 01/10/21 13:27 Clumped Platelets Not Reportable 01/10/21 13:27 Plt Clumps, EDTA Not Reportable 01/10/21 13:27 Large Platelets Not Reportable 01/10/21 13:27 Giant Platelets Not Reportable 01/10/21 13:27 Platelet Satelliting Not Reportable 01/10/21 13:27 Plt Morphology Comment Not Reportable 01/10/21 13:27 RBC Morphology Not Reportable 01/10/21 13:27 Dimorphic RBCs Not Reportable 01/10/21 13:27 Polychromasia Not Reportable 01/10/21 13:27 Hypochromasia 1+ 01/10/21 13:27 Poikilocytosis Not Reportable 01/10/21 13:27 Anisocytosis 1+ 01/10/21 13:27 Microcytosis Not Reportable 01/10/21 13:27 Macrocytosis Not Reportable 01/10/21 13:27 Spherocytes Not Reportable 01/10/21 13:27 Pappenheimer Bodies Not Reportable 01/10/21 13:27 Sickle Cells Not Reportable 01/10/21 13:27 Target Cells 1+ 01/10/21 13:27 Tear Drop Cells Not Reportable 01/10/21 13:27 Ovalocytes Few 01/10/21 13:27 Helmet Cells Not Reportable 01/10/21 13:27 Ronquillo-Gonvick Bodies Not Reportable 01/10/21 13:27 Dale Rings Not Reportable 01/10/21 13:27 Ankur Cells Not Reportable 01/10/21 13:27 Bite Cells Not Reportable 01/10/21 13:27 Crenated Cell Not Reportable 01/10/21 13:27 Elliptocytes Not Reportable 01/10/21 13:27 Acanthocytes (Spur) Not Reportable 01/10/21 13:27 Rouleaux Not Reportable 01/10/21 13:27 Hemoglobin C Crystals Not Reportable 01/10/21 13:27 Schistocytes Not Reportable 01/10/21 13:27 Malaria parasites Not Reportable 01/10/21 13:27 Percent Retic 3.75 % (0.78-2.58) H 01/07/21 05:00 Atul Bodies Not Reportable 01/10/21 13:27 Hem Pathologist Commnt No 01/10/21 13:27 PT 18.0 Sec. (12.2-14.9) H 01/06/21 09:16 INR 1.35 (0.87-1.13) H 01/06/21 09:16 Sodium 138 mmol/L (137-145) 01/10/21 07:46 Potassium 4.7 mmol/L (3.6-5.0) 01/10/21 07:46 Chloride 98.0 mmol/L (98-107) 01/10/21 07:46 Carbon Dioxide 22 mmol/L (22-30) 01/11/21 07:35 Anion Gap 25 mmol/L 01/10/21 07:46 BUN 40 mg/dL (9-20) H 01/11/21 07:35 Creatinine 4.3 mg/dL (0.8-1.3) H 01/10/21 07:46 Estimated GFR 15 ml/min 01/10/21 07:46 BUN/Creatinine Ratio 13 % 01/10/21 07:46 Glucose 88 mg/dL (75-100) 01/11/21 07:35 Lactic Acid 1.80 mmol/L (0.7-2.0) 01/05/21 09:51 Calcium 8.0 mg/dL (8.4-10.2) L 01/11/21 07:35 Magnesium 4.40 mg/dL (1.7-2.3) H 01/05/21 00:02 Total Bilirubin 6.40 mg/dL (0.1-1.2) H 01/10/21 07:46 Direct Bilirubin 5.0 mg/dL (0-0.2) H 01/08/21 Unknown AST 115 units/L (5-40) H 01/10/21 07:46 ALT 62 units/L (7-56) H 01/10/21 07:46 Alkaline Phosphatase 876 units/L (35-129) H 01/10/21 07:46 Lactate Dehydrogenase 1199 units/L (91-180) H 01/07/21 05:00 Total Creatine Kinase 340 units/L (55-170) H 01/05/21 00:02 Total Protein 5.7 g/dL (6.3-8.2) L 01/10/21 07:46 Albumin 2.3 g/dL (3.9-5) L 01/10/21 07:46 Albumin/Globulin Ratio 0.7 % 01/10/21 07:46 Blood Type A POSITIVE 01/05/21 00:02 Antibody Screen Negative 01/05/21 00:02 Crossmatch See Detail 01/05/21 00:02 Objective - Constitutional Vitals: Last Vital Signs Temp 97.5 F L 01/10/21 23:18 Pulse 97 H 01/10/21 23:18 Resp 20 01/10/21 23:18 BP 122/60 01/10/21 23:18 Pulse Ox 94 01/10/21 23:18 - Labs Lab Results: Laboratory Results - last 24 hr 01/10/21 01/10/21 01/11/21 07:46 13:27 07:35 WBC 32.9 H RBC 2.94 L Hgb 7.4 L Hct 23.0 L MCV 78 L MCH 25 L MCHC 32 RDW 21.8 H Plt Count 205 Add Manual Diff Complete Total Counted 100 Seg Neutrophils % Lcac Operator Seg Neuts % (Manual) 95.0 H Lymphocytes % (Manual) 5.0 L Nucleated RBC % Not Reportable Seg Neutrophils # Man 31.3 H Band Neutrophils # 0.0 Lymphocytes # (Manual) 1.6 Abs React Lymphs (Man) 0.0 Monocytes # (Manual) 0.0 Eosinophils # (Manual) 0.0 Basophils # (Manual) 0.0 Metamyelocytes # 0.0 Myelocytes # 0.0 Promyelocytes # 0.0 Blast Cells # 0.0 WBC Morphology Not Reportable Hypersegmented Neuts Not Reportable Hyposegmented Neuts Not Reportable Hypogranular Neuts Not Reportable Smudge Cells Not Reportable Toxic Granulation Not Reportable Toxic Vacuolation Not Reportable Dohle Bodies Not Reportable Pelger-Huet Anomaly Not Reportable Janene Rods Not Reportable Platelet Estimate Consistent w auto Clumped Platelets Not Reportable Plt Clumps, EDTA Not Reportable Large Platelets Not Reportable Giant Platelets Not Reportable Platelet Satelliting Not Reportable Plt Morphology Comment Not Reportable RBC Morphology Not Reportable Dimorphic RBCs Not Reportable Polychromasia Not Reportable Hypochromasia 1+ Poikilocytosis Not Reportable Anisocytosis 1+ Microcytosis Not Reportable Macrocytosis Not Reportable Spherocytes Not Reportable Pappenheimer Bodies Not Reportable Sickle Cells Not Reportable Target Cells 1+ Tear Drop Cells Not Reportable Ovalocytes Few Helmet Cells Not Reportable Ronquillo-Gonvick Bodies Not Reportable Dale Rings Not Reportable Ankur Cells Not Reportable Bite Cells Not Reportable Crenated Cell Not Reportable Elliptocytes Not Reportable Acanthocytes (Spur) Not Reportable Rouleaux Not Reportable Hemoglobin C Crystals Not Reportable Schistocytes Not Reportable Malaria parasites Not Reportable Atul Bodies Not Reportable Hem Pathologist Commnt No Sodium 138 Potassium 4.7 Chloride 98.0 Carbon Dioxide 20 L 22 Anion Gap 25 BUN 55 H 40 H Creatinine 4.3 H Estimated GFR 15 BUN/Creatinine Ratio 13 Glucose 94 88 Calcium 7.9 L 8.0 L Total Bilirubin 6.40 H AST 115 H ALT 62 H Alkaline Phosphatase 876 H Total Protein 5.7 L Albumin 2.3 L Albumin/Globulin Ratio 0.7 Medications & Allergies - Medications Allergies/Adverse Reactions: Allergies No Known Allergies Allergy (Verified 12/29/20 13:17) Home Medications: Home Medications Medication Instructions Recorded Confirmed Last Taken Type Tylenol Extra Strength 500 mg PO BID PRN 12/30/20 01/05/21 Unknown History Active Medications: Generic Name Dose Route Start Last Admin Trade Name Freq PRN Reason Stop Dose Admin Acetaminophen 650 mg 01/04/21 19:59 Acetaminophen 325 Mg Tab PO Q6H PRN Pain, Mild (1-3) Albuterol 2.5 mg 01/04/21 19:59 Albuterol 2.5 Mg/3 Ml Nebu IH Q4HRT PRN Shortness Of Breath Hydromorphone HCl 0.5 mg 01/04/21 19:59 01/07/21 10:05 Hydromorphone 1 Mg/1 Ml Inj IV 0.5 mg Q12H PRN Administration Pain , Severe (7-10) Sodium Chloride 100 mls @ 999 mls/hr 01/05/21 10:00 Nacl 0.9% IV YURI PRN Hypotension Cefepime HCl 1 gm in 100 mls @ 200 mls/hr 01/09/21 22:00 01/10/21 21:57 Cefepime/Ns 1 Gm/100 Ml IV 200 mls/hr HS JESSICA Administration Metoclopramide HCl 5 mg 01/08/21 13:00 01/11/21 01:50 Metoclopramide 10 Mg/2 Ml Inj IV 5 mg Q6H JESSICA Administration Ondansetron HCl 4 mg 01/04/21 19:59 Ondansetron 4 Mg/2 Ml Inj IV Q8H PRN Nausea And Vomiting Oxycodone/Acetaminophen 2 tab 01/05/21 18:55 01/09/21 00:24 Oxycodone /Acetaminophen 5-325mg Tab PO 2 tab Q6H PRN Administration Pain, Moderate (4-6) Pantoprazole Sodium 40 mg 01/07/21 15:00 01/10/21 17:53 Pantoprazole 40 Mg Inj IV 40 mg QDAY JESSICA Administration Sodium Chloride 10 ml 01/04/21 22:00 01/10/21 21:57 Sodium Chloride 0.9% 10 Ml Flush Syringe IV 10 ml BID JESSICA Administration Sodium Chloride 10 ml 01/04/21 19:59 Sodium Chloride 0.9% 10 Ml Flush Syringe IV PRN PRN LINE FLUSH
--- NOTE | 2021-01-11 17:04 | Progress Note ---
Assessment and Plan 50-year-old man presents with perforated sigmoid mass likely neoplasm, status post exploratory laparotomy, sigmoidectomy, end colostomy, peritoneal lavage. # SHARMIN: Most likely secondary to ATN. Suspect severe tubular injury s/p extensive surgery + contrast use on 12/29. -Status post Vas-Cath placement on 01/03/2021 and initiation of dialysis . Patient had signed out AMA on 01/04/2021 and his Vas-Cath was removed. Patient was then readmitted. Status post Vas-Cath reinsertion 01/06/2021. Volume overload seems to be improving. No evidence of renal recovery at this time. - S/p HD yesterday - Plan for hospice noted, patient plans to not pursue further sessions of HD or initiation of chemotherapy. - Please remove vasc cath # Metabolic Acidosis/Hyperkalemia: likely due to SHARMIN. Improved with HD. # Perforated Sigmoid Mass, Possible Colorectal Carcinoma, Metastasis to Liver: Note oncology consult and patient's plan not to pursue chemotherapy # Sepsis, Leukocytosis: likely related to bowel perforation, note antibiotics # Malnutrition # Will sign off. Please call with questions. Subjective Date of service: 01/11/21 Principal diagnosis: Metatstatic colon cancer Interval history: No complications with HD Objective - Exam Narrative Exam: General: No acute distress HEENT: Oral mucosa moist Neck: Supple, no JVD Chest: Clear to auscultation bilaterally Heart: RRR, S1 and S2, no pericardial rub Abdomen: Soft, nontender, no renal bruit Extremity: No peripheral cyanosis, edema Neurological: Alert, awake, no asterixis Dermatology: No skin rash Psych: No agitation Musculoskeletal: No joint effusion - Lab 01/10/21 13:27 01/11/21 07:35 Most recent lab results Calcium 8.0 mg/dL (8.4-10.2) L 01/11/21 07:35 Magnesium 4.40 mg/dL (1.7-2.3) H 01/05/21 00:02 Medications & Allergies - Medications Allergies/Adverse Reactions: Allergies No Known Allergies Allergy (Verified 12/29/20 13:17) Home Medications: Home Medications Medication Instructions Recorded Confirmed Last Taken Type Tylenol Extra Strength 500 mg PO BID PRN 12/30/20 01/05/21 Unknown History Active Medications: Generic Name Dose Route Start Last Admin Trade Name Freq PRN Reason Stop Dose Admin Acetaminophen 650 mg 01/04/21 19:59 Acetaminophen 325 Mg Tab PO Q6H PRN Pain, Mild (1-3) Albuterol 2.5 mg 01/04/21 19:59 Albuterol 2.5 Mg/3 Ml Nebu IH Q4HRT PRN Shortness Of Breath Hydromorphone HCl 0.5 mg 01/04/21 19:59 01/07/21 10:05 Hydromorphone 1 Mg/1 Ml Inj IV 0.5 mg Q12H PRN Administration Pain , Severe (7-10) Sodium Chloride 100 mls @ 999 mls/hr 01/05/21 10:00 Nacl 0.9% IV YURI PRN Hypotension Cefepime HCl 1 gm in 100 mls @ 200 mls/hr 01/09/21 22:00 01/10/21 21:57 Cefepime/Ns 1 Gm/100 Ml IV 01/13/21 22:29 200 mls/hr HS JESSICA Administration Metoclopramide HCl 5 mg 01/08/21 13:00 01/11/21 01:50 Metoclopramide 10 Mg/2 Ml Inj IV 5 mg Q6H JESSICA Administration Ondansetron HCl 4 mg 01/04/21 19:59 Ondansetron 4 Mg/2 Ml Inj IV Q8H PRN Nausea And Vomiting Oxycodone/Acetaminophen 2 tab 01/05/21 18:55 01/09/21 00:24 Oxycodone /Acetaminophen 5-325mg Tab PO 2 tab Q6H PRN Administration Pain, Moderate (4-6) Pantoprazole Sodium 40 mg 01/07/21 15:00 01/10/21 17:53 Pantoprazole 40 Mg Inj IV 40 mg QDAY JESSICA Administration Sodium Chloride 10 ml 01/04/21 22:00 01/10/21 21:57 Sodium Chloride 0.9% 10 Ml Flush Syringe IV 10 ml BID JESSICA Administration Sodium Chloride 10 ml 01/04/21 19:59 Sodium Chloride 0.9% 10 Ml Flush Syringe IV PRN PRN LINE FLUSH
[2021-01-11] MEDS: PANTOPRAZOLE 40 MG INJ IV SCH (17:38)
[2021-01-11] MEDS: CEFEPIME/NS 1 GM/100 ML 1 GM/100 ML BAG IV SCH (21:24)
[2021-01-12] MEDS: METOCLOPRAMIDE 10 MG/2 ML INJ IV SCH ×4 (02:31→22:10)
[2021-01-12 06:21] LABS: Hematocrit 22.9 % (35.5-45.6); Mean Corpuscular HGB Conc 31 % (32-34); Mean Corpuscular Volume 80 fl (84-94); Platelet Count 211 K/mm3 (140-440); Red Blood Count 2.86 M/mm3 (3.65-5.03)
[2021-01-12 06:33] LABS: Red Cell Distribution Width 22.9 % (13.2-15.2)
[2021-01-12 06:41] LABS: Calcium 7.9 mg/dL (8.4-10.2)
[2021-01-12 07:48] LABS: Band Neutrophils # (Manual) 0.5 K/mm3; Total Cells Counted 100
[2021-01-12 07:49] LABS: Anisocytosis 1+; Hypochromasia 1+; Platelet Estimate Consistent w Auto; Target Cells Few
[2021-01-12] MEDS: PANTOPRAZOLE 40 MG INJ IV SCH (08:30)
--- NOTE | 2021-01-12 11:37 | Progress Note ---
Assessment and Plan 50-year-old man presents with perforated sigmoid mass likely neoplasm, status post exploratory laparotomy, sigmoidectomy, end colostomy, peritoneal lavage. # SHARMIN: Most likely secondary to ATN. Suspect severe tubular injury s/p extensive surgery + contrast use on 12/29. -Status post Vas-Cath placement on 01/03/2021 and initiation of dialysis . Patient had signed out AMA on 01/04/2021 and his Vas-Cath was removed. Patient was then readmitted. Status post Vas-Cath reinsertion 01/06/2021. Volume overload seems to be improving. No evidence of renal recovery at this time. - S/p HD yesterday - Noted plans for hospice, however today patient is expressing desire for ongoing active treatment, HD today # Anemia: Transfuse for hgb < 7 # Metabolic Acidosis/Hyperkalemia: likely due to SHARMIN. Improved with HD. # Perforated Sigmoid Mass, Possible Colorectal Carcinoma, Metastasis to Liver: Note oncology consult. # Sepsis, Leukocytosis: likely related to bowel perforation, note antibiotics # Malnutrition Subjective Date of service: 01/12/21 Principal diagnosis: Metatstatic colon cancer Interval history: Patient today expressing desire to continue active treatment. Proceeded with HD today. Objective - Exam Narrative Exam: General: No acute distress HEENT: Oral mucosa moist Neck: Supple, no JVD Chest: Clear to auscultation bilaterally Heart: RRR, S1 and S2, no pericardial rub Abdomen: Soft, nontender, no renal bruit Extremity: No peripheral cyanosis, edema Neurological: Alert, awake, no asterixis Dermatology: No skin rash Psych: No agitation Musculoskeletal: No joint effusion - Vital Signs Vital signs: Vital Signs - 12hr 01/12/21 01/12/21 01/12/21 00:09 03:45 08:18 Temperature 98.0 F 98.1 F 97.4 F L Pulse Rate 95 H 98 H 92 H Respiratory 20 19 14 Rate Blood Pressure 132/72 113/61 135/78 O2 Sat by Pulse 95 95 96 Oximetry O2 Sat by Pulse Oximetry [ Anterior Bilateral Throughout] 01/12/21 01/12/21 01/12/21 09:53 10:15 10:30 Temperature 98.6 F Pulse Rate 87 84 89 Respiratory 18 Rate Blood Pressure 124/68 106/55 113/59 O2 Sat by Pulse Oximetry O2 Sat by Pulse 99 Oximetry [ Anterior Bilateral Throughout] 01/12/21 01/12/21 01/12/21 10:45 11:00 11:15 Temperature Pulse Rate 107 H 99 H 103 H Respiratory Rate Blood Pressure 117/61 122/65 121/60 O2 Sat by Pulse Oximetry O2 Sat by Pulse Oximetry [ Anterior Bilateral Throughout] 01/12/21 11:30 Temperature Pulse Rate 96 H Respiratory Rate Blood Pressure 116/60 O2 Sat by Pulse Oximetry O2 Sat by Pulse Oximetry [ Anterior Bilateral Throughout] - Lab 01/12/21 04:43 01/12/21 04:43 Most recent lab results Calcium 7.9 mg/dL (8.4-10.2) L 01/12/21 04:43 Magnesium 4.40 mg/dL (1.7-2.3) H 01/05/21 00:02 Medications & Allergies - Medications Allergies/Adverse Reactions: Allergies No Known Allergies Allergy (Verified 12/29/20 13:17) Home Medications: Home Medications Medication Instructions Recorded Confirmed Last Taken Type Tylenol Extra Strength 500 mg PO BID PRN 12/30/20 01/05/21 Unknown History Active Medications: Generic Name Dose Route Start Last Admin Trade Name Freq PRN Reason Stop Dose Admin Acetaminophen 650 mg 01/04/21 19:59 Acetaminophen 325 Mg Tab PO Q6H PRN Pain, Mild (1-3) Albuterol 2.5 mg 01/04/21 19:59 Albuterol 2.5 Mg/3 Ml Nebu IH Q4HRT PRN Shortness Of Breath Hydromorphone HCl 0.5 mg 01/04/21 19:59 01/07/21 10:05 Hydromorphone 1 Mg/1 Ml Inj IV 0.5 mg Q12H PRN Administration Pain , Severe (7-10) Sodium Chloride 100 mls @ 999 mls/hr 01/05/21 10:00 Nacl 0.9% IV YURI PRN Hypotension Cefepime HCl 1 gm in 100 mls @ 200 mls/hr 01/09/21 22:00 01/12/21 06:30 Cefepime/Ns 1 Gm/100 Ml IV 01/13/21 22:29 Infused HS JESSICA Infusion Metoclopramide HCl 5 mg 01/08/21 13:00 01/12/21 08:50 Metoclopramide 10 Mg/2 Ml Inj IV 5 mg Q6H JESSICA Administration Ondansetron HCl 4 mg 01/04/21 19:59 Ondansetron 4 Mg/2 Ml Inj IV Q8H PRN Nausea And Vomiting Oxycodone/Acetaminophen 2 tab 01/05/21 18:55 01/09/21 00:24 Oxycodone /Acetaminophen 5-325mg Tab PO 2 tab Q6H PRN Administration Pain, Moderate (4-6) Pantoprazole Sodium 40 mg 01/07/21 15:00 01/11/21 17:38 Pantoprazole 40 Mg Inj IV 40 mg QDAY JESSICA Administration Sodium Chloride 10 ml 01/04/21 22:00 01/11/21 21:25 Sodium Chloride 0.9% 10 Ml Flush Syringe IV 10 ml BID JESSICA Administration Sodium Chloride 10 ml 01/04/21 19:59 Sodium Chloride 0.9% 10 Ml Flush Syringe IV PRN PRN LINE FLUSH
--- NOTE | 2021-01-12 13:28 | Hem/Onc Progress Note ---
Subjective Date of service: 01/12/21 Interval history: Heme followup note Televisit via [facility] CPT 51816 Dx Colon mass This is a 50yo male who presented to the ER 12/29/20 with diffuse abdominal pain and distention CT abd/pelvis c/w mid sigmoid mass suggesting colorectal carcinoma with erosion/bowel perforation, adjacent adenopathy and innumerable liver metastatic lesions S/p exploratory laparotomy, sigmoidectomy, end colectomy, peritoneal lavage Dx with perforated sigmoid mass with liver mets and peritonitis New renal failure, possibly due to contrast nephropathy Hemodialysis started while inpatient On 01/04-- patient was noted with hgb 5, orders for 2 units RBC transfusions, patient refused transfusions and left hospital AMA Pt returned to hospital a few hours later Patient received HD yesterday 01/11 Pt showing desire for ongoing treatment DATA REVIEWED BELOW IMP: New metastatic colon cancer with liver metastasis Anemia possibly related to hemolytic anemia , or malignancy Abd/pelvis CT c/w renal mass, metastatic vs second primary-- not as important as liver metastasis no active bleed revealed in CT Pathology: Sigmoid colon, sigmoidectomy: 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 Macroscopic tumor perforation identified. Tumor invades visceral peritoneum. All margins are uninvolved. Lymphovascular and perineural invasion identified. 1 out of 8 lymph nodes involved. Pathologic stage: [id number] REC/PLAN: Transfuse 1 unit RBC today--hct 22.9 Transfuse 1 unit RBC whenever hct<23 Outpatient oncology followup and chemotherapy is an option, although overall poor prognosis Patient and family have decided on home hospice Discharge with home hospice pending Laboratory Last Values WBC 27.1 K/mm3 (4.5-11.0) H 01/12/21 04:43 RBC 2.86 M/mm3 (3.65-5.03) L 01/12/21 04:43 Hgb 7.0 gm/dl (11.8-15.2) L 01/12/21 04:43 Hct 22.9 % (35.5-45.6) L 01/12/21 04:43 MCV 80 fl (84-94) L 01/12/21 04:43 MCH 24 pg (28-32) L 01/12/21 04:43 MCHC 31 % (32-34) L 01/12/21 04:43 RDW 22.9 % (13.2-15.2) H 01/12/21 04:43 Plt Count 211 K/mm3 (140-440) 01/12/21 04:43 Add Manual Diff Complete 01/12/21 04:43 Total Counted 100 01/12/21 04:43 Seg Neutrophils % Electromechanisms Design Drafter 01/10/21 13:27 Seg Neuts % (Manual) 87.0 % (40.0-70.0) H 01/12/21 04:43 Band Neutrophils % 2.0 % 01/12/21 04:43 Lymphocytes % (Manual) 5.0 % (13.4-35.0) L 01/12/21 04:43 Monocytes % (Manual) 5.0 % (0.0-7.3) 01/12/21 04:43 Eosinophils % (Manual) 1.0 % (0.0-4.3) 01/05/21 00:02 Basophils % (Manual) 1.0 % (0.0-1.8) 01/05/21 00:02 Metamyelocytes % 1.0 % 01/12/21 04:43 Myelocytes % 2.0 % 01/06/21 05:43 Nucleated RBC % 1.0 % (0.0-0.9) H 01/12/21 04:43 Seg Neutrophils # Man 23.6 K/mm3 (1.8-7.7) H 01/12/21 04:43 Band Neutrophils # 0.5 K/mm3 01/12/21 04:43 Lymphocytes # (Manual) 1.4 K/mm3 (1.2-5.4) 01/12/21 04:43 Abs React Lymphs (Man) 0.0 K/mm3 01/12/21 04:43 Monocytes # (Manual) 1.4 K/mm3 (0.0-0.8) H 01/12/21 04:43 Eosinophils # (Manual) 0.0 K/mm3 (0.0-0.4) 01/12/21 04:43 Basophils # (Manual) 0.0 K/mm3 (0.0-0.1) 01/12/21 04:43 Metamyelocytes # 0.3 K/mm3 01/12/21 04:43 Myelocytes # 0.0 K/mm3 01/12/21 04:43 Promyelocytes # 0.0 K/mm3 01/12/21 04:43 Blast Cells # 0.0 K/mm3 01/12/21 04:43 WBC Morphology Not Reportable 01/12/21 04:43 Hypersegmented Neuts Not Reportable 01/12/21 04:43 Hyposegmented Neuts Not Reportable 01/12/21 04:43 Hypogranular Neuts Not Reportable 01/12/21 04:43 Smudge Cells Not Reportable 01/12/21 04:43 Toxic Granulation Not Reportable 01/12/21 04:43 Toxic Vacuolation Not Reportable 01/12/21 04:43 Dohle Bodies Not Reportable 01/12/21 04:43 Pelger-Huet Anomaly Not Reportable 01/12/21 04:43 Janene Rods Not Reportable 01/12/21 04:43 Platelet Estimate Consistent w auto 01/12/21 04:43 Clumped Platelets Not Reportable 01/12/21 04:43 Plt Clumps, EDTA Not Reportable 01/12/21 04:43 Large Platelets Not Reportable 01/12/21 04:43 Giant Platelets Not Reportable 01/12/21 04:43 Platelet Satelliting Not Reportable 01/12/21 04:43 Plt Morphology Comment Not Reportable 01/12/21 04:43 RBC Morphology Not Reportable 01/12/21 04:43 Dimorphic RBCs Not Reportable 01/12/21 04:43 Polychromasia Rare 01/12/21 04:43 Hypochromasia 1+ 01/12/21 04:43 Poikilocytosis Not Reportable 01/12/21 04:43 Anisocytosis 1+ 01/12/21 04:43 Microcytosis Not Reportable 01/12/21 04:43 Macrocytosis Not Reportable 01/12/21 04:43 Spherocytes Not Reportable 01/12/21 04:43 Pappenheimer Bodies Not Reportable 01/12/21 04:43 Sickle Cells Not Reportable 01/12/21 04:43 Target Cells Few 01/12/21 04:43 Tear Drop Cells Not Reportable 01/12/21 04:43 Ovalocytes Not Reportable 01/12/21 04:43 Helmet Cells Not Reportable 01/12/21 04:43 Ronquillo-Mina Bodies Not Reportable 01/12/21 04:43 [place] Rings Not Reportable 01/12/21 04:43 Ankur Cells Not Reportable 01/12/21 04:43 Bite Cells Not Reportable 01/12/21 04:43 Crenated Cell Not Reportable 01/12/21 04:43 Elliptocytes Not Reportable 01/12/21 04:43 Acanthocytes (Spur) Not Reportable 01/12/21 04:43 Rouleaux Not Reportable 01/12/21 04:43 Hemoglobin C Crystals Not Reportable 01/12/21 04:43 Schistocytes Not Reportable 01/12/21 04:43 Malaria parasites Not Reportable 01/12/21 04:43 Percent Retic 3.75 % (0.78-2.58) H 01/07/21 05:00 Atul Bodies Not Reportable 01/12/21 04:43 Hem Pathologist Commnt No 01/12/21 04:43 PT 18.0 Sec. (12.2-14.9) H 01/06/21 09:16 INR 1.35 (0.87-1.13) H 01/06/21 09:16 Sodium 136 mmol/L (137-145) L 01/12/21 04:43 Potassium 4.4 mmol/L (3.6-5.0) 01/12/21 04:43 Chloride 97.2 mmol/L (98-107) L 01/12/21 04:43 Carbon Dioxide 21 mmol/L (22-30) L 01/12/21 04:43 Anion Gap 22 mmol/L 01/12/21 04:43 BUN 52 mg/dL (9-20) H 01/12/21 04:43 Creatinine 4.7 mg/dL (0.8-1.3) H 01/12/21 04:43 Estimated GFR 13 ml/min 01/12/21 04:43 BUN/Creatinine Ratio 11 % 01/12/21 04:43 Glucose 80 mg/dL (75-100) 01/12/21 04:43 Lactic Acid 1.80 mmol/L (0.7-2.0) 01/05/21 09:51 Calcium 7.9 mg/dL (8.4-10.2) L 01/12/21 04:43 Magnesium 4.40 mg/dL (1.7-2.3) H 01/05/21 00:02 Total Bilirubin 6.40 mg/dL (0.1-1.2) H 01/10/21 07:46 Direct Bilirubin 5.0 mg/dL (0-0.2) H 01/08/21 Unknown AST 115 units/L (5-40) H 01/10/21 07:46 ALT 62 units/L (7-56) H 01/10/21 07:46 Alkaline Phosphatase 876 units/L (35-129) H 01/10/21 07:46 Lactate Dehydrogenase 1199 units/L (91-180) H 01/07/21 05:00 Total Creatine Kinase 340 units/L (55-170) H 01/05/21 00:02 Total Protein 5.7 g/dL (6.3-8.2) L 01/10/21 07:46 Albumin 2.3 g/dL (3.9-5) L 01/10/21 07:46 Albumin/Globulin Ratio 0.7 % 01/10/21 07:46 Blood Type A POSITIVE 01/05/21 00:02 Antibody Screen Negative 01/05/21 00:02 Crossmatch See Detail 01/05/21 00:02 Objective - Constitutional Vitals: Last Vital Signs Temp 98.6 F 01/12/21 09:53 Pulse 79 01/12/21 13:15 Resp 18 01/12/21 09:53 BP 112/58 01/12/21 13:15 Pulse Ox 98 01/12/21 10:00 - Labs Lab Results: Laboratory Results - last 24 hr 01/12/21 01/12/21 04:43 04:43 WBC 27.1 H RBC 2.86 L Hgb 7.0 L Hct 22.9 L MCV 80 L MCH 24 L MCHC 31 L RDW 22.9 H Plt Count 211 Add Manual Diff Complete Total Counted 100 Seg Neuts % (Manual) 87.0 H Band Neutrophils % 2.0 Lymphocytes % (Manual) 5.0 L Monocytes % (Manual) 5.0 Metamyelocytes % 1.0 Nucleated RBC % 1.0 H Seg Neutrophils # Man 23.6 H Band Neutrophils # 0.5 Lymphocytes # (Manual) 1.4 Abs React Lymphs (Man) 0.0 Monocytes # (Manual) 1.4 H Eosinophils # (Manual) 0.0 Basophils # (Manual) 0.0 Metamyelocytes # 0.3 Myelocytes # 0.0 Promyelocytes # 0.0 Blast Cells # 0.0 WBC Morphology Not Reportable Hypersegmented Neuts Not Reportable Hyposegmented Neuts Not Reportable Hypogranular Neuts Not Reportable Smudge Cells Not Reportable Toxic Granulation Not Reportable Toxic Vacuolation Not Reportable Dohle Bodies Not Reportable Pelger-Huet Anomaly Not Reportable Janene Rods Not Reportable Platelet Estimate Consistent w auto Clumped Platelets Not Reportable Plt Clumps, EDTA Not Reportable Large Platelets Not Reportable Giant Platelets Not Reportable Platelet Satelliting Not Reportable Plt Morphology Comment Not Reportable RBC Morphology Not Reportable Dimorphic RBCs Not Reportable Polychromasia Rare Hypochromasia 1+ Poikilocytosis Not Reportable Anisocytosis 1+ Microcytosis Not Reportable Macrocytosis Not Reportable Spherocytes Not Reportable Pappenheimer Bodies Not Reportable Sickle Cells Not Reportable Target Cells Few Tear Drop Cells Not Reportable Ovalocytes Not Reportable Helmet Cells Not Reportable Ronquillo-Mina Bodies Not Reportable [place] Rings Not Reportable [place] Cells Not Reportable Bite Cells Not Reportable Crenated Cell Not Reportable Elliptocytes Not Reportable Acanthocytes (Spur) Not Reportable Rouleaux Not Reportable Hemoglobin C Crystals Not Reportable Schistocytes Not Reportable Malaria parasites Not Reportable Atul Bodies Not Reportable Hem Pathologist Commnt No Sodium 136 L Potassium 4.4 Chloride 97.2 L Carbon Dioxide 21 L Anion Gap 22 BUN 52 H Creatinine 4.7 H Estimated GFR 13 BUN/Creatinine Ratio 11 Glucose 80 Calcium 7.9 L Medications & Allergies - Medications Allergies/Adverse Reactions: Allergies No Known Allergies Allergy (Verified 12/29/20 13:17) Home Medications: Home Medications Medication Instructions Recorded Confirmed Last Taken Type Tylenol Extra Strength 500 mg PO BID PRN 12/30/20 01/05/21 Unknown History Active Medications: Generic Name Dose Route Start Last Admin Trade Name Freq PRN Reason Stop Dose Admin Acetaminophen 650 mg 01/04/21 19:59 Acetaminophen 325 Mg Tab PO Q6H PRN Pain, Mild (1-3) Albuterol 2.5 mg 01/04/21 19:59 Albuterol 2.5 Mg/3 Ml Nebu IH Q4HRT PRN Shortness Of Breath Hydromorphone HCl 0.5 mg 01/04/21 19:59 01/07/21 10:05 Hydromorphone 1 Mg/1 Ml Inj IV 0.5 mg Q12H PRN Administration Pain , Severe (7-10) Sodium Chloride 100 mls @ 999 mls/hr 01/05/21 10:00 Nacl 0.9% IV YUIR PRN Hypotension Cefepime HCl 1 gm in 100 mls @ 200 mls/hr 01/09/21 22:00 01/12/21 06:30 Cefepime/Ns 1 Gm/100 Ml IV 01/13/21 22:29 Infused HS JESSICA Infusion Metoclopramide HCl 5 mg 01/08/21 13:00 01/12/21 08:50 Metoclopramide 10 Mg/2 Ml Inj IV 5 mg Q6H JESSICA Administration Ondansetron HCl 4 mg 01/04/21 19:59 Ondansetron 4 Mg/2 Ml Inj IV Q8H PRN Nausea And Vomiting Oxycodone/Acetaminophen 2 tab 01/05/21 18:55 01/09/21 00:24 Oxycodone /Acetaminophen 5-325mg Tab PO 2 tab Q6H PRN Administration Pain, Moderate (4-6) Pantoprazole Sodium 40 mg 01/07/21 15:00 01/11/21 17:38 Pantoprazole 40 Mg Inj IV 40 mg QDAY JESSICA Administration Sodium Chloride 10 ml 01/04/21 22:00 01/11/21 21:25 Sodium Chloride 0.9% 10 Ml Flush Syringe IV 10 ml BID JESSICA Administration Sodium Chloride 10 ml 01/04/21 19:59 Sodium Chloride 0.9% 10 Ml Flush Syringe IV PRN PRN LINE FLUSH
--- NOTE | 2021-01-12 17:11 | Progress Note ---
Assessment and Plan Assessment and plan: --Anemia; hemoglobin 7.0 Advised 1 unit PRBC transfusion Closely monitor H&H --Acute kidney injury; worsening renal function Worsening renal function likely due to contrast-induced nephropathy, Also associated with metabolic acidosis, hyperkalemia Nephrology initiated dialysis, s/p vas-Cath placement HD per schedule --Hyperkalemia, resolved continue to treat medically, HD per renal --perforated sigmoid mass --s/p exploratory laparotomy/sigmoidectomy/colostomy/peritoneal lavage IV fluids IV antibiotics, IV Protonix, Pain medications, Out of bed to chair, PT --Gram-negative sepsis Sepsis in the setting of high white count and bowel perforation -- Continue IV antibiotics, follow cultures ID consult if needed --Surgical cultures gram-negative rods Currently on Zosyn, follow culture sensitivities ID consult if needed --Colorectal carcinoma Pathology: Sigmoid colon, sigmoidectomy: 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 Macroscopic tumor perforation identified. Tumor invades visceral peritoneum. All margins are uninvolved. Lymphovascular and perineural invasion identified. 1 out of 8 lymph nodes involved. Pathologic stage: T4aN1a, CEA 24.3 Patient never had colonoscopy 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, heme-onc following --Metastases to the liver Poor prognosis,Heme-onc following --Worsening transaminases; Probably secondary to liver mets,Closely monitor --Severe malnutrition/hypoproteinemia Dietary supplements and dietitian consult --Anemia acute on chronic Closely monitor H&H and transfuse as needed --obesity; BMI 38.7 Patient needs weight reduction when medically stable --DVT prophylaxis On SCDs , patient postop state with severe anemia Valve Inserter recommendations noted and appreciated Discussed in detail with the case management regarding discharge planning Planning home hospice and discontinuing hemodialysis however patient did not agree for that plan He showed interest to continue hemodialysis as well as chemotherapy We will continue to follow the patient for safe discharge planning Brief history and hospital course: 50-year-old male patient initially presented on 12/29/20 with perforated sigmoid mass likely neoplasm, status post exploratory laparotomy,, sigmoidectomy, end colostomy, peritoneal lavage. Patient has worsening renal function,Vas-Cath placement and initiated hemodialysis. He decided to leave A on 01/04/2021 but got readmitted on the same day. 01/05/21: Patient had low hemoglobin 5.3 today, elevated potassium and creatinine. Dialysis catheter was removed yesterday when Patient left AMA yesterday.. consulted vascular for permcath, ordered for PRBC transfusion. Follow CBC and BMP 01/06/21: Pathology report revealed moderately differentiated adenocarcinoma of sigmoid colon pathologic state T4aN1a. Status post vasCath placement today, drug use another unit of packed RBC -hemoglobin 6.4. Plan for hemodialysis, monitor CBC and BMP. Guarded prognosis 01/07/21; discussed with oncology. Patient need to follow-up with oncologist as outpatient to initiate definitive treatment for pulmonary adenocarcinoma. now Wait for renal function recovery. Continue to follow CBC and BMP. Try to call patient family but unable to reach out to them. 01/08/21: Continue to follow renal function, H&H stable. Continue supportive care monitor closely. Clinically remains volume overloaded. Plan for another hemodialysis today. Continue empiric antibiotics 01/09/21; continue full liquid diet, plan for hemodialysis tomorrow, continue to follow clinically. Very poor prognosis. Monitor CBC and BMP 01/10/21: s/p HD today. discussed with family by phone and with pt in front of RN. they all in agreement for home hospice and does not want any HD or chemotherapy. CM ordered for home hospice setup. follow clinically. 01/11/2021; awaiting discharge home with hospice, very poor prognosis, full CODE STATUS However when the hospice personnel discuss with the patient, patient stated that he wants to continue with hemodialysis as well as chemotherapy. We will continue to follow 01/12/21; anemia, Hb 7.0, transfuse 1 unit PRBC, HD per schedule DC planning per case management possible home with home hospice History Interval history: I have seen and examined the patient at the bedside Patient's chart and medications reviewed patient patient received hemodialysis today Vital signs noted Hospitalist Physical - Constitutional Vitals: Temp Pulse Resp BP Pulse Ox 98.3 F 104 H 18 134/64 99 01/12/21 13:35 01/12/21 13:35 01/12/21 13:35 01/12/21 13:35 01/12/21 13:35 General appearance: Present: no acute distress, well-nourished, obese (Morbidly obese) - EENT Eyes: Present: PERRL, EOM intact - Neck Neck: Present: supple, normal ROM - Respiratory Respiratory effort: normal Respiratory: bilateral: diminished, rales, negative: rhonchi, wheezing - Cardiovascular Rhythm: regular Heart Sounds: Present: S1 & S2 - Extremities Extremities: no ischemia, No edema Extremity abnormal: edema - Abdominal General gastrointestinal: soft, non-tender, normal bowel sounds, other (Colostomy is in place) - Integumentary Integumentary: Present: clear, warm - Psychiatric Psychiatric: appropriate mood/affect, cooperative - Neurologic Neurologic: moves all extremities Results - Labs CBC & Chem 7: 01/12/21 04:43 01/12/21 04:43 Labs: Laboratory Last Values WBC 27.1 K/mm3 (4.5-11.0) H 01/12/21 04:43 RBC 2.86 M/mm3 (3.65-5.03) L 01/12/21 04:43 Hgb 7.0 gm/dl (11.8-15.2) L 01/12/21 04:43 Hct 22.9 % (35.5-45.6) L 01/12/21 04:43 MCV 80 fl (84-94) L 01/12/21 04:43 MCH 24 pg (28-32) L 01/12/21 04:43 MCHC 31 % (32-34) L 01/12/21 04:43 RDW 22.9 % (13.2-15.2) H 01/12/21 04:43 Plt Count 211 K/mm3 (140-440) 01/12/21 04:43 Add Manual Diff Complete 01/12/21 04:43 Total Counted 100 01/12/21 04:43 Seg Neutrophils % Director Of Science 01/10/21 13:27 Seg Neuts % (Manual) 87.0 % (40.0-70.0) H 01/12/21 04:43 Band Neutrophils % 2.0 % 01/12/21 04:43 Lymphocytes % (Manual) 5.0 % (13.4-35.0) L 01/12/21 04:43 Monocytes % (Manual) 5.0 % (0.0-7.3) 01/12/21 04:43 Eosinophils % (Manual) 1.0 % (0.0-4.3) 01/05/21 00:02 Basophils % (Manual) 1.0 % (0.0-1.8) 01/05/21 00:02 Metamyelocytes % 1.0 % 01/12/21 04:43 Myelocytes % 2.0 % 01/06/21 05:43 Nucleated RBC % 1.0 % (0.0-0.9) H 01/12/21 04:43 Seg Neutrophils # Man 23.6 K/mm3 (1.8-7.7) H 01/12/21 04:43 Band Neutrophils # 0.5 K/mm3 01/12/21 04:43 Lymphocytes # (Manual) 1.4 K/mm3 (1.2-5.4) 01/12/21 04:43 Abs React Lymphs (Man) 0.0 K/mm3 01/12/21 04:43 Monocytes # (Manual) 1.4 K/mm3 (0.0-0.8) H 01/12/21 04:43 Eosinophils # (Manual) 0.0 K/mm3 (0.0-0.4) 01/12/21 04:43 Basophils # (Manual) 0.0 K/mm3 (0.0-0.1) 01/12/21 04:43 Metamyelocytes # 0.3 K/mm3 01/12/21 04:43 Myelocytes # 0.0 K/mm3 01/12/21 04:43 Promyelocytes # 0.0 K/mm3 01/12/21 04:43 Blast Cells # 0.0 K/mm3 01/12/21 04:43 WBC Morphology Not Reportable 01/12/21 04:43 Hypersegmented Neuts Not Reportable 01/12/21 04:43 Hyposegmented Neuts Not Reportable 01/12/21 04:43 Hypogranular Neuts Not Reportable 01/12/21 04:43 Smudge Cells Not Reportable 01/12/21 04:43 Toxic Granulation Not Reportable 01/12/21 04:43 Toxic Vacuolation Not Reportable 01/12/21 04:43 Dohle Bodies Not Reportable 01/12/21 04:43 Pelger-Huet Anomaly Not Reportable 01/12/21 04:43 Janene Rods Not Reportable 01/12/21 04:43 Platelet Estimate Consistent w auto 01/12/21 04:43 Clumped Platelets Not Reportable 01/12/21 04:43 Plt Clumps, EDTA Not Reportable 01/12/21 04:43 Large Platelets Not Reportable 01/12/21 04:43 Giant Platelets Not Reportable 01/12/21 04:43 Platelet Satelliting Not Reportable 01/12/21 04:43 Plt Morphology Comment Not Reportable 01/12/21 04:43 RBC Morphology Not Reportable 01/12/21 04:43 Dimorphic RBCs Not Reportable 01/12/21 04:43 Polychromasia Rare 01/12/21 04:43 Hypochromasia 1+ 01/12/21 04:43 Poikilocytosis Not Reportable 01/12/21 04:43 Anisocytosis 1+ 01/12/21 04:43 Microcytosis Not Reportable 01/12/21 04:43 Macrocytosis Not Reportable 01/12/21 04:43 Spherocytes Not Reportable 01/12/21 04:43 Pappenheimer Bodies Not Reportable 01/12/21 04:43 Sickle Cells Not Reportable 01/12/21 04:43 Target Cells Few 01/12/21 04:43 Tear Drop Cells Not Reportable 01/12/21 04:43 Ovalocytes Not Reportable 01/12/21 04:43 Helmet Cells Not Reportable 01/12/21 04:43 [place]-Whiteface Bodies Not Reportable 01/12/21 04:43 [place] Rings Not Reportable 01/12/21 04:43 [place] Cells Not Reportable 01/12/21 04:43 Bite Cells Not Reportable 01/12/21 04:43 Crenated Cell Not Reportable 01/12/21 04:43 Elliptocytes Not Reportable 01/12/21 04:43 Acanthocytes (Spur) Not Reportable 01/12/21 04:43 Rouleaux Not Reportable 01/12/21 04:43 Hemoglobin C Crystals Not Reportable 01/12/21 04:43 Schistocytes Not Reportable 01/12/21 04:43 Malaria parasites Not Reportable 01/12/21 04:43 Percent Retic 3.75 % (0.78-2.58) H 01/07/21 05:00 Atul Bodies Not Reportable 01/12/21 04:43 Hem Pathologist Commnt No 01/12/21 04:43 PT 18.0 Sec. (12.2-14.9) H 01/06/21 09:16 INR 1.35 (0.87-1.13) H 01/06/21 09:16 Sodium 136 mmol/L (137-145) L 01/12/21 04:43 Potassium 4.4 mmol/L (3.6-5.0) 01/12/21 04:43 Chloride 97.2 mmol/L (98-107) L 01/12/21 04:43 Carbon Dioxide 21 mmol/L (22-30) L 01/12/21 04:43 Anion Gap 22 mmol/L 01/12/21 04:43 BUN 52 mg/dL (9-20) H 01/12/21 04:43 Creatinine 4.7 mg/dL (0.8-1.3) H 01/12/21 04:43 Estimated GFR 13 ml/min 01/12/21 04:43 BUN/Creatinine Ratio 11 % 01/12/21 04:43 Glucose 80 mg/dL (75-100) 01/12/21 04:43 Lactic Acid 1.80 mmol/L (0.7-2.0) 01/05/21 09:51 Calcium 7.9 mg/dL (8.4-10.2) L 01/12/21 04:43 Magnesium 4.40 mg/dL (1.7-2.3) H 01/05/21 00:02 Total Bilirubin 6.40 mg/dL (0.1-1.2) H 01/10/21 07:46 Direct Bilirubin 5.0 mg/dL (0-0.2) H 01/08/21 Unknown AST 115 units/L (5-40) H 01/10/21 07:46 ALT 62 units/L (7-56) H 01/10/21 07:46 Alkaline Phosphatase 876 units/L (35-129) H 01/10/21 07:46 Lactate Dehydrogenase 1199 units/L (91-180) H 01/07/21 05:00 Total Creatine Kinase 340 units/L (55-170) H 01/05/21 00:02 Total Protein 5.7 g/dL (6.3-8.2) L 01/10/21 07:46 Albumin 2.3 g/dL (3.9-5) L 01/10/21 07:46 Albumin/Globulin Ratio 0.7 % 01/10/21 07:46 Blood Type A POSITIVE 01/05/21 00:02 Antibody Screen Negative 01/05/21 00:02 Crossmatch See Detail 01/05/21 00:02 [place]/IV: Voiding Method Condom Catheter Active Medications - Current Medications Current Medications: Generic Name Dose Route Start Last Admin Trade Name Freq PRN Reason Stop Dose Admin Acetaminophen 650 mg 01/04/21 19:59 Acetaminophen 325 Mg Tab PO Q6H PRN Pain, Mild (1-3) Albuterol 2.5 mg 01/04/21 19:59 Albuterol 2.5 Mg/3 Ml Nebu IH Q4HRT PRN Shortness Of Breath Hydromorphone HCl 0.5 mg 01/04/21 19:59 01/07/21 10:05 Hydromorphone 1 Mg/1 Ml Inj IV 0.5 mg Q12H PRN Administration Pain , Severe (7-10) Sodium Chloride 100 mls @ 999 mls/hr 01/05/21 10:00 Nacl 0.9% IV YURI PRN Hypotension Cefepime HCl 1 gm in 100 mls @ 200 mls/hr 01/09/21 22:00 01/12/21 06:30 Cefepime/Ns 1 Gm/100 Ml IV 01/13/21 22:29 Infused HS JESSICA Infusion Sodium Chloride 500 mls @ 0 mls/hr 01/12/21 17:04 Nacl 0.9% 500 Ml IV 01/12/21 17:05 ONCE ONE As Directed Metoclopramide HCl 5 mg 01/08/21 13:00 01/12/21 08:50 Metoclopramide 10 Mg/2 Ml Inj IV 5 mg Q6H JESSICA Administration Ondansetron HCl 4 mg 01/04/21 19:59 Ondansetron 4 Mg/2 Ml Inj IV Q8H PRN Nausea And Vomiting Oxycodone/Acetaminophen 2 tab 01/05/21 18:55 01/09/21 00:24 Oxycodone /Acetaminophen 5-325mg Tab PO 2 tab Q6H PRN Administration Pain, Moderate (4-6) Pantoprazole Sodium 40 mg 01/07/21 15:00 01/12/21 08:30 Pantoprazole 40 Mg Inj IV 40 mg QDAY JESSICA Administration Sodium Chloride 10 ml 01/04/21 22:00 01/12/21 08:30 Sodium Chloride 0.9% 10 Ml Flush Syringe IV 10 ml BID JESSICA Administration Sodium Chloride 10 ml 01/04/21 19:59 Sodium Chloride 0.9% 10 Ml Flush Syringe IV PRN PRN LINE FLUSH Nutrition/Malnutrition Assess - Dietary Evaluation Nutrition/Malnutrition Findings: Nutrition Notes Start: 01/11/21 16:27 Freq: Status: Active Protocol: Document 01/11/21 16:27 GB (Rec: 01/11/21 16:49 GB [id number]) Nutrition Notes Need for Assessment generated from: LOS Initial or Follow up Assessment Current Diagnosis Acute Kidney Injury,Sepsis Other Pertinent Diagnosis perforated sigmoid CA stage IV , peritonitis Current Diet full liquids Labs/Tests 01/10: Tbili 6.4, (AST 115, ALT 62, AlkP 876) showing improvement 01/11: Na 135, (BUN 40, creatinine 3.9, Ca 8) showing improvement Pertinent Medications reviewed Height 6 ft 2 in Weight 156.5 kg [place] Body Weight (kg) 86.36 BMI 44.3 Weight change and time frame 01/04: 158.757kg 01/11: 156.5kg Change -2.257kg for -1.42% significance Weight Status Morbidly Obese Subjective/Other Information Pt reviewing for home/hospice. pt states he wants to do dialysis and chemotherapy. Last BM: 01/11: colostomy bag emptied x3 Percent of energy/protein needs met: unable to assess. Documentation of tolerating diet well Burn Absent Trauma Absent GI Symptoms Other Food Allergy No Skin Integrity/Comment wound medial abdomen Current % PO Other Minimum of two criteria No #1 Nutrition Diagnosis Altered GI function Etiology perforated sigmoid CA stage IV As Evidenced by Signs and Symptoms colostomy bag, full liquid diet Is patient on ventilator? No Is Patient Ambulatory and/or Out of Bed Yes REE-([facility]-ambulatory/OOB) [ 3243.175 [id number]] Kcal/Kg value to use for calculation 17 Approximate Energy Requirements Using 2661 kcal/Kg Calculation Used for Recommendations Kcal/kg Additional Notes protein 0.6-0.8g/kg @ 157k-125g Fluids: 1 ml/kcal or per MD Nutrition Intervention Change Diet Order: continue full liquids: advance as tolerated to soft fiber Nutrition Support: n/a Add Supplement/Snack (indicate name/kcal ensure enlive BID /protein ) Provides kCal: 700 Provides Protein (gm) 40 Goal #1 PO intake of meals/supplements to be 50% or greater daily for LOS Goal #2 Diet advanced to regular soft fiber by f/u Follow-Up By: 01/14/21 Additional Comments f/u: PO intake meals/ supplements, diet advancement
[2021-01-12] MEDS ORDERED: SODIUM CHLORIDE 0.9% 500 ML 500 ML IV ONE (18:00)
[2021-01-12 19:51] LABS: Hematocrit 23.7 % (35.5-45.6)
[2021-01-12] MEDS ORDERED: SODIUM CHLORIDE 0.9% 500 ML 500 ML ONE (21:23)
[2021-01-12] MEDS: CEFEPIME/NS 1 GM/100 ML 1 GM/100 ML BAG IV SCH (22:11)
[2021-01-13 05:48] LABS: Hematocrit 25.9 % (35.5-45.6)
[2021-01-13] MEDS: METOCLOPRAMIDE 10 MG/2 ML INJ IV SCH ×3 (06:06→21:31)
[2021-01-13] MEDS: PANTOPRAZOLE 40 MG INJ IV SCH (09:45)
--- NOTE | 2021-01-13 09:51 | Progress Note ---
Assessment and Plan Assessment and plan: --Newly diagnosed metastatic colorectal carcinoma Pathology: Sigmoid colon, sigmoidectomy: 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 Macroscopic tumor perforation identified. Tumor invades visceral peritoneum. All margins are uninvolved. Lymphovascular and perineural invasion identified. 1 out of 8 lymph nodes involved. Pathologic stage: T4aN1a, CEA 24.3 Patient never had colonoscopy 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, heme-onc following Recommended outpatient follow-up with heme-onc For possible chemotherapy Very poor prognosis, considering home with home hospice --perforated sigmoid mass --s/p exploratory laparotomy/sigmoidectomy/colostomy/peritoneal lavage Continue current management --Surgical cultures gram-negative rods Currently on Zosyn, follow culture sensitivities ID consult if needed --Gram-negative sepsis Sepsis in the setting of high white count and bowel perforation -- Continue IV antibiotics, follow cultures ID consult if needed --Anemia; hemoglobin 7.0 Received 1 unit PRBC transfusion 01/12/2021 Hb improved from 7-8 Closely monitor H&H transfuse additional PRBC if needed --Acute kidney injury; worsening renal function Nephrology initiated dialysis, s/p vas-Cath placement HD per schedule, nephrology recommended permacath placement Vascular consulted --Hyperkalemia, resolved HD per schedule --Worsening transaminases; Probably secondary to liver mets,Closely monitor --Severe malnutrition/hypoproteinemia Dietary supplements and dietitian consult --Morbid obesity; BMI 44.3 Partly due to fluid overload and renal failure Patient needs weight reduction when medically stable --DVT prophylaxis On SCDs , patient postop state with severe anemia Fabric Normalizer recommendations noted and appreciated Discussed in detail with the case management regarding discharge planning Planning home hospice and discontinuing hemodialysis however patient did not agree for that plan Patient wants hemodialysis as well as chemotherapy DC planning per case management, possible home with home hospice Brief history and hospital course: 50-year-old male patient initially presented on 12/29/20 with perforated sigmoid mass likely neoplasm, status post exploratory laparotomy,, sigmoidectomy, end colostomy, peritoneal lavage. Patient has worsening renal function,Vas-Cath placement and initiated hemodialysis. He decided to leave AMA on 01/04/2021 but got readmitted on the same day. 01/05/21: Patient had low hemoglobin 5.3 today, elevated potassium and creat inine. Dialysis catheter was removed yesterday when Patient left AMA yesterday.. consulted vascular for permcath, ordered for PRBC transfusion. Follow CBC and BMP 01/06/21: Pathology report revealed moderately differentiated adenocarcinoma of sigmoid colon pathologic state T4aN1a. Status post vasCath placement today, drug use another unit of packed RBC -hemoglobin 6.4. Plan for hemodialysis, monitor CBC and BMP. Guarded prognosis 01/07/21; discussed with oncology. Patient need to follow-up with oncologist as outpatient to initiate definitive treatment for pulmonary adenocarcinoma. now Wait for renal function recovery. Continue to follow CBC and BMP. Try to call patient family but unable to reach out to them. 01/08/21: Continue to follow renal function, H&H stable. Continue supportive care monitor closely. Clinically remains volume overloaded. Plan for another hemodialysis today. Continue empiric antibiotics 01/09/21; continue full liquid diet, plan for hemodialysis tomorrow, continue to follow clinically. Very poor prognosis. Monitor CBC and BMP 01/10/21: s/p HD today. discussed with family by phone and with pt in front of RN. they all in agreement for home hospice and does not want any HD or chemotherapy. CM ordered for home hospice setup. follow clinically. 01/11/2021; awaiting discharge home with hospice, very poor prognosis, full CODE STATUS However when the hospice personnel discuss with the patient, patient stated that he wants to continue with hemodialysis as well as chemotherapy. We will continue to follow 01/12/21; anemia, Hb 7.0, transfuse 1 unit PRBC, HD per schedule DC planning per case management possible home with home hospice 01/13/2021: Hb today is 8.0 CM assisting with discharge home with home hospice Full CODE STATUS History Interval history: I seen and examined the patient at the bedside this morning Patient's chart and medications reviewed Patient feels slightly better no new complaints Physical therapy is working with the patient Hospitalist Physical - Constitutional Vitals: Temp Pulse Resp BP Pulse Ox 97.9 F 97 H 18 136/72 93 01/13/21 03:26 01/13/21 04:35 01/13/21 03:26 01/13/21 03:26 01/13/21 00:40 General appearance: Present: no acute distress, well-nourished, obese (Morbidly obese) - EENT Eyes: Present: PERRL, EOM intact - Neck Neck: Present: supple, normal ROM - Respiratory Respiratory effort: normal Respiratory: bilateral: diminished, rhonchi, negative: rales, wheezing - Cardiovascular Rhythm: regular Heart Sounds: Present: S1 & S2 - Extremities Extremities: no ischemia, No edema - Abdominal General gastrointestinal: soft, non-tender, non-distended, normal bowel sounds, other (Surgical dressing in place) - Integumentary Integumentary: Present: clear, warm - Psychiatric Psychiatric: appropriate mood/affect, cooperative - Neurologic Neurologic: moves all extremities Results - Labs CBC & Chem 7: 01/13/21 04:43 01/12/21 04:43 Labs: Laboratory Last Values WBC 27.1 K/mm3 (4.5-11.0) H 01/12/21 04:43 RBC 2.86 M/mm3 (3.65-5.03) L 01/12/21 04:43 Hgb 8.0 gm/dl (11.8-15.2) L 01/13/21 04:43 Hct 25.9 % (35.5-45.6) L 01/13/21 04:43 MCV 80 fl (84-94) L 01/12/21 04:43 MCH 24 pg (28-32) L 01/12/21 04:43 MCHC 31 % (32-34) L 01/12/21 04:43 RDW 22.9 % (13.2-15.2) H 01/12/21 04:43 Plt Count 211 K/mm3 (140-440) 01/12/21 04:43 Add Manual Diff Complete 01/12/21 04:43 Total Counted 100 01/12/21 04:43 Seg Neutrophils % Sign Erector And Repairer 01/10/21 13:27 Seg Neuts % (Manual) 87.0 % (40.0-70.0) H 01/12/21 04:43 Band Neutrophils % 2.0 % 01/12/21 04:43 Lymphocytes % (Manual) 5.0 % (13.4-35.0) L 01/12/21 04:43 Monocytes % (Manual) 5.0 % (0.0-7.3) 01/12/21 04:43 Eosinophils % (Manual) 1.0 % (0.0-4.3) 01/05/21 00:02 Basophils % (Manual) 1.0 % (0.0-1.8) 01/05/21 00:02 Metamyelocytes % 1.0 % 01/12/21 04:43 Myelocytes % 2.0 % 01/06/21 05:43 Nucleated RBC % 1.0 % (0.0-0.9) H 01/12/21 04:43 Seg Neutrophils # Man 23.6 K/mm3 (1.8-7.7) H 01/12/21 04:43 Band Neutrophils # 0.5 K/mm3 01/12/21 04:43 Lymphocytes # (Manual) 1.4 K/mm3 (1.2-5.4) 01/12/21 04:43 Abs React Lymphs (Man) 0.0 K/mm3 01/12/21 04:43 Monocytes # (Manual) 1.4 K/mm3 (0.0-0.8) H 01/12/21 04:43 Eosinophils # (Manual) 0.0 K/mm3 (0.0-0.4) 01/12/21 04:43 Basophils # (Manual) 0.0 K/mm3 (0.0-0.1) 01/12/21 04:43 Metamyelocytes # 0.3 K/mm3 01/12/21 04:43 Myelocytes # 0.0 K/mm3 01/12/21 04:43 Promyelocytes # 0.0 K/mm3 01/12/21 04:43 Blast Cells # 0.0 K/mm3 01/12/21 04:43 WBC Morphology Not Reportable 01/12/21 04:43 Hypersegmented Neuts Not Reportable 01/12/21 04:43 Hyposegmented Neuts Not Reportable 01/12/21 04:43 Hypogranular Neuts Not Reportable 01/12/21 04:43 Smudge Cells Not Reportable 01/12/21 04:43 Toxic Granulation Not Reportable 01/12/21 04:43 Toxic Vacuolation Not Reportable 01/12/21 04:43 Dohle Bodies Not Reportable 01/12/21 04:43 Pelger-Huet Anomaly Not Reportable 01/12/21 04:43 Janene Rods Not Reportable 01/12/21 04:43 Platelet Estimate Consistent w auto 01/12/21 04:43 Clumped Platelets Not Reportable 01/12/21 04:43 Plt Clumps, EDTA Not Reportable 01/12/21 04:43 Large Platelets Not Reportable 01/12/21 04:43 Giant Platelets Not Reportable 01/12/21 04:43 Platelet Satelliting Not Reportable 01/12/21 04:43 Plt Morphology Comment Not Reportable 01/12/21 04:43 RBC Morphology Not Reportable 01/12/21 04:43 Dimorphic RBCs Not Reportable 01/12/21 04:43 Polychromasia Rare 01/12/21 04:43 Hypochromasia 1+ 01/12/21 04:43 Poikilocytosis Not Reportable 01/12/21 04:43 Anisocytosis 1+ 01/12/21 04:43 Microcytosis Not Reportable 01/12/21 04:43 Macrocytosis Not Reportable 01/12/21 04:43 Spherocytes Not Reportable 01/12/21 04:43 Pappenheimer Bodies Not Reportable 01/12/21 04:43 Sickle Cells Not Reportable 01/12/21 04:43 Target Cells Few 01/12/21 04:43 Tear Drop Cells Not Reportable 01/12/21 04:43 Ovalocytes Not Reportable 01/12/21 04:43 Helmet Cells Not Reportable 01/12/21 04:43 [place] Bodies Not Reportable 01/12/21 04:43 [place] Rings Not Reportable 01/12/21 04:43 [place] Cells Not Reportable 01/12/21 04:43 Bite Cells Not Reportable 01/12/21 04:43 Crenated Cell Not Reportable 01/12/21 04:43 Elliptocytes Not Reportable 01/12/21 04:43 Acanthocytes (Spur) Not Reportable 01/12/21 04:43 Rouleaux Not Reportable 01/12/21 04:43 Hemoglobin C Crystals Not Reportable 01/12/21 04:43 Schistocytes Not Reportable 01/12/21 04:43 Malaria parasites Not Reportable 01/12/21 04:43 Percent Retic 3.75 % (0.78-2.58) H 01/07/21 05:00 Atul Bodies Not Reportable 01/12/21 04:43 Hem Pathologist Commnt No 01/12/21 04:43 PT 18.0 Sec. (12.2-14.9) H 01/06/21 09:16 INR 1.35 (0.87-1.13) H 01/06/21 09:16 Sodium 136 mmol/L (137-145) L 01/12/21 04:43 Potassium 4.4 mmol/L (3.6-5.0) 01/12/21 04:43 Chloride 97.2 mmol/L (98-107) L 01/12/21 04:43 Carbon Dioxide 21 mmol/L (22-30) L 01/12/21 04:43 Anion Gap 22 mmol/L 01/12/21 04:43 BUN 52 mg/dL (9-20) H 01/12/21 04:43 Creatinine 4.7 mg/dL (0.8-1.3) H 01/12/21 04:43 Estimated GFR 13 ml/min 01/12/21 04:43 BUN/Creatinine Ratio 11 % 01/12/21 04:43 Glucose 80 mg/dL (75-100) 01/12/21 04:43 Lactic Acid 1.80 mmol/L (0.7-2.0) 01/05/21 09:51 Calcium 7.9 mg/dL (8.4-10.2) L 01/12/21 04:43 Magnesium 4.40 mg/dL (1.7-2.3) H 01/05/21 00:02 Total Bilirubin 6.40 mg/dL (0.1-1.2) H 01/10/21 07:46 Direct Bilirubin 5.0 mg/dL (0-0.2) H 01/08/21 Unknown AST 115 units/L (5-40) H 01/10/21 07:46 ALT 62 units/L (7-56) H 01/10/21 07:46 Alkaline Phosphatase 876 units/L (35-129) H 01/10/21 07:46 Lactate Dehydrogenase 1199 units/L (91-180) H 01/07/21 05:00 Total Creatine Kinase 340 units/L (55-170) H 01/05/21 00:02 Total Protein 5.7 g/dL (6.3-8.2) L 01/10/21 07:46 Albumin 2.3 g/dL (3.9-5) L 01/10/21 07:46 Albumin/Globulin Ratio 0.7 % 01/10/21 07:46 Blood Type A POSITIVE 01/12/21 19:00 Antibody Screen Negative 01/12/21 19:00 Crossmatch See Detail 01/12/21 19:00 Santiago/IV: Voiding Method Condom Catheter Active Medications - Current Medications Current Medications: Generic Name Dose Route Start Last Admin Trade Name Freq PRN Reason Stop Dose Admin Acetaminophen 650 mg 01/04/21 19:59 Acetaminophen 325 Mg Tab PO Q6H PRN Pain, Mild (1-3) Albuterol 2.5 mg 01/04/21 19:59 Albuterol 2.5 Mg/3 Ml Nebu IH Q4HRT PRN Shortness Of Breath Hydromorphone HCl 0.5 mg 01/04/21 19:59 01/07/21 10:05 Hydromorphone 1 Mg/1 Ml Inj IV 0.5 mg Q12H PRN Administration Pain , Severe (7-10) Sodium Chloride 100 mls @ 999 mls/hr 01/05/21 10:00 Nacl 0.9% IV YURI PRN Hypotension Cefepime HCl 1 gm in 100 mls @ 200 mls/hr 01/09/21 22:00 01/12/21 22:11 Cefepime/Ns 1 Gm/100 Ml IV 01/13/21 22:29 200 mls/hr HS JESSICA Administration Metoclopramide HCl 5 mg 01/08/21 13:00 01/13/21 06:06 Metoclopramide 10 Mg/2 Ml Inj IV 5 mg Q6H JESSICA Administration Ondansetron HCl 4 mg 01/04/21 19:59 Ondansetron 4 Mg/2 Ml Inj IV Q8H PRN Nausea And Vomiting Oxycodone/Acetaminophen 2 tab 01/05/21 18:55 01/09/21 00:24 Oxycodone /Acetaminophen 5-325mg Tab PO 2 tab Q6H PRN Administration Pain, Moderate (4-6) Pantoprazole Sodium 40 mg 01/07/21 15:00 01/12/21 08:30 Pantoprazole 40 Mg Inj IV 40 mg QDAY JESSICA Administration Sodium Chloride 10 ml 01/04/21 22:00 01/12/21 22:12 Sodium Chloride 0.9% 10 Ml Flush Syringe IV 10 ml BID JESSICA Administration Sodium Chloride 10 ml 01/04/21 19:59 Sodium Chloride 0.9% 10 Ml Flush Syringe IV PRN PRN LINE FLUSH Nutrition/Malnutrition Assess - Dietary Evaluation Nutrition/Malnutrition Findings: Nutrition Notes Start: 01/11/21 16:27 Freq: Status: Active Protocol: Document 01/11/21 16:27 GB (Rec: 01/11/21 16:49 GB [id number]) Nutrition Notes Need for Assessment generated from: LOS Initial or Follow up Assessment Current Diagnosis Acute Kidney Injury,Sepsis Other Pertinent Diagnosis perforated sigmoid CA stage IV , peritonitis Current Diet full liquids Labs/Tests 01/10: Tbili 6.4, (AST 115, ALT 62, AlkP 876) showing improvement 01/11: Na 135, (BUN 40, creatinine 3.9, Ca 8) showing improvement Pertinent Medications reviewed Height 6 ft 2 in Weight 156.5 kg [place] Body Weight (kg) 86.36 BMI 44.3 Weight change and time frame 01/04: 158.757kg 01/11: 156.5kg Change -2.257kg for -1.42% significance Weight Status Morbidly Obese Subjective/Other Information Pt reviewing for home/hospice. pt states he wants to do dialysis and chemotherapy. Last BM: 01/11: colostomy bag emptied x3 Percent of energy/protein needs met: unable to assess. Documentation of tolerating diet well Burn Absent Trauma Absent GI Symptoms Other Food Allergy No Skin Integrity/Comment wound medial abdomen Current % PO Other Minimum of two criteria No #1 Nutrition Diagnosis Altered GI function Etiology perforated sigmoid CA stage IV As Evidenced by Signs and Symptoms colostomy bag, full liquid diet Is patient on ventilator? No Is Patient Ambulatory and/or Out of Bed Yes REE-([place]-St. Jeor-ambulatory/OOB) [ 3243.175 NUTR.MSJOOB] Kcal/Kg value to use for calculation 17 Approximate Energy Requirements Using 2661 kcal/Kg Calculation Used for Recommendations Kcal/kg Additional Notes protein 0.6-0.8g/kg @ 157k-125g Fluids: 1 ml/kcal or per MD Nutrition Intervention Change Diet Order: continue full liquids: advance as tolerated to soft fiber Nutrition Support: n/a Add Supplement/Snack (indicate name/kcal ensure enlive BID /protein ) Provides kCal: 700 Provides Protein (gm) 40 Goal #1 PO intake of meals/supplements to be 50% or greater daily for LOS Goal #2 Diet advanced to regular soft fiber by f/u Follow-Up By: 01/14/21 Additional Comments f/u: PO intake meals/ supplements, diet advancement
--- NOTE | 2021-01-13 12:59 | Progress Note ---
Assessment and Plan 50-year-old man presents with perforated sigmoid mass likely neoplasm, status post exploratory laparotomy, sigmoidectomy, end colostomy, peritoneal lavage. # SHARMIN: Most likely secondary to ATN. Suspect severe tubular injury s/p extensive surgery + contrast use on 12/29. -Status post Vas-Cath placement on 01/03/2021 and initiation of dialysis . Patient had signed out AMA on 01/04/2021 and his Vas-Cath was removed. Patient was then readmitted. Status post Vas-Cath reinsertion 01/06/2021. Volume overload seems to be improving. No evidence of renal recovery at this time. - Continue HD TTS - Noted plans for palliative care, however patient is expressing desire for ongoing active treatment. At this time there is no meaningful recovery and he will require HD should he want to pursue active treatment. Patient states that he intends to continue active treatment at this time. He was advised that he will need permcath placement as vasc cath cannot be kept in group home. He was also advised on proper care and risk of infection with catheter. - CM to assist with HD placement, however per CM that may be challenging. Challenges with disposition from a renal standpoint were also discussed with the patient and he was advised to present to ER thrice weekly if no outpatient unit is secured following discharge. - Vascular/IR consulted for access placement - NPO after midnight - Prognosis is guarded # Anemia: Transfuse for hgb < 7 # Metabolic Acidosis/Hyperkalemia: likely due to SHARMIN. Improved with HD. # Perforated Sigmoid Mass, Possible Colorectal Carcinoma, Metastasis to Liver: Note oncology consult. # Sepsis, Leukocytosis: likely related to bowel perforation, note antibiotics # Malnutrition Subjective Date of service: 01/13/21 Principal diagnosis: Metatstatic colon cancer Interval history: Resting in bed. Swelling improving. Objective - Exam Narrative Exam: General: No acute distress HEENT: Oral mucosa moist Neck: Supple, no JVD Chest: Clear to auscultation bilaterally Heart: RRR, S1 and S2, no pericardial rub Abdomen: Soft, nontender, no renal bruit Extremity: No peripheral cyanosis, b/l LE edema Neurological: Alert, awake, no asterixis Dermatology: No skin rash Psych: No agitation Musculoskeletal: No joint effusion - Vital Signs Vital signs: Vital Signs - 12hr 01/13/21 01/13/21 01/13/21 01:00 01:30 02:01 Temperature Pulse Rate Respiratory Rate Blood Pressure 109/53 116/61 136/75 O2 Sat by Pulse Oximetry 01/13/21 01/13/21 01/13/21 02:30 03:00 03:15 Temperature Pulse Rate Respiratory 18 Rate Blood Pressure 113/56 111/55 111/55 O2 Sat by Pulse Oximetry 01/13/21 01/13/21 01/13/21 03:26 04:35 12:22 Temperature 97.9 F Pulse Rate 97 H Respiratory 18 Rate Blood Pressure 136/72 O2 Sat by Pulse 95 Oximetry - Lab 01/13/21 04:43 01/12/21 04:43 Most recent lab results Calcium 7.9 mg/dL (8.4-10.2) L 01/12/21 04:43 Magnesium 4.40 mg/dL (1.7-2.3) H 01/05/21 00:02 Medications & Allergies - Medications Allergies/Adverse Reactions: Allergies No Known Allergies Allergy (Verified 12/29/20 13:17) Home Medications: Home Medications Medication Instructions Recorded Confirmed Last Taken Type Tylenol Extra Strength 500 mg PO BID PRN 12/30/20 01/05/21 Unknown History Active Medications: Generic Name Dose Route Start Last Admin Trade Name Freq PRN Reason Stop Dose Admin Acetaminophen 650 mg 01/04/21 19:59 Acetaminophen 325 Mg Tab PO Q6H PRN Pain, Mild (1-3) Albuterol 2.5 mg 01/04/21 19:59 Albuterol 2.5 Mg/3 Ml Nebu IH Q4HRT PRN Shortness Of Breath Hydromorphone HCl 0.5 mg 01/04/21 19:59 01/07/21 10:05 Hydromorphone 1 Mg/1 Ml Inj IV 0.5 mg Q12H PRN Administration Pain , Severe (7-10) Sodium Chloride 100 mls @ 999 mls/hr 01/05/21 10:00 Nacl 0.9% IV YURI PRN Hypotension Cefepime HCl 1 gm in 100 mls @ 200 mls/hr 01/09/21 22:00 01/12/21 22:11 Cefepime/Ns 1 Gm/100 Ml IV 01/13/21 22:29 200 mls/hr HS JESSICA Administration Metoclopramide HCl 5 mg 01/08/21 13:00 01/13/21 06:06 Metoclopramide 10 Mg/2 Ml Inj IV 5 mg Q6H JESSICA Administration Ondansetron HCl 4 mg 01/04/21 19:59 Ondansetron 4 Mg/2 Ml Inj IV Q8H PRN Nausea And Vomiting Oxycodone/Acetaminophen 2 tab 01/05/21 18:55 01/09/21 00:24 Oxycodone /Acetaminophen 5-325mg Tab PO 2 tab Q6H PRN Administration Pain, Moderate (4-6) Pantoprazole Sodium 40 mg 01/07/21 15:00 01/12/21 08:30 Pantoprazole 40 Mg Inj IV 40 mg QDAY JESSICA Administration Sodium Chloride 10 ml 01/04/21 22:00 01/12/21 22:12 Sodium Chloride 0.9% 10 Ml Flush Syringe IV 10 ml BID JESSICA Administration Sodium Chloride 10 ml 01/04/21 19:59 Sodium Chloride 0.9% 10 Ml Flush Syringe IV PRN PRN LINE FLUSH
[2021-01-13] MEDS: CEFEPIME/NS 1 GM/100 ML 1 GM/100 ML BAG IV SCH (21:30)
[2021-01-14] MEDS: METOCLOPRAMIDE 10 MG/2 ML INJ IV SCH ×5 (01:19→18:19)
[2021-01-14 06:29] LABS: Hematocrit 26.2 % (35.5-45.6); Hemoglobin 8.1 gm/dl (11.8-15.2); Mean Corpuscular HGB Conc 31 % (32-34); Mean Corpuscular Volume 81 fl (84-94); Platelet Count 190 K/mm3 (140-440); Red Blood Count 3.23 M/mm3 (3.65-5.03)
[2021-01-14 06:35] LABS: Red Cell Distribution Width 22.2 % (13.2-15.2)
[2021-01-14 06:51] LABS: Albumin 2.4 g/dL (3.9-5); Calcium 8.2 mg/dL (8.4-10.2)
[2021-01-14] MEDS ORDERED: TUBERCULIN PPD 5 TUB UNIT/0.1 ML INJ ID ONE ×2 (08:00→15:00)
--- NOTE | 2021-01-14 09:55 | Hem/Onc Progress Note ---
Subjective Date of service: 01/14/21 Interval history: Heme followup note data review CPT 60037 Dx Colon mass This is a 50yo male who presented to the ER 12/29/20 with diffuse abdominal pain and distention CT abd/pelvis c/w mid sigmoid mass suggesting colorectal carcinoma with erosion/bowel perforation, adjacent adenopathy and innumerable liver metastatic lesions S/p exploratory laparotomy, sigmoidectomy, end colectomy, peritoneal lavage Dx with perforated sigmoid mass with liver mets and peritonitis New renal failure, possibly due to contrast nephropathy Hemodialysis initiated while inpatient On 01/04-- patient was noted with hgb 5, orders for 2 units RBC transfusions, patient refused transfusions and left hospital AMA Pt returned to hospital a few hours later Patient received HD 01/11 Patient received 1 unit RBC 01/13 Patient and family had decided on home hospice, but patient expressing desire f or ongoing treatment DATA REVIEWED BELOW IMP: New metastatic colon cancer with liver metastasis Anemia, requiring multiple transfusions, related to malignancy , hemolytic anemia also possibly a factor Abd/pelvis CT c/w renal mass, metastatic vs second primary-- not as important as liver metastasis no active bleed revealed in CT Pathology: Sigmoid colon, sigmoidectomy: 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 Macroscopic tumor perforation identified. Tumor invades visceral peritoneum. All margins are uninvolved. Lymphovascular and perineural invasion identified. 1 out of 8 lymph nodes involved. Pathologic stage: T4aN1a REC/PLAN: Transfuse 1 unit RBC whenever hct<23 Outpatient oncology followup and chemotherapy is an option, although overall poor prognosis Laboratory Last Values WBC 22.1 K/mm3 (4.5-11.0) H 01/14/21 05:19 RBC 3.23 M/mm3 (3.65-5.03) L 01/14/21 05:19 Hgb 8.1 gm/dl (11.8-15.2) L 01/14/21 05:19 Hct 26.2 % (35.5-45.6) L 01/14/21 05:19 MCV 81 fl (84-94) L 01/14/21 05:19 MCH 25 pg (28-32) L 01/14/21 05:19 MCHC 31 % (32-34) L 01/14/21 05:19 RDW 22.2 % (13.2-15.2) H 01/14/21 05:19 Plt Count 190 K/mm3 (140-440) 01/14/21 05:19 Add Manual Diff Complete 01/12/21 04:43 Total Counted 100 01/12/21 04:43 Seg Neutrophils % Physician Obstetrician 01/10/21 13:27 Seg Neuts % (Manual) 87.0 % (40.0-70.0) H 01/12/21 04:43 Band Neutrophils % 2.0 % 01/12/21 04:43 Lymphocytes % (Manual) 5.0 % (13.4-35.0) L 01/12/21 04:43 Monocytes % (Manual) 5.0 % (0.0-7.3) 01/12/21 04:43 Eosinophils % (Manual) 1.0 % (0.0-4.3) 01/05/21 00:02 Basophils % (Manual) 1.0 % (0.0-1.8) 01/05/21 00:02 Metamyelocytes % 1.0 % 01/12/21 04:43 Myelocytes % 2.0 % 01/06/21 05:43 Nucleated RBC % 1.0 % (0.0-0.9) H 01/12/21 04:43 Seg Neutrophils # Man 23.6 K/mm3 (1.8-7.7) H 01/12/21 04:43 Band Neutrophils # 0.5 K/mm3 01/12/21 04:43 Lymphocytes # (Manual) 1.4 K/mm3 (1.2-5.4) 01/12/21 04:43 Abs React Lymphs (Man) 0.0 K/mm3 01/12/21 04:43 Monocytes # (Manual) 1.4 K/mm3 (0.0-0.8) H 01/12/21 04:43 Eosinophils # (Manual) 0.0 K/mm3 (0.0-0.4) 01/12/21 04:43 Basophils # (Manual) 0.0 K/mm3 (0.0-0.1) 01/12/21 04:43 Metamyelocytes # 0.3 K/mm3 01/12/21 04:43 Myelocytes # 0.0 K/mm3 01/12/21 04:43 Promyelocytes # 0.0 K/mm3 01/12/21 04:43 Blast Cells # 0.0 K/mm3 01/12/21 04:43 WBC Morphology Not Reportable 01/12/21 04:43 Hypersegmented Neuts Not Reportable 01/12/21 04:43 Hyposegmented Neuts Not Reportable 01/12/21 04:43 Hypogranular Neuts Not Reportable 01/12/21 04:43 Smudge Cells Not Reportable 01/12/21 04:43 Toxic Granulation Not Reportable 01/12/21 04:43 Toxic Vacuolation Not Reportable 01/12/21 04:43 Dohle Bodies Not Reportable 01/12/21 04:43 Pelger-Huet Anomaly Not Reportable 01/12/21 04:43 Janene Rods Not Reportable 01/12/21 04:43 Platelet Estimate Consistent w auto 01/12/21 04:43 Clumped Platelets Not Reportable 01/12/21 04:43 Plt Clumps, EDTA Not Reportable 01/12/21 04:43 Large Platelets Not Reportable 01/12/21 04:43 Giant Platelets Not Reportable 01/12/21 04:43 Platelet Satelliting Not Reportable 01/12/21 04:43 Plt Morphology Comment Not Reportable 01/12/21 04:43 RBC Morphology Not Reportable 01/12/21 04:43 Dimorphic RBCs Not Reportable 01/12/21 04:43 Polychromasia Rare 01/12/21 04:43 Hypochromasia 1+ 01/12/21 04:43 Poikilocytosis Not Reportable 01/12/21 04:43 Anisocytosis 1+ 01/12/21 04:43 Microcytosis Not Reportable 01/12/21 04:43 Macrocytosis Not Reportable 01/12/21 04:43 Spherocytes Not Reportable 01/12/21 04:43 Pappenheimer Bodies Not Reportable 01/12/21 04:43 Sickle Cells Not Reportable 01/12/21 04:43 Target Cells Few 01/12/21 04:43 Tear Drop Cells Not Reportable 01/12/21 04:43 Ovalocytes Not Reportable 01/12/21 04:43 Helmet Cells Not Reportable 01/12/21 04:43 [place] Bodies Not Reportable 01/12/21 04:43 [place] Rings Not Reportable 01/12/21 04:43 [place] Cells Not Reportable 01/12/21 04:43 Bite Cells Not Reportable 01/12/21 04:43 Crenated Cell Not Reportable 01/12/21 04:43 Elliptocytes Not Reportable 01/12/21 04:43 Acanthocytes (Spur) Not Reportable 01/12/21 04:43 Rouleaux Not Reportable 01/12/21 04:43 Hemoglobin C Crystals Not Reportable 01/12/21 04:43 Schistocytes Not Reportable 01/12/21 04:43 Malaria parasites Not Reportable 01/12/21 04:43 Percent Retic 3.75 % (0.78-2.58) H 01/07/21 05:00 Atul Bodies Not Reportable 01/12/21 04:43 Hem Pathologist Commnt No 01/12/21 04:43 PT 18.0 Sec. (12.2-14.9) H 01/06/21 09:16 INR 1.35 (0.87-1.13) H 01/06/21 09:16 Sodium 139 mmol/L (137-145) 01/14/21 05:19 Potassium 4.6 mmol/L (3.6-5.0) 01/14/21 05:19 Chloride 95.9 mmol/L (98-107) L 01/14/21 05:19 Carbon Dioxide 22 mmol/L (22-30) 01/14/21 05:19 Anion Gap 26 mmol/L 01/14/21 05:19 BUN 54 mg/dL (9-20) H 01/14/21 05:19 Creatinine 5.1 mg/dL (0.8-1.3) H 01/14/21 05:19 Estimated GFR 12 ml/min 01/14/21 05:19 BUN/Creatinine Ratio 11 % 01/14/21 05:19 Glucose 107 mg/dL (75-100) H 01/14/21 05:19 Lactic Acid 1.80 mmol/L (0.7-2.0) 01/05/21 09:51 Calcium 8.2 mg/dL (8.4-10.2) L 01/14/21 05:19 Magnesium 4.40 mg/dL (1.7-2.3) H 01/05/21 00:02 Total Bilirubin 10.40 mg/dL (0.1-1.2) H 01/14/21 05:19 Direct Bilirubin 5.0 mg/dL (0-0.2) H 01/08/21 Unknown AST 123 units/L (5-40) H 01/14/21 05:19 ALT 71 units/L (7-56) H 01/14/21 05:19 Alkaline Phosphatase 1132 units/L (35-129) H 01/14/21 05:19 Lactate Dehydrogenase 1199 units/L (91-180) H 01/07/21 05:00 Total Creatine Kinase 340 units/L (55-170) H 01/05/21 00:02 Total Protein 5.6 g/dL (6.3-8.2) L 01/14/21 05:19 Albumin 2.4 g/dL (3.9-5) L 01/14/21 05:19 Albumin/Globulin Ratio 0.8 % 01/14/21 05:19 Blood Type A POSITIVE 01/12/21 19:00 Antibody Screen Negative 01/12/21 19:00 Crossmatch See Detail 01/12/21 19:00 Objective - Constitutional Vitals: Last Vital Signs Temp 97.5 F L 01/14/21 09:10 Pulse 92 H 01/14/21 09:30 Resp 16 01/14/21 09:10 BP 122/71 01/14/21 09:30 Pulse Ox 95 01/14/21 09:10 - Labs Lab Results: Laboratory Results - last 24 hr 01/14/21 01/14/21 05:19 05:19 WBC 22.1 H RBC 3.23 L Hgb 8.1 L Hct 26.2 L MCV 81 L MCH 25 L MCHC 31 L RDW 22.2 H Plt Count 190 Sodium 139 Potassium 4.6 Chloride 95.9 L Carbon Dioxide 22 Anion Gap 26 BUN 54 H Creatinine 5.1 H Estimated GFR 12 BUN/Creatinine Ratio 11 Glucose 107 H Calcium 8.2 L Total Bilirubin 10.40 H AST 123 H ALT 71 H Alkaline Phosphatase 1132 H Total Protein 5.6 L Albumin 2.4 L Albumin/Globulin Ratio 0.8 Medications & Allergies - Medications Allergies/Adverse Reactions: Allergies No Known Allergies Allergy (Verified 12/29/20 13:17) Home Medications: Home Medications Medication Instructions Recorded Confirmed Last Taken Type Tylenol Extra Strength 500 mg PO BID PRN 12/30/20 01/05/21 Unknown History Active Medications: Generic Name Dose Route Start Last Admin Trade Name Freq PRN Reason Stop Dose Admin Acetaminophen 650 mg 01/04/21 19:59 Acetaminophen 325 Mg Tab PO Q6H PRN Pain, Mild (1-3) Albuterol 2.5 mg 01/04/21 19:59 Albuterol 2.5 Mg/3 Ml Nebu IH Q4HRT PRN Shortness Of Breath Hydromorphone HCl 0.5 mg 01/04/21 19:59 01/07/21 10:05 Hydromorphone 1 Mg/1 Ml Inj IV 0.5 mg Q12H PRN Administration Pain , Severe (7-10) Sodium Chloride 100 mls @ 999 mls/hr 01/05/21 10:00 Nacl 0.9% IV YURI PRN Hypotension Metoclopramide HCl 5 mg 01/08/21 13:00 01/14/21 08:26 Metoclopramide 10 Mg/2 Ml Inj IV Not Given Q6H JESSICA Ondansetron HCl 4 mg 01/04/21 19:59 Ondansetron 4 Mg/2 Ml Inj IV Q8H PRN Nausea And Vomiting Oxycodone/Acetaminophen 2 tab 01/05/21 18:55 01/09/21 00:24 Oxycodone /Acetaminophen 5-325mg Tab PO 2 tab Q6H PRN Administration Pain, Moderate (4-6) Pantoprazole Sodium 40 mg 01/07/21 15:00 01/13/21 09:45 Pantoprazole 40 Mg Inj IV 40 mg QDAY JESSICA Administration Sodium Chloride 10 ml 01/04/21 22:00 01/13/21 21:31 Sodium Chloride 0.9% 10 Ml Flush Syringe IV 10 ml BID JESSICA Administration Sodium Chloride 10 ml 01/04/21 19:59 01/13/21 14:28 Sodium Chloride 0.9% 10 Ml Flush Syringe IV 10 ml PRN PRN Administration LINE FLUSH
[2021-01-14 10:28] LABS: Basophils # (Auto) 0.1 K/mm3 (0.0-0.1); Eosinophils % (Auto) 0.2 % (0.0-4.3); Monocytes % (Auto) 4.8 % (0.0-7.3)
--- NOTE | 2021-01-14 10:39 | Progress Note ---
Assessment and Plan Assessment and plan: --Newly diagnosed metastatic colorectal carcinoma Pathology: Sigmoid colon, sigmoidectomy: 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 Macroscopic tumor perforation identified. Tumor invades visceral peritoneum. All margins are uninvolved. Lymphovascular and perineural invasion identified. 1 out of 8 lymph nodes involved. Pathologic stage: T4aN1a, CEA 24.3 Patient never had colonoscopy 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, heme-onc following Recommended outpatient follow-up with heme-onc For possible chemotherapy Very poor prognosis, considering home with home hospice --perforated sigmoid mass --s/p exploratory laparotomy/sigmoidectomy/colostomy/peritoneal lavage Continue current management --Surgical cultures gram-negative rods Currently on Zosyn, follow culture sensitivities ID consult if needed --Gram-negative sepsis Sepsis in the setting of high white count and bowel perforation -- Continue IV antibiotics, follow cultures ID consult if needed --Anemia; hemoglobin 7.0 Received 1 unit PRBC transfusion 01/12/2021 Hb improved from 7-8 Closely monitor H&H transfuse additional PRBC if needed --Acute kidney injury; worsening renal function Nephrology initiated dialysis, s/p vas-Cath placement HD per schedule, nephrology recommended permacath placement Vascular consulted --Hyperkalemia, resolved HD per schedule --Worsening transaminases; Probably secondary to liver mets,Closely monitor --Severe malnutrition/hypoproteinemia Dietary supplements and dietitian consult --Morbid obesity; BMI 44.3 Partly due to fluid overload and renal failure Patient needs weight reduction when medically stable --DVT prophylaxis On SCDs , patient postop state with severe anemia Cotton Classer Aide recommendations noted and appreciated Discussed in detail with the case management regarding discharge planning Planning home hospice and discontinuing hemodialysis however patient did not agree for that plan Patient wants hemodialysis as well as chemotherapy DC planning per case management, possible home with home hospice Brief history and hospital course: 50-year-old male patient initially presented on 12/29/20 with perforated sigmoid mass likely neoplasm, status post exploratory laparotomy,, sigmoidectomy, end colostomy, peritoneal lavage. Patient has worsening renal function,Vas-Cath placement and initiated hemodialysis. He decided to leave AMA on 01/04/2021 but got readmitted on the same day. 01/05/21: Patient had low hemoglobin 5.3 today, elevated potassium and creat inine. Dialysis catheter was removed yesterday when Patient left AMA yesterday.. consulted vascular for permcath, ordered for PRBC transfusion. Follow CBC and BMP 01/06/21: Pathology report revealed moderately differentiated adenocarcinoma of sigmoid colon pathologic state T4aN1a. Status post vasCath placement today, drug use another unit of packed RBC -hemoglobin 6.4. Plan for hemodialysis, monitor CBC and BMP. Guarded prognosis 01/07/21; discussed with oncology. Patient need to follow-up with oncologist as outpatient to initiate definitive treatment for pulmonary adenocarcinoma. now Wait for renal function recovery. Continue to follow CBC and BMP. Try to call patient family but unable to reach out to them. 01/08/21: Continue to follow renal function, H&H stable. Continue supportive care monitor closely. Clinically remains volume overloaded. Plan for another hemodialysis today. Continue empiric antibiotics 01/09/21; continue full liquid diet, plan for hemodialysis tomorrow, continue to follow clinically. Very poor prognosis. Monitor CBC and BMP 01/10/21: s/p HD today. discussed with family by phone and with pt in front of RN. they all in agreement for home hospice and does not want any HD or chemotherapy. CM ordered for home hospice setup. follow clinically. 01/11/2021; awaiting discharge home with hospice, very poor prognosis, full CODE STATUS However when the hospice personnel discuss with the patient, patient stated that he wants to continue with hemodialysis as well as chemotherapy. We will continue to follow 01/12/21; anemia, Hb 7.0, transfuse 1 unit PRBC, HD per schedule DC planning per case management possible home with home hospice 01/13/2021: Hb today is 8.0 CM assisting with discharge home with home hospice Full CODE STATUS 01/14/21 . health promotion manager working on Home with home hospice. As marcel notes, he wants to continue hemodialysis. History Interval history: Patient feels better No fever Hospitalist Physical - Physical exam Narrative exam: Gen: Not in acute distress. morbidly obese HEENT:Normocephalic,atraumatic Neck:supple, No JVD Lungs:clear to auscultation bilaterally, no wheeze Heart:S1 and S2 reg, no murmurs, rubs or gallop Abd:soft, non tender, non distended, surgical dressing over abdomen Ext; No edema, no clubbing, no cyanosis Neuro:Awake,alert, moves all ext, - Constitutional Vitals: Temp Pulse Resp BP Pulse Ox 97.5 F L 104 H 16 130/72 95 01/14/21 09:10 01/14/21 10:15 01/14/21 09:10 01/14/21 10:15 01/14/21 09:10 General appearance: Present: no acute distress, well-nourished, obese (Morbidly obese) Results - Labs CBC & Chem 7: 01/14/21 05:19 01/14/21 05:19 Labs: Laboratory Last Values WBC 22.1 K/mm3 (4.5-11.0) H 01/14/21 05:19 RBC 3.23 M/mm3 (3.65-5.03) L 01/14/21 05:19 Hgb 8.1 gm/dl (11.8-15.2) L 01/14/21 05:19 Hct 26.2 % (35.5-45.6) L 01/14/21 05:19 MCV 81 fl (84-94) L 01/14/21 05:19 MCH 25 pg (28-32) L 01/14/21 05:19 MCHC 31 % (32-34) L 01/14/21 05:19 RDW 22.2 % (13.2-15.2) H 01/14/21 05:19 Plt Count 190 K/mm3 (140-440) 01/14/21 05:19 [place] % (Auto) 4.8 % (0.0-7.3) 01/14/21 05:19 Eos % (Auto) 0.2 % (0.0-4.3) 01/14/21 05:19 [place] # (Auto) 1.0 K/mm3 (0.0-0.8) H 01/14/21 05:19 Eos # (Auto) 0.0 K/mm3 (0.0-0.4) 01/14/21 05:19 Baso # (Auto) 0.1 K/mm3 (0.0-0.1) 01/14/21 05:19 Add Manual Diff Complete 01/12/21 04:43 Total Counted 100 01/12/21 04:43 Seg Neutrophils % 88.7 % (40.0-70.0) H 01/14/21 05:19 Seg Neuts % (Manual) 87.0 % (40.0-70.0) H 01/12/21 04:43 Band Neutrophils % 2.0 % 01/12/21 04:43 Lymphocytes % (Manual) 5.0 % (13.4-35.0) L 01/12/21 04:43 Monocytes % (Manual) 5.0 % (0.0-7.3) 01/12/21 04:43 Eosinophils % (Manual) 1.0 % (0.0-4.3) 01/05/21 00:02 Basophils % (Manual) 1.0 % (0.0-1.8) 01/05/21 00:02 Metamyelocytes % 1.0 % 01/12/21 04:43 Myelocytes % 2.0 % 01/06/21 05:43 Nucleated RBC % 1.0 % (0.0-0.9) H 01/12/21 04:43 Seg Neutrophils # 18.6 K/mm3 (1.8-7.7) H 01/14/21 05:19 Seg Neutrophils # Man 23.6 K/mm3 (1.8-7.7) H 01/12/21 04:43 Band Neutrophils # 0.5 K/mm3 01/12/21 04:43 Lymphocytes # (Manual) 1.4 K/mm3 (1.2-5.4) 01/12/21 04:43 Abs React Lymphs (Man) 0.0 K/mm3 01/12/21 04:43 Monocytes # (Manual) 1.4 K/mm3 (0.0-0.8) H 01/12/21 04:43 Eosinophils # (Manual) 0.0 K/mm3 (0.0-0.4) 01/12/21 04:43 Basophils # (Manual) 0.0 K/mm3 (0.0-0.1) 01/12/21 04:43 Metamyelocytes # 0.3 K/mm3 01/12/21 04:43 Myelocytes # 0.0 K/mm3 01/12/21 04:43 Promyelocytes # 0.0 K/mm3 01/12/21 04:43 Blast Cells # 0.0 K/mm3 01/12/21 04:43 WBC Morphology Not Reportable 01/12/21 04:43 Hypersegmented Neuts Not Reportable 01/12/21 04:43 Hyposegmented Neuts Not Reportable 01/12/21 04:43 Hypogranular Neuts Not Reportable 01/12/21 04:43 Smudge Cells Not Reportable 01/12/21 04:43 Toxic Granulation Not Reportable 01/12/21 04:43 Toxic Vacuolation Not Reportable 01/12/21 04:43 Dohle Bodies Not Reportable 01/12/21 04:43 Pelger-Huet Anomaly Not Reportable 01/12/21 04:43 Janene Rods Not Reportable 01/12/21 04:43 Platelet Estimate Consistent w auto 01/12/21 04:43 Clumped Platelets Not Reportable 01/12/21 04:43 Plt Clumps, EDTA Not Reportable 01/12/21 04:43 Large Platelets Not Reportable 01/12/21 04:43 Giant Platelets Not Reportable 01/12/21 04:43 Platelet Satelliting Not Reportable 01/12/21 04:43 Plt Morphology Comment Not Reportable 01/12/21 04:43 RBC Morphology Not Reportable 01/12/21 04:43 Dimorphic RBCs Not Reportable 01/12/21 04:43 Polychromasia Rare 01/12/21 04:43 Hypochromasia 1+ 01/12/21 04:43 Poikilocytosis Not Reportable 01/12/21 04:43 Anisocytosis 1+ 01/12/21 04:43 Microcytosis Not Reportable 01/12/21 04:43 Macrocytosis Not Reportable 01/12/21 04:43 Spherocytes Not Reportable 01/12/21 04:43 Pappenheimer Bodies Not Reportable 01/12/21 04:43 Sickle Cells Not Reportable 01/12/21 04:43 Target Cells Few 01/12/21 04:43 Tear Drop Cells Not Reportable 01/12/21 04:43 Ovalocytes Not Reportable 01/12/21 04:43 Helmet Cells Not Reportable 01/12/21 04:43 [place] Bodies Not Reportable 01/12/21 04:43 [place] Rings Not Reportable 01/12/21 04:43 [place] Cells Not Reportable 01/12/21 04:43 Bite Cells Not Reportable 01/12/21 04:43 Crenated Cell Not Reportable 01/12/21 04:43 Elliptocytes Not Reportable 01/12/21 04:43 Acanthocytes (Spur) Not Reportable 01/12/21 04:43 Rouleaux Not Reportable 01/12/21 04:43 Hemoglobin C Crystals Not Reportable 01/12/21 04:43 Schistocytes Not Reportable 01/12/21 04:43 Malaria parasites Not Reportable 01/12/21 04:43 Percent Retic 3.75 % (0.78-2.58) H 01/07/21 05:00 Atul Bodies Not Reportable 01/12/21 04:43 Hem Pathologist Commnt No 01/12/21 04:43 PT 18.0 Sec. (12.2-14.9) H 01/06/21 09:16 INR 1.35 (0.87-1.13) H 01/06/21 09:16 Sodium 139 mmol/L (137-145) 01/14/21 05:19 Potassium 4.6 mmol/L (3.6-5.0) 01/14/21 05:19 Chloride 95.9 mmol/L (98-107) L 01/14/21 05:19 Carbon Dioxide 22 mmol/L (22-30) 01/14/21 05:19 Anion Gap 26 mmol/L 01/14/21 05:19 BUN 54 mg/dL (9-20) H 01/14/21 05:19 Creatinine 5.1 mg/dL (0.8-1.3) H 01/14/21 05:19 Estimated GFR 12 ml/min 01/14/21 05:19 BUN/Creatinine Ratio 11 % 01/14/21 05:19 Glucose 107 mg/dL (75-100) H 01/14/21 05:19 Lactic Acid 1.80 mmol/L (0.7-2.0) 01/05/21 09:51 Calcium 8.2 mg/dL (8.4-10.2) L 01/14/21 05:19 Magnesium 4.40 mg/dL (1.7-2.3) H 01/05/21 00:02 Total Bilirubin 10.40 mg/dL (0.1-1.2) H 01/14/21 05:19 Direct Bilirubin 5.0 mg/dL (0-0.2) H 01/08/21 Unknown AST 123 units/L (5-40) H 01/14/21 05:19 ALT 71 units/L (7-56) H 01/14/21 05:19 Alkaline Phosphatase 1132 units/L (35-129) H 01/14/21 05:19 Lactate Dehydrogenase 1199 units/L (91-180) H 01/07/21 05:00 Total Creatine Kinase 340 units/L (55-170) H 01/05/21 00:02 Total Protein 5.6 g/dL (6.3-8.2) L 01/14/21 05:19 Albumin 2.4 g/dL (3.9-5) L 01/14/21 05:19 Albumin/Globulin Ratio 0.8 % 01/14/21 05:19 Blood Type A POSITIVE 01/12/21 19:00 Antibody Screen Negative 01/12/21 19:00 Crossmatch See Detail 01/12/21 19:00 [place]/IV: Voiding Method Condom Catheter Active Medications - Current Medications Current Medications: Generic Name Dose Route Start Last Admin Trade Name Freq PRN Reason Stop Dose Admin Acetaminophen 650 mg 01/04/21 19:59 Acetaminophen 325 Mg Tab PO Q6H PRN Pain, Mild (1-3) Albuterol 2.5 mg 01/04/21 19:59 Albuterol 2.5 Mg/3 Ml Nebu IH Q4HRT PRN Shortness Of Breath Hydromorphone HCl 0.5 mg 01/04/21 19:59 01/07/21 10:05 Hydromorphone 1 Mg/1 Ml Inj IV 0.5 mg Q12H PRN Administration Pain , Severe (7-10) Sodium Chloride 100 mls @ 999 mls/hr 01/05/21 10:00 Nacl 0.9% IV YURI PRN Hypotension Metoclopramide HCl 5 mg 01/08/21 13:00 01/14/21 08:26 Metoclopramide 10 Mg/2 Ml Inj IV Not Given Q6H JESSICA Ondansetron HCl 4 mg 01/04/21 19:59 Ondansetron 4 Mg/2 Ml Inj IV Q8H PRN Nausea And Vomiting Oxycodone/Acetaminophen 2 tab 01/05/21 18:55 01/09/21 00:24 Oxycodone /Acetaminophen 5-325mg Tab PO 2 tab Q6H PRN Administration Pain, Moderate (4-6) Pantoprazole Sodium 40 mg 01/07/21 15:00 01/13/21 09:45 Pantoprazole 40 Mg Inj IV 40 mg QDAY JESSICA Administration Sodium Chloride 10 ml 01/04/21 22:00 01/13/21 21:31 Sodium Chloride 0.9% 10 Ml Flush Syringe IV 10 ml BID JESSICA Administration Sodium Chloride 10 ml 01/04/21 19:59 01/13/21 14:28 Sodium Chloride 0.9% 10 Ml Flush Syringe IV 10 ml PRN PRN Administration LINE FLUSH Nutrition/Malnutrition Assess - Dietary Evaluation Nutrition/Malnutrition Findings: Nutrition Notes Start: 01/11/21 16:27 Freq: Status: Active Protocol: Document 01/11/21 16:27 GB (Rec: 01/11/21 16:49 GB [id number]) Nutrition Notes Need for Assessment generated from: LOS Initial or Follow up Assessment Current Diagnosis Acute Kidney Injury,Sepsis Other Pertinent Diagnosis perforated sigmoid CA stage IV , peritonitis Current Diet full liquids Labs/Tests 01/10: Tbili 6.4, (AST 115, ALT 62, AlkP 876) showing improvement 01/11: Na 135, (BUN 40, creatinine 3.9, Ca 8) showing improvement Pertinent Medications reviewed Height 6 ft 2 in Weight 156.5 kg [place] Body Weight (kg) 86.36 BMI 44.3 Weight change and time frame 01/04: 158.757kg 01/11: 156.5kg Change -2.257kg for -1.42% significance Weight Status Morbidly Obese Subjective/Other Information Pt reviewing for home/hospice. pt states he wants to do dialysis and chemotherapy. Last BM: 01/11: colostomy bag emptied x3 Percent of energy/protein needs met: unable to assess. Documentation of tolerating diet well Burn Absent Trauma Absent GI Symptoms Other Food Allergy No Skin Integrity/Comment wound medial abdomen Current % PO Other Minimum of two criteria No #1 Nutrition Diagnosis Altered GI function Etiology perforated sigmoid CA stage IV As Evidenced by Signs and Symptoms colostomy bag, full liquid diet Is patient on ventilator? No Is Patient Ambulatory and/or Out of Bed Yes REE-([place]barger-St. Jeor-ambulatory/OOB) [ 3243.175 [id number]] Kcal/Kg value to use for calculation 17 Approximate Energy Requirements Using 2661 kcal/Kg Calculation Used for Recommendations Kcal/kg Additional Notes protein 0.6-0.8g/kg @ 157k-125g Fluids: 1 ml/kcal or per MD Nutrition Intervention Change Diet Order: continue full liquids: advance as tolerated to soft fiber Nutrition Support: n/a Add Supplement/Snack (indicate name/kcal ensure enlive BID /protein ) Provides kCal: 700 Provides Protein (gm) 40 Goal #1 PO intake of meals/supplements to be 50% or greater daily for LOS Goal #2 Diet advanced to regular soft fiber by f/u Follow-Up By: 01/14/21 Additional Comments f/u: PO intake meals/ supplements, diet advancement
[2021-01-14] MEDS: PANTOPRAZOLE 40 MG INJ IV SCH (13:48)
[2021-01-14] MEDS: oxyCODONE /ACETAMINOPHEN 5-325MG TAB PO PRN (13:49)
[2021-01-14] MEDS ORDERED: LIDOCAINE (2%) 20 MG/1 ML VIAL 20 ML MDV INFILTRATI ONE (16:39)
[2021-01-14] MEDS ORDERED: MIDAZOLAM 2 MG/2 ML INJ ONE (16:39)
[2021-01-14] MEDS ORDERED: fentaNYL 100 MCG/2 ML INJ ONE (16:39)
[2021-01-14] MEDS ORDERED: HEPARIN/NS 5000 UNIT/500ML 1,000 ML IR ONE (16:39)
[2021-01-14] MEDS ORDERED: SODIUM CHLORIDE 0.9% 250ML 250 ML ONE (16:40)
[2021-01-14] MEDS: HEPARIN 10,000 UNITS/10 ML VIAL ONE ×2 (17:03→17:04)
[2021-01-14 17:04] LABS: Band Neutrophils # (Manual) 4.4 K/mm3; Myelocytes # (Manual) 0.4 K/mm3; Total Cells Counted 100
[2021-01-14 17:05] LABS: Platelet Estimate Consistent w Auto
--- NOTE | 2021-01-14 17:14 | Operative Report ---
Operative Report Operative Report: Date of procedure: 01/14/2021 Pre-operative diagnosis: Acute on Chronic Renal Failure Post-operative diagnosis: Same Procedure(s): 1. Ultrasound-Guided Access Right Internal Vein 2. Placement of 23 cm GlidePath Permacath 3. Radiologic Supervision with Interpretation 4. Monitored Moderate Sedation (Total Anesthesia Time: 18 Minutes) Surgeon: Francis Reyes MD Inspector Returned Materials: None Anesthesia: Local/Monitored Moderate Sedation Total Anesthesia Time: 18 Minutes EBL: Minimal Counts: Correct Complications: None Condition: Stable Findings: Successful placement of right IJ permacath with the distal tip in the right atrium and no evidence of pneumothorax at the completion of the case. Specimen: None Indication: The patient is a 50-year-old male with metastatic cancer who has associated renal failure. He is currently on hemodialysis through a femoral Vas-Cath and requires a permacath prior to discharge. He has been given the risk, benefits, and alternative procedures and consented to the procedure. Description of Procedure: The patient was brought to the electronic lab technician and laid in supine position and the right neck and chest were prepped and draped in normal sterile fashion. Ultrasound was used to identify the right internal jugular vein and the overlying skin and soft tissue was anesthetized with lidocaine. An 11 blade was used to make a small stab incision and a 21-gauge micropuncture needle was used with ultrasound guidance to enter the right internal jugular vein. A 0.018 micropuncture wire was advanced into the inferior vena cava under fluoroscopy and after removing the needle the micropuncture sheath was advanced into the internal jugular vein by Seldinger technique. The wire and inner cannula were removed and a 0.035 J-wire was advanced into the inferior vena cava under direct fluoroscopic visualization. The tract was serially dilated up to a 16 [place] peel-away safety sheath. An exit site on the chest was then chosen and the presumed tunnel was anesthetized with lidocaine. A small stab incision was made on the chest and then the permacath was connected to the tunneler and pulled antegrade through the tunnel. The J-wire and inner cannula were remove from the SafeSheath and the catheter was inserted into the safe sheath. The safe sheath was then peeled away while advancing the catheter. The catheter was positioned under fluoroscopy with the distal tip in the right atrium. Once in adequate position, both ports were aspirated, flushed, and primed with the appropriate amount of heparin. The neck incision was then closed with 4-0 Monocryl in interrupted subcuticular fashion and dressed with Dermabond. The permacath was secured in place with a 2-0 Ethilon in interrupted fashion and dressed with a sterile dressing. Final fluoroscopy demonstrated the catheter was in adequate position with the distal tip in the right atrium and no evidence of pneumothorax. The patient tolerated the procedure well. All sponge, needle, and instrument counts were correct. The patient was taken to recovery in stable condition.
--- NOTE | 2021-01-14 17:17 | Progress Note ---
Assessment and Plan 50-year-old man presents with perforated sigmoid mass likely neoplasm, status post exploratory laparotomy, sigmoidectomy, end colostomy, peritoneal lavage. # SHARMIN: Most likely secondary to ATN. Suspect severe tubular injury s/p extensive surgery + contrast use on 12/29. -Status post Vas-Cath placement on 01/03/2021 and initiation of dialysis . Patient had signed out AMA on 01/04/2021 and his Vas-Cath was removed. Patient was then readmitted. Status post Vas-Cath reinsertion 01/06/2021. Volume overload seems to be improving. No evidence of renal recovery at this time. - Continue HD TTS - Noted plans for palliative care, however patient is expressing desire for ongoing active treatment. At this time there is no meaningful recovery and he will require HD should he want to pursue active treatment. Patient states that he intends to continue active treatment at this time. He was advised that he will need permcath placement as vasc cath cannot be kept in shelter. He was also advised on proper care and risk of infection with catheter. - CM to assist with HD placement, however per CM that may be challenging. Challenges with disposition from a renal standpoint were also discussed with the patient and he was advised to present to ER thrice weekly if no outpatient unit is secured following discharge. - Vascular/IR consulted for access placement - Prognosis is guarded # Anemia: Transfuse for hgb < 7 # Metabolic Acidosis/Hyperkalemia: likely due to SHARMIN. Improved with HD. # Perforated Sigmoid Mass, Possible Colorectal Carcinoma, Metastasis to Liver: Note oncology consult. # Sepsis, Leukocytosis: likely related to bowel perforation, note antibiotics # Malnutrition Subjective Date of service: 01/14/21 Principal diagnosis: Metatstatic colon cancer Interval history: Seen during HD. Objective - Exam Narrative Exam: General: No acute distress HEENT: Oral mucosa moist Neck: Supple, no JVD Chest: Clear to auscultation bilaterally Heart: RRR, S1 and S2, no pericardial rub Abdomen: Soft, nontender, no renal bruit Extremity: No peripheral cyanosis, b/l LE edema Neurological: Alert, awake, no asterixis Dermatology: No skin rash Psych: No agitation Musculoskeletal: No joint effusion - Vital Signs Vital signs: Vital Signs - 12hr 01/14/21 01/14/21 01/14/21 08:18 09:10 09:15 Temperature 98.0 F 97.5 F L Pulse Rate 100 H 88 88 Respiratory 20 16 Rate Blood Pressure 115/66 124/65 124/65 O2 Sat by Pulse 94 Oximetry O2 Sat by Pulse 95 Oximetry [ Anterior Bilateral Throughout] 01/14/21 01/14/21 01/14/21 09:30 09:45 10:00 Temperature Pulse Rate 92 H 100 H 108 H Respiratory 20 Rate Blood Pressure 122/71 129/70 152/70 O2 Sat by Pulse 96 Oximetry O2 Sat by Pulse Oximetry [ Anterior Bilateral Throughout] 01/14/21 01/14/21 01/14/21 10:15 10:30 10:45 Temperature Pulse Rate 104 H 88 91 H Respiratory Rate Blood Pressure 130/72 101/54 121/67 O2 Sat by Pulse Oximetry O2 Sat by Pulse Oximetry [ Anterior Bilateral Throughout] 01/14/21 01/14/21 01/14/21 11:00 11:15 11:30 Temperature Pulse Rate 99 H 106 H 94 H Respiratory Rate Blood Pressure 126/66 124/70 119/73 O2 Sat by Pulse Oximetry O2 Sat by Pulse Oximetry [ Anterior Bilateral Throughout] 01/14/21 01/14/21 01/14/21 11:45 12:00 12:15 Temperature Pulse Rate 85 102 H 98 H Respiratory Rate Blood Pressure 125/74 107/64 115/63 O2 Sat by Pulse Oximetry O2 Sat by Pulse Oximetry [ Anterior Bilateral Throughout] 01/14/21 01/14/21 01/14/21 12:30 12:45 13:03 Temperature 98.2 F Pulse Rate 105 H 99 H 97 H Respiratory 16 Rate Blood Pressure 114/71 129/74 125/59 O2 Sat by Pulse Oximetry O2 Sat by Pulse 95 Oximetry [ Anterior Bilateral Throughout] - Lab 01/14/21 05:19 01/14/21 05:19 Most recent lab results Calcium 8.2 mg/dL (8.4-10.2) L 01/14/21 05:19 Magnesium 4.40 mg/dL (1.7-2.3) H 01/05/21 00:02 Medications & Allergies - Medications Allergies/Adverse Reactions: Allergies No Known Allergies Allergy (Verified 12/29/20 13:17) Home Medications: Home Medications Medication Instructions Recorded Confirmed Last Taken Type Tylenol Extra Strength 500 mg PO BID PRN 12/30/20 01/05/21 Unknown History Active Medications: Generic Name Dose Route Start Last Admin Trade Name Steffenq PRN Reason Stop Dose Admin Acetaminophen 650 mg 01/04/21 19:59 Acetaminophen 325 Mg Tab PO Q6H PRN Pain, Mild (1-3) Albuterol 2.5 mg 01/04/21 19:59 Albuterol 2.5 Mg/3 Ml Nebu IH Q4HRT PRN Shortness Of Breath Hydromorphone HCl 0.5 mg 01/04/21 19:59 01/07/21 10:05 Hydromorphone 1 Mg/1 Ml Inj IV 0.5 mg Q12H PRN Administration Pain , Severe (7-10) Sodium Chloride 100 mls @ 999 mls/hr 01/05/21 10:00 Nacl 0.9% IV YURI PRN Hypotension Metoclopramide HCl 5 mg 01/08/21 13:00 01/14/21 13:49 Metoclopramide 10 Mg/2 Ml Inj IV 5 mg Q6H JESSICA Administration Ondansetron HCl 4 mg 01/04/21 19:59 Ondansetron 4 Mg/2 Ml Inj IV Q8H PRN Nausea And Vomiting Oxycodone/Acetaminophen 2 tab 01/05/21 18:55 01/14/21 13:49 Oxycodone /Acetaminophen 5-325mg Tab PO 2 tab Q6H PRN Administration Pain, Moderate (4-6) Pantoprazole Sodium 40 mg 01/07/21 15:00 01/14/21 13:48 Pantoprazole 40 Mg Inj IV 40 mg QDAY JESSICA Administration Sodium Chloride 10 ml 01/04/21 22:00 01/14/21 13:49 Sodium Chloride 0.9% 10 Ml Flush Syringe IV 10 ml BID JESSICA Administration Sodium Chloride 10 ml 01/04/21 19:59 01/13/21 14:28 Sodium Chloride 0.9% 10 Ml Flush Syringe IV 10 ml PRN PRN Administration LINE FLUSH
[2021-01-14] MEDS: HYDROmorphone 1 MG/1 ML INJ IV PRN (18:05)
[2021-01-15] MEDS: METOCLOPRAMIDE 10 MG/2 ML INJ IV SCH ×4 (00:28→19:59)
[2021-01-15] MEDS: PANTOPRAZOLE 40 MG INJ IV SCH (10:36)
--- NOTE | 2021-01-15 14:05 | Progress Note ---
Assessment and Plan Assessment and plan: --Newly diagnosed metastatic colorectal carcinoma Pathology: Sigmoid colon, sigmoidectomy: 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 Macroscopic tumor perforation identified. Tumor invades visceral peritoneum. All margins are uninvolved. Lymphovascular and perineural invasion identified. 1 out of 8 lymph nodes involved. Pathologic stage: T4aN1a, CEA 24.3 Patient never had colonoscopy 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, heme-onc following Recommended outpatient follow-up with heme-onc For possible chemotherapy Very poor prognosis, considering home with home hospice --perforated sigmoid mass --s/p exploratory laparotomy/sigmoidectomy/colostomy/peritoneal lavage Continue current management --Surgical cultures gram-negative rods Currently on Zosyn, follow culture sensitivities ID consult if needed --Gram-negative sepsis Sepsis in the setting of high white count and bowel perforation -- Continue IV antibiotics, follow cultures ID consult if needed --Anemia; hemoglobin 7.0 Received 1 unit PRBC transfusion 01/12/2021 Hb improved from 7-8 Closely monitor H&H transfuse additional PRBC if needed --Acute kidney injury; worsening renal function Nephrology initiated dialysis, s/p vas-Cath placement HD per schedule, nephrology recommended permacath placement Vascular consulted --Hyperkalemia, resolved HD per schedule --Worsening transaminases; Probably secondary to liver mets,Closely monitor --Severe malnutrition/hypoproteinemia Dietary supplements and dietitian consult --Morbid obesity; BMI 44.3 Partly due to fluid overload and renal failure Patient needs weight reduction when medically stable --DVT prophylaxis On SCDs , patient postop state with severe anemia Plate Grinder recommendations noted and appreciated Discussed in detail with the case management regarding discharge planning Planning home hospice and discontinuing hemodialysis however patient did not agree for that plan Patient wants hemodialysis as well as chemotherapy DC planning per case management, possible home with home hospice Brief history and hospital course: 50-year-old male patient initially presented on 12/29/20 with perforated sigmoid mass likely neoplasm, status post exploratory laparotomy,, sigmoidectomy, end colostomy, peritoneal lavage. Patient has worsening renal function,Vas-Cath placement and initiated hemodialysis. He decided to leave AMA on 01/04/2021 but got readmitted on the same day. 01/05/21: Patient had low hemoglobin 5.3 today, elevated potassium and creat inine. Dialysis catheter was removed yesterday when Patient left AMA yesterday.. consulted vascular for permcath, ordered for PRBC transfusion. Follow CBC and BMP 01/06/21: Pathology report revealed moderately differentiated adenocarcinoma of sigmoid colon pathologic state T4aN1a. Status post vasCath placement today, drug use another unit of packed RBC -hemoglobin 6.4. Plan for hemodialysis, monitor CBC and BMP. Guarded prognosis 01/07/21; discussed with oncology. Patient need to follow-up with oncologist as outpatient to initiate definitive treatment for pulmonary adenocarcinoma. now Wait for renal function recovery. Continue to follow CBC and BMP. Try to call patient family but unable to reach out to them. 01/08/21: Continue to follow renal function, H&H stable. Continue supportive care monitor closely. Clinically remains volume overloaded. Plan for another hemodialysis today. Continue empiric antibiotics 01/09/21; continue full liquid diet, plan for hemodialysis tomorrow, continue to follow clinically. Very poor prognosis. Monitor CBC and BMP 01/10/21: s/p HD today. discussed with family by phone and with pt in front of RN. they all in agreement for home hospice and does not want any HD or chemotherapy. CM ordered for home hospice setup. follow clinically. 01/11/2021; awaiting discharge home with hospice, very poor prognosis, full CODE STATUS However when the hospice personnel discuss with the patient, patient stated that he wants to continue with hemodialysis as well as chemotherapy. We will continue to follow 01/12/21; anemia, Hb 7.0, transfuse 1 unit PRBC, HD per schedule DC planning per case management possible home with home hospice 01/13/2021: Hb today is 8.0 CM assisting with discharge home with home hospice Full CODE STATUS 01/14/21 . manager cable working on Home with home hospice. As per notes, he wants to continue hemodialysis. 01/15/21 Patient with colon cancer with metastases. he states he wants to continue hemodialysis . home hospice being arranged. History Interval history: Patient feels better No fever Hospitalist Physical - Physical exam Narrative exam: Gen: Not in acute distress. morbidly obese HEENT:Normocephalic,atraumatic Neck:supple, No JVD Lungs:clear to auscultation bilaterally, no wheeze Heart:S1 and S2 reg, no murmurs, rubs or gallop Abd:soft, non tender, non distended, surgical dressing over abdomen Ext; No edema, no clubbing, no cyanosis Neuro:Awake,alert, moves all ext, - Constitutional Vitals: Temp Pulse Resp BP Pulse Ox 98.8 F 108 H 24 114/63 97 01/15/21 11:16 01/15/21 11:16 01/15/21 11:16 01/15/21 11:16 01/15/21 12:00 General appearance: Present: no acute distress, well-nourished, obese (Morbidly obese) Results - Labs CBC & Chem 7: 01/14/21 05:19 01/14/21 05:19 Labs: Laboratory Last Values WBC 22.1 K/mm3 (4.5-11.0) H 01/14/21 05:19 RBC 3.23 M/mm3 (3.65-5.03) L 01/14/21 05:19 Hgb 8.1 gm/dl (11.8-15.2) L 01/14/21 05:19 Hct 26.2 % (35.5-45.6) L 01/14/21 05:19 MCV 81 fl (84-94) L 01/14/21 05:19 MCH 25 pg (28-32) L 01/14/21 05:19 MCHC 31 % (32-34) L 01/14/21 05:19 RDW 22.2 % (13.2-15.2) H 01/14/21 05:19 Plt Count 190 K/mm3 (140-440) 01/14/21 05:19 [place] % (Auto) 4.8 % (0.0-7.3) 01/14/21 05:19 Eos % (Auto) 0.2 % (0.0-4.3) 01/14/21 05:19 [place] # (Auto) 1.0 K/mm3 (0.0-0.8) H 01/14/21 05:19 Eos # (Auto) 0.0 K/mm3 (0.0-0.4) 01/14/21 05:19 Baso # (Auto) 0.1 K/mm3 (0.0-0.1) 01/14/21 05:19 Add Manual Diff Complete 01/14/21 05:19 Total Counted 100 01/14/21 05:19 Seg Neutrophils % 88.7 % (40.0-70.0) H 01/14/21 05:19 Seg Neuts % (Manual) 72.0 % (40.0-70.0) H 01/14/21 05:19 Band Neutrophils % 20.0 % 01/14/21 05:19 Lymphocytes % (Manual) 3.0 % (13.4-35.0) L 01/14/21 05:19 Monocytes % (Manual) 3.0 % (0.0-7.3) 01/14/21 05:19 Eosinophils % (Manual) 1.0 % (0.0-4.3) 01/05/21 00:02 Basophils % (Manual) 1.0 % (0.0-1.8) 01/05/21 00:02 Metamyelocytes % 1.0 % 01/12/21 04:43 Myelocytes % 2.0 % 01/14/21 05:19 Nucleated RBC % 2.0 % (0.0-0.9) H 01/14/21 05:19 Seg Neutrophils # 18.6 K/mm3 (1.8-7.7) H 01/14/21 05:19 Seg Neutrophils # Man 15.9 K/mm3 (1.8-7.7) H 01/14/21 05:19 Band Neutrophils # 4.4 K/mm3 01/14/21 05:19 Lymphocytes # (Manual) 0.7 K/mm3 (1.2-5.4) L 01/14/21 05:19 Abs React Lymphs (Man) 0.0 K/mm3 01/14/21 05:19 Monocytes # (Manual) 0.7 K/mm3 (0.0-0.8) 01/14/21 05:19 Eosinophils # (Manual) 0.0 K/mm3 (0.0-0.4) 01/14/21 05:19 Basophils # (Manual) 0.0 K/mm3 (0.0-0.1) 01/14/21 05:19 Metamyelocytes # 0.0 K/mm3 01/14/21 05:19 Myelocytes # 0.4 K/mm3 01/14/21 05:19 Promyelocytes # 0.0 K/mm3 01/14/21 05:19 Blast Cells # 0.0 K/mm3 01/14/21 05:19 WBC Morphology Not Reportable 01/14/21 05:19 Hypersegmented Neuts Not Reportable 01/14/21 05:19 Hyposegmented Neuts Not Reportable 01/14/21 05:19 Hypogranular Neuts Not Reportable 01/14/21 05:19 Smudge Cells Not Reportable 01/14/21 05:19 Toxic Granulation Not Reportable 01/14/21 05:19 Toxic Vacuolation Not Reportable 01/14/21 05:19 Dohle Bodies Not Reportable 01/14/21 05:19 Pelger-Huet Anomaly Not Reportable 01/14/21 05:19 Janene Rods Not Reportable 01/14/21 05:19 Platelet Estimate Consistent w auto 01/14/21 05:19 Clumped Platelets Not Reportable 01/14/21 05:19 Plt Clumps, EDTA Not Reportable 01/14/21 05:19 Large Platelets Not Reportable 01/14/21 05:19 Giant Platelets Not Reportable 01/14/21 05:19 Platelet Satelliting Not Reportable 01/14/21 05:19 Plt Morphology Comment Not Reportable 01/14/21 05:19 RBC Morphology Not Reportable 01/14/21 05:19 Dimorphic RBCs Not Reportable 01/14/21 05:19 Polychromasia Not Reportable 01/14/21 05:19 Hypochromasia Not Reportable 01/14/21 05:19 Poikilocytosis Not Reportable 01/14/21 05:19 Anisocytosis Not Reportable 01/14/21 05:19 Microcytosis Not Reportable 01/14/21 05:19 Macrocytosis Not Reportable 01/14/21 05:19 Spherocytes Not Reportable 01/14/21 05:19 Pappenheimer Bodies Not Reportable 01/14/21 05:19 Sickle Cells Not Reportable 01/14/21 05:19 Target Cells Not Reportable 01/14/21 05:19 Tear Drop Cells Not Reportable 01/14/21 05:19 Ovalocytes Not Reportable 01/14/21 05:19 Helmet Cells Not Reportable 01/14/21 05:19 Ronquillo-Clyman Bodies Not Reportable 01/14/21 05:19 [place] Rings Not Reportable 01/14/21 05:19 Ankur Cells Not Reportable 01/14/21 05:19 Bite Cells Not Reportable 01/14/21 05:19 Crenated Cell Not Reportable 01/14/21 05:19 Elliptocytes Not Reportable 01/14/21 05:19 Acanthocytes (Spur) Not Reportable 01/14/21 05:19 Rouleaux Not Reportable 01/14/21 05:19 Hemoglobin C Crystals Not Reportable 01/14/21 05:19 Schistocytes Not Reportable 01/14/21 05:19 Malaria parasites Not Reportable 01/14/21 05:19 Percent Retic 3.75 % (0.78-2.58) H 01/07/21 05:00 Atul Bodies Not Reportable 01/14/21 05:19 Hem Pathologist Commnt No 01/14/21 05:19 PT 18.0 Sec. (12.2-14.9) H 01/06/21 09:16 INR 1.35 (0.87-1.13) H 01/06/21 09:16 Sodium 139 mmol/L (137-145) 01/14/21 05:19 Potassium 4.6 mmol/L (3.6-5.0) 01/14/21 05:19 Chloride 95.9 mmol/L (98-107) L 01/14/21 05:19 Carbon Dioxide 22 mmol/L (22-30) 01/14/21 05:19 Anion Gap 26 mmol/L 01/14/21 05:19 BUN 54 mg/dL (9-20) H 01/14/21 05:19 Creatinine 5.1 mg/dL (0.8-1.3) H 01/14/21 05:19 Estimated GFR 12 ml/min 01/14/21 05:19 BUN/Creatinine Ratio 11 % 01/14/21 05:19 Glucose 107 mg/dL (75-100) H 01/14/21 05:19 Lactic Acid 1.80 mmol/L (0.7-2.0) 01/05/21 09:51 Calcium 8.2 mg/dL (8.4-10.2) L 01/14/21 05:19 Magnesium 4.40 mg/dL (1.7-2.3) H 01/05/21 00:02 Total Bilirubin 10.40 mg/dL (0.1-1.2) H 01/14/21 05:19 Direct Bilirubin 5.0 mg/dL (0-0.2) H 01/08/21 Unknown AST 123 units/L (5-40) H 01/14/21 05:19 ALT 71 units/L (7-56) H 01/14/21 05:19 Alkaline Phosphatase 1132 units/L (35-129) H 01/14/21 05:19 Lactate Dehydrogenase 1199 units/L (91-180) H 01/07/21 05:00 Total Creatine Kinase 340 units/L (55-170) H 01/05/21 00:02 Total Protein 5.6 g/dL (6.3-8.2) L 01/14/21 05:19 Albumin 2.4 g/dL (3.9-5) L 01/14/21 05:19 Albumin/Globulin Ratio 0.8 % 01/14/21 05:19 Coronavirus (PCR) Negative (Negative) 01/14/21 Unknown Blood Type A POSITIVE 01/12/21 19:00 Antibody Screen Negative 01/12/21 19:00 Crossmatch See Detail 01/12/21 19:00 [place]/IV: Voiding Method Condom Catheter Active Medications - Current Medications Current Medications: Generic Name Dose Route Start Last Admin Trade Name Freq PRN Reason Stop Dose Admin Acetaminophen 650 mg 01/04/21 19:59 Acetaminophen 325 Mg Tab PO Q6H PRN Pain, Mild (1-3) Albuterol 2.5 mg 01/04/21 19:59 Albuterol 2.5 Mg/3 Ml Nebu IH Q4HRT PRN Shortness Of Breath Hydromorphone HCl 0.5 mg 01/04/21 19:59 01/14/21 18:05 Hydromorphone 1 Mg/1 Ml Inj IV 0.5 mg Q12H PRN Administration Pain , Severe (7-10) Sodium Chloride 100 mls @ 999 mls/hr 01/05/21 10:00 Nacl 0.9% IV YURI PRN Hypotension Metoclopramide HCl 5 mg 01/08/21 13:00 01/15/21 14:02 Metoclopramide 10 Mg/2 Ml Inj IV 5 mg Q6H JESSICA Administration Ondansetron HCl 4 mg 01/04/21 19:59 Ondansetron 4 Mg/2 Ml Inj IV Q8H PRN Nausea And Vomiting Oxycodone/Acetaminophen 2 tab 01/05/21 18:55 01/14/21 13:49 Oxycodone /Acetaminophen 5-325mg Tab PO 2 tab Q6H PRN Administration Pain, Moderate (4-6) Pantoprazole Sodium 40 mg 01/07/21 15:00 01/15/21 10:36 Pantoprazole 40 Mg Inj IV 40 mg QDAY JESSICA Administration Sodium Chloride 10 ml 01/04/21 22:00 01/15/21 10:36 Sodium Chloride 0.9% 10 Ml Flush Syringe IV 10 ml BID JESSICA Administration Sodium Chloride 10 ml 01/04/21 19:59 01/13/21 14:28 Sodium Chloride 0.9% 10 Ml Flush Syringe IV 10 ml PRN PRN Administration LINE FLUSH Nutrition/Malnutrition Assess - Dietary Evaluation Nutrition/Malnutrition Findings: Nutrition Notes Start: 01/11/21 16:27 Freq: Status: Active Protocol: Document 01/14/21 11:29 GB (Rec: 01/14/21 11:38 GB [id number]) Nutrition Notes Initial or Follow up Assessment Current Diagnosis Acute Kidney Injury,Sepsis Other Pertinent Diagnosis perforated sigmoid CA stage IV , peritonitis Current Diet NPO Labs/Tests 01/10: Tbili 6.4, (AST 115, ALT 62, AlkP 876) showing improvement 01/11: Na 135, (BUN 40, creatinine 3.9, Ca 8) showing improvement 01/14: (BUN 54, creatinine 5.1 , Tbili 10.4, AST 123, ALT 71, AlkP 1132) all increased elevated, glucose 107, Ca 8.2 Pertinent Medications reviewed Height 6 ft 2 in Weight 156.5 kg [place] Body Weight (kg) 86.36 BMI 44.3 Weight change and time frame stable Weight Status Morbidly Obese Subjective/Other Information per MD notes planning discharge home/hospice pt states he wants to continue dialysis. Last BM: 01/12: colostomy bag emptied x2 Percent of energy/protein needs met: unable to assess. NPO at midnight for 01/14 Burn Absent Trauma Absent GI Symptoms Other Food Allergy No Skin Integrity/Comment wound medial abdomen Current % PO Other Minimum of two criteria No #1 Nutrition Diagnosis Altered GI function Etiology perforated sigmoid CA stage IV New diagnosed metastatic colorectal CA As Evidenced by Signs and Symptoms colostomy bag, full liquid diet Diagnosis Progress(for reassessment Continues documentation) Is patient on ventilator? No Is Patient Ambulatory and/or Out of Bed Yes [facility] [ 3243.175 [id number]] Kcal/Kg value to use for calculation 17 Approximate Energy Requirements Using 2661 kcal/Kg Calculation Used for Recommendations Kcal/kg Additional Notes protein 0.6-0.8g/kg @ 157k-125g Fluids: 1 ml/kcal or per MD Nutrition Intervention Change Diet Order: NPO advance to diet of tolerance when medically feasible Nutrition Support: n/a Add Supplement/Snack (indicate name/kcal Nepro BID /protein ) Provides kCal: 850 Provides Protein (gm) 38 Goal #1 PO intake of meals/supplements to be 50% or greater daily for LOS 01/14: pt now NPO for 01/14 Goal #2 Diet advanced to regular soft fiber by f/u 01/14: pt now NPO for 01/14 Anticipated Discharge Needs: If continuing HD, high protein snacks, foods low in potassium / phosphorus Follow-Up By: 01/21/21 Additional Comments f/u: diet advancement, supplement changed to nepro BID
[2021-01-16] MEDS: METOCLOPRAMIDE 10 MG/2 ML INJ IV SCH ×4 (00:28→21:48)
--- NOTE | 2021-01-16 09:02 | Progress Note ---
Assessment and Plan Assessment and plan: --Newly diagnosed metastatic colorectal carcinoma Pathology: Sigmoid colon, sigmoidectomy: 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 Macroscopic tumor perforation identified. Tumor invades visceral peritoneum. All margins are uninvolved. Lymphovascular and perineural invasion identified. 1 out of 8 lymph nodes involved. Pathologic stage: T4aN1a, CEA 24.3 Patient never had colonoscopy 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, heme-onc following Recommended outpatient follow-up with heme-onc For possible chemotherapy Very poor prognosis, considering home with home hospice --perforated sigmoid mass --s/p exploratory laparotomy/sigmoidectomy/colostomy/peritoneal lavage Continue current management --Surgical cultures gram-negative rods Currently on Zosyn, follow culture sensitivities ID consult if needed --Gram-negative sepsis Sepsis in the setting of high white count and bowel perforation -- Continue IV antibiotics, follow cultures ID consult if needed --Anemia; hemoglobin 7.0 Received 1 unit PRBC transfusion 01/12/2021 Hb improved from 7-8 Closely monitor H&H transfuse additional PRBC if needed --Acute kidney injury; worsening renal function Nephrology initiated dialysis, s/p vas-Cath placement HD per schedule, nephrology recommended permacath placement Vascular consulted --Hyperkalemia, resolved HD per schedule --Worsening transaminases; Probably secondary to liver mets,Closely monitor --Severe malnutrition/hypoproteinemia Dietary supplements and dietitian consult --Morbid obesity; BMI 44.3 Partly due to fluid overload and renal failure Patient needs weight reduction when medically stable --DVT prophylaxis On SCDs , patient postop state with severe anemia Lamps Tester And Inspector recommendations noted and appreciated Discussed in detail with the case management regarding discharge planning Planning home hospice and discontinuing hemodialysis however patient did not agree for that plan Patient wants hemodialysis as well as chemotherapy DC planning per case management, possible home with home hospice Brief history and hospital course: 50-year-old male patient initially presented on 12/29/20 with perforated sigmoid mass likely neoplasm, status post exploratory laparotomy,, sigmoidectomy, end colostomy, peritoneal lavage. Patient has worsening renal function,Vas-Cath placement and initiated hemodialysis. He decided to leave AMA on 01/04/2021 but got readmitted on the same day. 01/05/21: Patient had low hemoglobin 5.3 today, elevated potassium and creat inine. Dialysis catheter was removed yesterday when Patient left AMA yesterday.. consulted vascular for permcath, ordered for PRBC transfusion. Follow CBC and BMP 01/06/21: Pathology report revealed moderately differentiated adenocarcinoma of sigmoid colon pathologic state T4aN1a. Status post vasCath placement today, drug use another unit of packed RBC -hemoglobin 6.4. Plan for hemodialysis, monitor CBC and BMP. Guarded prognosis 01/07/21; discussed with oncology. Patient need to follow-up with oncologist as outpatient to initiate definitive treatment for pulmonary adenocarcinoma. now Wait for renal function recovery. Continue to follow CBC and BMP. Try to call patient family but unable to reach out to them. 01/08/21: Continue to follow renal function, H&H stable. Continue supportive care monitor closely. Clinically remains volume overloaded. Plan for another hemodialysis today. Continue empiric antibiotics 01/09/21; continue full liquid diet, plan for hemodialysis tomorrow, continue to follow clinically. Very poor prognosis. Monitor CBC and BMP 01/10/21: s/p HD today. discussed with family by phone and with pt in front of RN. they all in agreement for home hospice and does not want any HD or chemotherapy. CM ordered for home hospice setup. follow clinically. 01/11/2021; awaiting discharge home with hospice, very poor prognosis, full CODE STATUS However when the hospice personnel discuss with the patient, patient stated that he wants to continue with hemodialysis as well as chemotherapy. We will continue to follow 01/12/21; anemia, Hb 7.0, transfuse 1 unit PRBC, HD per schedule DC planning per case management possible home with home hospice 01/13/2021: Hb today is 8.0 CM assisting with discharge home with home hospice Full CODE STATUS 01/14/21 . manager concrete working on Home with home hospice. As per notes, he wants to continue hemodialysis. 01/15/21 Patient with colon cancer with metastases. He states he wants to continue hemodialysis . home hospice being arranged. 01/16/21 Patient with colon cancer with metastases. Plan is to discharge to home hospice. He wants to continue hemodialysis. History Interval history: Patient feels better No fever Hospitalist Physical - Physical exam Narrative exam: Gen: Not in acute distress. morbidly obese HEENT:Normocephalic,atraumatic Neck:supple, No JVD Lungs:clear to auscultation bilaterally, no wheeze Heart:S1 and S2 reg, no murmurs, rubs or gallop Abd:soft, non tender, non distended, surgical dressing over abdomen Ext; No edema, no clubbing, no cyanosis Neuro:Awake,alert, moves all ext, - Constitutional Vitals: Temp Pulse Resp BP Pulse Ox 97.5 F L 89 22 119/73 95 01/16/21 07:18 01/16/21 07:18 01/16/21 07:18 01/16/21 07:18 01/16/21 07:18 General appearance: Present: no acute distress, well-nourished, obese (Morbidly obese) Results - Labs CBC & Chem 7: 01/14/21 05:19 01/14/21 05:19 Labs: Laboratory Last Values WBC 22.1 K/mm3 (4.5-11.0) H 01/14/21 05:19 RBC 3.23 M/mm3 (3.65-5.03) L 01/14/21 05:19 Hgb 8.1 gm/dl (11.8-15.2) L 01/14/21 05:19 Hct 26.2 % (35.5-45.6) L 01/14/21 05:19 MCV 81 fl (84-94) L 01/14/21 05:19 MCH 25 pg (28-32) L 01/14/21 05:19 MCHC 31 % (32-34) L 01/14/21 05:19 RDW 22.2 % (13.2-15.2) H 01/14/21 05:19 Plt Count 190 K/mm3 (140-440) 01/14/21 05:19 [place] % (Auto) 4.8 % (0.0-7.3) 01/14/21 05:19 Eos % (Auto) 0.2 % (0.0-4.3) 01/14/21 05:19 [place] # (Auto) 1.0 K/mm3 (0.0-0.8) H 01/14/21 05:19 Eos # (Auto) 0.0 K/mm3 (0.0-0.4) 01/14/21 05:19 Baso # (Auto) 0.1 K/mm3 (0.0-0.1) 01/14/21 05:19 Add Manual Diff Complete 01/14/21 05:19 Total Counted 100 01/14/21 05:19 Seg Neutrophils % 88.7 % (40.0-70.0) H 01/14/21 05:19 Seg Neuts % (Manual) 72.0 % (40.0-70.0) H 01/14/21 05:19 Band Neutrophils % 20.0 % 01/14/21 05:19 Lymphocytes % (Manual) 3.0 % (13.4-35.0) L 01/14/21 05:19 Monocytes % (Manual) 3.0 % (0.0-7.3) 01/14/21 05:19 Eosinophils % (Manual) 1.0 % (0.0-4.3) 01/05/21 00:02 Basophils % (Manual) 1.0 % (0.0-1.8) 01/05/21 00:02 Metamyelocytes % 1.0 % 01/12/21 04:43 Myelocytes % 2.0 % 01/14/21 05:19 Nucleated RBC % 2.0 % (0.0-0.9) H 01/14/21 05:19 Seg Neutrophils # 18.6 K/mm3 (1.8-7.7) H 01/14/21 05:19 Seg Neutrophils # Man 15.9 K/mm3 (1.8-7.7) H 01/14/21 05:19 Band Neutrophils # 4.4 K/mm3 01/14/21 05:19 Lymphocytes # (Manual) 0.7 K/mm3 (1.2-5.4) L 01/14/21 05:19 Abs React Lymphs (Man) 0.0 K/mm3 01/14/21 05:19 Monocytes # (Manual) 0.7 K/mm3 (0.0-0.8) 01/14/21 05:19 Eosinophils # (Manual) 0.0 K/mm3 (0.0-0.4) 01/14/21 05:19 Basophils # (Manual) 0.0 K/mm3 (0.0-0.1) 01/14/21 05:19 Metamyelocytes # 0.0 K/mm3 01/14/21 05:19 Myelocytes # 0.4 K/mm3 01/14/21 05:19 Promyelocytes # 0.0 K/mm3 01/14/21 05:19 Blast Cells # 0.0 K/mm3 01/14/21 05:19 WBC Morphology Not Reportable 01/14/21 05:19 Hypersegmented Neuts Not Reportable 01/14/21 05:19 Hyposegmented Neuts Not Reportable 01/14/21 05:19 Hypogranular Neuts Not Reportable 01/14/21 05:19 Smudge Cells Not Reportable 01/14/21 05:19 Toxic Granulation Not Reportable 01/14/21 05:19 Toxic Vacuolation Not Reportable 01/14/21 05:19 Dohle Bodies Not Reportable 01/14/21 05:19 Pelger-Huet Anomaly Not Reportable 01/14/21 05:19 Janene Rods Not Reportable 01/14/21 05:19 Platelet Estimate Consistent w auto 01/14/21 05:19 Clumped Platelets Not Reportable 01/14/21 05:19 Plt Clumps, EDTA Not Reportable 01/14/21 05:19 Large Platelets Not Reportable 01/14/21 05:19 Giant Platelets Not Reportable 01/14/21 05:19 Platelet Satelliting Not Reportable 01/14/21 05:19 Plt Morphology Comment Not Reportable 01/14/21 05:19 RBC Morphology Not Reportable 01/14/21 05:19 Dimorphic RBCs Not Reportable 01/14/21 05:19 Polychromasia Not Reportable 01/14/21 05:19 Hypochromasia Not Reportable 01/14/21 05:19 Poikilocytosis Not Reportable 01/14/21 05:19 Anisocytosis Not Reportable 01/14/21 05:19 Microcytosis Not Reportable 01/14/21 05:19 Macrocytosis Not Reportable 01/14/21 05:19 Spherocytes Not Reportable 01/14/21 05:19 Pappenheimer Bodies Not Reportable 01/14/21 05:19 Sickle Cells Not Reportable 01/14/21 05:19 Target Cells Not Reportable 01/14/21 05:19 Tear Drop Cells Not Reportable 01/14/21 05:19 Ovalocytes Not Reportable 01/14/21 05:19 Helmet Cells Not Reportable 01/14/21 05:19 [place] Bodies Not Reportable 01/14/21 05:19 [place] Rings Not Reportable 01/14/21 05:19 Ankur Cells Not Reportable 01/14/21 05:19 Bite Cells Not Reportable 01/14/21 05:19 Crenated Cell Not Reportable 01/14/21 05:19 Elliptocytes Not Reportable 01/14/21 05:19 Acanthocytes (Spur) Not Reportable 01/14/21 05:19 Rouleaux Not Reportable 01/14/21 05:19 Hemoglobin C Crystals Not Reportable 01/14/21 05:19 Schistocytes Not Reportable 01/14/21 05:19 Malaria parasites Not Reportable 01/14/21 05:19 Percent Retic 3.75 % (0.78-2.58) H 01/07/21 05:00 Atul Bodies Not Reportable 01/14/21 05:19 Hem Pathologist Commnt No 01/14/21 05:19 PT 18.0 Sec. (12.2-14.9) H 01/06/21 09:16 INR 1.35 (0.87-1.13) H 01/06/21 09:16 Sodium 139 mmol/L (137-145) 01/14/21 05:19 Potassium 4.6 mmol/L (3.6-5.0) 01/14/21 05:19 Chloride 95.9 mmol/L (98-107) L 01/14/21 05:19 Carbon Dioxide 22 mmol/L (22-30) 01/14/21 05:19 Anion Gap 26 mmol/L 01/14/21 05:19 BUN 54 mg/dL (9-20) H 01/14/21 05:19 Creatinine 5.1 mg/dL (0.8-1.3) H 01/14/21 05:19 Estimated GFR 12 ml/min 01/14/21 05:19 BUN/Creatinine Ratio 11 % 01/14/21 05:19 Glucose 107 mg/dL (75-100) H 01/14/21 05:19 Lactic Acid 1.80 mmol/L (0.7-2.0) 01/05/21 09:51 Calcium 8.2 mg/dL (8.4-10.2) L 01/14/21 05:19 Magnesium 4.40 mg/dL (1.7-2.3) H 01/05/21 00:02 Total Bilirubin 10.40 mg/dL (0.1-1.2) H 01/14/21 05:19 Direct Bilirubin 5.0 mg/dL (0-0.2) H 01/08/21 Unknown AST 123 units/L (5-40) H 01/14/21 05:19 ALT 71 units/L (7-56) H 01/14/21 05:19 Alkaline Phosphatase 1132 units/L (35-129) H 01/14/21 05:19 Lactate Dehydrogenase 1199 units/L (91-180) H 01/07/21 05:00 Total Creatine Kinase 340 units/L (55-170) H 01/05/21 00:02 Total Protein 5.6 g/dL (6.3-8.2) L 01/14/21 05:19 Albumin 2.4 g/dL (3.9-5) L 01/14/21 05:19 Albumin/Globulin Ratio 0.8 % 01/14/21 05:19 Coronavirus (PCR) Negative (Negative) 01/14/21 Unknown Blood Type A POSITIVE 01/12/21 19:00 Antibody Screen Negative 01/12/21 19:00 Crossmatch See Detail 01/12/21 19:00 [place]/IV: Voiding Method Incontinent Active Medications - Current Medications Current Medications: Generic Name Dose Route Start Last Admin Trade Name Freq PRN Reason Stop Dose Admin Acetaminophen 650 mg 01/04/21 19:59 Acetaminophen 325 Mg Tab PO Q6H PRN Pain, Mild (1-3) Albuterol 2.5 mg 01/04/21 19:59 Albuterol 2.5 Mg/3 Ml Nebu IH Q4HRT PRN Shortness Of Breath Hydromorphone HCl 0.5 mg 01/04/21 19:59 01/14/21 18:05 Hydromorphone 1 Mg/1 Ml Inj IV 0.5 mg Q12H PRN Administration Pain , Severe (7-10) Sodium Chloride 100 mls @ 999 mls/hr 01/05/21 10:00 Nacl 0.9% IV YURI PRN Hypotension Metoclopramide HCl 5 mg 01/08/21 13:00 01/16/21 06:08 Metoclopramide 10 Mg/2 Ml Inj IV 5 mg Q6H JESSICA Administration Ondansetron HCl 4 mg 01/04/21 19:59 Ondansetron 4 Mg/2 Ml Inj IV Q8H PRN Nausea And Vomiting Oxycodone/Acetaminophen 2 tab 01/05/21 18:55 01/14/21 13:49 Oxycodone /Acetaminophen 5-325mg Tab PO 2 tab Q6H PRN Administration Pain, Moderate (4-6) Pantoprazole Sodium 40 mg 01/07/21 15:00 01/15/21 10:36 Pantoprazole 40 Mg Inj IV 40 mg QDAY JESSICA Administration Sodium Chloride 10 ml 01/04/21 22:00 01/15/21 22:22 Sodium Chloride 0.9% 10 Ml Flush Syringe IV 10 ml BID JESSICA Administration Sodium Chloride 10 ml 01/04/21 19:59 01/13/21 14:28 Sodium Chloride 0.9% 10 Ml Flush Syringe IV 10 ml PRN PRN Administration LINE FLUSH Nutrition/Malnutrition Assess - Dietary Evaluation Nutrition/Malnutrition Findings: Nutrition Notes Start: 01/11/21 16:27 Freq: Status: Active Protocol: Document 01/14/21 11:29 GB (Rec: 01/14/21 11:38 GB [id number]) Nutrition Notes Initial or Follow up Assessment Current Diagnosis Acute Kidney Injury,Sepsis Other Pertinent Diagnosis perforated sigmoid CA stage IV , peritonitis Current Diet NPO Labs/Tests 01/10: Tbili 6.4, (AST 115, ALT 62, AlkP 876) showing improvement 01/11: Na 135, (BUN 40, creatinine 3.9, Ca 8) showing improvement 01/14: (BUN 54, creatinine 5.1 , Tbili 10.4, AST 123, ALT 71, AlkP 1132) all increased elevated, glucose 107, Ca 8.2 Pertinent Medications reviewed Height 6 ft 2 in Weight 156.5 kg [place] Body Weight (kg) 86.36 BMI 44.3 Weight change and time frame stable Weight Status Morbidly Obese Subjective/Other Information per MD notes planning discharge home/hospice pt states he wants to continue dialysis. Last BM: 01/12: colostomy bag emptied x2 Percent of energy/protein needs met: unable to assess. NPO at midnight for 01/14 Burn Absent Trauma Absent GI Symptoms Other Food Allergy No Skin Integrity/Comment wound medial abdomen Current % PO Other Minimum of two criteria No #1 Nutrition Diagnosis Altered GI function Etiology perforated sigmoid CA stage IV New diagnosed metastatic colorectal CA As Evidenced by Signs and Symptoms colostomy bag, full liquid diet Diagnosis Progress(for reassessment Continues documentation) Is patient on ventilator? No Is Patient Ambulatory and/or Out of Bed Yes REE-([place]-ambulatory/OOB) [ 3243.175 [id number]] Kcal/Kg value to use for calculation 17 Approximate Energy Requirements Using 2661 kcal/Kg Calculation Used for Recommendations Kcal/kg Additional Notes protein 0.6-0.8g/kg @ 157k-125g Fluids: 1 ml/kcal or per MD Nutrition Intervention Change Diet Order: NPO advance to diet of tolerance when medically feasible Nutrition Support: n/a Add Supplement/Snack (indicate name/kcal Nepro BID /protein ) Provides kCal: 850 Provides Protein (gm) 38 Goal #1 PO intake of meals/supplements to be 50% or greater daily for LOS 01/14: pt now NPO for 01/14 Goal #2 Diet advanced to regular soft fiber by f/u 01/14: pt now NPO for 01/14 Anticipated Discharge Needs: If continuing HD, high protein snacks, foods low in potassium / phosphorus Follow-Up By: 01/21/21 Additional Comments f/u: diet advancement, supplement changed to nepro BID
[2021-01-16] MEDS: PANTOPRAZOLE 40 MG INJ IV SCH (09:45)
--- NOTE | 2021-01-16 15:39 | Progress Note ---
Assessment and Plan 50-year-old man presents with perforated sigmoid mass likely neoplasm, status post exploratory laparotomy, sigmoidectomy, end colostomy, peritoneal lavage. # SHARMIN: Most likely secondary to ATN. Suspect severe tubular injury s/p extensive surgery + contrast use on 12/29. -Status post Vas-Cath placement on 01/03/2021 and initiation of dialysis . Patient had signed out AMA on 01/04/2021 and his Vas-Cath was removed. Patient was then readmitted. Status post Vas-Cath reinsertion 01/06/2021. Volume overload seems to be improving. No evidence of renal recovery at this time. - Continue HD MWF - Noted plans for palliative care, however patient is expressing desire for ongoing active treatment. At this time there is no meaningful recovery and he will require HD should he want to pursue active treatment. Patient states that he intends to continue active treatment at this time. He was advised that he will need permcath placement as vasc cath cannot be kept in skilled nursing. He was also advised on proper care and risk of infection with catheter. - CM to assist with HD placement, however per CM that may be challenging. Challenges with disposition from a renal standpoint were also discussed with the patient and he was advised to present to ER thrice weekly if no outpatient unit is secured following discharge. - Vascular/IR consulted for access placement - placed 01/14 - Prognosis is guarded # Anemia: Transfuse for hgb < 7 # Metabolic Acidosis/Hyperkalemia: likely due to SHARMIN. Improved with HD. # Perforated Sigmoid Mass, Possible Colorectal Carcinoma, Metastasis to Liver: Note oncology consult. # Sepsis, Leukocytosis: likely related to bowel perforation, note antibiotics # Malnutrition Subjective Date of service: 01/16/21 Principal diagnosis: Metatstatic colon cancer Interval history: Resting in bed UOP 200 cc Objective - Exam Narrative Exam: General: No acute distress HEENT: Oral mucosa moist Neck: Supple, no JVD Chest: Clear to auscultation bilaterally Heart: RRR, S1 and S2, no pericardial rub Abdomen: Soft, nontender, no renal bruit Extremity: No peripheral cyanosis, b/l LE edema Neurological: Alert, awake, no asterixis Dermatology: No skin rash Psych: No agitation Musculoskeletal: No joint effusion - Vital Signs Vital signs: Vital Signs - 12hr 01/16/21 01/16/21 01/16/21 05:35 07:18 10:00 Temperature 98.0 F 97.5 F L Pulse Rate 99 H 89 Respiratory 20 22 Rate Blood Pressure 119/73 Blood Pressure 105/70 [Right] O2 Sat by Pulse 93 95 96 Oximetry 01/16/21 11:05 Temperature 97.1 F L Pulse Rate 102 H Respiratory 20 Rate Blood Pressure 137/64 Blood Pressure [Right] O2 Sat by Pulse 92 Oximetry - Lab 01/14/21 05:19 01/14/21 05:19 Most recent lab results Calcium 8.2 mg/dL (8.4-10.2) L 01/14/21 05:19 Magnesium 4.40 mg/dL (1.7-2.3) H 01/05/21 00:02 Medications & Allergies - Medications Allergies/Adverse Reactions: Allergies No Known Allergies Allergy (Verified 12/29/20 13:17) Home Medications: Home Medications Medication Instructions Recorded Confirmed Last Taken Type Tylenol Extra Strength 500 mg PO BID PRN 12/30/20 01/05/21 Unknown History Active Medications: Generic Name Dose Route Start Last Admin Trade Name Freq PRN Reason Stop Dose Admin Acetaminophen 650 mg 01/04/21 19:59 Acetaminophen 325 Mg Tab PO Q6H PRN Pain, Mild (1-3) Albuterol 2.5 mg 01/04/21 19:59 Albuterol 2.5 Mg/3 Ml Nebu IH Q4HRT PRN Shortness Of Breath Hydromorphone HCl 0.5 mg 01/04/21 19:59 01/14/21 18:05 Hydromorphone 1 Mg/1 Ml Inj IV 0.5 mg Q12H PRN Administration Pain , Severe (7-10) Sodium Chloride 100 mls @ 999 mls/hr 01/05/21 10:00 Nacl 0.9% IV YURI PRN Hypotension Metoclopramide HCl 5 mg 01/08/21 13:00 01/16/21 14:10 Metoclopramide 10 Mg/2 Ml Inj IV 5 mg Q6H JESSICA Administration Ondansetron HCl 4 mg 01/04/21 19:59 Ondansetron 4 Mg/2 Ml Inj IV Q8H PRN Nausea And Vomiting Oxycodone/Acetaminophen 2 tab 01/05/21 18:55 01/14/21 13:49 Oxycodone /Acetaminophen 5-325mg Tab PO 2 tab Q6H PRN Administration Pain, Moderate (4-6) Pantoprazole Sodium 40 mg 01/07/21 15:00 01/16/21 09:45 Pantoprazole 40 Mg Inj IV 40 mg QDAY JESSICA Administration Sodium Chloride 10 ml 01/04/21 22:00 01/16/21 09:46 Sodium Chloride 0.9% 10 Ml Flush Syringe IV 10 ml BID JESSICA Administration Sodium Chloride 10 ml 01/04/21 19:59 01/13/21 14:28 Sodium Chloride 0.9% 10 Ml Flush Syringe IV 10 ml PRN PRN Administration LINE FLUSH
[2021-01-17] MEDS: METOCLOPRAMIDE 10 MG/2 ML INJ IV SCH ×4 (03:14→19:28)
--- NOTE | 2021-01-17 09:40 | Progress Note ---
Assessment and Plan Impression * Acute kidney injury secondary to ATN - suspect severe tubular injury s/p extensive surgery + contrast use on 12/29. --s/p Vas-Cath placement on 01/03/2021 and initiation of dialysis; signed out AMA on 01/04/2021 (vas cath removed) --Readmission on 01/06/2021; vascath reinserted --Permcath insertion on * Perforated sigmoid mass --s/p exploratory laparotomy, sigmoidectomy, end colectomy, peritoneal lavage * Colorectal CA with mets to liver * Anemia * Metabolic acidosis * Hyperkalemia Plan * HD MWF; continue hemodialysis - no evidence of recovery * Oncology notes reviewed * Note previous plans for palliative care, however patient is expressing desire for ongoing active treatment. At this time there is no meaningful recovery and he will require HD should he want to pursue active treatment. Patient states that he intends to continue active treatment at this time. He was advised that he will need permcath placement as vasc cath cannot be kept in [place] [facility]. He was also advised on proper care and risk of infection with catheter. * Transfuse for hgb < 7 * Dose medications for renal function * Avoid potential nephrotoxins * CM to assist with HD placement, however per CM that may be challenging Subjective Date of service: 01/17/21 Principal diagnosis: Metatstatic colon cancer Interval history: Chart, vitals, labs reviewed. Patient is somnolent this AM. Objective - Vital Signs Vital signs: Vital Signs - 12hr 01/16/21 01/16/21 01/17/21 22:00 23:57 05:27 Temperature 99.1 F 98.7 F Pulse Rate 85 87 Respiratory 18 18 Rate Blood Pressure 131/66 105/73 O2 Sat by Pulse 96 94 95 Oximetry 01/17/21 07:58 Temperature 97.8 F Pulse Rate 83 Respiratory 16 Rate Blood Pressure 132/71 O2 Sat by Pulse 96 Oximetry - General Appearance General appearance: well-developed, well-nourished EENT: ATNC Respiratory: Present: Decreased Breath Sounds Cardiology: regular, S1S2 Gastrointestinal: other (ostomy) Integumentary: other (jaundiced) - Lab 01/14/21 05:19 01/14/21 05:19 Most recent lab results Calcium 8.2 mg/dL (8.4-10.2) L 01/14/21 05:19 Magnesium 4.40 mg/dL (1.7-2.3) H 01/05/21 00:02 Medications & Allergies - Medications Allergies/Adverse Reactions: Allergies No Known Allergies Allergy (Verified 12/29/20 13:17) Home Medications: Home Medications Medication Instructions Recorded Confirmed Last Taken Type Tylenol Extra Strength 500 mg PO BID PRN 12/30/20 01/05/21 Unknown History Active Medications: Generic Name Dose Route Start Last Admin Trade Name Freq PRN Reason Stop Dose Admin Acetaminophen 650 mg 01/04/21 19:59 Acetaminophen 325 Mg Tab PO Q6H PRN Pain, Mild (1-3) Albuterol 2.5 mg 01/04/21 19:59 Albuterol 2.5 Mg/3 Ml Nebu IH Q4HRT PRN Shortness Of Breath Hydromorphone HCl 0.5 mg 01/04/21 19:59 01/14/21 18:05 Hydromorphone 1 Mg/1 Ml Inj IV 0.5 mg Q12H PRN Administration Pain , Severe (7-10) Sodium Chloride 100 mls @ 999 mls/hr 01/05/21 10:00 Nacl 0.9% IV YURI PRN Hypotension Metoclopramide HCl 5 mg 01/08/21 13:00 01/17/21 03:14 Metoclopramide 10 Mg/2 Ml Inj IV 5 mg Q6H JESSICA Administration Ondansetron HCl 4 mg 01/04/21 19:59 Ondansetron 4 Mg/2 Ml Inj IV Q8H PRN Nausea And Vomiting Oxycodone/Acetaminophen 2 tab 01/05/21 18:55 01/14/21 13:49 Oxycodone /Acetaminophen 5-325mg Tab PO 2 tab Q6H PRN Administration Pain, Moderate (4-6) Pantoprazole Sodium 40 mg 01/07/21 15:00 01/16/21 09:45 Pantoprazole 40 Mg Inj IV 40 mg QDAY JESSICA Administration Sodium Chloride 10 ml 01/04/21 22:00 01/16/21 21:48 Sodium Chloride 0.9% 10 Ml Flush Syringe IV 10 ml BID JESSICA Administration Sodium Chloride 10 ml 01/04/21 19:59 01/13/21 14:28 Sodium Chloride 0.9% 10 Ml Flush Syringe IV 10 ml PRN PRN Administration LINE FLUSH
--- NOTE | 2021-01-17 11:13 | Progress Note ---
Assessment and Plan Assessment and plan: --Newly diagnosed metastatic colorectal carcinoma Pathology: Sigmoid colon, sigmoidectomy: 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 Macroscopic tumor perforation identified. Tumor invades visceral peritoneum. All margins are uninvolved. Lymphovascular and perineural invasion identified. 1 out of 8 lymph nodes involved. Pathologic stage: T4aN1a, CEA 24.3 Patient never had colonoscopy 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, heme-onc following Recommended outpatient follow-up with heme-onc For possible chemotherapy Very poor prognosis, considering home with home hospice --perforated sigmoid mass --s/p exploratory laparotomy/sigmoidectomy/colostomy/peritoneal lavage Continue current management --Surgical cultures gram-negative rods Currently on Zosyn, follow culture sensitivities ID consult if needed --Gram-negative sepsis Sepsis in the setting of high white count and bowel perforation -- Continue IV antibiotics, follow cultures ID consult if needed --Anemia; hemoglobin 7.0 Received 1 unit PRBC transfusion 01/12/2021 Hb improved from 7-8 Closely monitor H&H transfuse additional PRBC if needed --Acute kidney injury; worsening renal function Nephrology initiated dialysis, s/p vas-Cath placement HD per schedule, nephrology recommended permacath placement Vascular consulted --Hyperkalemia, resolved HD per schedule --Worsening transaminases; Probably secondary to liver mets,Closely monitor --Severe malnutrition/hypoproteinemia Dietary supplements and dietitian consult --Morbid obesity; BMI 44.3 Partly due to fluid overload and renal failure Patient needs weight reduction when medically stable --DVT prophylaxis On SCDs , patient postop state with severe anemia Torch Operator recommendations noted and appreciated Discussed in detail with the case management regarding discharge planning Planning home hospice and discontinuing hemodialysis however patient did not agree for that plan Patient wants hemodialysis as well as chemotherapy DC planning per case management, possible home with home hospice Brief history and hospital course: 50-year-old male patient initially presented on 12/29/20 with perforated sigmoid mass likely neoplasm, status post exploratory laparotomy,, sigmoidectomy, end colostomy, peritoneal lavage. Patient has worsening renal function,Vas-Cath placement and initiated hemodialysis. He decided to leave AMA on 01/04/2021 but got readmitted on the same day. 01/05/21: Patient had low hemoglobin 5.3 today, elevated potassium and creat inine. Dialysis catheter was removed yesterday when Patient left AMA yesterday.. consulted vascular for permcath, ordered for PRBC transfusion. Follow CBC and BMP 01/06/21: Pathology report revealed moderately differentiated adenocarcinoma of sigmoid colon pathologic state T4aN1a. Status post vasCath placement today, drug use another unit of packed RBC -hemoglobin 6.4. Plan for hemodialysis, monitor CBC and BMP. Guarded prognosis 01/07/21; discussed with oncology. Patient need to follow-up with oncologist as outpatient to initiate definitive treatment for pulmonary adenocarcinoma. now Wait for renal function recovery. Continue to follow CBC and BMP. Try to call patient family but unable to reach out to them. 01/08/21: Continue to follow renal function, H&H stable. Continue supportive care monitor closely. Clinically remains volume overloaded. Plan for another hemodialysis today. Continue empiric antibiotics 01/09/21; continue full liquid diet, plan for hemodialysis tomorrow, continue to follow clinically. Very poor prognosis. Monitor CBC and BMP 01/10/21: s/p HD today. discussed with family by phone and with pt in front of RN. they all in agreement for home hospice and does not want any HD or chemotherapy. CM ordered for home hospice setup. follow clinically. 01/11/2021; awaiting discharge home with hospice, very poor prognosis, full CODE STATUS However when the hospice personnel discuss with the patient, patient stated that he wants to continue with hemodialysis as well as chemotherapy. We will continue to follow 01/12/21; anemia, Hb 7.0, transfuse 1 unit PRBC, HD per schedule DC planning per case management possible home with home hospice 01/13/2021: Hb today is 8.0 CM assisting with discharge home with home hospice Full CODE STATUS 01/14/21 . demand generator manager working on Home with home hospice. As per notes, he wants to continue hemodialysis. 01/15/21 Patient with colon cancer with metastases. He states he wants to continue hemodialysis . home hospice being arranged. 01/16/21 Patient with colon cancer with metastases. Plan is to discharge to home hospice. He wants to continue hemodialysis. 01/17/21 patient with colon cancer with metastases. Plan is to dc home with home hospice after arrangements and DME arranged. Although going on hospice he wants to continue Hemodialysis and follow with Oncology as outpatient. I discussed with Principal Gifts Officer and she states he can go to [facility] ED for dialysis. Will recommend refer to Dr. Aburto, Oncologist on discharge He is medically stable for discharge after arrangements made. History Interval history: Patient feels better No new complaints: no fever, no chest pain Hospitalist Physical - Physical exam Narrative exam: Gen: Not in acute distress. morbidly obese HEENT:Normocephalic,atraumatic Neck:supple, No JVD Lungs:clear to auscultation bilaterally, no wheeze Heart:S1 and S2 reg, no murmurs, rubs or gallop Abd:soft, non tender, non distended, surgical dressing over abdomen Ext; No edema, no clubbing, no cyanosis Neuro:Awake,alert, moves all ext, - Constitutional Vitals: Temp Pulse Resp BP Pulse Ox 97.8 F 83 16 132/71 96 01/17/21 07:58 01/17/21 07:58 01/17/21 07:58 01/17/21 07:58 01/17/21 07:58 General appearance: Present: no acute distress, well-nourished, obese (Morbidly obese) Results - Labs CBC & Chem 7: 01/17/21 10:40 01/17/21 10:40 Labs: Laboratory Last Values WBC 22.1 K/mm3 (4.5-11.0) H 01/14/21 05:19 RBC 3.23 M/mm3 (3.65-5.03) L 01/14/21 05:19 Hgb 8.1 gm/dl (11.8-15.2) L 01/14/21 05:19 Hct 26.2 % (35.5-45.6) L 01/14/21 05:19 MCV 81 fl (84-94) L 01/14/21 05:19 MCH 25 pg (28-32) L 01/14/21 05:19 MCHC 31 % (32-34) L 01/14/21 05:19 RDW 22.2 % (13.2-15.2) H 01/14/21 05:19 Plt Count 190 K/mm3 (140-440) 01/14/21 05:19 [place] % (Auto) 4.8 % (0.0-7.3) 01/14/21 05:19 Eos % (Auto) 0.2 % (0.0-4.3) 01/14/21 05:19 [place] # (Auto) 1.0 K/mm3 (0.0-0.8) H 01/14/21 05:19 Eos # (Auto) 0.0 K/mm3 (0.0-0.4) 01/14/21 05:19 Baso # (Auto) 0.1 K/mm3 (0.0-0.1) 01/14/21 05:19 Add Manual Diff Complete 01/14/21 05:19 Total Counted 100 01/14/21 05:19 Seg Neutrophils % 88.7 % (40.0-70.0) H 01/14/21 05:19 Seg Neuts % (Manual) 72.0 % (40.0-70.0) H 01/14/21 05:19 Band Neutrophils % 20.0 % 01/14/21 05:19 Lymphocytes % (Manual) 3.0 % (13.4-35.0) L 01/14/21 05:19 Monocytes % (Manual) 3.0 % (0.0-7.3) 01/14/21 05:19 Eosinophils % (Manual) 1.0 % (0.0-4.3) 01/05/21 00:02 Basophils % (Manual) 1.0 % (0.0-1.8) 01/05/21 00:02 Metamyelocytes % 1.0 % 01/12/21 04:43 Myelocytes % 2.0 % 01/14/21 05:19 Nucleated RBC % 2.0 % (0.0-0.9) H 01/14/21 05:19 Seg Neutrophils # 18.6 K/mm3 (1.8-7.7) H 01/14/21 05:19 Seg Neutrophils # Man 15.9 K/mm3 (1.8-7.7) H 01/14/21 05:19 Band Neutrophils # 4.4 K/mm3 01/14/21 05:19 Lymphocytes # (Manual) 0.7 K/mm3 (1.2-5.4) L 01/14/21 05:19 Abs React Lymphs (Man) 0.0 K/mm3 01/14/21 05:19 Monocytes # (Manual) 0.7 K/mm3 (0.0-0.8) 01/14/21 05:19 Eosinophils # (Manual) 0.0 K/mm3 (0.0-0.4) 01/14/21 05:19 Basophils # (Manual) 0.0 K/mm3 (0.0-0.1) 01/14/21 05:19 Metamyelocytes # 0.0 K/mm3 01/14/21 05:19 Myelocytes # 0.4 K/mm3 01/14/21 05:19 Promyelocytes # 0.0 K/mm3 01/14/21 05:19 Blast Cells # 0.0 K/mm3 01/14/21 05:19 WBC Morphology Not Reportable 01/14/21 05:19 Hypersegmented Neuts Not Reportable 01/14/21 05:19 Hyposegmented Neuts Not Reportable 01/14/21 05:19 Hypogranular Neuts Not Reportable 01/14/21 05:19 Smudge Cells Not Reportable 01/14/21 05:19 Toxic Granulation Not Reportable 01/14/21 05:19 Toxic Vacuolation Not Reportable 01/14/21 05:19 Dohle Bodies Not Reportable 01/14/21 05:19 Pelger-Huet Anomaly Not Reportable 01/14/21 05:19 Janene Rods Not Reportable 01/14/21 05:19 Platelet Estimate Consistent w auto 01/14/21 05:19 Clumped Platelets Not Reportable 01/14/21 05:19 Plt Clumps, EDTA Not Reportable 01/14/21 05:19 Large Platelets Not Reportable 01/14/21 05:19 Giant Platelets Not Reportable 01/14/21 05:19 Platelet Satelliting Not Reportable 01/14/21 05:19 Plt Morphology Comment Not Reportable 01/14/21 05:19 RBC Morphology Not Reportable 01/14/21 05:19 Dimorphic RBCs Not Reportable 01/14/21 05:19 Polychromasia Not Reportable 01/14/21 05:19 Hypochromasia Not Reportable 01/14/21 05:19 Poikilocytosis Not Reportable 01/14/21 05:19 Anisocytosis Not Reportable 01/14/21 05:19 Microcytosis Not Reportable 01/14/21 05:19 Macrocytosis Not Reportable 01/14/21 05:19 Spherocytes Not Reportable 01/14/21 05:19 Pappenheimer Bodies Not Reportable 01/14/21 05:19 Sickle Cells Not Reportable 01/14/21 05:19 Target Cells Not Reportable 01/14/21 05:19 Tear Drop Cells Not Reportable 01/14/21 05:19 Ovalocytes Not Reportable 01/14/21 05:19 Helmet Cells Not Reportable 01/14/21 05:19 [place] Bodies Not Reportable 01/14/21 05:19 [place] Rings Not Reportable 01/14/21 05:19 Ankur Cells Not Reportable 01/14/21 05:19 Bite Cells Not Reportable 01/14/21 05:19 Crenated Cell Not Reportable 01/14/21 05:19 Elliptocytes Not Reportable 01/14/21 05:19 Acanthocytes (Spur) Not Reportable 01/14/21 05:19 Rouleaux Not Reportable 01/14/21 05:19 Hemoglobin C Crystals Not Reportable 01/14/21 05:19 Schistocytes Not Reportable 01/14/21 05:19 Malaria parasites Not Reportable 01/14/21 05:19 Percent Retic 3.75 % (0.78-2.58) H 01/07/21 05:00 Atul Bodies Not Reportable 01/14/21 05:19 Hem Pathologist Commnt No 01/14/21 05:19 PT 18.0 Sec. (12.2-14.9) H 01/06/21 09:16 INR 1.35 (0.87-1.13) H 01/06/21 09:16 Sodium 139 mmol/L (137-145) 01/14/21 05:19 Potassium 4.6 mmol/L (3.6-5.0) 01/14/21 05:19 Chloride 95.9 mmol/L (98-107) L 01/14/21 05:19 Carbon Dioxide 22 mmol/L (22-30) 01/14/21 05:19 Anion Gap 26 mmol/L 01/14/21 05:19 BUN 54 mg/dL (9-20) H 01/14/21 05:19 Creatinine 5.1 mg/dL (0.8-1.3) H 01/14/21 05:19 Estimated GFR 12 ml/min 01/14/21 05:19 BUN/Creatinine Ratio 11 % 01/14/21 05:19 Glucose 107 mg/dL (75-100) H 01/14/21 05:19 Lactic Acid 1.80 mmol/L (0.7-2.0) 01/05/21 09:51 Calcium 8.2 mg/dL (8.4-10.2) L 01/14/21 05:19 Magnesium 4.40 mg/dL (1.7-2.3) H 01/05/21 00:02 Total Bilirubin 10.40 mg/dL (0.1-1.2) H 01/14/21 05:19 Direct Bilirubin 5.0 mg/dL (0-0.2) H 01/08/21 Unknown AST 123 units/L (5-40) H 01/14/21 05:19 ALT 71 units/L (7-56) H 01/14/21 05:19 Alkaline Phosphatase 1132 units/L (35-129) H 01/14/21 05:19 Lactate Dehydrogenase 1199 units/L (91-180) H 01/07/21 05:00 Total Creatine Kinase 340 units/L (55-170) H 01/05/21 00:02 Total Protein 5.6 g/dL (6.3-8.2) L 01/14/21 05:19 Albumin 2.4 g/dL (3.9-5) L 01/14/21 05:19 Albumin/Globulin Ratio 0.8 % 01/14/21 05:19 Coronavirus (PCR) Negative (Negative) 01/14/21 Unknown Blood Type A POSITIVE 01/12/21 19:00 Antibody Screen Negative 01/12/21 19:00 Crossmatch See Detail 01/12/21 19:00 Santiago/IV: Voiding Method Condom Catheter Active Medications - Current Medications Current Medications: Generic Name Dose Route Start Last Admin Trade Name Freq PRN Reason Stop Dose Admin Acetaminophen 650 mg 01/04/21 19:59 Acetaminophen 325 Mg Tab PO Q6H PRN Pain, Mild (1-3) Albuterol 2.5 mg 01/04/21 19:59 Albuterol 2.5 Mg/3 Ml Nebu IH Q4HRT PRN Shortness Of Breath Hydromorphone HCl 0.5 mg 01/04/21 19:59 01/14/21 18:05 Hydromorphone 1 Mg/1 Ml Inj IV 0.5 mg Q12H PRN Administration Pain , Severe (7-10) Sodium Chloride 100 mls @ 999 mls/hr 01/05/21 10:00 Nacl 0.9% IV YURI PRN Hypotension Metoclopramide HCl 5 mg 01/08/21 13:00 01/17/21 03:14 Metoclopramide 10 Mg/2 Ml Inj IV 01/17/21 23:59 5 mg Q6H JESSICA Administration Ondansetron HCl 4 mg 01/04/21 19:59 Ondansetron 4 Mg/2 Ml Inj IV Q8H PRN Nausea And Vomiting Oxycodone/Acetaminophen 2 tab 01/05/21 18:55 01/14/21 13:49 Oxycodone /Acetaminophen 5-325mg Tab PO 2 tab Q6H PRN Administration Pain, Moderate (4-6) Pantoprazole Sodium 40 mg 01/18/21 07:30 Pantoprazole 40 Mg Tab PO QDAC JESSICA Sodium Chloride 10 ml 01/04/21 22:00 01/16/21 21:48 Sodium Chloride 0.9% 10 Ml Flush Syringe IV 10 ml BID JESSICA Administration Sodium Chloride 10 ml 01/04/21 19:59 01/13/21 14:28 Sodium Chloride 0.9% 10 Ml Flush Syringe IV 10 ml PRN PRN Administration LINE FLUSH Nutrition/Malnutrition Assess - Dietary Evaluation Nutrition/Malnutrition Findings: Nutrition Notes Start: 01/11/21 16:27 Freq: Status: Active Protocol: Document 01/14/21 11:29 GB (Rec: 01/14/21 11:38 GB [id number]) Nutrition Notes Initial or Follow up Assessment Current Diagnosis Acute Kidney Injury,Sepsis Other Pertinent Diagnosis perforated sigmoid CA stage IV , peritonitis Current Diet NPO Labs/Tests 01/10: Tbili 6.4, (AST 115, ALT 62, AlkP 876) showing improvement 01/11: Na 135, (BUN 40, creatinine 3.9, Ca 8) showing improvement 01/14: (BUN 54, creatinine 5.1 , Tbili 10.4, AST 123, ALT 71, AlkP 1132) all increased elevated, glucose 107, Ca 8.2 Pertinent Medications reviewed Height 6 ft 2 in Weight 156.5 kg [place] Body Weight (kg) 86.36 BMI 44.3 Weight change and time frame stable Weight Status Morbidly Obese Subjective/Other Information per MD notes planning discharge home/hospice pt states he wants to continue dialysis. Last BM: 01/12: colostomy bag emptied x2 Percent of energy/protein needs met: unable to assess. NPO at midnight for 01/14 Burn Absent Trauma Absent GI Symptoms Other Food Allergy No Skin Integrity/Comment wound medial abdomen Current % PO Other Minimum of two criteria No #1 Nutrition Diagnosis Altered GI function Etiology perforated sigmoid CA stage IV New diagnosed metastatic colorectal CA As Evidenced by Signs and Symptoms colostomy bag, full liquid diet Diagnosis Progress(for reassessment Continues documentation) Is patient on ventilator? No Is Patient Ambulatory and/or Out of Bed Yes REE-([place]-ambulatory/OOB) [ 3243.175 NUTR.[id number]] Kcal/Kg value to use for calculation 17 Approximate Energy Requirements Using 2661 kcal/Kg Calculation Used for Recommendations Kcal/kg Additional Notes protein 0.6-0.8g/kg @ 157k-125g Fluids: 1 ml/kcal or per MD Nutrition Intervention Change Diet Order: NPO advance to diet of tolerance when medically feasible Nutrition Support: n/a Add Supplement/Snack (indicate name/kcal Nepro BID /protein ) Provides kCal: 850 Provides Protein (gm) 38 Goal #1 PO intake of meals/supplements to be 50% or greater daily for LOS 01/14: pt now NPO for 01/14 Goal #2 Diet advanced to regular soft fiber by f/u 01/14: pt now NPO for 01/14 Anticipated Discharge Needs: If continuing HD, high protein snacks, foods low in potassium / phosphorus Follow-Up By: 01/21/21 Additional Comments f/u: diet advancement, supplement changed to nepro BID
[2021-01-17 12:29] LABS: Hematocrit 32.6 % (35.5-45.6); Hemoglobin 10.2 gm/dl (11.8-15.2); Mean Corpuscular HGB Conc 31 % (32-34); Mean Corpuscular Volume 83 fl (84-94); Platelet Count 113 K/mm3 (140-440); Red Blood Count 3.93 M/mm3 (3.65-5.03)
[2021-01-17 12:33] LABS: Red Cell Distribution Width 22.5 % (13.2-15.2)
[2021-01-18 05:57] LABS: Hematocrit 25.4 % (35.5-45.6); Hemoglobin 7.8 gm/dl (11.8-15.2); Mean Corpuscular HGB Conc 31 % (32-34); Mean Corpuscular Volume 84 fl (84-94); Platelet Count 110 K/mm3 (140-440); Red Blood Count 3.02 M/mm3 (3.65-5.03)
[2021-01-18 06:33] LABS: Calcium 8.1 mg/dL (8.4-10.2)
[2021-01-18] MEDS: PANTOPRAZOLE 40 MG TAB PO SCH ×2 (09:44→12:58)
--- NOTE | 2021-01-18 10:04 | Discharge Summary ---
Providers - Providers Date of Admission: 01/04/21 19:59 Date of discharge: 01/18/21 Attending physician: SUYAPA LEWIS 01/04/21 21:02 Consult to Physician [CONS] Routine Comment: Consulting Provider: ROCK PARSONS Physician Instructions: Reason For Exam: nicolas 01/05/21 09:25 Consult to Physician [CONS] Routine Comment: Consulting Provider: ANA COKER Physician Instructions: Reason For Exam: Vas-Cath placement 01/05/21 15:38 Consult to Physician [CONS] Routine Comment: Consulting Provider: DEVORA DUMONT Physician Instructions: Reason For Exam: bowel perforation 01/05/21 15:39 Consult to Physician [CONS] Routine Comment: Consulting Provider: JIE CHOW Physician Instructions: Reason For Exam: Possible metastatic cancer 01/05/21 18:53 Consult to Mental Health [CONS] Routine Reason For Exam: confusion, agitation 01/06/21 10:36 Physical Therapy Evaluation and Treat [CONS] Routine Comment: Reason For Exam: severe deconditioning, post op day 8 01/06/21 13:08 Consult to Wound/ET Nurse [CONS] Routine Reason For Exam: new ostomy, midline wound 01/10/21 15:41 Consult to Case Management [CONS] Routine Services Needed at Discharge: Other Notified:: case packer Additional Physician Instructions: hospice- [facility] 01/13/21 12:52 Consult to Physician [CONS] Routine Comment: Consulting Provider: CASSIE RODRIGUEZ Physician Instructions: Reason For Exam: Permcath placement Primary care physician: INTEGRATION SPECIALIST Hospitalization Condition: Fair Disposition: 50 HOSPICE/HOME Final Discharge Diagnosis (Prints w/discharge instructions): --Newly diagnosed metastatic colorectal carcinoma. --perforated sigmoid mass. --Surgical cultures gram-negative rods. --Gram-negative sepsis. --Anemia of CD. --Acute kidney injury; worsening renal function. --Hyperkalemia, resolved. --Worsening transaminases;. --Severe malnutrition/hypoproteinemia. --Morbid obesity; BMI 44.3 Time spent for discharge: 34 minutes Core Measure Documentation - Palliative Care Palliative Care/ Comfort Measures: Not Applicable - Core Measures Any of the following diagnoses?: none Exam - Physical Exam Narrative exam: General appearance: Present: no distress, well-nourished, obese - EENT Eyes: Present: PERRL, EOM intact - Neck Neck: Present: supple, normal ROM - Respiratory Respiratory effort: normal Respiratory: bilateral: diminished, negative: rales, rhonchi, wheezing - Cardiovascular Rhythm: regular Heart Sounds: Present: S1 & S2 - Extremities Extremities: no ischemia, No edema - Abdominal General gastrointestinal: Surgical dressing on place with abdominal drainage - Integumentary Integumentary: Present: clear, warm - Psychiatric Psychiatric: appropriate mood/affect, agitated (Sometimes agitated), other (Sometimes confused) - Neurologic Neurologic: moves all extremities - Constitutional Vitals: Temp Pulse Resp BP Pulse Ox 98.0 F 91 H 18 129/76 94 01/18/21 04:02 01/18/21 04:02 01/18/21 04:02 01/18/21 04:02 01/18/21 04:02 Plan Activity: fall precautions Diet: renal Follow up with: PRIMARY CARE, [Primary Care Provider] - 7 Days Prescriptions: oxyCODONE /ACETAMINOPHEN [Percocet 5/325 mg] 2 tab PO Q6H PRN #14 tablet PRN Reason: Pain, Moderate (4-6) Pantoprazole [Protonix TAB] 40 mg PO QDAC #30 tablet
[2021-01-18] MEDS: PANTOPRAZOLE 40 MG INJ IV SCH (11:05)
--- NOTE | 2021-01-18 13:17 | Progress Note ---
Assessment and Plan Impression * Acute kidney injury secondary to ATN - suspect severe tubular injury s/p extensive surgery + contrast use on 12/29. --s/p Vas-Cath placement on 01/03/2021 and initiation of dialysis; signed out AMA on 01/04/2021 (vas cath removed) --Readmission on 01/06/2021; vascath reinserted --Permcath insertion on * Perforated sigmoid mass --s/p exploratory laparotomy, sigmoidectomy, end colectomy, peritoneal lavage * Colorectal CA with mets to liver * Anemia * Metabolic acidosis * Hyperkalemia Plan * HD MWF; continue hemodialysis - no evidence of recovery. Next HD tomorrow, no indication for HD today per labs, volume * Oncology notes reviewed * Note previous plans for palliative care, however patient is expressing desire for ongoing active treatment. At this time there is no meaningful recovery and he will require HD should he want to pursue active treatment. Patient states that he intends to continue active treatment at this time. He was advised that he will need permcath placement as vasc cath cannot be kept in [facility]. He was also advised on proper care and risk of infection with catheter. * Transfuse for hgb < 7 * Dose medications for renal function * Avoid potential nephrotoxins * CM to assist with HD placement, however per CM that may be challenging Subjective Date of service: 01/18/21 Principal diagnosis: Metatstatic colon cancer Interval history: Resting this AM, no issues noted Objective - Exam Narrative Exam: General appearance: well-developed, well-nourished EENT: ATNC Respiratory: Present: Decreased Breath Sounds Cardiology: regular, S1S2 Gastrointestinal: other (ostomy) Integumentary: other (jaundiced) - Vital Signs Vital signs: Vital Signs - 12hr 01/18/21 01/18/21 01/18/21 04:02 10:00 12:36 Temperature 98.0 F Pulse Rate 91 H Respiratory 18 Rate Blood Pressure 129/76 O2 Sat by Pulse 94 94 94 Oximetry - Lab 01/18/21 05:02 01/18/21 05:02 Most recent lab results Calcium 8.1 mg/dL (8.4-10.2) L 01/18/21 05:02 Magnesium 4.40 mg/dL (1.7-2.3) H 01/05/21 00:02 Medications & Allergies - Medications Allergies/Adverse Reactions: Allergies No Known Allergies Allergy (Verified 12/29/20 13:17) Home Medications: Home Medications Medication Instructions Recorded Confirmed Last Taken Type Pantoprazole [Protonix TAB] 40 mg PO QDAC #30 tablet 01/18/21 Unknown Rx oxyCODONE /ACETAMINOPHEN [Percocet 2 tab PO Q6H PRN #14 tablet 01/18/21 Unknown Rx 5/325 mg] Active Medications: Generic Name Dose Route Start Last Admin Trade Name Freq PRN Reason Stop Dose Admin Acetaminophen 650 mg 01/04/21 19:59 Acetaminophen 325 Mg Tab PO Q6H PRN Pain, Mild (1-3) Albuterol 2.5 mg 01/04/21 19:59 Albuterol 2.5 Mg/3 Ml Nebu IH Q4HRT PRN Shortness Of Breath Hydromorphone HCl 0.5 mg 01/04/21 19:59 01/14/21 18:05 Hydromorphone 1 Mg/1 Ml Inj IV 0.5 mg Q12H PRN Administration Pain , Severe (7-10) Sodium Chloride 100 mls @ 999 mls/hr 01/05/21 10:00 Nacl 0.9% IV YURI PRN Hypotension Ondansetron HCl 4 mg 01/04/21 19:59 Ondansetron 4 Mg/2 Ml Inj IV Q8H PRN Nausea And Vomiting Oxycodone/Acetaminophen 2 tab 01/05/21 18:55 01/14/21 13:49 Oxycodone /Acetaminophen 5-325mg Tab PO 2 tab Q6H PRN Administration Pain, Moderate (4-6) Pantoprazole Sodium 40 mg 01/18/21 07:30 01/18/21 12:58 Pantoprazole 40 Mg Tab PO Not Given QDAC JESSICA Sodium Chloride 10 ml 01/04/21 22:00 01/18/21 09:50 Sodium Chloride 0.9% 10 Ml Flush Syringe IV 10 ml BID JESSICA Administration Sodium Chloride 10 ml 01/04/21 19:59 01/13/21 14:28 Sodium Chloride 0.9% 10 Ml Flush Syringe IV 10 ml PRN PRN Administration LINE FLUSH
[2021-01-19] MEDS: PANTOPRAZOLE 40 MG TAB PO SCH (09:14)
--- NOTE | 2021-01-19 12:08 | Progress Note ---
Assessment and Plan Impression * Acute kidney injury secondary to ATN - suspect severe tubular injury s/p extensive surgery + contrast use on 12/29. --s/p Vas-Cath placement on 01/03/2021 and initiation of dialysis; signed out AMA on 01/04/2021 (vas cath removed) --Readmission on 01/06/2021; vascath reinserted --Permcath insertion on * Perforated sigmoid mass --s/p exploratory laparotomy, sigmoidectomy, end colectomy, peritoneal lavage * Colorectal CA with mets to liver * Anemia * Metabolic acidosis * Hyperkalemia Plan * HD MWF; continue hemodialysis - no evidence of recovery. Seen on HD today, no issues noted * Oncology notes reviewed * Note previous plans for palliative care, however patient is expressing desire for ongoing active treatment. At this time there is no meaningful recovery and he will require HD should he want to pursue active treatment. Patient states that he intends to continue active treatment at this time. He was advised that he will need permcath placement as vasc cath cannot be kept in long filler cigar roller machine. He was also advised on proper care and risk of infection with catheter. * Transfuse for hgb < 7 * Dose medications for renal function * Avoid potential nephrotoxins * CM to assist with HD placement, however per CM that may be challenging Subjective Date of service: 01/19/21 Principal diagnosis: Metatstatic colon cancer Interval history: Resting on HD, no issues noted, drowsy Objective - Exam Narrative Exam: General appearance: well-developed, well-nourished EENT: ATNC Respiratory: Present: Decreased Breath Sounds Cardiology: regular, S1S2 Gastrointestinal: other (ostomy) Integumentary: other (jaundiced) - Vital Signs Vital signs: Vital Signs - 12hr 01/19/21 01/19/21 01/19/21 03:39 07:23 09:53 Temperature 98.0 F 98.0 F Pulse Rate 92 H 92 H Respiratory 18 18 Rate Blood Pressure 142/82 168/101 O2 Sat by Pulse 92 93 93 Oximetry Seen on HD: Qb 300 via CVC, UF goal 1.5L - Lab 01/18/21 05:02 01/18/21 05:02 Most recent lab results Calcium 8.1 mg/dL (8.4-10.2) L 01/18/21 05:02 Magnesium 4.40 mg/dL (1.7-2.3) H 01/05/21 00:02 Medications & Allergies - Medications Allergies/Adverse Reactions: Allergies No Known Allergies Allergy (Verified 12/29/20 13:17) Home Medications: Home Medications Medication Instructions Recorded Confirmed Last Taken Type Pantoprazole [Protonix TAB] 40 mg PO QDAC #30 tablet 01/18/21 Unknown Rx oxyCODONE /ACETAMINOPHEN [Percocet 2 tab PO Q6H PRN #14 tablet 01/18/21 Unknown Rx 5/325 mg] Active Medications: Generic Name Dose Route Start Last Admin Trade Name Freq PRN Reason Stop Dose Admin Acetaminophen 650 mg 01/04/21 19:59 Acetaminophen 325 Mg Tab PO Q6H PRN Pain, Mild (1-3) Albuterol 2.5 mg 01/04/21 19:59 Albuterol 2.5 Mg/3 Ml Nebu IH Q4HRT PRN Shortness Of Breath Hydromorphone HCl 0.5 mg 01/04/21 19:59 01/14/21 18:05 Hydromorphone 1 Mg/1 Ml Inj IV 0.5 mg Q12H PRN Administration Pain , Severe (7-10) Sodium Chloride 100 mls @ 999 mls/hr 01/05/21 10:00 Nacl 0.9% IV YURI PRN Hypotension Ondansetron HCl 4 mg 01/04/21 19:59 Ondansetron 4 Mg/2 Ml Inj IV Q8H PRN Nausea And Vomiting Oxycodone/Acetaminophen 2 tab 01/05/21 18:55 01/14/21 13:49 Oxycodone /Acetaminophen 5-325mg Tab PO 2 tab Q6H PRN Administration Pain, Moderate (4-6) Pantoprazole Sodium 40 mg 01/18/21 07:30 01/19/21 09:14 Pantoprazole 40 Mg Tab PO 40 mg QDAC JESSICA Administration Sodium Chloride 10 ml 01/04/21 22:00 01/18/21 21:55 Sodium Chloride 0.9% 10 Ml Flush Syringe IV 10 ml BID JESSICA Administration Sodium Chloride 10 ml 01/04/21 19:59 01/19/21 09:15 Sodium Chloride 0.9% 10 Ml Flush Syringe IV 10 ml PRN PRN Administration LINE FLUSH
--- NOTE | 2021-01-19 15:02 | Progress Note ---
Subjective Date of service: 01/19/21 Principal diagnosis: Metatstatic colon cancer Objective - Constitutional Vitals: Vital Signs - 12hr 01/19/21 01/19/21 01/19/21 03:39 07:23 09:53 Temperature 98.0 F 98.0 F Pulse Rate 92 H 92 H Respiratory 18 18 Rate Blood Pressure 142/82 168/101 O2 Sat by Pulse 92 93 93 Oximetry - Labs CBC & Chem 7: 01/18/21 05:02 01/18/21 05:02
[2021-01-19 16:52] VITALS: BP 140/72
== END 2021-01-19 17:45 | disposition hospice, home (50) | DRG 871 ==
LOC: ED 18:33 → 4A 19:59
PROVIDERS: ADMIT Internal Medicine; ATTEND Internal Medicine
PROC: 30233N1 Transfusion of Nonautologous Red Blood Cells into Peripheral Vein, Percutaneous Approach (ICD-10-PCS; 2021-01-05)
PROC: 06HY33Z Insertion of Infusion Device into Lower Vein, Percutaneous Approach (ICD-10-PCS; 2021-01-06)
PROC: B51C1ZZ Fluoroscopy of Left Lower Extremity Veins using Low Osmolar Contrast (ICD-10-PCS; 2021-01-06)
PROC: 5A1D70Z Performance of Urinary Filtration, Intermittent, Less than 6 Hours Per Day (ICD-10-PCS; 2021-01-06)
PROC: 5A1D70Z Performance of Urinary Filtration, Intermittent, Less than 6 Hours Per Day (ICD-10-PCS; 2021-01-07)
PROC: 5A1D70Z Performance of Urinary Filtration, Intermittent, Less than 6 Hours Per Day (ICD-10-PCS; 2021-01-08)
PROC: 5A1D70Z Performance of Urinary Filtration, Intermittent, Less than 6 Hours Per Day (ICD-10-PCS; 2021-01-10)
PROC: 5A1D70Z Performance of Urinary Filtration, Intermittent, Less than 6 Hours Per Day (ICD-10-PCS; 2021-01-12)
PROC: 0JH63XZ Insertion of Tunneled Vascular Access Device into Chest Subcutaneous Tissue and Fascia, Percutaneous Approach (ICD-10-PCS; principal; 2021-01-14)
PROC: 02H633Z Insertion of Infusion Device into Right Atrium, Percutaneous Approach (ICD-10-PCS; 2021-01-14)
PROC: B5181ZA Fluoroscopy of Superior Vena Cava using Low Osmolar Contrast, Guidance (ICD-10-PCS; 2021-01-14)
PROC: B548ZZA Ultrasonography of Superior Vena Cava, Guidance (ICD-10-PCS; 2021-01-14)
PROC: 5A1D70Z Performance of Urinary Filtration, Intermittent, Less than 6 Hours Per Day (ICD-10-PCS; 2021-01-14)
PROC: 5A1D70Z Performance of Urinary Filtration, Intermittent, Less than 6 Hours Per Day (ICD-10-PCS; 2021-01-17)
PROC: 5A1D70Z Performance of Urinary Filtration, Intermittent, Less than 6 Hours Per Day (ICD-10-PCS; 2021-01-19)
DX: A41.50 Gram-negative sepsis, unspecified (principal); E43 Unspecified severe protein-calorie malnutrition; K65.9 Peritonitis, unspecified; N17.0 Acute kidney failure with tubular necrosis; C78.7 Secondary malignant neoplasm of liver and intrahepatic bile duct; F32.1 Major depressive disorder, single episode, moderate; Z68.41 Body mass index [BMI] 40.0-44.9, adult; C18.7 Malignant neoplasm of sigmoid colon; D64.9 Anemia, unspecified; E66.01 Morbid (severe) obesity due to excess calories; Z20.822 Contact with and (suspected) exposure to COVID-19; Z82.49 Family history of ischemic heart disease and other diseases of the circulatory system; E87.5 Hyperkalemia; N18.9 Chronic kidney disease, unspecified
CPT/HCPCS: 36415; 36556; 36558; 70450; 74176; 77001; 80048; 80053; 82140; 82248; 82550; 83615; 83735; 85007; 85014; 85018; 85025; 85027; 85045; 85610; 86850; 86900; 86901; 86920; 87040; 94640; G0378; C1750; C1752; C9113; J0692; J1170; J1644; J2250; J2765; J3010; J7030; J7040; J7050; P9016; Q9967; U0003

== ENCOUNTER 2021-01-20 15:41 | Observation (INO) | payer SELFPAY ==
--- NOTE | 2021-01-20 16:48 | Emergency Department Report ---
HPI - General Chief Complaint: Altered Mental Status Time Seen by Provider: 01/20/21 16:16 - HPI HPI: Room 6 The patient is a 50-year-old male present with a chief complaint of altered mental status and potential shoulder injury. Patient was discharged from this hospital yesterday after admission for sepsis secondary to perforated sigmoid carcinoma. Per EMS family was concerned that the patient may have dislocated his shoulder however no information regarding details of this concern were given. EMS states they found the patient in bed not speaking and family states he has been this way since discharge. The patient occasionally opens his eyes but does not respond verbally. The patient is grossly jaundiced ED Past Medical Hx - Past Medical History Hx Liver Disease: Yes (liver mets likely from colon mass) - Surgical History Additional Surgical History: Exploratory laparotomy, peritonitis secondary to sigmoid rupture, Vas-Cath placement - Family History Family history: no significant - Social History Smoking Status: Unknown if ever smoked Substance Use Type: None - Medications Home Medications: Home Medications Medication Instructions Recorded Confirmed Last Taken Type Pantoprazole [Protonix TAB] 40 mg PO QDAC #30 tablet 01/18/21 Unknown Rx oxyCODONE /ACETAMINOPHEN [Percocet 2 tab PO Q6H PRN #14 tablet 01/18/21 Unknown Rx 5/325 mg] ED Review of Systems ROS: Stated complaint: AMS Other details as noted in HPI Comment: Unobtainable due to pts medical conditions Physical Exam - Physical Exam Physical Exam: GENERAL: The patient is well-developed well-nourished male grossly jaundice lying on stretcher not speaking. [] HEENT: Normocephalic. Atraumatic. Icteric sclera NECK: Supple. Trachea midline CHEST/LUNGS: Clear to auscultation. There is no respiratory distress noted. HEART/CARDIOVASCULAR: Regular. There is no tachycardia. There is no gallop rub or murmur. ABDOMEN: Abdomen is soft with midline davi in place. No active drainage. Colostomy in place.. Patient has normal bowel sounds. There is no abdominal distention. SKIN: Grossly jaundice. Large region of ecchymosis to the left shoulder NEURO: The patient opens his eyes to voice but does not make eye contact or respond verbally. MUSCULOSKELETAL: There is no evidence of acute injury. ED Medical Decision Making - Lab Data Result diagrams: 01/20/21 16:54 01/20/21 16:54 - Radiology Data Radiology results: report reviewed (CT head), image reviewed (CT head, left shoulder x-ray) [facility], [place] [address] [place] [address] Cat Scan Report Signed Patient: MARYCHUY DÍAZ MR#: [id number] : 1970 Acct:[id number] Age/Sex: 50 / M ADM Date: 01/20/21 Loc: ED Attending Dr: Ordering Physician: BETH PLUNKETT MD Date of Service: 01/20/21 Procedure(s): CT head/brain wo con Accession Number(s): [id number] cc: BETH PLUNKETT MD CT HEAD WITHOUT CONTRAST INDICATION / CLINICAL INFORMATION: Altered mental status. TECHNIQUE: All CT scans at this location are performed using CT dose r eduction for ALARA by means of automated exposure control. COMPARISON: Head CT 01/06/2021 FINDINGS: HEMORRHAGE: No evidence of intracranial hemorrhage or extra-axial fluid collection. EXTRA-AXIAL SPACES: Cortical sulci, sylvian fissures and basilar cisterns have an unremarkable appearance. VENTRICULAR SYSTEM: The third and lateral ventricles are of normal size and configuration. CEREBRAL PARENCHYMA: No areas of abnormal brain parenchymal attenuation are identified. There is no indication of recent infarction. MIDLINE SHIFT OR HERNIATION: There is no mass effect. CEREBELLUM / BRAINSTEM: Brainstem and cerebellum have an unremarkable appearance. MIDLINE STRUCTURES:No abnormalities of the pituitary gland or pineal region are identified. INTRACRANIAL VESSELS:No abnormalities are identified on this noncontrast head CT. ORBITS: visualized portions of the orbits have an unremarkable appearance. SOFT TISSUES of HEAD: No significant abnormality. CALVARIUM: Evaluation of bone windows reveals no a bnormalities. PARANASAL SINUSES / MASTOID AIR CELLS: Visualized portions of the paranasal sinuses are free from inflammatory mucosal disease. Mastoid air cells are normally pneumatized. IMPRESSION: 1. No significant abnormality identified on head CT without contrast. No interval change since recent previous study 01/06/2021. Signer Name: Osvaldo Paiz MD Signed: 01/20/2021 6:12 PM Workstation Name: [id number] Transcribed By: Dictated By: Osvaldo Paiz MD Electronically Authenticated By: Osvaldo Paiz MD Signed Date/Time: 01/20/211811 DD/ 03 TD/TT: Print Cancel - Differential Diagnosis Hepatic encephalopathy, ICH, AMS, dehydration Critical care attestation.: If time is entered above; I have spent that time in minutes in the direct care of this critically ill patient, excluding procedure time. ED Disposition Clinical Impression: Altered mental status, Metastases to the liver, Colorectal carcinoma, Jaundice Disposition: ADMITTED INPATIENT Is pt being admited?: Yes Does the pt Need Aspirin: No Condition: Serious Referrals: PRIMARY CARE, [Primary Care Provider] - 3-5 Days Time of Disposition: 21:39 (Hospitalist notified (Dr Howe))
[2021-01-20 17:03] LABS: Hematocrit 27.9 % (35.5-45.6); Hemoglobin 8.4 gm/dl (11.8-15.2); Mean Corpuscular HGB Conc 30 % (32-34); Mean Corpuscular Volume 87 fl (84-94); Platelet Count 104 K/mm3 (140-440); Red Blood Count 3.23 M/mm3 (3.65-5.03)
[2021-01-20 17:25] LABS: Red Cell Distribution Width 23.2 % (13.2-15.2)
[2021-01-20 17:29] LABS: Albumin 2.4 g/dL (3.9-5); Creatine Kinase MB 3.3 ng/mL (0.0-4.0)
[2021-01-20 17:33] LABS: INR 2.45 (0.87-1.13)
[2021-01-20 17:34] LABS: Partial Thromboplastin Time 38.1 Sec. (24.2-36.6)
[2021-01-20 17:39] LABS: Free T4 (Free Thyroxine) 0.34 ng/dL (0.76-1.46)
[2021-01-20 18:14] LABS: Chol/HDL Ratio 15.87 %
--- NOTE | 2021-01-20 18:16 | Cat Scan Report ---
CT HEAD WITHOUT CONTRAST INDICATION / CLINICAL INFORMATION: Altered mental status. TECHNIQUE: All CT scans at this location are performed using CT dose reduction for ALARA by means of automated e xposure control. COMPARISON: Head CT 01/06/2021 FINDINGS: HEMORRHAGE: No evidence of intracranial hemorrhage or extra-axial fluid collection. EXTRA-AXIAL SPACES: Cortical sulci, sylvian fissures and basilar cisterns have an unremarkable appear ance. VENTRICULAR SYSTEM: The third and lateral ventricles are of normal size and configuration. CEREBRAL PARENCHYMA: No areas of abnormal brain parenchymal attenuation are identified. There is no i ndication of recent infarction. MIDLINE SHIFT OR HERNIATION: There is no mass effect. CEREBELLUM / BRAINSTEM: Brainstem and cerebellum have an unremarkable appearance. MIDLINE STRUCTURES:No abnormalities of the pituitary gland or pineal region are identified. INTRACRANIAL VESSELS:No abnormalities are identified on this noncontrast head CT. ORBITS: visualized portions of the orbits have an unremarkable appearance. SOFT TISSUES of HEAD: No significant abnormality. CALVARIUM: Evaluation of bone windows reveals no abnormalities. PARANASAL SINUSES / MASTOID AIR CELLS: Visualized portions of the paranasal sinuses are free from inf lammatory mucosal disease. Mastoid air cells are normally pneumatized. IMPRESSION: 1. No significant abnormality identified on head CT without contrast. No interval change since recent previous study 01/06/2021. Signer Name: Osvaldo Paiz MD Signed: 01/20/2021 6:12 PM Workstation Name: [id number]
--- NOTE | 2021-01-20 18:26 | XRay Report ---
LEFT SHOULDER 1 VIEW(S) INDICATION / CLINICAL INFORMATION: Bruising to left shoulder, altered mental status COMPARISON: None available. FINDINGS: BONES / JOINT(S): No acute fracture or subluxation. No significant arthritis. SOFT TISSUES: No significant abnormality. ADDITIONAL FINDINGS: None. Signer Name: Austin James MD Signed: 01/20/2021 6:22 PM Workstation Name: [id number]
[2021-01-20] MEDS ORDERED: SODIUM CHLORIDE 0.9% 1000 ML 1,000 ML IV ONE (21:39)
[2021-01-20] MEDS ORDERED: MORPHINE 4 MG/1 ML INJ IV PRN (22:36)
[2021-01-20] MEDS ORDERED: MAGNESIUM HYDROXIDE (MOM) ORAL LIQD UDC PO PRN (22:36)
[2021-01-20] MEDS ORDERED: MORPHINE 2 MG/1 ML INJ IV PRN (22:36)
[2021-01-20] MEDS ORDERED: ONDANSETRON 4 MG/2 ML INJ IV PRN (22:36)
[2021-01-20] MEDS ORDERED: IBUPROFEN 600 MG TAB PO PRN (22:36)
--- NOTE | 2021-01-20 22:47 | History and Physical Report ---
History of Present Illness Date of examination: 01/20/21 Date of admission: 01/20/21 21:40 Chief complaint: Altered Mental Status History of present illness: 50-year-old male with known history of metastatic colon cancer presented to the emergency room today for altered mental status. Patient was recently discharged from this hospital secondary to sepsis from perforated sigmoid carcinoma. According to report from the ER staff, patient's family indicates they are unable to take a patient at home and patient had indicated that he wants to be full code. There were also concerns that patient may have dislocated his shoulder however there has been no information of any recent fall or trauma to the shoulder. Patient unable to answer any question as this time as he appears confused. Family not available at the bedside. Work-up in the emergency room today, significant findings were that of leukocytosis of 15.5, INR of 2.45, elevated liver enzymes, elevated troponin of 0.143, elevated BUN and creatinine. TSH was also elevated at 6.12. CT scan of the head and x-ray of the shoulders were unremarkable. Past History Past Medical History: liver disease Past Surgical History: Other ( Exploratory laparotomy, peritonitis secondary to sigmoid rupture, Vas-Cath placement) Social history: other (Unknown) Family history: no significant family history Medications and Allergies Allergies Allergy/AdvReac Type Severity Reaction Status Date / Time No Known Allergies Allergy Verified 12/29/20 13:17 Home Medications Medication Instructions Recorded Confirmed Last Taken Type Pantoprazole [Protonix TAB] 40 mg PO QDAC #30 tablet 01/18/21 Unknown Rx oxyCODONE /ACETAMINOPHEN [Percocet 2 tab PO Q6H PRN #14 tablet 01/18/21 Unknown Rx 5/325 mg] Active Meds: Active Medications Dextrose/Sodium Chloride (D5ns) 1,000 mls @ 75 mls/hr IV DIRECT JESSICA Ibuprofen (Ibuprofen 600 Mg Tab) 600 mg PO Q6H PRN PRN Reason: Pain, Mild (1-3) Magnesium Hydroxide (Magnesium Hydroxide (Mom) Oral Liqd Udc) 30 ml PO Q4H PRN PRN Reason: Constipation Morphine Sulfate (Morphine 2 Mg/1 Ml Inj) 2 mg IV Q4H PRN PRN Reason: Pain, Moderate (4-6) Morphine Sulfate (Morphine 4 Mg/1 Ml Inj) 4 mg IV Q4H PRN PRN Reason: Pain , Severe (7-10) Ondansetron HCl (Ondansetron 4 Mg/2 Ml Inj) 4 mg IV Q8H PRN PRN Reason: Nausea And Vomiting Sodium Chloride (Sodium Chloride 0.9% 10 Ml Flush Syringe) 10 ml IV BID JESSICA Sodium Chloride (Sodium Chloride 0.9% 10 Ml Flush Syringe) 10 ml IV PRN PRN PRN Reason: LINE FLUSH Review of Systems ROS unobtainable: due to mental status Exam - Constitutional Vitals: Temp Pulse Resp BP Pulse Ox 97 H 19 104/67 94 01/20/21 22:14 01/20/21 22:14 01/20/21 22:14 01/20/21 22:19 General appearance: Present: no acute distress, well-nourished, obese, other (Dry Oral Mucosa) - EENT Eyes: Present: PERRL, EOM intact, scleral icterus (Severely jaundiced) ENT: hearing intact, clear oral mucosa, dentition normal - Neck Neck: Present: supple, normal ROM - Respiratory Respiratory effort: normal Respiratory: bilateral: CTA - Cardiovascular Rhythm: regular Heart Sounds: Present: S1 & S2. Absent: gallop, systolic murmur, diastolic murmur, rub, click - Extremities Extremities: no ischemia, pulses intact, pulses symmetrical, normal temperature, normal color, Full ROM Extremity abnormal: edema (Trace bilateral lower extremity edema) - Abdominal General gastrointestinal: Present: soft, non-tender, distended, other ([place] in Midline, colostomy in place). Absent: mass - Integumentary Integumentary: Present: clear, warm, dry, jaundice, normal turgor. Absent: rash - Musculoskeletal Musculoskeletal: strength equal bilaterally - Psychiatric Psychiatric: cooperative - Neurologic Neurologic: CNII-XII intact, no focal deficits, moves all extremities, other (Confused.) - Additional findings Additional findings: Skin: Area of ecchymosis over the left shoulder HEART Score - HEART Score Troponin: Troponin T 0.143 ng/mL (0.00-0.029) H* 01/20/21 16:54 Results - Labs CBC & Chem 7: 01/20/21 16:54 01/20/21 16:54 Labs: Abnormal lab results 01/20/21 01/20/21 01/20/21 Range/Units 16:54 16:54 16:54 WBC 15.5 H (4.5-11.0) K/mm3 RBC 3.23 L (3.65-5.03) M/mm3 Hgb 8.4 L (11.8-15.2) gm/dl Hct 27.9 L (35.5-45.6) % MCH 26 L (28-32) pg MCHC 30 L (32-34) % RDW 23.2 H (13.2-15.2) % Plt Count 104 L (140-440) K/mm3 PT 28.6 H (12.2-14.9) Sec. INR 2.45 H (0.87-1.13) APTT 38.1 H (24.2-36.6) Sec. Sodium 135 L (137-145) mmol/L Potassium 5.1 H (3.6-5.0) mmol/L Chloride 93.5 L (98-107) mmol/L Carbon Dioxide 21 L (22-30) mmol/L BUN 52 H (9-20) mg/dL Creatinine 4.5 H (0.8-1.3) mg/dL Calcium 8.0 L (8.4-10.2) mg/dL Total Bilirubin 14.50 H (0.1-1.2) mg/dL AST 195 H (5-40) units/L ALT 92 H (7-56) units/L Alkaline Phosphatase 1562 H (35-129) units/L Total Creatine Kinase 195 H (55-170) units/L Troponin T 0.143 H* (0.00-0.029) ng/mL Albumin 2.4 L (3.9-5) g/dL Triglycerides 297 H (2-149) mg/dL LDL Cholesterol Direct 16 L (50-130) mg/dL HDL Cholesterol 8 L (40-59) mg/dL TSH (0.270-4.200) mlU/mL Free T4 (0.76-1.46) ng/dL 01/20/21 Range/Units 16:54 WBC (4.5-11.0) K/mm3 RBC (3.65-5.03) M/mm3 Hgb (11.8-15.2) gm/dl Hct (35.5-45.6) % MCH (28-32) pg MCHC (32-34) % RDW (13.2-15.2) % Plt Count (140-440) K/mm3 PT (12.2-14.9) Sec. INR (0.87-1.13) APTT (24.2-36.6) Sec. Sodium (137-145) mmol/L Potassium (3.6-5.0) mmol/L Chloride (98-107) mmol/L Carbon Dioxide (22-30) mmol/L BUN (9-20) mg/dL Creatinine (0.8-1.3) mg/dL Calcium (8.4-10.2) mg/dL Total Bilirubin (0.1-1.2) mg/dL AST (5-40) units/L ALT (7-56) units/L Alkaline Phosphatase (35-129) units/L Total Creatine Kinase (55-170) units/L Troponin T (0.00-0.029) ng/mL Albumin (3.9-5) g/dL Triglycerides (2-149) mg/dL LDL Cholesterol Direct (50-130) mg/dL HDL Cholesterol (40-59) mg/dL TSH 6.120 H (0.270-4.200) mlU/mL Free T4 0.34 L (0.76-1.46) ng/dL Assessment and Plan - Patient Problems (1) Altered mental status Current Visit: Yes Status: Acute Plan to address problem: Patient has multiple medical problems including renal failure, metastatic colorectal cancer with mets to the liver, hypothyroidism. Admitted as family is unable to care for patient at home. Will monitor mental status. (2) Colorectal carcinoma Current Visit: Yes Status: Acute Plan to address problem: Patient has colostomy bag in place. Surgical davi also in place. (3) Jaundice Current Visit: Yes Status: Acute Plan to address problem: Possibly secondary to metastasis to the liver. We will monitor liver enzymes. Await further recommendations from gastroenterology. (4) Anemia Current Visit: No Status: Chronic Qualifiers: Anemia type: unspecified type Qualified Code(s): D64.9 - Anemia, unspecifi ed Plan to address problem: Possibly chronic. We will monitor CBC. (5) SHARMIN (acute kidney injury) Current Visit: No Status: Acute Plan to address problem: Patient placed on IV fluid Await further recommendations from nephrology. (6) DVT prophylaxis Current Visit: No Status: Acute Plan to address problem: Patient placed on sequential compression device. (7) Full code status Current Visit: Yes Status: Acute Plan to address problem: Patient is full code. NB: Consult has been placed to case management as patient has terminal illness. Prognosis appears very poor Will benefit from hospice care.
[2021-01-20 23:17] LABS: Total Cells Counted 100
[2021-01-20 23:18] LABS: Anisocytosis 2+; Hypochromasia 1+
[2021-01-20 23:19] LABS: Platelet Estimate Consistent w Auto; Target Cells Few
[2021-01-21] MEDS ORDERED: CEFEPIME/NS 2 GM/100 ML 2 GM/100 ML BAG IV SCH (03:00)
[2021-01-21] MEDS ORDERED: DEXTROSE 50% IN WATER (25GM) 50 ML SYRINGE IV ONE ×2 (07:46→08:17)
[2021-01-21] MEDS: D5W/0.9% NACL 1,000 ML IV SCH ×2 (08:19→19:01)
[2021-01-21] MEDS ORDERED: SODIUM CHLORIDE 0.9% 100 ML IV PRN (09:14)
[2021-01-21] MEDS ORDERED: EPOETIN ALFA-EPBX 20,000 UNIT/1 ML VIAL IV PRN (09:14)
[2021-01-21] MEDS: CEFEPIME/NS 2 GM/100 ML 2 GM/100 ML BAG IV SCH (09:51)
--- NOTE | 2021-01-21 10:19 | Consultation ---
History of Present Illness - Reason for Consult Consult date: 01/21/21 end stage renal disease - History of Present Illness 50-year-old male with history of metastatic colon cancer, ESRD recently started on HD presented for altered mental status. Patient was recently discharged from this hospital secondary to sepsis from perforated sigmoid carcinoma. Was discharged home with plans for outpatient HD, but recommendations for hospice care were made although patient wanted to continue HD. He is confused this morning at time of consult. Reviewed recent hospitalization via chart review Past History Past Medical History: ESRD, liver disease Past Surgical History: Other ( Exploratory laparotomy, peritonitis secondary to sigmoid rupture, Vas-Cath placement) Social history: other (Unknown) Family history: no significant family history Medications and Allergies Allergies Allergy/AdvReac Type Severity Reaction Status Date / Time No Known Allergies Allergy Verified 12/29/20 13:17 Home Medications Medication Instructions Recorded Confirmed Last Taken Type Pantoprazole [Protonix TAB] 40 mg PO QDAC #30 tablet 01/18/21 01/21/21 Unknown Rx oxyCODONE /ACETAMINOPHEN [Percocet 2 tab PO Q6H PRN #14 tablet 01/18/21 01/21/21 Unknown Rx 5/325 mg] Active Meds: Active Medications Dextrose/Sodium Chloride (D5ns) 1,000 mls @ 75 mls/hr IV DIRECT JESSICA Last Admin: 01/21/21 08:19 Dose: 75 mls/hr Documented by: Cefepime HCl (Cefepime/Ns 2 Gm/100 Ml) 2 gm in 100 mls @ 200 mls/hr IV Q24HR JESSICA; Protocol Stop: 01/27/21 09:59 Last Admin: 01/21/21 09:51 Dose: 200 mls/hr Documented by: Sodium Chloride (Nacl 0.9%) 100 mls @ 999 mls/hr IV YURI PRN PRN Reason: Hypotension Ibuprofen (Ibuprofen 600 Mg Tab) 600 mg PO Q6H PRN PRN Reason: Pain, Mild (1-3) Magnesium Hydroxide (Magnesium Hydroxide (Mom) Oral Liqd Udc) 30 ml PO Q4H PRN PRN Reason: Constipation Morphine Sulfate (Morphine 2 Mg/1 Ml Inj) 2 mg IV Q4H PRN PRN Reason: Pain, Moderate (4-6) Morphine Sulfate (Morphine 4 Mg/1 Ml Inj) 4 mg IV Q4H PRN PRN Reason: Pain , Severe (7-10) Ondansetron HCl (Ondansetron 4 Mg/2 Ml Inj) 4 mg IV Q8H PRN PRN Reason: Nausea And Vomiting Sodium Chloride (Sodium Chloride 0.9% 10 Ml Flush Syringe) 10 ml IV BID JESSICA Last Admin: 01/21/21 09:51 Dose: 10 ml Documented by: Sodium Chloride (Sodium Chloride 0.9% 10 Ml Flush Syringe) 10 ml IV PRN PRN PRN Reason: LINE FLUSH Review of Systems ROS unobtainable: due to mental status Exam - Vital Signs Vital signs: Vital Signs BP 131/78 01/20/21 19:01 - Physical Exam Narrative exam: General appearance: well-developed, morbidly obese, drowsy and somnolent EENT: ATNC Respiratory: Present: Decreased Breath Sounds Cardiology: regular, S1S2 Gastrointestinal: other (ostomy) Integumentary: other (jaundiced) Neuro: somnelent Results - Lab Results 01/20/21 16:54 01/20/21 16:54 Most recent lab results Calcium 8.0 mg/dL (8.4-10.2) L 01/20/21 16:54 Assessment and Plan Impression * Acute kidney injury secondary to ATN - suspect severe tubular injury s/p extensive surgery + contrast use on 12/29. --s/p Vas-Cath placement on 01/03/2021 and initiation of dialysis; signed out AMA on 01/04/2021 (vas cath removed) --Readmission on 01/06/2021; vascath reinserted --Permcath insertion on * Perforated sigmoid mass --s/p exploratory laparotomy, sigmoidectomy, end colectomy, peritoneal lavage * Colorectal CA with mets to liver * Anemia * Metabolic acidosis * Hyperkalemia Plan * continue HD MWF for now; continue hemodialysis - no evidence of recovery. HD today * Oncology notes reviewed * Noted previous plans for palliative care, however patient has shown desire for ongoing active treatment. At this time there is no meaningful recovery and he will require HD should he want to pursue active treatment. Patient states that he intends to continue active treatment at this time. * Transfuse for hgb < 7 * Dose medications for renal function * Avoid potential nephrotoxins * CM to assist with HD placement, however per CM that may be challenging. In event of changes in goals of care, will stop HD if chooses hospice
[2021-01-21 10:37] LABS: Calcium 7.6 mg/dL (8.4-10.2)
--- NOTE | 2021-01-21 10:50 | Event Note ---
Date: 01/21/21 GI consulted for metastatic colon cancer, with jaundice due to multiple liver metastases. From GI perspective, no viable therapeutic options, and comfort measures/Hospice care most appropriate. If any therapeutic interventions, will defer to Oncology. Please call as needed.
--- NOTE | 2021-01-21 13:40 | Progress Note ---
Assessment and Plan -- Altered mental status/acute metabolic encephalopathy Patient has multiple medical problems including renal failure, metastatic colorectal cancer with mets to the liver, hypothyroidism. Admitted as family is unable to care for patient at home. Will monitor mental status. 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 Surgical davi also in place. Discussed with GI and recommended hospice care -- Jaundice/elevated LFT Possibly secondary to metastasis to the liver. We will monitor liver enzymes. Hospice recommended from gastroenterology. -- Anemia of chronic disease We will monitor CBC. -- SHARMIN (acute kidney injury) with ATN Nephrology consulted but patient is refusing hemodialysis -- DVT prophylaxis Patient placed on sequential compression device. --DNR CODE STATUS NB: Consult has been placed to case management as patient has terminal illness. Prognosis appears very poor Will benefit from hospice care. Family now agreeable to taking back with home hospice Reordered hospice service, change CODE STATUS to DNR Subjective Date of service: 01/21/21 Interval history: Patient seen and examined. Medical records and medication list reviewed. No acute event overnight noted by the RN. Patient appears to be confused and does not answer question Discussed plan of care at bedside with patient's RN and case management. Objective - Exam Narrative Exam: GENERAL: well-developed morbidly obese white male lying on bed appeared to be in no discomfort. HEENT: Normocephalic. Atraumatic. + Scleral icterus. Patient has moist mucous membranes. NECK: Supple. Trachea midline. CHEST/LUNGS: Clear to auscultated bilaterally, breathing nonlabored. No wheezes crackles or rhonchi. HEART/CARDIOVASCULAR: Regular in rate and rhythm. S1 and S2 positive. ABDOMEN: Abdomen is soft, nontender. Patient has normal bowel sounds. Colostomy bag in place SKIN: There is no rash. Warm and dry. Noted being bruise on the left upper shoulder NEURO: No focal motor deficit. Follows command. MUSCULOSKELETAL: No joint effusion or tenderness. EXTRIMITY: No edema, no cyanosis or clubbing. PSYCH: Patient does not answer any question, but otherwise cooperative. - Constitutional Vitals: Vital Signs - 12hr 01/21/21 01/21/21 01/21/21 01:50 02:00 02:10 Temperature Pulse Rate Respiratory 15 20 15 Rate Blood Pressure 113/64 113/64 105/70 O2 Sat by Pulse Oximetry 01/21/21 01/21/21 01/21/21 02:45 02:54 03:19 Temperature 97.7 F Pulse Rate 94 H 95 H Respiratory 16 Rate Blood Pressure 110/36 O2 Sat by Pulse 92 94 Oximetry 01/21/21 05:22 Temperature 98.2 F Pulse Rate 104 H Respiratory 20 Rate Blood Pressure 104/57 O2 Sat by Pulse 94 Oximetry - Labs CBC & Chem 7: 01/20/21 16:54 01/21/21 10:00 Labs: Abnormal lab results 01/20/21 01/20/21 01/20/21 Range/Units 16:54 16:54 16:54 WBC 15.5 H (4.5-11.0) K/mm3 RBC 3.23 L (3.65-5.03) M/mm3 Hgb 8.4 L (11.8-15.2) gm/dl Hct 27.9 L (35.5-45.6) % MCH 26 L (28-32) pg MCHC 30 L (32-34) % RDW 23.2 H (13.2-15.2) % Plt Count 104 L (140-440) K/mm3 Seg Neuts % (Manual) 84.0 H (40.0-70.0) % Lymphocytes % (Manual) 12.0 L (13.4-35.0) % Nucleated RBC % 1.0 H (0.0-0.9) % Seg Neutrophils # Man 13.0 H (1.8-7.7) K/mm3 PT 28.6 H (12.2-14.9) Sec. INR 2.45 H (0.87-1.13) APTT 38.1 H (24.2-36.6) Sec. Sodium 135 L (137-145) mmol/L Potassium 5.1 H (3.6-5.0) mmol/L Chloride 93.5 L (98-107) mmol/L Carbon Dioxide 21 L (22-30) mmol/L BUN 52 H (9-20) mg/dL Creatinine 4.5 H (0.8-1.3) mg/dL POC Glucose (70-105) mg/dL Calcium 8.0 L (8.4-10.2) mg/dL Total Bilirubin 14.50 H (0.1-1.2) mg/dL AST 195 H (5-40) units/L ALT 92 H (7-56) units/L Alkaline Phosphatase 1562 H (35-129) units/L Total Creatine Kinase 195 H (55-170) units/L Troponin T 0.143 H* (0.00-0.029) ng/mL Albumin 2.4 L (3.9-5) g/dL Triglycerides 297 H (2-149) mg/dL LDL Cholesterol Direct 16 L (50-130) mg/dL HDL Cholesterol 8 L (40-59) mg/dL TSH (0.270-4.200) mlU/mL Free T4 (0.76-1.46) ng/dL 01/20/21 01/21/21 01/21/21 Range/Units 16:54 07:42 10:00 WBC (4.5-11.0) K/mm3 RBC (3.65-5.03) M/mm3 Hgb (11.8-15.2) gm/dl Hct (35.5-45.6) % MCH (28-32) pg MCHC (32-34) % RDW (13.2-15.2) % Plt Count (140-440) K/mm3 Seg Neuts % (Manual) (40.0-70.0) % Lymphocytes % (Manual) (13.4-35.0) % Nucleated RBC % (0.0-0.9) % Seg Neutrophils # Man (1.8-7.7) K/mm3 PT (12.2-14.9) Sec. INR (0.87-1.13) APTT (24.2-36.6) Sec. Sodium (137-145) mmol/L Potassium 5.2 H (3.6-5.0) mmol/L Chloride 96.1 L (98-107) mmol/L Carbon Dioxide 18 L (22-30) mmol/L BUN 60 H (9-20) mg/dL Creatinine 5.0 H (0.8-1.3) mg/dL POC Glucose 65 L (70-105) mg/dL Calcium 7.6 L (8.4-10.2) mg/dL Total Bilirubin (0.1-1.2) mg/dL AST (5-40) units/L ALT (7-56) units/L Alkaline Phosphatase (35-129) units/L Total Creatine Kinase (55-170) units/L Troponin T (0.00-0.029) ng/mL Albumin (3.9-5) g/dL Triglycerides (2-149) mg/dL LDL Cholesterol Direct (50-130) mg/dL HDL Cholesterol (40-59) mg/dL TSH 6.120 H (0.270-4.200) mlU/mL Free T4 0.34 L (0.76-1.46) ng/dL HEART Score - HEART Score Troponin: Troponin T 0.143 ng/mL (0.00-0.029) H* 01/20/21 16:54
--- NOTE | 2021-01-21 14:14 | Electrocardiograph Report ---
[facility] Test Date: 2021-01-20 Test Time: 19:39:51 Pat Name: MARYCHUY DÍAZ Department: Room: 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
[2021-01-22] MEDS: D5W/0.9% NACL 1,000 ML IV SCH ×2 (08:41→10:03)
[2021-01-22] MEDS: CEFEPIME/NS 2 GM/100 ML 2 GM/100 ML BAG IV SCH (10:04)
--- NOTE | 2021-01-22 12:25 | Discharge Summary ---
Providers - Providers Date of Admission: 01/20/21 21:40 Date of discharge: 01/22/21 Attending physician: SUYAPA LEWIS 01/20/21 Consult to Case Management [CONS] Routine Services Needed at Discharge: Insurance Underwriting Assistant Notified:: ashley Comment:: EVALUATE FOR PLACEMENT 01/20/21 22:22 Speech Therapy Evaluation and Treat [CONS] Urgent Reason For Exam: AMS 01/20/21 22:40 Consult to Dietitian/Nutrition [CONS] Routine Physician Instructions: Reason For Exam: Reason for Consult: Diet education 01/21/21 02:24 Consult to Physician [CONS] Routine Comment: Consulting Provider: JENNYFER LYNN Physician Instructions: Reason For Exam: ELEVATED LIVER ENZYMES,JAUNDICE Consult to Physician [CONS] Routine Comment: Consulting Provider: STEPHANIE FLORES Physician Instructions: Reason For Exam: Renal insufficiency 01/21/21 06:53 Consult to Wound/ET Nurse [CONS] Routine Reason For Exam: wound eval Primary care physician: HEEL GUMMER Hospitalization Condition: Poor Hospital course: 50-year-old male with known history of metastatic colon cancer presented to the emergency room today for altered mental status. Patient was recently discharged from this hospital secondary to sepsis from perforated sigmoid carcinoma. According to report from the ER staff, patient's family indicates they are unable to take care patient at home and patient had indicated that he wants to be full code. There were also concerns that patient may have dislocated his shoulder however there has been no information of any recent fall or trauma to the shoulder. Work-up in the emergency room significant findings were that of leukocytosis of 15.5, INR of 2.45, elevated liver enzymes, elevated troponin of 0.143, elevated BUN and creatinine. TSH was also elevated at 6.12. CT scan of the head and x-ray of the shoulders were unremarkable. Nephrology was consulted, patient was initiated on hemodialysis but patient refused Discussed thoroughly with the patient family and they realize patient's poor prognosis Patient was changed to DNR according to family wish Patient was then discharged with home hospice service Disposition: 50 HOSPICE/HOME Final Discharge Diagnosis (Prints w/discharge instructions): -- Altered mental status/acute metabolic encephalopathy. --Colorectal carcinoma stage IV with hepatic metastasis. -- Jaundice/elevated LFT. -- Anemia of chronic disease. -- SHARMIN (acute kidney injury) with ATN. --Metabolic acidosis. --Hyperkalemia Time spent for discharge: 34 minutes Core Measure Documentation - Palliative Care Palliative Care/ Comfort Measures: Hospice Care - Core Measures Any of the following diagnoses?: history only Exam - Physical Exam Narrative exam: GENERAL: well-developed morbidly obese white male lying on bed appeared to be in no discomfort. HEENT: Normocephalic. Atraumatic. + Scleral icterus. Patient has moist mucous membranes. NECK: Supple. Trachea midline. CHEST/LUNGS: Clear to auscultated bilaterally, breathing nonlabored. No wheezes crackles or rhonchi. HEART/CARDIOVASCULAR: Regular in rate and rhythm. S1 and S2 positive. ABDOMEN: Abdomen is soft, nontender. Patient has normal bowel sounds. Colostomy bag in place SKIN: There is no rash. Warm and dry. Noted being bruise on the left upper shoulder NEURO: No focal motor deficit. Follows command. MUSCULOSKELETAL: No joint effusion or tenderness. EXTRIMITY: No edema, no cyanosis or clubbing. PSYCH: Patient does not answer any question, but otherwise cooperative. - Constitutional Vitals: Temp Pulse Resp BP Pulse Ox 98.5 F 111 H 20 111/64 94 01/21/21 21:27 01/21/21 21:27 01/21/21 21:27 01/21/21 21:27 01/21/21 22:00 Plan Activity: up only with assistance Weight Bearing Status: Non-Weight Bearing Diet: advance as tolerated Additional Instructions: Plan of care will be directed by hospice service following discharge Follow up with: PRIMARY MD SKIP [Primary Care Provider] - 3-5 Days
[2021-01-22 13:03] VITALS: BP 109/56
--- NOTE | 2021-01-22 13:36 | Progress Note ---
Assessment and Plan Impression * Acute kidney injury secondary to ATN - suspect severe tubular injury s/p extensive surgery + contrast use on 12/29. --s/p Vas-Cath placement on 01/03/2021 and initiation of dialysis; signed out AMA on 01/04/2021 (vas cath removed) --Readmission on 01/06/2021; vascath reinserted --Permcath insertion on * Perforated sigmoid mass --s/p exploratory laparotomy, sigmoidectomy, end colectomy, peritoneal lavage * Colorectal CA with mets to liver * Anemia * Metabolic acidosis * Hyperkalemia Plan * Discontinue HD at this time per patient wishes * Will follow peripherally if needed, agree hospice is best option for patient Subjective Date of service: 01/22/21 Interval history: Patient has decided to forgo further dialysis. Altered today. Objective - Exam Narrative Exam: General appearance: well-developed, morbidly obese, drowsy and somnolent EENT: ATNC Respiratory: Present: Decreased Breath Sounds Cardiology: regular, S1S2 Gastrointestinal: other (ostomy) Integumentary: other (jaundiced) Neuro: somnelent - Vital Signs Vital signs: Vital Signs - 12hr 01/22/21 01/22/21 01/22/21 05:10 10:00 11:36 Temperature 98.0 F 98.1 F Pulse Rate 105 H 89 Respiratory 16 18 Rate Blood Pressure 110/63 109/56 O2 Sat by Pulse 93 94 92 Oximetry - Lab 01/20/21 16:54 01/21/21 10:00 Most recent lab results Calcium 7.6 mg/dL (8.4-10.2) L 01/21/21 10:00 Medications & Allergies - Medications Allergies/Adverse Reactions: Allergies No Known Allergies Allergy (Verified 12/29/20 13:17) Home Medications: Home Medications Medication Instructions Recorded Confirmed Last Taken Type Pantoprazole [Protonix TAB] 40 mg PO QDAC #30 tablet 01/18/21 01/21/21 Unknown Rx oxyCODONE /ACETAMINOPHEN [Percocet 2 tab PO Q6H PRN #14 tablet 01/18/21 01/21/21 Unknown Rx 5/325 mg] Active Medications: Generic Name Dose Route Start Last Admin Trade Name Freq PRN Reason Stop Dose Admin Dextrose/Sodium Chloride 1,000 mls @ 75 mls/hr 01/20/21 23:00 01/22/21 10:03 D5ns IV 75 mls/hr DIRECT JESSICA Administration Cefepime HCl 2 gm in 100 mls @ 200 mls/hr 01/21/21 10:00 01/22/21 10:04 Cefepime/Ns 2 Gm/100 Ml IV 01/27/21 09:59 200 mls/hr Q24HR JESSICA Administration Protocol Sodium Chloride 100 mls @ 999 mls/hr 01/21/21 09:14 Nacl 0.9% IV YURI PRN Hypotension Ibuprofen 600 mg 01/20/21 22:36 Ibuprofen 600 Mg Tab PO Q6H PRN Pain, Mild (1-3) Magnesium Hydroxide 30 ml 01/20/21 22:36 Magnesium Hydroxide (Mom) Oral Liqd Udc PO Q4H PRN Constipation Morphine Sulfate 2 mg 01/20/21 22:36 Morphine 2 Mg/1 Ml Inj IV Q4H PRN Pain, Moderate (4-6) Morphine Sulfate 4 mg 01/20/21 22:36 Morphine 4 Mg/1 Ml Inj IV Q4H PRN Pain , Severe (7-10) Ondansetron HCl 4 mg 01/20/21 22:36 Ondansetron 4 Mg/2 Ml Inj IV Q8H PRN Nausea And Vomiting Sodium Chloride 10 ml 01/21/21 10:00 01/22/21 10:04 Sodium Chloride 0.9% 10 Ml Flush Syringe IV 10 ml BID JESSICA Administration Sodium Chloride 10 ml 01/20/21 22:36 Sodium Chloride 0.9% 10 Ml Flush Syringe IV PRN PRN LINE FLUSH
== END 2021-01-22 17:07 | disposition hospice, home (50) ==
LOC: ED 15:41 → 4A 21:40 → 3A 23:29
PROVIDERS: ADMIT Internal Medicine Geriatric Medicine; ATTEND Internal Medicine
DX: R41.82 Altered mental status, unspecified (principal); Z20.822 Contact with and (suspected) exposure to COVID-19; C19 Malignant neoplasm of rectosigmoid junction; G93.41 Metabolic encephalopathy; E87.2 Acidosis; K76.9 Liver disease, unspecified; D64.9 Anemia, unspecified; N17.0 Acute kidney failure with tubular necrosis; E87.5 Hyperkalemia; C78.7 Secondary malignant neoplasm of liver and intrahepatic bile duct; Z79.899 Other long term (current) drug therapy; Z98.890 Other specified postprocedural states
CPT/HCPCS: 36415; 70450; 73020; 80048; 80053; 80061; 82140; 82550; 82553; 82962; 84439; 84443; 84484; 85025; 85610; 85730; 93005; 96361; 96365; 96366; 99285; G0378; J0692; J7030; J7042; U0003; 80320; 85007; G0480